=== PATIENT | male | born 1965 | race Asian ===

== ENCOUNTER 2022-10-31 06:17 | Inpatient (IN) | payer MEDICARE, OTHER ==
[~2022-10-31] VITALS: Ht 157.5 cm; Wt 64.9 kg
[2022-10-31] MEDS ORDERED: SODIUM CHLORIDE 0.9% 1,000 ML IV ONE (06:45)
[2022-10-31] MEDS ORDERED: ONDANSETRON HCL 4 MG/2 ML VIAL IV ONE (06:45)
[2022-10-31] MEDS ORDERED: MAALOX PLUS or MAALOX 30 ML PO ONE (06:45)
[2022-10-31 06:51] LABS: Basophils # (auto) 0 10 ^3/uL (0-0.2); Basophils % (auto) 0.2 % (0.0-2.0); Eosinophils # (auto) 0 10 ^3/uL (0-0.8); Hematocrit 52.1 % (41.0-53.0); Hemoglobin 17.4 g/dL (13.5-17.5); Lymphocytes # (auto) 1.9 10 ^3/uL (0.4-5.4); Lymphocytes % (auto) 12.3 % (10.0-50.0); Mean Corpuscular Hemoglobin 29.7 pg (28.0-32.0); Mean Corpuscular Hgb Conc. 33.4 g/dL (32.0-36.0); Mean Corpuscular Volume 88.8 fL (80.0-100.0); Monocytes # (auto) 0.3 10 ^3/uL (0-1.3); Monocytes % (auto) 1.9 % (0.0-12.0); Neutrophils # (auto) 13.1 10 ^3/uL (1.6-8.6); Neutrophils % (auto) 85.6 % (37.0-80.0); Nucleated Red Blood Cells % 0.1 %; Red Blood Cells 5.87 10^6/uL (4.5-5.90); Red Cell Distribution Width 13.6 % (11.8-14.3); White Blood Cell 15.3 10^3/uL (4.4-10.8)
[2022-10-31] MEDS ORDERED: LIDOCAINE VISCOUS 2% 15ML UD PO ONE (07:00)
[2022-10-31] MEDS ORDERED: FAMOTIDINE (10MG/ML) 2ML VL IV ONE (07:00)
[2022-10-31 07:07] LABS: Albumin 4.2 g/dL (3.4-5.0); Calcium 9.3 mg/dL (8.5-10.1); Magnesium 2.1 mg/dL (1.6-2.6); Potassium 4.3 mmol/L (3.5-5.1)
[2022-10-31 07:10] LABS: BUN/Creatinine Ratio 12.8; Total Protein 7.9 g/dL (6.4-8.2)
[2022-10-31] MEDS ORDERED: diphenhdrAMINE HCL 50 MG/1 ML VL IV ONE (07:15)
[2022-10-31] MEDS ORDERED: SOD CHL 0.9%/ KCL 20MEQ 1,000 ML IV ONE (08:00)
[2022-10-31] MEDS ORDERED: LACTATED RINGER'S 2,000 ML IV ONE (08:00)
[2022-10-31 08:16] LABS: INR 1.03 (0.9-1.15); Partial Thromboplastin Time 25.6 sec (24.6-33.4)
[2022-10-31 08:28] LABS: Urine Bacteria NONE SEEN /hpf (None Seen); Urine Blood Negative /uL (Negative); Urine Specific Gravity 1.023 (1.001-1.035); Urine WBC <1 /hpf (0 - 3)
[2022-10-31] MEDS ORDERED: cefTRIAXone 1GM/50ML D5W 50 ML IV ONE (08:30)
[2022-10-31] MEDS ORDERED: AZITHROMYCIN 500MG/ 250ML 250 ML IV ONE (08:30)
[2022-10-31] MEDS: ACCU-CHEK COMFORT CURVE STRIP VI SCH ×9 (09:00→21:05)
[2022-10-31] MEDS: InsuLIN R (HUMAN) 100 UNITS in SODIUM CHL 0.9% 99 ML IV SCH ×4 (10:19→18:23)
[2022-10-31] MEDS ORDERED: DOCUSATE SOD 100 MG CAP PO PRN (11:30)
[2022-10-31] MEDS ORDERED: MORPHINE SULFATE INJ 2 MG/ml SYRG IV PRN (11:30)
[2022-10-31] MEDS ORDERED: LORazepam 2MG/ML-1ML VIAL IV PRN (11:30)
[2022-10-31] MEDS: SODIUM CHLORIDE 0.9% 1,000 ML IV SCH ×2 (13:03→20:13)
[2022-10-31] MEDS: ONDANSETRON HCL 4 MG/2 ML VIAL IV PRN (21:02)
[2022-10-31 21:51] LABS: Albumin 2.9 g/dL (3.4-5.0); BUN/Creatinine Ratio 17.7; Potassium 3.9 mmol/L (3.5-5.1)
[2022-10-31 21:54] LABS: Bilirubin, Total 0.6 mg/dL (0.2-1.0); Total Protein 6.2 g/dL (6.4-8.2)
[2022-10-31] MEDS ORDERED: DEXTROSE (50%) 50ML SYRG IV PRN (22:30)
[2022-11-01 06:14] LABS: Basophils # (auto) 0 10 ^3/uL (0-0.2); Basophils % (auto) 0.2 % (0.0-2.0); Eosinophils # (auto) 0 10 ^3/uL (0-0.8); Hematocrit 41.6 % (41.0-53.0); Hemoglobin 13.7 g/dL (13.5-17.5); Lymphocytes # (auto) 2.6 10 ^3/uL (0.4-5.4); Lymphocytes % (auto) 14.5 % (10.0-50.0); Mean Corpuscular Hemoglobin 28.8 pg (28.0-32.0); Mean Corpuscular Volume 87.3 fL (80.0-100.0); Monocytes # (auto) 0.8 10 ^3/uL (0-1.3); Monocytes % (auto) 4.6 % (0.0-12.0); Neutrophils # (auto) 14.4 10 ^3/uL (1.6-8.6); Neutrophils % (auto) 80.7 % (37.0-80.0); Nucleated Red Blood Cells % 0.1 %; Red Blood Cells 4.76 10^6/uL (4.5-5.90); Red Cell Distribution Width 13.4 % (11.8-14.3); White Blood Cell 17.9 10^3/uL (4.4-10.8)
[2022-11-01 06:44] LABS: Potassium 3.6 mmol/L (3.5-5.1)
[2022-11-01] MEDS: SODIUM CHLORIDE 0.9% 1,000 ML IV SCH (06:44)
[2022-11-01 07:00] LABS: Albumin 2.7 g/dL (3.4-5.0); BUN/Creatinine Ratio 21.2; Bilirubin, Total 0.6 mg/dL (0.2-1.0); Calcium 7.7 mg/dL (8.5-10.1); Total Protein 5.7 g/dL (6.4-8.2)
[2022-11-01] MEDS ORDERED: InsuLIN REG 1unit/0.01ml Soln (100units/ml) SC SCH (07:00)
[2022-11-01] MEDS ORDERED: ACCU-CHEK COMFORT CURVE STRIP VI SCH (07:00)
[2022-11-01] MEDS: PANTOPRAZOLE 40 MG/10 ML VIAL INJ IV SCH (09:15)
[2022-11-01] MEDS: cefTRIAXone 1GM/50ML D5W 50 ML IV SCH (09:15)
[2022-11-01] MEDS: ONDANSETRON HCL 4 MG/2 ML VIAL IV PRN (09:15)
[2022-11-01 09:29] VITALS: BP 123/82
[2022-11-01] MEDS ORDERED: AZITHROMYCIN 500MG/ 250ML 250 ML IV SCH (10:00)
[2022-11-01] MEDS ORDERED: ENOXAPARIN SOD 40 MG/0.4 ML SYRINGE SC SCH (10:00)
[2022-11-01] MEDS ORDERED: traMADol HCL 50 MG TAB PO PRN (10:45)
[2022-11-01] MEDS ORDERED: SODIUM CHLORIDE 0.9% 1,000 ML IV SCH (10:45)
[2022-11-01] MEDS ORDERED: DEXTROSE (50%) 50ML SYRG IV PRN (10:45)
[2022-11-01] MEDS ORDERED: INSULIN LANTUS (GLARGINE) 1 /0.01ml (100units/ml) SC ONE (10:45)
[2022-11-01] MEDS: InsuLIN REG 1unit/0.01ml Soln (100units/ml) SC SCH ×2 (11:53→17:30)
[2022-11-01] MEDS: ACCU-CHEK COMFORT CURVE STRIP VI SCH ×2 (11:57→17:31)
[2022-11-01 13:00] VITALS: BP 114/70
[2022-11-01] MEDS: metroNIDAZOLE 500MG/100ML 100 ML IV SCH ×2 (13:32→22:41)
[2022-11-01 17:00] VITALS: BP 132/78
[2022-11-01] MEDS: SOD CHL 0.45% 1,000 ML IV SCH (21:15)
[2022-11-01 22:00] VITALS: BP 126/70
[2022-11-01] MEDS: APIXABAN 5 MG TAB PO SCH (22:45)
[2022-11-01] MEDS: INSULIN LANTUS (GLARGINE) 1 /0.01ml (100units/ml) SC SCH (22:45)
[2022-11-02] MEDS ORDERED: ENOXAPARIN SOD 40 MG/0.4 ML SYRINGE SC ONE
[2022-11-02] MEDS: ACCU-CHEK COMFORT CURVE STRIP VI SCH ×4 (00:19→17:32)
[2022-11-02 05:00] VITALS: BP 135/67
[2022-11-02] MEDS: InsuLIN REG 1unit/0.01ml Soln (100units/ml) SC SCH ×4 (06:00→17:37)
[2022-11-02 06:11] LABS: Basophils # (auto) 0 10 ^3/uL (0-0.2); Basophils % (auto) 0.3 % (0.0-2.0); Eosinophils # (auto) 0 10 ^3/uL (0-0.8); Eosinophils % (auto) 0.3 % (0.0-7.0); Hematocrit 43.9 % (41.0-53.0); Hemoglobin 14.5 g/dL (13.5-17.5); Lymphocytes # (auto) 3.1 10 ^3/uL (0.4-5.4); Lymphocytes % (auto) 21.8 % (10.0-50.0); Mean Corpuscular Hemoglobin 28.9 pg (28.0-32.0); Mean Corpuscular Volume 87.5 fL (80.0-100.0); Monocytes # (auto) 0.8 10 ^3/uL (0-1.3); Monocytes % (auto) 5.5 % (0.0-12.0); Neutrophils # (auto) 10.1 10 ^3/uL (1.6-8.6); Neutrophils % (auto) 72.1 % (37.0-80.0); Nucleated Red Blood Cells % 0.1 %; Red Blood Cells 5.01 10^6/uL (4.5-5.90); Red Cell Distribution Width 13.7 % (11.8-14.3); White Blood Cell 14.1 10^3/uL (4.4-10.8)
[2022-11-02] MEDS: metroNIDAZOLE 500MG/100ML 100 ML IV SCH ×3 (06:14→21:38)
[2022-11-02 06:34] LABS: Potassium 3.1 mmol/L (3.5-5.1)
[2022-11-02 06:40] LABS: BUN/Creatinine Ratio 15.7; Calcium 7.6 mg/dL (8.5-10.1)
[2022-11-02 08:30] VITALS: BP 128/91
[2022-11-02] MEDS: cefTRIAXone 1GM/50ML D5W 50 ML IV SCH (08:49)
[2022-11-02] MEDS: PANTOPRAZOLE 40 MG/10 ML VIAL INJ IV SCH (08:50)
[2022-11-02] MEDS ORDERED: METF-370 PO (08:59)
[2022-11-02] MEDS ORDERED: ATOR40TA52 PO (09:00)
[2022-11-02] MEDS ORDERED: AMLO-489 PO (09:00)
[2022-11-02] MEDS ORDERED: EMPA1TAB PO (09:02)
[2022-11-02] MEDS: APIXABAN 5 MG TAB PO SCH ×2 (10:12→21:39)
[2022-11-02] MEDS: amLODIPine BESYLATE 5 MG TAB PO SCH (10:12)
[2022-11-02 12:47] VITALS: BP 151/94
[2022-11-02] MEDS: SOD CHL 0.45% 1,000 ML IV SCH ×2 (13:40→18:26)
[2022-11-02 17:00] VITALS: BP 138/84
[2022-11-02] MEDS ORDERED: LORazepam 2MG/ML-1ML VIAL IV PRN (20:00)
[2022-11-02] MEDS ORDERED: ENOXAPARIN SOD 40 MG/0.4 ML SYRINGE SC SCH (21:00)
[2022-11-02 21:01] LABS: Cholesterol 206 mg/dL (< 200); HDL Cholesterol 48 mg/dL (40-59); LDL Cholesterol 140 mg/dL (< 100); Triglycerides 87 mg/dL (< 150)
[2022-11-02] MEDS: ATORVASTATIN 20 MG TAB PO SCH (21:38)
[2022-11-02] MEDS: INSULIN LANTUS (GLARGINE) 1 /0.01ml (100units/ml) SC SCH (21:52)
[2022-11-02 22:00] VITALS: BP 136/86
[2022-11-03] VITALS (7 sets, daily range): BP systolic 127–143; BP diastolic 81–95
[2022-11-03] MEDS: ACCU-CHEK COMFORT CURVE STRIP VI SCH ×5 (00:11→23:58)
[2022-11-03] MEDS: metroNIDAZOLE 500MG/100ML 100 ML IV SCH ×3 (06:08→21:31)
[2022-11-03] MEDS: InsuLIN REG 1unit/0.01ml Soln (100units/ml) SC SCH ×4 (06:15→17:42)
[2022-11-03 07:08] LABS: Basophils # (auto) 0 10 ^3/uL (0-0.2); Basophils % (auto) 0.4 % (0.0-2.0); Eosinophils # (auto) 0.1 10 ^3/uL (0-0.8); Eosinophils % (auto) 1.1 % (0.0-7.0); Hematocrit 45.1 % (41.0-53.0); Hemoglobin 15.3 g/dL (13.5-17.5); Lymphocytes # (auto) 2.5 10 ^3/uL (0.4-5.4); Lymphocytes % (auto) 23.9 % (10.0-50.0); Mean Corpuscular Hemoglobin 29.5 pg (28.0-32.0); Mean Corpuscular Volume 86.9 fL (80.0-100.0); Monocytes # (auto) 0.6 10 ^3/uL (0-1.3); Monocytes % (auto) 6.1 % (0.0-12.0); Neutrophils % (auto) 68.5 % (37.0-80.0); Nucleated Red Blood Cells % 0.1 %; Red Blood Cells 5.18 10^6/uL (4.5-5.90); Red Cell Distribution Width 13.6 % (11.8-14.3); White Blood Cell 10.3 10^3/uL (4.4-10.8)
[2022-11-03 07:19] LABS: Calcium 7.9 mg/dL (8.5-10.1); Potassium 3.1 mmol/L (3.5-5.1)
[2022-11-03 07:21] LABS: BUN/Creatinine Ratio 15.9
[2022-11-03] MEDS: cefTRIAXone 1GM/50ML D5W 50 ML IV SCH (09:24)
[2022-11-03] MEDS: PANTOPRAZOLE 40 MG/10 ML VIAL INJ IV SCH (09:30)
[2022-11-03] MEDS: APIXABAN 5 MG TAB PO SCH ×2 (09:31→21:30)
[2022-11-03] MEDS: amLODIPine BESYLATE 5 MG TAB PO SCH (09:34)
[2022-11-03] MEDS ORDERED: POTASSIUM EFFERVESENT TAB 25 MEQ GT ONE (10:00)
[2022-11-03] MEDS: ATORVASTATIN 20 MG TAB PO SCH (21:30)
[2022-11-03] MEDS: INSULIN LANTUS (GLARGINE) 1 /0.01ml (100units/ml) SC SCH (21:47)
[2022-11-03] MEDS: SOD CHL 0.45% 1,000 ML IV SCH (23:00)
[2022-11-04] MEDS: InsuLIN REG 1unit/0.01ml Soln (100units/ml) SC SCH ×3 (00:10→11:55)
[2022-11-04 05:00] VITALS: BP 141/84
[2022-11-04] MEDS: metroNIDAZOLE 500MG/100ML 100 ML IV SCH ×2 (05:42→14:35)
[2022-11-04] MEDS: ACCU-CHEK COMFORT CURVE STRIP VI SCH ×2 (05:45→11:54)
[2022-11-04 06:27] LABS: Basophils # (auto) 0 10 ^3/uL (0-0.2); Basophils % (auto) 0.5 % (0.0-2.0); Eosinophils # (auto) 0.2 10 ^3/uL (0-0.8); Eosinophils % (auto) 2.6 % (0.0-7.0); Hematocrit 42.9 % (41.0-53.0); Hemoglobin 14.4 g/dL (13.5-17.5); Lymphocytes # (auto) 2.3 10 ^3/uL (0.4-5.4); Lymphocytes % (auto) 29.4 % (10.0-50.0); Mean Corpuscular Hemoglobin 29.5 pg (28.0-32.0); Mean Corpuscular Hgb Conc. 33.5 g/dL (32.0-36.0); Monocytes # (auto) 0.6 10 ^3/uL (0-1.3); Monocytes % (auto) 7.3 % (0.0-12.0); Neutrophils # (auto) 4.7 10 ^3/uL (1.6-8.6); Neutrophils % (auto) 60.2 % (37.0-80.0); Nucleated Red Blood Cells % 0.1 %; Red Blood Cells 4.88 10^6/uL (4.5-5.90); Red Cell Distribution Width 13.4 % (11.8-14.3); White Blood Cell 7.8 10^3/uL (4.4-10.8)
[2022-11-04 06:40] LABS: Calcium 8.1 mg/dL (8.5-10.1); Potassium 3.3 mmol/L (3.5-5.1)
[2022-11-04 06:42] LABS: BUN/Creatinine Ratio 17.9
[2022-11-04 08:00] VITALS: BP 132/74
[2022-11-04 08:10] VITALS: BP 132/78
[2022-11-04] MEDS ORDERED: PANT40TA2 PO (09:11)
[2022-11-04] MEDS ORDERED: APIX5TAB PO (09:11)
[2022-11-04] MEDS: cefTRIAXone 1GM/50ML D5W 50 ML IV SCH (09:13)
[2022-11-04] MEDS ORDERED: POTASSIUM CHL 20 Meq TABLET PO ONE (09:15)
[2022-11-04] MEDS: amLODIPine BESYLATE 5 MG TAB PO SCH (10:02)
[2022-11-04] MEDS: APIXABAN 5 MG TAB PO SCH (10:02)
[2022-11-04] MEDS: PANTOPRAZOLE 40 MG/10 ML VIAL INJ IV SCH (10:02)
[2022-11-04 12:00] VITALS: BP 135/85
[2022-11-04 12:32] VITALS: BP 135/85
== END 2022-11-04 15:40 | disposition home or self-care (01) | DRG 391 ==
LOC: EDBD 06:17 → ER 06:17 → TELE 11:49 → TELE-CENTR 11-01 08:44
PROVIDERS: ADMIT Nurse Practitioner Family; ATTEND Internal Medicine
PROC: 5A09357 Assistance with Respiratory Ventilation, Less than 24 Consecutive Hours, Continuous Positive Airway Pressure (ICD-10-PCS; principal; 2022-11-02)
DX: A05.9 Bacterial foodborne intoxication, unspecified (principal); E11.10 Type 2 diabetes mellitus with ketoacidosis without coma; J15.9 Unspecified bacterial pneumonia; N17.0 Acute kidney failure with tubular necrosis; I63.9 Cerebral infarction, unspecified; D68.69 Other thrombophilia; R65.10 Systemic inflammatory response syndrome (SIRS) of non-infectious origin without acute organ dysfunction; E86.0 Dehydration; I10 Essential (primary) hypertension; G47.10 Hypersomnia, unspecified; I48.91 Unspecified atrial fibrillation; Z20.822 Contact with and (suspected) exposure to COVID-19; E78.5 Hyperlipidemia, unspecified; G47.00 Insomnia, unspecified; K80.20 Calculus of gallbladder without cholecystitis without obstruction; Z79.01 Long term (current) use of anticoagulants; Z79.899 Other long term (current) drug therapy; Z86.73 Personal history of transient ischemic attack (TIA), and cerebral infarction without residual deficits; Z82.49 Family history of ischemic heart disease and other diseases of the circulatory system; Z83.3 Family history of diabetes mellitus
CPT/HCPCS: 36415; 36600; 70450; 70551; 71045; 74176; 80048; 80053; 80061; 81001; 82010; 82805; 82962; 83036; 83690; 83735; 83880; 83930; 84443; 84484; 85025; 85379; 85610; 85730; 87426; 92610; 93005; 93306; 93886; 94660; 96361; 96365; 96375; 99291; C9113; G0378; J0696; J1815; J2405; J3490

== ENCOUNTER 2025-08-10 15:59 | Inpatient (IN) | payer MEDICARE, MEDICAID ==
[~2025-08-10] VITALS: Ht 157.5 cm; Wt 61.1 kg
[~2025-08-10 15:59] MED LIST: AMLO1TAB22 PO; APIX5TAB PO; ATOR40TA52 PO; EMPA1TAB PO; METF-370 PO; PANT40TA2 PO
--- NOTE | 2025-08-10 16:36 | ED.PDOC ---
History of Present Illness HPI Comments 59-year-old male presents to the ER in a wheelchair being pushed by family member and with prior medical history of CVA in the chief complaint of left sided weakness. Family member reports that the patient fell on his left shoulder four days ago home, and started having other symptoms such as slurred speech, left-sided weakness and a facial droop amongst those four days. Patient does have an unequal boarder hand to the left side of his hands. Denies any other symptoms at this time. Denies chills, fever, N/V/D, SOB, CP. No other associated symptoms, modifiers, recent injuries or sick contacts present at this time. Chief Complaint: Left Sided Weakness Time Seen by MD: 16:35 Reviewed Notes: Nurses Notes, Medications, Allergies Allergies: Coded Allergies: NO KNOWN ALLERGIES (Unverified , 10/31/22) Home Meds Active Scripts Pantoprazole Sodium Sesquihydr (Protonix) 40 Mg Tab, 40 MG PO DAILY for 30 Days, #30 TAB Prov:NANCY GIRON MD 11/04/22 Apixaban Base (ELIQUIS) 5 Mg Tab, 5 MG PO BID for 30 Days, #60 TAB 2 Refills Prov:NANCY GIRON MD 11/04/22 Reported Medications Empagliflozin (Jardiance) 10 Mg Tab, PO, TAB 11/02/22 Amlodipine Besylate (Amlodipine Besylate) 5 Mg Tab, 5 MG PO DAILY for 30 Days, MG 11/02/22 Atorvastatin Calcium (ATORVASTATIN CALCIUM) 40 Mg Tab, 1 TAB PO DAILY, #30 TAB 5 Refills 11/02/22 Metformin Hydrochloride (Metformin Hcl) 500 Mg Tab, 500 MG PO DAILY for 30 Days, #2 MG 11/02/22 Information Source: Patient Mode of Arrival: Ambulatory Severity: Moderate Timing: Days Duration: Since onset, Days Prehospital treatment: None Past Medical History PAST MEDICAL HISTORY: CVA Surgical History: Denies all surgeries Family History Family History: Reviewed,noncontributory to illness, Unknown Social History Smoker: Non-Smoker Alcohol: Denies ETOH Use Drugs: Denies Drug Use Lives In: Home Constitutional: denies: chills, diaphoresis, fatigue, fever, malaise, sweats, weakness, others EENTM: denies: blurred vision, double vision, ear bleeding, ear discharge, ear drainage, ear pain, ear ringing, eye pain, eye redness, hearing loss, mouth pain, mouth swelling, nasal discharge, nose bleeding, nose congestion, nose p ain, photophobia, tearing, throat pain, throat swelling, voice changes, others Respiratory: denies: cough, hemoptysis, orthopnea, SOB at rest, shortness of breath, SOB with excertion, stridor, wheezing, others Cardiovascular: denies: chest pain, dizzy spells, diaphoresis, Dyspnea on exertion, edema, irregular heart beat, left arm pain, lightheadedness, palpitations, PND, syncope, others Gastrointestinal: denies: abdomen distended, abdominal pain, blood streaked bowels, constipated, diarrhea, dysphagia, difficulty swallowing, hematemesis, melena, nausea, poor appetite, poor fluid intake, rectal bleeding, rectal pain, vomiting, others Genitourinary: denies: burning, dysuria, flank pain, frequency, hematuria, incontinence, penile discharge, penile sore, pain, testicle pain, testicle swelling, urgency, others Neurological: reports: left sided weakness, speech problems (Left sided facial droopiness); denies: dizziness, fainting, headache, left sided numbness, numbness, paresthesia, pre-existing deficit, right sided numbness, right sided weakness, seizure, tingling, tremors, weakness, others Musculoskeletal: denies: back pain, gout, joint pain, joint swelling, muscle pain, muscle stiffness, neck pain, others Integumetry: denies: bruises, change in color, change in hair/nails, dryness, laceration, lesions, lumps, rash, wounds, others Allergic/Immunocompromised: denies: Difficulty Healing, Frequent Infections, Hives, Itching, others Hematologic/Lymphatic: denies: anemia, blood clots, easy bleeding, easy bruising, swollen glands, others Endocrine: denies: excessive hunger, excessive sweating, excessive thirst, excessive urination, flushing, intolerance to cold, intolerance to heat, unexplained weight gain, unexplained weight loss, others Psychiatric: denies: anxiety, bipolar disorder, depression, hopeless, panic disorder, schizophrenia, sleepless, suicidal, others All Other Systems: Reviewed and Negative Physical Exam Exam Comments Equal boarder hand to the left side, left sided facial droopiness General Appearance: No Apparent Distress, Normal HEENT: Normal ENT Inspection, Pharynx Normal, TMs Normal Neck: Full Range of Motion, Non-Tender, Normal, Normal Inspection Respiratory: Chest Non-Tender, Lungs Clear, No Accessory Muscle Use, No Respiratory Distress, Normal Breath Sounds Cardiovascular: No Edema, No JVD, No Murmur, No Gallop, Normal Peripheral Pulses, Regular Rate/Rhythm Breast Exam: Deferred Gastrointestinal: No Organomegaly, Non Tender, No Pulsatile Mass, Normal Bowel Sounds, Soft Genitalia: Deferred Pelvic: Deferred Rectal: Deferred Extremities: No calf tenderness, Normal capillary refill, Normal inspection, Normal range of motion, Non-tender, No pedal edema Musculoskeletal : Apperance: Normal Neurologic: Alert, adult care manager II-XII nml as Tested, No Motor Deficits, Normal Affect, Normal Mood, No Sensory Deficits Cerebellar Function: Normal Reflexes: Normal Skin: Dry, Normal Color, Warm Lymphatic: No Adenopathy Was a procedure done? Was a procedure done?: No EKG EKG : Pulse Rate (adult): 88 [place]: Normal Cardiac Rhythm: NSR Block: None Hypertrophy: None ST: Normal Differential Dx Considerations may include: CVA, TIA, closed head injury, postconcussion syndrome, shoulder fracture, X-Ray, Labs, Meds, VS Vital Signs Date Time Temp Pulse Resp B/P (MAP) Pulse Ox O2 Delivery O2 Flow Rate FiO2 08/10/25 16:36 88 08/10/25 16:02 97.9 85 18 176/84 95 97.9 X-Ray, Labs, Meds, VS Comment CT of the head was negative for any acute intracranial changes Patient may benefit from MRI to rule out TIA Patient will be admitted for further evaluation by neurologist due to left-sided deficits and slurred speech Patient hemodynamically stable Time of 1ST Reevaluation: 17:05 Reevaluation 1ST: Unchanged Patient Education/Counseling: Diagnosis, Treatment, Prognosis Family Education/Counseling: Diagnosis, Treatment, Prognosis SEPSIS Sepsis Screen Date sepsis recognized/suspect: Aug 10, 2025 Time Sepsis recognized/suspect: 1604 Recent Procedure: No On Antibiotic Therapy: No Respiratory Rate >20: No Heart Rate >90: No Temp<36 C (96.8 F) or >38.3 C: No SBP <90 or MAP <65 mmHG: No New Acute Mental Status Change: No Is the patient on CPAP, BIPAP,: No Physician Orders Ct Head Cva (08/10/25 16:07) L Shoulder 2+ View Xray (08/10/25 17:57) Vital Signs Date Time Temp Pulse Resp B/P (MAP) Pulse Ox O2 Delivery O2 Flow Rate FiO2 08/10/25 16:36 88 08/10/25 16:02 97.9 85 18 176/84 95 97.9 Departure 1 Departure Time of Disposition: 17:58 Impression: Primary Impression: Head injury Qualified Codes: S09.90XA - Unspecified injury of head, initial encounter Additional Impressions: History of CVA (cerebrovascular accident) Left-sided weakness Disposition: ADMITTED INPATIENT Condition: Stable Discharged With: Self Critical Care Note Critical Care Time?: No Stability Stability form required: No I personally scribed for MICHELLE BARRIGA ([email or web address]) on 08/10/25 at 16:36. Electronically submitted by Darrian Riddle ([email or web address]). MICHELLE BARRIGA Aug 10, 2025 16:36
--- NOTE | 2025-08-10 16:51 | DVH ---
CT STROKE CTH Indication: R/O CVA EXAM DATE: 08/10/2025 04:17 PM COMPARISON: HEAD WITHOUT CONTRAST on DOS: 11/01/22 TECHNIQUE: CT of the head without intravenous contrast. RADIATION DOSE: CTDIvol: 50 mGy, DLP: 800 mGy*cm FINDINGS: There is no intracranial hemorrhage. There is no extra-axial fluid, mass, mass effect or midline shift. The ventricles are midline and normal in size. Basilar cisterns are patent. Old right basal ganglia / grey radiata infarct, similar to prior. Old left thalamic The paranasal sinuses and mastoids are well-pneumatized. Imaged portion of the orbits are unremarkable. IMPRESSION: No intracranial hemorrhage or mass effect. Old bilateral infarcts as described. MRI brain can be obtained to evaluate for superimposed acute infarction. Critical Result: Stroke Alert Findings discussed with Faraz Herrera , at 08/10/2025 04:52 PM, and acknowledged receipt and understanding of the findings. ..
--- NOTE | 2025-08-10 18:55 | DVH ---
CLINICAL INDICATION: pain TECHNIQUE: 3 radiographic views of the left shoulder were obtained. Comparison: None FINDINGS/IMPRESSION: There is no evidence of acute fracture or dislocation of the left glenohumeral joint. There is grade 3 AC joint dislocation by Zackary classification of unknown chronicity. There are bony spurs from the inferior distal clavicle , over the acromion and coracoid process. The visualized lungs are clear.
[2025-08-10] MEDS: CLOPIDOGREL BISULFATE 75 MG TAB PO ONE (20:45)
[2025-08-10] MEDS ORDERED: IPRATROPIUM BROM 0.5 MG/2.5ML INH SOL NEB PRN (20:45)
--- NOTE | 2025-08-10 21:06 | DVHHPRES ---
History of Present Illness Resident Creating Document: ALBERT BASHIR History of Present Illness Patient is a 59-year-old male with past medical history of CVA on Eliquis, GERD, kidney stones, diabetes mellitus, hypertension and hyperlipidemia, presented to [facility] ED with complaint of left-sided weakness. According to the patient and his daughter, he fell from a ladder at home from standing height four days ago, striking his left shoulder during the fall. There was no head trauma reported. Following the incident, he developed progressive symptoms, including left-sided weakness, facial droop, slurred speech, and loss of taste on the left side of the tongue. On evaluation in the ED, patient is afebrile, blood pressure is 169/[address] shows no intracranial hemorrhage or mass effect and old bilateral infarcts as described. The patient was started on dual antiplatelet therapy and IV fluids. Patient is admitted for further evaluation and management. Past Medical History CVA, GERD, kidney stones, diabetes mellitus, hypertension, hyperlipidemia Past Surgical History: None Family History: None Smoke: No ALCOHOL: none Drugs: None Review of Systems Review of Systems Constitutional: Dizziness Eyes: No Pain, No Vision change, No Conjunctivae inflammation, No Eyelid inflammation, No Other, No Redness ENT: No Ear pain, No Ear discharge, No Nose pain, No Nose discharge, No Nose congestion, No Mouth pain, No Mouth swelling, No Throat pain, No Throat swelling, No Other Cardiovascular: No Chest Pain, No Palpitations, No Orthopnea, No Paroxysmal No Dyspnea, No Edema, No Lt Headedness, No Other Respiratory: Cough, No Dry, No Shortness of breath, No SOB with exertion, No Wheezing, No Hemoptysis, No Pleuritic Pain, No Sputum, No Other Gastrointestinal: No Nausea, No Vomiting, No Abdominal Pain, No Diarrhea, No Constipation, No Melena, No Hematochezia, No Other Genitourinary: No Dysuria, No Frequency, No Incontinence, No Hematuria, No Retention, No Other Musculoskeletal: No other, No neck pain, shoulder pain, No arm pain, No back pain, No hand pain, No leg pain, No foot pain Skin: No Rash, No Lesions, No Jaundice, No Bruising, No Other Allergies: Coded Allergies: NO KNOWN ALLERGIES (Unverified , 10/31/22) Exam Vital Signs Vital Signs Date Time Temp Pulse Resp B/P (MAP) Pulse Ox O2 Delivery O2 Flow Rate FiO2 08/10/25 19:44 98.2 80 20 169/97 (121) 97 98.2 Exam General Appearance: Cooperative. Well developed. Well nourished. NAD Head Exam: Normal inspection Neck Exam: Normal inspection. Non-tender. Normal alignment Pulmonary/Respiratory: Chest non-tender. Clear bilateral breath sounds, no crackles, no wheezing. Cardiovascular/Chest: Regular rate and rhythm. No murmurs. No JVD. Peripheral Pulses: 2+ Radial (R). 2+ Radial (L). 2+ Pedal (R). 2+ Pedal (L) Abdominal Exam: Normal bowel sounds. Soft. normal abdomen, no visible veins, Nontender. No hepatospenomegaly. No masses Ankle Exam: Negative ankle edema Upper extremities: No edema or deformity, Left shoulder tenderness. Left arm motor strength 3/5, Left leg motor strength 1/5, sensory intact. Lower extremities: Negative lower extremity edema Neuro/Mental Status: Facial droop present. Slurred speech. A&O x4. Coherent. Thoughts/Psych: Normal thought pattern. Appropriate mood and affect. Good judgement and insight Skin Exam: Normal inspection. Normal color. Warm. Dry Hand Findings: Left thumb and index finger contracted, consistent with spasticity or prior stroke sequelae. SEPSIS Sepsis Screen Date sepsis recognized/suspect: Aug 10, 2025 Time Sepsis recognized/suspect: 1604 Recent Procedure: No On Antibiotic Therapy: No Respiratory Rate >20: No Heart Rate >90: No Temp<36 C (96.8 F) or >38.3 C: No SBP <90 or MAP <65 mmHG: No New Acute Mental Status Change: No Is the patient on CPAP, BIPAP,: No Physician Orders Ct Head Cva (08/10/25 16:07) L Shoulder 2+ View Xray (08/10/25 17:57) Admit (08/10/25 20:40) Allergies (08/10/25 20:40) Code Status (08/10/25 20:40) Complete Blood Count (08/11/25 04:00) Comprehensive Metabolic Panel (08/11/25 04:00) Cardiac Diet-2gna,Lofat,Lochol (08/11/25 Breakfast) Echo 2d Mode Cardiac Dop (08/10/25 20:40) Carotid Duplx W Color Dop (08/10/25 20:40) Condition: Fair (08/10/25 20:40) Acetaminophen Tablet (Tylenol Tablet) (08/10/25 20:45) Stat Ekg For Chest Pain (08/10/25 20:40) Notify Of Changes From Base (08/10/25 20:40) Tank Truck Loader For 24 Hours (08/10/25 20:40) Emergency Dysrhythmia Protocol (08/10/25 20:40) Rhythm Strips Once Every Shift (08/10/25 20:40) Aspirin Tablet (08/11/25 10:00) Clopidogrel Bisulfate (Plavix) (08/11/25 10:00) Clopidogrel Bisulfate (Plavix) (08/10/25 20:45) Amlodipine Tablet (Norvasc Tablet) (08/10/25 20:45) Amlodipine Tablet (Norvasc Tablet) (08/11/25 10:00) Brain Head Wo Contrast (08/10/25 20:40) Rapid Influenza A&B (08/10/25 20:40) Covid19 Antigen Lissette (08/10/25 ) Albuterol Medneb (Ventolin Medneb) (08/10/25 20:45) Ipratropium Medneb (Atrovent Medneb) (08/10/25 20:45) Urinalysis (08/10/25 20:40) Drug Screen (08/10/25 20:40) Respiratory Culture W/ Gs (08/10/25 20:40) Atorvastatin (Lipitor) (08/10/25 20:45) Atorvastatin (Lipitor) (08/10/25 22:00) Enoxaparin Sodium (Lovenox) (08/10/25 22:00) Chest Portable (08/10/25 20:40) Pt Request For Service (08/10/25 20:40) Vital Signs Date Time Temp Pulse Resp B/P (MAP) Pulse Ox O2 Delivery O2 Flow Rate FiO2 08/10/25 19:44 98.2 80 20 169/97 (121) 97 98.2 08/10/25 16:36 88 08/10/25 16:02 97.9 85 18 176/84 95 97.9 Assessment/Plan Assessment/Plan Transient ischemic attack Old bilateral infarcts Rule out subacute stroke Brain MRI ordered Head CT: No intracranial hemorrhage or mass effect. Old right basal ganglia / grey radiata infarct, similar to prior. Old left thalamic. Carotid Doppler Study: Mild atherosclerotic vascular disease with no hemody namically significant stenosis. Any narrowing is less than 50%. Chest X-Ray: No acute cardiopulmonary process. Echocardiogram ordered ABCD score: 6 (high risk) Aspirin 81 MG PO daily Plavix 75 MG PO dilay Lovenox 60 MG SC q12h Albuterol 0.5 MG NEB q6h prn Ipratropium 0.5 MG NEB 16h prn sputum culture UA and UDS Left grade 3 AC joint dislocation Shoulder X-Ray: There is no evidence of acute fracture or dislocation of the left glenohumeral joint. There is grade 3 AC joint dislocation by Wilburton classification of unknown chronicity. There are bony spurs from the inferior distal clavicle , over the acromion and coracoid process. The visualized lungs are clear. pain management with Tylenol Type 2 diabetes mellitus with hyperglycemia, uncontrolled Serum glucose 195 Moderate sliding scale Hypertension Hydralazine 10 MG IV q6h Amlodipine 5 MG PO daily Hyperlipidemia Atorvastatin 40 MG PO hs Diet: Cardiac DVT prophylaxis: Lovenox 60 MG SC q12h Goals of care: Full code, discussed for >30 minutes on 08/10/25 Plan discussed with patient Plan discussed with Dr. Le Plan discussed with: Patient, Daughter My Orders Orders - ALBERT BASHIR RESIDENT Procedure Category Date Status Time Admit ADMIT 08/10/25 Transmitted 20:40 Allergies [facility] 08/10/25 Transmitted 20:40 Code Status CODE 08/10/25 Transmitted 20:40 Complete Blood Count LAB 08/11/25 Verified 04:00 Comprehensive LAB 08/11/25 Verified Metabolic Panel 04:00 Cardiac DIET 08/11/25 Transmitted Diet-2gna,Lofat,Lochol Breakfast Echo 2d Mode Cardiac US 08/10/25 Transmitted DOP 20:40 Carotid Duplx W Color US 08/10/25 Transmitted DOP 20:40 Condition: Fair [facility] 08/10/25 Transmitted 20:40 Acetaminophen Tablet PHA 08/10/25 Transmitted (Tylenol Tablet) 20:45 Stat Ekg For Chest [facility] 08/10/25 Transmitted Pain 20:40 Notify Of Changes [facility] 08/10/25 Transmitted From Base 20:40 Tank Truck Loader For [facility] 08/10/25 Transmitted 24 Hours 20:40 Emergency Dysrhythmia [facility] 08/10/25 Transmitted Protocol 20:40 Rhythm Strips Once [facility] 08/10/25 Transmitted Every Shift 20:[address] [facility] 08/11/25 Transmitted 10:00 Clopidogrel Bisulfate PHA 08/11/25 Transmitted (Plavix) 10:00 Clopidogrel Bisulfate PHA 08/10/25 Transmitted (Plavix) 20:45 Amlodipine Tablet PHA 08/10/25 Transmitted (Norvasc Tablet) 20:45 Amlodipine Tablet PHA 08/11/25 Transmitted (Norvasc Tablet) 10:00 Brain Head Wo Contrast MRI 08/10/25 Transmitted 20:40 Rapid Influenza A&B LAB 08/10/25 Transmitted 20:40 Covid19 Antigen Lissette LAB 08/10/25 Transmitted Albuterol Medneb PHA 08/10/25 Transmitted (Ventolin Medneb) 20:45 Ipratropium Medneb PHA 08/10/25 Transmitted (Atrovent Medneb) 20:45 Urinalysis LAB 08/10/25 Transmitted 20:40 Drug Screen LAB 08/10/25 Transmitted 20:40 Respiratory Culture STEPHANIE 08/10/25 Transmitted W/ Gs 20:40 Atorvastatin (Lipitor) PHA 08/10/25 Transmitted 20:45 Atorvastatin (Lipitor) PHA 08/10/25 Transmitted 22:00 Enoxaparin Sodium PHA 08/10/25 Transmitted (Lovenox) 22:00 Chest Portable XY 08/10/25 Transmitted 20:40 Pt Request For Service PT 08/10/25 Transmitted 20:40 Date of Service: Aug 10, 2025 Billing Provider: GRACE LE MD Common Visit Codes: 34363-[id number] INP/OBS CARE (HIGH) Secondary Visit Codes: 10401-[id number] CARE PLAN 30 MINUTES ALBERT BASHIR RESIDENT Aug 10, 2025 21:06
--- NOTE | 2025-08-10 21:50 | DVH ---
ULTRASOUND CAROTID DUPLEX BILATERAL REASON FOR EXAM: Dizziness COMPARISON: CT STROKE CTH on DOS: 08/10/25, BRAIN HEAD WO CONTRAST on DOS: 11/03/22, CAROTID DUPLX W COLOR DOP on DOS: 11/02/22 TECHNIQUE: Using real-time freeze-frame technique with a high-frequency small parts transducer, multiple longitudinal and transverse sections were obtained. Simultaneous color flow Doppler imaging was performed. FINDINGS: There is mild calcified plaque at the proximal right internal carotid artery. Waveforms are normal. Flow is laminar throughout. Peak systolic velocities as well as ICA/CCA ratios are normal. Flow through the vertebral and external carotid arteries is antegrade bilaterally. PEAK SYSTOLIC VELOCITIES (cm/sec): RIGHT: CCA 52 Proximal ICA 78 Mid ICA 51 Distal ICA 56 ECA 78 ICA/CCA ratio 1.5 LEFT: CCA 63 Proximal ICA 56 Mid ICA 63 Distal ICA 58 ECA 54 ICA/CCA ratio 1.0 IMPRESSION: Mild atherosclerotic vascular disease with no hemodynamically significant stenosis. Any narrowing is less than 50%. Measurement of carotid stenosis is based on velocity parameters that correlate the residual internal carotid diameter with that of the more distal vessel in accordance with the [place] Symptomatic Carotid Endarterectomy Trial (NASCET).
[2025-08-10 22:17] VITALS: PULSE 65; RESP 16; O2SAT 97
[2025-08-10] MEDS: ALBUTEROL SULF 2.5 MG/0.5ML(0.5%) NEB SOLN NEB PRN (22:17)
--- NOTE | 2025-08-10 22:31 | DVH ---
CLINICAL HISTORY: chest pain TECHNIQUE: Single view of the chest was obtained. COMPARISON: CXRP on DOS: 10/31/22, CHEST PORTABLE on DOS: 10/31/22 FINDINGS: The heart size and pulmonary vasculature are normal. The lungs are clear. IMPRESSION: NO ACUTE CARDIOPULMONARY PROCESS.
[2025-08-10 22:52] LABS: Hematocrit 45.5 % (41.0-53.0); Hemoglobin 15.2 g/dL (13.5-17.5); Mean Corpuscular Hemoglobin 29.6 pg (28.0-32.0); Mean Corpuscular Volume 88.3 fL (80.0-100.0); Nucleated Red Blood Cells % 0.2 %
[2025-08-10 22:54] VITALS: BP 195/118; PULSE 65; RESP 18; TEMP 97.8; O2SAT 95
[2025-08-10] MEDS: hydrALAZINE HCL 20 MG/ML VL IV ONE (23:40)
[2025-08-10 23:41] LABS: Alanine Aminotransferase 23 U/L (7-40); Albumin 4.5 g/dL (3.2-4.8); Alkaline Phosphatase 65 U/L (46-116); Anion Gap 11 (5-15); BUN/Creatinine Ratio 13.6 (10.0-20.0); Blood Urea Nitrogen 16 mg/dL (9-23); Calcium 9.6 mg/dL (8.7-10.4); Carbon Dioxide 26 mmol/L (20-31); Chloride 103 mmol/L (98-107); Potassium 4.6 mmol/L (3.5-5.1); Sodium 140 mmol/L (136-145); Total Protein 8.0 g/dL (5.7-8.2)
[2025-08-10 23:42] LABS: Bilirubin, Total 0.7 mg/dL (0.2-1.0)
[2025-08-10 23:47] LABS: Glucose 195 mg/dL (74-106)
[2025-08-11] VITALS (11 sets, daily range): BP systolic 135–172; BP diastolic 82–95; PULSE 78–99; RESP 17–18; TEMP 97.6–98.6; O2SAT 93–98
[2025-08-11 00:51] LABS: COVID19 ANTIGEN SOFIA FIA NEGATIVE (NEGATIVE)
[2025-08-11] MEDS: ATORVASTATIN 20 MG TAB PO ONE (01:02)
[2025-08-11] MEDS: ENOXAPARIN SOD 60 MG/0.6 ML SYRINGE SC SCH ×2 (01:03→14:31)
[2025-08-11] MEDS ORDERED: DEXTROSE (50%) 50ML SYRG IV PRN (02:15)
[2025-08-11] MEDS: ACCU-CHEK COMFORT CURVE STRIP VI SCH (06:06)
[2025-08-11] MEDS: InsuLIN REG 1unit/0.01ml Soln (100units/ml) SC SCH ×2 (06:07→22:00)
[2025-08-11 06:35] LABS: Hematocrit 43.6 % (41.0-53.0); Hemoglobin 15.0 g/dL (13.5-17.5); Mean Corpuscular Hemoglobin 29.8 pg (28.0-32.0); Mean Corpuscular Volume 86.5 fL (80.0-100.0); Nucleated Red Blood Cells % 0.2 %
[2025-08-11 06:57] LABS: Alanine Aminotransferase 20 U/L (7-40); Alkaline Phosphatase 58 U/L (46-116); Anion Gap 14 (5-15); BUN/Creatinine Ratio 14.2 (10.0-20.0); Blood Urea Nitrogen 17 mg/dL (9-23); Calcium 9.1 mg/dL (8.7-10.4); Carbon Dioxide 23 mmol/L (20-31); Chloride 106 mmol/L (98-107); Sodium 143 mmol/L (136-145); Total Protein 7.0 g/dL (5.7-8.2)
[2025-08-11 06:58] LABS: Albumin 3.9 g/dL (3.2-4.8)
[2025-08-11 06:59] LABS: Bilirubin, Total 0.6 mg/dL (0.2-1.0)
[2025-08-11 07:01] LABS: Glucose 218 mg/dL (74-106); Potassium 3.4 mmol/L (3.5-5.1)
[2025-08-11 08:38] LABS: Urine Protein, UAD Negative (Negative)
[2025-08-11 08:45] LABS: Amphetamine Screen, Urine Neg (NEGATIVE); Barbiturate Scree,Urine Neg (NEGATIVE); Benzodiazephine Screen, Urine Neg (NEGATIVE); Cannabinoid Screen, Urine Neg (NEGATIVE); Cocaine Screen, Urine Neg (NEGATIVE); Opiate Scree,Urine Neg (NEGATIVE); Phencyclidine Screen, Urine Neg (NEGATIVE)
[2025-08-11] MEDS: CLOPIDOGREL BISULFATE 75 MG TAB PO SCH (09:07)
--- NOTE | 2025-08-11 09:07 | DVH ---
CLINICAL INDICATION: Transient ischemic attack. COMPARISON: CT dated 08/10/2025. TECHNIQUE: Multisequence multiplanar MRI images of the brain were obtained without contrast. FINDINGS: There is a focal area of restricted diffusion along the left caudate nucleus and adjacent to the left posterior body of the lateral ventricle, consistent with an acute or subacute infarct measuring up to 1.7 cm in greatest dimension. Scattered areas of T2/FLAIR hyperintense signal in the per iventricular and subcortical white matter are nonspecific, but most likely sequelae of chronic small vessel ischemic disease. No mass or midline shift. Ventricles and sulci are within normal limits. Basal cisterns are patent. Cerebellum, brainstem, and midline structures are within normal limits. Paran corine sinuses are clear. Orbits are grossly unremarkable. IMPRESSION: 1. Acute or subacute infarct in the left caudate nucleus adjacent to the posterior body of the left lateral ventricle measuring up to 1.7 cm. 2. Additional nonacute findings as described above.
--- NOTE | 2025-08-11 12:01 | DVHINCON2 ---
Date of service: Aug 11, 2025 Family History: Patient reports no known family medical history. Allergies: Coded Allergies: NO KNOWN ALLERGIES (Unverified , 10/31/22) Home Meds Active Scripts Pantoprazole Sodium Sesquihydr (Protonix) 40 Mg Tab, 40 MG PO DAILY for 30 Days, #30 TAB Prov:NANCY GIRON MD 11/04/22 Apixaban Base (ELIQUIS) 5 Mg Tab, 5 MG PO BID for 30 Days, #60 TAB 2 Refills Prov:NANCY GIRON MD 11/04/22 Reported Medications Empagliflozin (Jardiance) 10 Mg Tab, PO, TAB 11/02/22 Amlodipine Besylate (Amlodipine Besylate) 5 Mg Tab, 5 MG PO DAILY for 30 Days, MG 11/02/22 Atorvastatin Calcium (ATORVASTATIN CALCIUM) 40 Mg Tab, 1 TAB PO DAILY, #30 TAB 5 Refills 11/02/22 Metformin Hydrochloride (Metformin Hcl) 500 Mg Tab, 500 MG PO DAILY for 30 Days, #2 MG 11/02/22 Current Medications Current Medications Medications (Trade) Dose Ordered Sig/Cash Route PRN Reason Start Time Stop Time Status Last Admin Acetaminophen (Tylenol Tablet) 650 mg Q6HP PRN PO PAIN SCALE 1-3 OR TEMP>100.4 08/10/25 20:45 Aspirin 81 mg DAILY PO 08/11/25 10:00 08/11/25 09:06 Clopidogrel Bisulfate (Plavix) 75 mg DAILY PO 08/11/25 10:00 08/11/25 09:07 Amlodipine Besylate (Norvasc Tablet) 5 mg DAILY PO 08/11/25 10:00 08/11/25 09:07 Albuterol (Ventolin Medneb) 2.5 mg Q6HR PRN NEB SHORTNESS OF BREATH 08/10/25 20:45 08/10/25 22:17 Ipratropium [place] (Atrovent Medneb) 0.5 mg Q6HPRN PRN NEB SHORTNESS OF BREATH 08/10/25 20:45 Atorvastatin Calcium (Lipitor) 40 mg HS PO 08/11/25 22:00 Enoxaparin Sodium (Lovenox) 60 mg Q12H SC 08/10/25 21:17 08/11/25 07:13 DC 08/11/25 01:03 Hydralazine HCl (Apresoline Injection) 10 mg Q6HP PRN IV SBP>150 08/10/25 23:00 Diagnostic Test (Pha) (Accu-Chek Comfort Curve T) 1 strip ACHS 08/11/25 07:00 08/11/25 06:06 Insulin Human Regular (InsuLIN R) HS SC 08/11/25 22:00 Insulin Human Regular (InsuLIN R) AC SC 08/11/25 07:00 08/11/25 06:07 Dextrose 50 ml UD PRN IV Blood Sugar LESS THAN 60 08/11/25 02:15 Enoxaparin Sodium (Lovenox) 60 mg Q12H SC 08/11/25 13:00 Vital Signs Vital Signs Date Time Temp Pulse Resp B/P (MAP) Pulse Ox O2 Delivery O2 Flow Rate FiO2 08/11/25 09:07 184/97 08/11/25 07:40 97 Room Air 08/11/25 07:40 0 21 08/11/25 05:00 98.0 96 18 98.0 Labs/Diagnostic Data Labs Test 08/11/25 11:12 08/11/25 08:15 08/11/25 05:43 08/11/25 00:03 Range/Units POC Glucose 132 H 70-106 mg/dl Urine Color Light-yellow Yellow Urine Clarity Clear Clear Urine pH 6.5 5.0-9.0 Urine Specific [place] 1.015 1.001-1.035 Urine Protein Negative Negative Urine Ketones Negative Negative Urine Blood Negative Negative /uL Urine Nitrite Negative Negative Urine Bilirubin Negative Negative Urine Urobilinogen Normal Negative mg/dL Urine Leukocyte Esterase Negative Negative /uL Urine RBC 1 0 - 3 /hpf Urine Microscopic WBC < 1 0-3 /HPF Urine Squamous Epithelial Cells Few <5 /hpf Urine Bacteria None seen None Seen /hpf Urine Glucose 1+ H Normal mg/dL Urine Opiates Screen Neg NEGATIVE Urine Fentanyl Screen Neg NEGATIVE Urine Barbiturates Screen Neg NEGATIVE Urine Phencyclidine Screen Neg NEGATIVE Urine Amphetamines Screen Neg NEGATIVE Urine Benzodiazepines Screen Neg NEGATIVE Urine Cocaine Screen Neg NEGATIVE Urine Cannabinoids Screen Neg NEGATIVE White Blood Count 9.6 4.4-10.8 10^3/uL Red Blood Count 5.04 4.5-5.90 10^6/uL Hemoglobin 15.0 13.5-17.5 g/dL Hematocrit 43.6 41.0-53.0 % Mean Corpuscular Volume 86.5 80.0-100.0 fL Mean Corpuscular Hemoglobin 29.8 28.0-32.0 pg Mean Corpuscular Hemoglobin Concent 34.5 32.0-36.0 g/dL Red Cell Distribution Width 14.3 11.8-14.3 % Platelet Count 268 140-450 10^3/uL Mean Platelet Volume 7.8 6.9-10.8 fL Neutrophils (%) (Auto) 56.0 37.0-80.0 % Lymphocytes (%) (Auto) 35.1 10.0-50.0 % Monocytes (%) (Auto) 7.0 0.0-12.0 % Eosinophils (%) (Auto) 1.3 0.0-7.0 % Basophils (%) (Auto) 0.6 0.0-2.0 % Neutrophils # (Auto) 5.4 1.6-8.6 10 ^3/uL Lymphocytes # (Auto) 3.4 0.4-5.4 10 ^3/uL Monocytes # (Auto) 0.7 0-1.3 10 ^3/uL Eosinophils # (Auto) 0.1 0-0.8 10 ^3/uL Basophils # (Auto) 0.1 0-0.2 10 ^3/uL Nucleated Red Blood Cells 0.2 % Sodium Level 143 136-145 mmol/L Potassium Level 3.4 L 3.5-5.1 mmol/L Chloride Level 106 98-107 mmol/L Carbon Dioxide Level 23 20-31 mmol/L Anion Gap 14 5-15 Blood Urea Nitrogen 17 9-23 mg/dL Creatinine 1.20 0.700-1.30 mg/dL Glomerular Filtration Rate Calc 70 >90 mL/min BUN/Creatinine Ratio 14.2 10.0-20.0 Serum Glucose 218 H 74-106 mg/dL Calcium Level 9.1 8.7-10.4 mg/dL Total Bilirubin 0.6 0.2-1.0 mg/dL Aspartate Amino Transferase (AST) 15 13-40 U/L Alanine Aminotransferase (ALT) 20 7-40 U/L Alkaline Phosphatase 58 46-116 U/L Total Protein 7.0 5.7-8.2 g/dL Albumin 3.9 3.2-4.8 g/dL Influenza Type A Antigen Negative Negative Influenza Type B Antigen Negative Negative SARS-CoV-2 Antigen (Rapid) Negative NEGATIVE Assessment [facility] # Demographics Consult Type: Acute Stroke Level 1 (0-4.5 hrs) Patient Location: Inpatient First Name: Troy Last Name: Mayra Date of : 1965 Age: 59 Gender: Male Facility: [facility] Time of Initial Page (): 08/11/2025 09:52 First Contact with Site (): 08/11/2025 09:53 # HPI Chief Complaint: - weakness (focal) History: 59 y/o man admitted 08/10 with left sided weakness in the setting of a fall from a ladder. MRI brain with left caudate acute/subacute ischemic stroke. Patient reports weakness since the fall, on the left side. No right sided weakness. Is on Plavix. # Scores Time of exam and NIHSS (): 08/11/2025 10:00 Level of Consciousness 1a: [0] = Alert; keenly responsive LOC Questions 1b: [0] = Answers both questions correctly LOC Commands 1c: [0] = Performs both tasks correctly Best Gaze 2: [0] = Normal Visual 3: [0] = No visual loss Facial Palsy 4: [0] = Normal symmetrical movements Motor Arm Left 5a: [0] = No drift Motor Arm Right 5b: [0] = No drift Motor Leg Left 6a: [0] = No drift Motor Leg Right 6b: [0] = No drift Limb Ataxia 7: [0] = Absent Sensory 8: [0] = Normal Best Language 9: [0] = No aphasia Dysarthria 10: [0] = Normal Extinction and Inattention 11: [0] = No abnormality NIHSS Total: 0 # Data MRI: - acute ischemia left caudate Other Imaging: CUS neg for sig stenosis # Assessment Impression: - Ischemic Stroke (Acute) --Note that the stroke does not explain his reported left sided weakness # Plan Thrombolytic/Intervention: NOT IV Thrombolysis or IA Intervention candidate Thrombolytic Exclusion: > 4.5 hours Intraarterial Exclusion: - clinical exam not consistent with presence of large vessel occlusion (LVO), can reconsider if LVO found on vascular imaging Target Blood Pressure: SBP < 220 Labs: - hemoglobin A1c - lipid panel Imaging: (urgency: routine): - MRI Brain without contrast Diagnostic Test: - echo with bubble study Therapy/Evaluation: - PT/OT evaluation - speech/swallow consultation Medication: - aspirin 81 mg PO daily - start statin with goal of LDL < 70 Other: - If patient has any neurological deterioration please call me back immediately - permissive hypertension - LDL < 70 - telemetry monitoring # Logistics Attestation of consult completion: The patient is located at: [facility]. Facility staff participated in the visit. I performed this telemedicine visit from my offsite office utilizing interactive 2 way audio and visual telecommunication technology at the request of the onsite inpatient provider. Total time spent in telemedicine encounter: I spent 20 minutes reviewing clinical data and/or imaging, obtaining history, examining the patient, communicating with the onsite care team, and in preparation of this report. # Demographics First Name: Troy Last Name: Mayra Facility: [facility] Plan discussed with: Patient NOEMI BROWNING MD Aug 11, 2025 12:01
--- NOTE | 2025-08-11 16:13 | DVHPN2 ---
Reviewed: Care Plan, H&P, Labs, Medications, Previous Orders Changes from previous H/P or p: No Changes General: Per HPI Objective Vitals Vital Signs Date Time Temp Pulse Resp B/P (MAP) Pulse Ox O2 Delivery O2 Flow Rate FiO2 08/11/25 13:00 98.6 85 18 144/89 (107) 96 98.6 08/11/25 08:05 Room Air* 0 21 Intake/Output Intake and Output 08/11/25 07:00 Intake Total 200 ml Balance 200 ml Intake Oral 200 ml # Voids 1 Medications Current Medications Medications Dose Ordered Sig/Cash Route Start Time Stop Time Status Last Admin Dose Admin Acetaminophen 650 mg Q6HP PRN PO 08/10/25 20:45 Aspirin 81 mg DAILY PO 08/11/25 10:00 08/11/25 09:06 81 MG Clopidogrel Bisulfate 75 mg DAILY PO 08/11/25 10:00 08/11/25 09:07 75 MG Amlodipine Besylate 5 mg DAILY PO 08/11/25 10:00 08/11/25 09:07 5 MG Albuterol 2.5 mg Q6HR PRN NEB 08/10/25 20:45 08/10/25 22:17 2.5 MG Ipratropium [place] 0.5 mg Q6HPRN PRN NEB 08/10/25 20:45 Atorvastatin Calcium 40 mg HS PO 08/11/25 22:00 Hydralazine HCl 10 mg Q6HP PRN IV 08/10/25 23:00 Diagnostic Test (Pha) 1 strip ACHS 08/11/25 07:00 08/11/25 12:07 1 STRIP Insulin Human Regular HS SC 08/11/25 22:00 Insulin Human Regular AC SC 08/11/25 07:00 08/11/25 06:07 6 UNITS Dextrose 50 ml UD PRN IV 08/11/25 02:15 Enoxaparin Sodium 60 mg Q12H SC 08/11/25 13:00 08/11/25 14:31 60 MG Laboratory Results Laboratory Tests 08/11/25 05:43 Chemistry Test 08/10/25 23:14 08/11/25 05:43 Albumin 4.5 g/dL (3.2-4.8) 3.9 g/dL (3.2-4.8) Calcium Level 9.6 mg/dL (8.7-10.4) 9.1 mg/dL (8.7-10.4) Total Protein 8.0 g/dL (5.7-8.2) 7.0 g/dL (5.7-8.2) LFT Test 08/10/25 23:14 08/11/25 05:43 Alanine Aminotransferase (ALT) 23 U/L (7-40) 20 U/L (7-40) Alkaline Phosphatase 65 U/L (46-116) 58 U/L (46-116) Aspartate Amino Transferase (AST) 15 U/L (13-40) 15 U/L (13-40) Total Bilirubin 0.7 mg/dL (0.2-1.0) 0.6 mg/dL (0.2-1.0) Urinalysis Test 08/11/25 08:15 Urine Color Light-yellow (Yellow) Urine Clarity Clear (Clear) Urine pH 6.5 (5.0-9.0) Urine Specific [place] 1.015 (1.001-1.035) Urine Protein Negative (Negative) Urine Ketones Negative (Negative) Urine Blood Negative /uL (Negative) Urine Nitrite Negative (Negative) Urine Bilirubin Negative (Negative) Urine Urobilinogen Normal mg/dL (Negative) Urine Leukocyte Esterase Negative /uL (Negative) Urine RBC 1 /hpf (0 - 3) Urine Microscopic WBC < 1 /HPF (0-3) Urine Squamous Epithelial Cells Few /hpf (<5) Urine Bacteria None seen /hpf (None Seen) Urine Glucose 1+ mg/dL (Normal) H Assessment/Plan Assessment/Plan Patient is a 59-year-old male with past medical history of CVA on Eliquis, GERD, kidney stones, diabetes mellitus, hypertension and hyperlipidemia, presented to [facility] ED with complaint of left-sided weakness. According to the patient and his daughter, he fell from a ladder at home from standing height four days ago, striking his left shoulder during the fall. There was no head trauma reported. Following the incident, he developed progressive symptoms, including left-sided weakness, facial droop, slurred speech, and loss of taste on the left side of the tongue. On evaluation in the ED, patient is afebrile, blood pressure is 169/[address] shows no intracranial hemorrhage or mass effect and old bilateral infarcts as described. The patient was started on dual antiplatelet therapy and IV fluids. Patient is admitted for further evaluation and management. acute on chronic CVA Old bilateral infarcts Brain MRI ordered Head CT: No intracranial hemorrhage or mass effect. Old right basal ganglia / grey radiata infarct, similar to prior. Old left thalamic. Carotid Doppler Study: Mild atherosclerotic vascular disease with no hemodynamically significant stenosis. Any narrowing is less than 50%. Chest X-Ray: No acute cardiopulmonary process. Echocardiogram ordered ABCD score: 6 (high risk) Aspirin 81 MG PO daily Plavix 75 MG PO dilay Lovenox 60 MG SC q12h Albuterol 0.5 MG NEB q6h prn Ipratropium 0.5 MG NEB 16h prn sputum culture UA and UDS Left grade 3 AC joint dislocation Shoulder X-Ray: There is no evidence of acute fracture or dislocation of the left glenohumeral joint. There is grade 3 AC joint dislocation by Star classification of unknown chronicity. There are bony spurs from the inferior distal clavicle , over the acromion and coracoid process. The visualized lungs are clear. pain management with Tylenol Type 2 diabetes mellitus with hyperglycemia, uncontrolled Serum glucose 195 Moderate sliding scale Hypertension Hydralazine 10 MG IV q6h Amlodipine 5 MG PO daily Hyperlipidemia 08/11/2025: discussed with pt and pt's daughter at the bedside regarding plan of care. daughter (1/3) and pt's at bedside Plan discussed with: Daughter Date of Service: Aug 11, 2025 Billing Provider: NADINE DALAL DO Common Visit Codes: [id number] INP/OBS CARE(HIGH) NADINE DALAL DO Aug 11, 2025 16:13
--- NOTE | 2025-08-11 21:30 | DVHINCON2 ---
Date of service: Aug 11, [address] Josemanuel Fernandez Reason for Consultation Stroke History of Present Illness Mr. Nunez is a right-handed gentleman with a history of diabetes, previous stroke, A-fib, he came to the hospital on 08/11/24 with a chief complaint of left-sided weakness. At this time, he is awake, oriented x3, but speak with slurred speech, the history is obtained from his daughter I saw him on 11/02/2022 for possible stroke (MRI positive) Acute stroke Onset: 11/01/2022, 2016 Possible cause of condition: Hypertension, diabetes, atrial fibrillation, Symptoms: On 08/06/25, the patient had fall on his right shoulder with loss of consciousness for unknown duration, on waking up, he noticed left-sided weakness.. On 08/09/2025, he developed slurred speech. On 08/11/2025, he d eveloped right-sided weakness On 11/01/2022, he developed acute diplopia when he looks to the right side, left facial numbness, otherwise he denies focal weakness or numbness In 2016, he developed left-sided weakness, he was seen in the local hospital, after ultrasound tests, MRI head, he was said to have a stroke, the patient has good recovery Previous evaluation: he was hospitalized in 2017 for stroke See below Current treatment: Eliquis 5 mg twice daily, Lipitor 40 mg daily Previous treatment: Eliquis 5 mg twice daily, Lipitor 40 mg daily [phone], no answer. [phone] no answer [phone] UDS, 08/28/2025: Negative CBC, 08/11/2025: Unremarkable BMP 08/11/2025: Unremarkable Liver function tests, 08/11/2025: Unremarkable TG/CHO L/LDL/HDL, 11/02/2022: 87/206/140/68 EKG, 10/31/22: Atrial fibrillation Echocardiogram, 11/01/2022: Atrial fibrillation. 55 to 60% with normal RV function. Carotid Doppler, 08/10/2025: Mild atherosclerotic vascular disease with no hemodynamically significant stenosis. Any narrowing is less than 50%. MRI head, 11/13/2022: There is small focal subacute right posterior frontal white matter restricted diffusion which may represent active demyelinating plaque or subacute infarct. There is small focus of the left brachium pontine restricted diffusion typical location for active demyelinating plaque of multiple sclerosis versus subacute infarct. There is chronic right basal ganglia, grey radiata/centrum semiovale infarct. There are chronic left greater than right thalamic lacunar infarcts. There is no hemorrhage MRI head, 08/11/2025: 1. Acute or subacute infarct in the left caudate nucleus adjacent to the posterior body of the left lateral ventricle measuring up to 1.7 cm. 2. Additional nonacute findings as described above Past Medical History Hypertension, diabetes, AFib Past Surgical History Appendectomy Family History: Patient reports no known family medical history. Family History Hypertension, diabetes Social History He is nontobacco smoker, he denies a history of alcohol recreational substance abuse Allergies: Coded Allergies: NO KNOWN ALLERGIES (Unverified , 10/31/22) Home Meds Active Scripts Pantoprazole Sodium Sesquihydr (Protonix) 40 Mg Tab, 40 MG PO DAILY for 30 Days, #30 TAB Prov:NANCY GIRON MD 11/04/22 Apixaban Base (ELIQUIS) 5 Mg Tab, 5 MG PO BID for 30 Days, #60 TAB 2 Refills Prov:NANCY GIRON MD 11/04/22 Reported Medications Empagliflozin (Jardiance) 10 Mg Tab, PO, TAB 11/02/22 Amlodipine Besylate (Amlodipine Besylate) 5 Mg Tab, 5 MG PO DAILY for 30 Days, MG 11/02/22 Atorvastatin Calcium (ATORVASTATIN CALCIUM) 40 Mg Tab, 1 TAB PO DAILY, #30 TAB 5 Refills 11/02/22 Metformin Hydrochloride (Metformin Hcl) 500 Mg Tab, 500 MG PO DAILY for 30 Days, #2 MG 11/02/22 Current Medications Current Medications Medications (Trade) Dose Ordered Sig/Cash Route PRN Reason Start Time Stop Time Status Last Admin Aspirin 81 mg DAILY PO 08/11/25 10:00 08/11/25 09:06 Clopidogrel Bisulfate (Plavix) 75 mg DAILY PO 08/11/25 10:00 08/11/25 09:07 Amlodipine Besylate (Norvasc Tablet) 5 mg DAILY PO 08/11/25 10:00 08/11/25 09:07 Atorvastatin Calcium (Lipitor) 40 mg HS PO 08/11/25 22:00 Hydralazine HCl (Apresoline Injection) 10 mg Q6HP PRN IV SBP>150 08/10/25 23:00 Diagnostic Test (Pha) (Accu-Chek Comfort Curve T) 1 strip ACHS 08/11/25 07:00 08/11/25 16:35 Insulin Human Regular (InsuLIN R) HS SC 08/11/25 22:00 Insulin Human Regular (InsuLIN R) AC SC 08/11/25 07:00 08/11/25 16:36 Dextrose 50 ml UD PRN IV Blood Sugar LESS THAN 60 08/11/25 02:15 Enoxaparin Sodium (Lovenox) 60 mg Q12H SC 08/11/25 13:00 08/11/25 14:31 Review of Systems As above, the other system negative Vital Signs Vital Signs Date Time Temp Pulse Resp B/P (MAP) Pulse Ox O2 Delivery O2 Flow Rate FiO2 08/11/25 19:50 95 Room Air* 0 21 08/11/25 13:00 98.6 85 18 144/89 (107) 98.6 Physical Exam GENERAL EXAM: General: the patient is well developed and nourished. No acute distress. HEENT: Normocephalic, neck is supple, no carotid bruits. No mass. RESPIRATORY: Normal respiratory effort with symmetrical lung expansion. Lungs clear to auscultation. CARDIOVASCULAR: Irregular rate and rhythm with no murmurs. S1, S2. ABDOMEN: Soft, nontender, normal bowel sound NEUROLOGICAL: MENTAL STATUS: Awake and alert. Oriented to person, place, time and general circumstances. Able to give personal history. SPEECH, LANGUAGE, HIGHER CORTICAL FUNCTION: no aphasia or dysathria. CRANIAL NERVES: #2: Intact visual joiner to confrontation. The optic discs were sharp. #3,4,6: Pupils are equal, round and reactive. EOMs full and conjugate. No spontaneous or evoked nystagmus. He has double vision when he looks to the right side #5: Sensorimotor examined in bilateral trigeminal distribution is fine. #7: Right facial weakness of upper motor neuron pattern #8: Hearing grossly normal to voice. #9,10: Uvula and soft palate rise in the midline. Swallow and voice are normal. #11: Trapezius and sternomastoid strength intact bilaterally. #12: Tongue midline. No fasciculations or atrophy. SENSATION: Sensation to touch and pinprick is normal. MOTOR: Normal tone in the upper and lower extremity. Normal muscle bulk. No fasciculations. No abnormal movements or posturing. Muscle strength of the major groups in the bilateral upper and lower extremity is 4/5, with right side weaker, drift in right arm than leg REFLEXES: Deep tendon reflexes are symmetrical. No pathological reflexes. CEREBELLAR/COORDINATION: Finger to nose is unremarkable bilaterally. GAIT/STATION: Unsteady Labs/Diagnostic Data Labs Test 08/11/25 16:29 08/11/25 08:15 08/11/25 05:43 08/11/25 00:03 Range/Units POC Glucose 230 H 70-106 mg/dl Urine Color Light-yellow Yellow Urine Clarity Clear Clear Urine pH 6.5 5.0-9.0 Urine Specific [place] 1.015 1.001-1.035 Urine Protein Negative Negative Urine Ketones Negative Negative Urine Blood Negative Negative /uL Urine Nitrite Negative Negative Urine Bilirubin Negative Negative Urine Urobilinogen Normal Negative mg/dL Urine Leukocyte Esterase Negative Negative /uL Urine RBC 1 0 - 3 /hpf Urine Microscopic WBC < 1 0-3 /HPF Urine Squamous Epithelial Cells Few <5 /hpf Urine Bacteria None seen None Seen /hpf Urine Glucose 1+ H Normal mg/dL Urine Opiates Screen Neg NEGATIVE Urine Fentanyl Screen Neg NEGATIVE Urine Barbiturates Screen Neg NEGATIVE Urine Phencyclidine Screen Neg NEGATIVE Urine Amphetamines Screen Neg NEGATIVE Urine Benzodiazepines Screen Neg NEGATIVE Urine Cocaine Screen Neg NEGATIVE Urine Cannabinoids Screen Neg NEGATIVE White Blood Count 9.6 4.4-10.8 10^3/uL Red Blood Count 5.04 4.5-5.90 10^6/uL Hemoglobin 15.0 13.5-17.5 g/dL Hematocrit 43.6 41.0-53.0 % Mean Corpuscular Volume 86.5 80.0-100.0 fL Mean Corpuscular Hemoglobin 29.8 28.0-32.0 pg Mean Corpuscular Hemoglobin Concent 34.5 32.0-36.0 g/dL Red Cell Distribution Width 14.3 11.8-14.3 % Platelet Count 268 140-450 10^3/uL Mean Platelet Volume 7.8 6.9-10.8 fL Neutrophils (%) (Auto) 56.0 37.0-80.0 % Lymphocytes (%) (Auto) 35.1 10.0-50.0 % Monocytes (%) (Auto) 7.0 0.0-12.0 % Eosinophils (%) (Auto) 1.3 0.0-7.0 % Basophils (%) (Auto) 0.6 0.0-2.0 % Neutrophils # (Auto) 5.4 1.6-8.6 10 ^3/uL Lymphocytes # (Auto) 3.4 0.4-5.4 10 ^3/uL Monocytes # (Auto) 0.7 0-1.3 10 ^3/uL Eosinophils # (Auto) 0.1 0-0.8 10 ^3/uL Basophils # (Auto) 0.1 0-0.2 10 ^3/uL Nucleated Red Blood Cells 0.2 % Sodium Level 143 136-145 mmol/L Potassium Level 3.4 L 3.5-5.1 mmol/L Chloride Level 106 98-107 mmol/L Carbon Dioxide Level 23 20-31 mmol/L Anion Gap 14 5-15 Blood Urea Nitrogen 17 9-23 mg/dL Creatinine 1.20 0.700-1.30 mg/dL Glomerular Filtration Rate Calc 70 >90 mL/min BUN/Creatinine Ratio 14.2 10.0-20.0 Serum Glucose 218 H 74-106 mg/dL Calcium Level 9.1 8.7-10.4 mg/dL Total Bilirubin 0.6 0.2-1.0 mg/dL Aspartate Amino Transferase (AST) 15 13-40 U/L Alanine Aminotransferase (ALT) 20 7-40 U/L Alkaline Phosphatase 58 46-116 U/L Total Protein 7.0 5.7-8.2 g/dL Albumin 3.9 3.2-4.8 g/dL Influenza Type A Antigen Negative Negative Influenza Type B Antigen Negative Negative SARS-CoV-2 Antigen (Rapid) Negative NEGATIVE Assessment Acute stroke syndrome Acute stroke Chronic strokes in 2017, 11/01/2022 with good recovery Atrial fibrillation Plan/Recommendation Monitoring Supportive treatment Telemetry Discontinue Plavix Lovenox 60 mg subQ q.12 hours, switch to Eliquis 5 mg twice daily later Lipitor 40 mg daily Up to chair Physical therapy This medical document was created using an electronic medical record system with [employer] dictation system. Although this document has been carefully reviewed, there may still be some phonetic and typographical errors. These areas are purely typographical due to imperfections of the software programs, and do not reflect any compromise in the patient's medical care Plan discussed with: Patient, Daughter, Other DARREL HEMPHILL MD Aug 11, 2025 21:30
[2025-08-11] MEDS: ATORVASTATIN 20 MG TAB PO SCH (22:12)
[2025-08-12] VITALS (9 sets, daily range): BP systolic 146–159; BP diastolic 83–95; PULSE 80–100; RESP 16–19; TEMP 97.8–99.1; O2SAT 95–98
--- NOTE | 2025-08-12 14:56 | DVHSR ---
APPROVED REPORT EXAM: Two-dimensional and M-mode echocardiogram with Doppler and color Doppler. Blood Pressure: 135/82 mmHg INDICATION Chest Pain RISK FACTORS Height: 5'2, Weight: 133 DIMENSIONS LVDd 4.1 (3.8-5.7cm) LA (2D) 3.3 (1.9-4.0cm) Aortic Root 2.6 (2.0-3.7cm) LVDs 2.9 (2.5-4.0cm) LA (MM) (1.9-4.0cm) Aortic Cusp Exc 1.7 (1.5-2.0cm) EF (%) 57.0 (55-70%) Rt. Atrium 3.9 (1.9-4.0cm) Asc. Aorta 3.3 cm IVSd 0.8 (0.7-1.1cm) RV (D) (1.8-2.4cm) PWd 1.1 (0.7-1.1cm) Mitral Valve Mitral Mitral Stenosis E wave 0.80m/s MV Mean GR. mmHg A wave 0.79m/s MV Peak GR. mmHg E/A ratio 1.0 2D MVA cm2 DECEL Time 150ms PRESS 1/2 Time ms Aortic Valve Aortic Valve Aortic Stenosis V1 0.46m/s AO Mean GR. 3mmHg V2 1.06m/s AO Peak GR. 4mmHg LVOT Diameter 2.1 (1.8-2.4cm) Doppler RONNA 1.50cm2 Pulmonic Valve V2 1.09m/s Other Information Technically limited study due to body habitus. Conclusion Technically good study sinus rhythm. Mild calcification thickening of the non coronary cusp edge. Small sigmoid septum noted. Valves are normal. EF of 60% with normal RV function. Dopplers unremarkable. No pericardial effusion masses or vegetations
[2025-08-12] MEDS: POTASSIUM CHL 20 Meq TABLET PO ONE (16:35)
--- NOTE | 2025-08-12 19:31 | DVHPN2 ---
Progress Note - Dictate Date Seen: Aug 12, 2025 Medical Necessity Reason Pt with a Central, PICC or Fol: No Subjective Mr. Nunez is a right-handed gentleman with a history of diabetes, previous stroke, A-fib, he came to the hospital on 08/11/24 with a chief complaint of left-sided weakness. I saw him on 11/02/2022 for possible stroke (MRI positive) I have seen examined the patient, his daughter in the room with him, his better, especially speech He is alert and fully oriented no new complaints According to him and his daughter, he sometimes forget to take his Eliquis UDS, 08/28/2025: Negative CBC, 08/11/2025: Unremarkable BMP 08/11/2025: Unremarkable Liver function tests, 08/11/2025: Unremarkable TG/CHO L/LDL/HDL, 11/02/2022: 87/206/140/68 EKG, 10/31/22: Atrial fibrillation Echocardiogram, 11/01/2022: Atrial fibrillation. 55 to 60% with normal RV function. Echocardiogram, 08/12/2025: EF: 60% Carotid Doppler, 08/10/2025: Mild atherosclerotic vascular disease with no hemodynamically significant stenosis. Any narrowing is less than 50%. MRI head, 11/13/2022: There is small focal subacute right posterior frontal white matter restricted diffusion which may represent active demyelinating plaque or subacute infarct. There is small focus of the left brachium pontine restricted diffusion typical location for active demyelinating plaque of multiple sclerosis versus subacute infarct. There is chronic right basal ganglia, grey radiata/centrum semiovale infarct. There are chronic left greater than right thalamic lacunar infarcts. There is no hemorrhage MRI head, 08/11/2025: 1. Acute or subacute infarct in the left caudate nucleus adjacent to the posterior body of the left lateral ventricle measuring up to 1.7 cm. 2. Additional nonacute findings as described above vital signs Vital Sign Date Time Temp Pulse Resp B/P (MAP) Pulse Ox O2 Delivery O2 Flow Rate FiO2 08/12/25 17:00 99.1 86 16 152/95 (114) 98 99.1 08/12/25 08:00 Room Air* 0 21 Total Intake and Output 08/11/25 08/11/25 08/12/25 15:00 23:00 07:00 Intake Total 480 ml 450 ml Balance 480 ml 450 ml medications Current Medications Medications Dose Ordered Sig/Cash Route Start Time Stop Time Status Last Admin Dose Admin Acetaminophen 650 mg Q6HP PRN PO 08/10/25 20:45 Amlodipine Besylate 5 mg DAILY PO 08/11/25 10:00 08/12/25 09:56 5 MG Albuterol 2.5 mg Q6HR PRN NEB 08/10/25 20:45 08/10/25 22:17 2.5 MG Ipratropium [place] 0.5 mg Q6HPRN PRN NEB 08/10/25 20:45 Atorvastatin Calcium 40 mg HS PO 08/11/25 22:00 08/11/25 22:12 40 MG Hydralazine HCl 10 mg Q6HP PRN IV 08/10/25 23:00 Diagnostic Test (Pha) 1 strip ACHS 08/11/25 07:00 08/12/25 16:35 1 STRIP Insulin Human Regular HS SC 08/11/25 22:00 Insulin Human Regular AC SC 08/11/25 07:00 08/12/25 16:36 3 UNITS Dextrose 50 ml UD PRN IV 08/11/25 02:15 Enoxaparin Sodium 60 mg Q12H SC 08/11/25 13:00 08/12/25 01:38 60 MG objective General: the patient is well developed and nourished. No acute distress. MENTAL STATUS: Subjective SPEECH, LANGUAGE, HIGHER CORTICAL FUNCTION: No aphasia, mild dysarthria CRANIAL NERVES: Pupils are equal, round and reactive. EOMs full and conjugate. No spontaneous or evoked nystagmus. He has double vision when he looks to the right side. Sensorimotor examined in bilateral trigeminal distribution is fine. Right facial weakness of upper motor neuron pattern SENSATION: Sensation to touch and pinprick is normal. MOTOR: Normal tone in the upper and lower extremity. Normal muscle bulk. No fasciculations. No abnormal movements or posturing. Muscle strength of the major groups in the bilateral upper and lower extremity is 4/5, with right side weaker, drift in right arm than leg REFLEXES: Deep tendon reflexes are symmetrical. No pathological reflexes. CEREBELLAR/COORDINATION: Finger to nose is unremarkable bilaterally. GAIT/STATION: Unsteady laboratory and microbiology Laboratory Tests 08/11/25 05:43 Test 08/11/25 05:43 Range/Units Serum Glucose 218 H 74-106 mg/dL Problem List Acute stroke syndrome Acute stroke Chronic strokes in 2017, 11/01/2022 with good recovery Atrial fibrillation Poor compliance Assessment/Plan Monitoring Supportive treatment Telemetry Lovenox 60 mg subQ q.12 hours, switch to Eliquis 5 mg twice daily later Lipitor 40 mg daily Up to chair Physical therapy This medical document was created using an electronic medical record system with [employer] dictation system. Although this document has been carefully reviewed, there may still be some phonetic and typographical errors. These areas are purely typographical due to imperfections of the software programs, and do not reflect any compromise in the patient's medical care Prognosis poor Plan discussed with: Patient, Daughter, Other Total Time (mins): 35 DARREL HEMPHILL MD Aug 12, 2025 19:31
[2025-08-13] VITALS (12 sets, daily range): BP systolic 146–188; BP diastolic 80–114; PULSE 68–125; RESP 16–20; TEMP 98.1–99.5; O2SAT 94–97
[2025-08-13] MEDS: hydrALAZINE HCL 20 MG/ML VL IV PRN (16:31)
--- NOTE | 2025-08-13 17:26 | DVHPN2 ---
Reviewed: Care Plan, H&P, Labs, Medications, Previous Orders Changes from previous H/P or p: No Changes General: Per HPI Objective Vitals Vital Signs Date Time Temp Pulse Resp B/P (MAP) Pulse Ox O2 Delivery O2 Flow Rate FiO2 08/13/25 17:06 99.5 125 17 162/92 (115) 95 99.5 08/13/25 08:00 Room Air* 0 21 Intake/Output Intake and Output 08/13/25 07:00 Intake Total 675 ml Output Total 1025 ml Balance -350 ml Intake Oral 675 ml Output Urine Total 1025 ml Medications Current Medications Medications Dose Ordered Sig/Cash Route Start Time Stop Time Status Last Admin Dose Admin Acetaminophen 650 mg Q6HP PRN PO 08/10/25 20:45 Amlodipine Besylate 5 mg DAILY PO 08/11/25 10:00 08/13/25 09:50 5 MG Albuterol 2.5 mg Q6HR PRN NEB 08/10/25 20:45 08/10/25 22:17 2.5 MG Ipratropium [place] 0.5 mg Q6HPRN PRN NEB 08/10/25 20:45 Atorvastatin Calcium 40 mg HS PO 08/11/25 22:00 08/12/25 21:53 40 MG Hydralazine HCl 10 mg Q6HP PRN IV 08/10/25 23:00 08/13/25 16:31 10 MG Diagnostic Test (Pha) 1 strip ACHS 08/11/25 07:00 08/13/25 11:55 1 STRIP Insulin Human Regular HS SC 08/11/25 22:00 Insulin Human Regular AC SC 08/11/25 07:00 08/13/25 11:59 12 UNITS Dextrose 50 ml UD PRN IV 08/11/25 02:15 Enoxaparin Sodium 60 mg Q12H SC 08/11/25 13:00 08/13/25 13:57 60 MG Laboratory Results Laboratory Tests 08/11/25 05:43 Urinalysis Test 08/11/25 08:15 Urine Color Light-yellow (Yellow) Urine Clarity Clear (Clear) Urine pH 6.5 (5.0-9.0) Urine Specific [place] 1.015 (1.001-1.035) Urine Protein Negative (Negative) Urine Ketones Negative (Negative) Urine Blood Negative /uL (Negative) Urine Nitrite Negative (Negative) Urine Bilirubin Negative (Negative) Urine Urobilinogen Normal mg/dL (Negative) Urine Leukocyte Esterase Negative /uL (Negative) Urine RBC 1 /hpf (0 - 3) Urine Microscopic WBC < 1 /HPF (0-3) Urine Squamous Epithelial Cells Few /hpf (<5) Urine Bacteria None seen /hpf (None Seen) Urine Glucose 1+ mg/dL (Normal) H Microbiology Microbiology Date/Time Source Procedure Growth Status 08/11/25 02:20 Sputum Gram Stain - Final Complete 08/11/25 02:20 Sputum Respiratory Culture - Final Complete Assessment/Plan Assessment/Plan Patient is a 59-year-old male with past medical history of CVA on Eliquis, GERD, kidney stones, diabetes mellitus, hypertension and hyperlipidemia, presented to [facility] ED with complaint of left-sided weakness. According to the patient and his daughter, he fell from a ladder at home from standing height four days ago, striking his left shoulder during the fall. There was no head trauma reported. Following the incident, he developed progressive symptoms, including left-sided weakness, facial droop, slurred speech, and loss of taste on the left side of the tongue. On evaluation in the ED, patient is afebrile, blood pressure is 169/[address] shows no intracranial hemorrhage or mass effect and old bilateral infarcts as described. The patient was started on dual antiplatelet therapy and IV fluids. Patient is admitted for further evaluation and management. acute on chronic CVA Old bilateral infarcts Brain MRI ordered Head CT: No intracranial hemorrhage or mass effect. Old right basal ganglia / grey radiata infarct, similar to prior. Old left thalamic. Carotid Doppler Study: Mild atherosclerotic vascular disease with no hemodynamically significant stenosis. Any narrowing is less than 50%. Chest X-Ray: No acute cardiopulmonary process. Echocardiogram ordered ABCD score: 6 (high risk) Aspirin 81 MG PO daily Plavix 75 MG PO dilay Lovenox 60 MG SC q12h Albuterol 0.5 MG NEB q6h prn Ipratropium 0.5 MG NEB 16h prn sputum culture UA and UDS Left grade 3 AC joint dislocation Shoulder X-Ray: There is no evidence of acute fracture or dislocation of the left glenohumeral joint. There is grade 3 AC joint dislocation by [place] classification of unknown chronicity. There are bony spurs from the inferior distal clavicle , over the acromion and coracoid process. The visualized lungs are clear. pain management with Tylenol Type 2 diabetes mellitus with hyperglycemia, uncontrolled Serum glucose 195 Moderate sliding scale Hypertension Hydralazine 10 MG IV q6h Amlodipine 5 MG PO daily Hyperlipidemia 08/11/2025: discussed with pt and pt's daughter at the bedside regarding plan of care. daughter (1/3) and pt's at bedside Plan discussed with: Daughter 08/12/2025: one of the daughters was not happy with the care and wanted to transfer to another hospital. I discussed the care of plan with nursing at bedside. I asked nursing to have case checker involved. Plan discussed with: Daughter My Orders Orders - NADINE DALAL DO Procedure Category Date Status Time * Cook Italian Style Food CONS 08/13/25 Verified Consult Date of Service: Aug 12, 2025 Billing Provider: NADINE DALAL DO Common Visit Codes: [id number] INP/OBS CARE(HIGH) NADINE DALAL DO Aug 13, 2025 17:26
--- NOTE | 2025-08-13 17:26 | DVHPN2 ---
Reviewed: Care Plan, H&P, Labs, Medications, Previous Orders Changes from previous H/P or p: No Changes General: Per HPI Objective Vitals Vital Signs Date Time Temp Pulse Resp B/P (MAP) Pulse Ox O2 Delivery O2 Flow Rate FiO2 08/13/25 17:06 99.5 125 17 162/92 (115) 95 99.5 08/13/25 08:00 Room Air* 0 21 Intake/Output Intake and Output 08/13/25 07:00 Intake Total 675 ml Output Total 1025 ml Balance -350 ml Intake Oral 675 ml Output Urine Total 1025 ml Medications Current Medications Medications Dose Ordered Sig/Cash Route Start Time Stop Time Status Last Admin Dose Admin Acetaminophen 650 mg Q6HP PRN PO 08/10/25 20:45 Amlodipine Besylate 5 mg DAILY PO 08/11/25 10:00 08/13/25 09:50 5 MG Albuterol 2.5 mg Q6HR PRN NEB 08/10/25 20:45 08/10/25 22:17 2.5 MG Ipratropium [place] 0.5 mg Q6HPRN PRN NEB 08/10/25 20:45 Atorvastatin Calcium 40 mg HS PO 08/11/25 22:00 08/12/25 21:53 40 MG Hydralazine HCl 10 mg Q6HP PRN IV 08/10/25 23:00 08/13/25 16:31 10 MG Diagnostic Test (Pha) 1 strip ACHS 08/11/25 07:00 08/13/25 11:55 1 STRIP Insulin Human Regular HS SC 08/11/25 22:00 Insulin Human Regular AC SC 08/11/25 07:00 08/13/25 11:59 12 UNITS Dextrose 50 ml UD PRN IV 08/11/25 02:15 Enoxaparin Sodium 60 mg Q12H SC 08/11/25 13:00 08/13/25 13:57 60 MG Laboratory Results Laboratory Tests 08/11/25 05:43 Urinalysis Test 08/11/25 08:15 Urine Color Light-yellow (Yellow) Urine Clarity Clear (Clear) Urine pH 6.5 (5.0-9.0) Urine Specific [place] 1.015 (1.001-1.035) Urine Protein Negative (Negative) Urine Ketones Negative (Negative) Urine Blood Negative /uL (Negative) Urine Nitrite Negative (Negative) Urine Bilirubin Negative (Negative) Urine Urobilinogen Normal mg/dL (Negative) Urine Leukocyte Esterase Negative /uL (Negative) Urine RBC 1 /hpf (0 - 3) Urine Microscopic WBC < 1 /HPF (0-3) Urine Squamous Epithelial Cells Few /hpf (<5) Urine Bacteria None seen /hpf (None Seen) Urine Glucose 1+ mg/dL (Normal) H Microbiology Microbiology Date/Time Source Procedure Growth Status 08/11/25 02:20 Sputum Gram Stain - Final Complete 08/11/25 02:20 Sputum Respiratory Culture - Final Complete Assessment/Plan Assessment/Plan Patient is a 59-year-old male with past medical history of CVA on Eliquis, GERD, kidney stones, diabetes mellitus, hypertension and hyperlipidemia, presented to [facility] ED with complaint of left-sided weakness. According to the patient and his daughter, he fell from a ladder at home from standing height four days ago, striking his left shoulder during the fall. There was no head trauma reported. Following the incident, he developed progressive symptoms, including left-sided weakness, facial droop, slurred speech, and loss of taste on the left side of the tongue. On evaluation in the ED, patient is afebrile, blood pressure is 169/[address] shows no intracranial hemorrhage or mass effect and old bilateral infarcts as described. The patient was started on dual antiplatelet therapy and IV fluids. Patient is admitted for further evaluation and management. acute on chronic CVA Old bilateral infarcts Brain MRI ordered Head CT: No intracranial hemorrhage or mass effect. Old right basal ganglia / grey radiata infarct, similar to prior. Old left thalamic. Carotid Doppler Study: Mild atherosclerotic vascular disease with no hemodynamically significant stenosis. Any narrowing is less than 50%. Chest X-Ray: No acute cardiopulmonary process. Echocardiogram ordered ABCD score: 6 (high risk) Aspirin 81 MG PO daily Plavix 75 MG PO dilay Lovenox 60 MG SC q12h Albuterol 0.5 MG NEB q6h prn Ipratropium 0.5 MG NEB 16h prn sputum culture UA and UDS Left grade 3 AC joint dislocation Shoulder X-Ray: There is no evidence of acute fracture or dislocation of the left glenohumeral joint. There is grade 3 AC joint dislocation by [place] classification of unknown chronicity. There are bony spurs from the inferior distal clavicle , over the acromion and coracoid process. The visualized lungs are clear. pain management with Tylenol Type 2 diabetes mellitus with hyperglycemia, uncontrolled Serum glucose 195 Moderate sliding scale Hypertension Hydralazine 10 MG IV q6h Amlodipine 5 MG PO daily Hyperlipidemia 08/11/2025: discussed with pt and pt's daughter at the bedside regarding plan of care. daughter (1/3) and pt's at bedside Plan discussed with: Daughter 08/12/2025: one of the daughters was not happy with the care and wanted to transfer to another hospital. I discussed the care of plan with nursing at bedside. I asked nursing to have therapeutic case manager involved. 08/13/2025: i discussed with the oldest daughter, Melissa, regarding plan of care. She felt that he father was mistreated. Plan discussed with: Patient My Orders Orders - NADINE DALAL DO Procedure Category Date Status Time * [place]per CONS 08/13/25 Verified Consult Date of Service: Aug 13, 2025 Billing Provider: NADINE DALAL DO Common Visit Codes: [id number] INP/OBS CARE(HIGH) NADINE DALAL DO Aug 13, 2025 17:26
[2025-08-13] MEDS: ACETAMINOPHEN 325 MG TAB PO PRN (21:06)
[2025-08-13] MEDS: SOD CHL 0.45% 1,000 ML IV SCH (23:52)
[2025-08-14] VITALS (9 sets, daily range): BP systolic 120–155; BP diastolic 66–104; PULSE 89–125; RESP 16–20; TEMP 97.9–98.7; O2SAT 95–99
[2025-08-14] MEDS ORDERED: CLINIMIX PER PHARMACY 0 ML IV SCH (11:45)
[2025-08-14] MEDS ORDERED: DEXTROSE (50%) 50ML SYRG IV SCH (12:00)
[2025-08-14] MEDS: InsuLIN REG 1unit/0.01ml Soln (100units/ml) SC SCH (12:09)
[2025-08-14] MEDS: ACCU-CHEK COMFORT CURVE STRIP VI SCH (12:09)
[2025-08-14] MEDS ORDERED: POTASSIUM CHLORIDE 40 MEQ, LIDOCAINE 1% (LOCAL ANESTH.) 4 ML in SODIUM CHL 0.9% 250 ML IV ONE (13:00)
[2025-08-14 13:52] LABS: Alanine Aminotransferase 26 U/L (7-40); Albumin 3.7 g/dL (3.2-4.8); Alkaline Phosphatase 51 U/L (46-116); Anion Gap 14 (5-15); BUN/Creatinine Ratio 12.3 (10.0-20.0); Blood Urea Nitrogen 16 mg/dL (9-23); Calcium 8.9 mg/dL (8.7-10.4); Carbon Dioxide 21 mmol/L (20-31); Chloride 106 mmol/L (98-107); Glucose 167 mg/dL (74-106); Magnesium 2.0 mg/dL (1.6-2.6); Potassium 3.9 mmol/L (3.5-5.1); Sodium 141 mmol/L (136-145); Total Protein 6.8 g/dL (5.7-8.2); Triglycerides 90 mg/dL (< 150)
[2025-08-14 13:53] LABS: Bilirubin, Total 0.9 mg/dL (0.2-1.0)
[2025-08-14] MEDS ORDERED: LORazepam 2MG/ML-1ML VIAL IV PRN (19:30)
--- NOTE | 2025-08-14 19:32 | DVHPN2 ---
Progress Note - Dictate Date Seen: Aug 14, 2025 Medical Necessity Reason Pt with a Central, PICC or Fol: No Subjective Mr. Nunez is a right-handed gentleman with a history of diabetes, previous stroke, A-fib, he came to the hospital on 08/11/24 with a chief complaint of left-sided weakness. I saw him on 11/02/2022 for possible stroke (MRI positive) I have seen examined the patient, his and the daughter in the room with him, the case was discussed with his nurse His worse today, he can not talk, the right facial weakness is slightly worse, but there is obviously worsened right hemiparesis He is alert and fully oriented UDS, 08/28/2025: Negative CBC, 08/11/2025: Unremarkable BMP 08/11/2025: Unremarkable Liver function tests, 08/11/2025: Unremarkable TG/CHO L/LDL/HDL, 11/02/2022: 87/206/140/68 EKG, 10/31/22: Atrial fibrillation Echocardiogram, 11/01/2022: Atrial fibrillation. 55 to 60% with normal RV function. Echocardiogram, 08/12/2025: EF: 60% Carotid Doppler, 08/10/2025: Mild atherosclerotic vascular disease with no hemodynamically significant stenosis. Any narrowing is less than 50%. MRI head, 11/13/2022: There is small focal subacute right posterior frontal white matter restricted diffusion which may represent active demyelinating plaque or subacute infarct. There is small focus of the left brachium pontine restricted diffusion typical location for active demyelinating plaque of multiple sclerosis versus subacute infarct. There is chronic right basal ganglia, grey radiata/centrum semiovale infarct. There are chronic left greater than right thalamic lacunar infarcts. There is no hemorrhage MRI head, 08/11/2025: 1. Acute or subacute infarct in the left caudate nucleus adjacent to the posterior body of the left lateral ventricle measuring up to 1.7 cm. 2. Additional nonacute findings as described above vital signs Vital Sign Date Time Temp Pulse Resp B/P (MAP) Pulse Ox O2 Delivery O2 Flow Rate FiO2 08/14/25 17:00 97.9 98 17 137/81 (99) 96 97.9 08/14/25 08:00 Nasal Cannula* 2 28 Total Intake and Output 08/13/25 08/13/25 08/14/25 15:00 23:00 07:00 Intake Total 360 ml 240 ml Output Total 275 ml Balance 360 ml -35 ml medications Current Medications Medications Dose Ordered Sig/Cash Route Start Time Stop Time Status Last Admin Dose Admin Acetaminophen 650 mg Q6HP PRN PO 08/10/25 20:45 08/13/25 21:06 650 MG Amlodipine Besylate 5 mg DAILY PO 08/11/25 10:00 08/14/25 10:33 5 MG Ipratropium [place] 0.5 mg Q6HPRN PRN NEB 08/10/25 20:45 Cancel Atorvastatin Calcium 40 mg HS PO 08/11/25 22:00 08/13/25 21:06 40 MG Hydralazine HCl 10 mg Q6HP PRN IV 08/10/25 23:00 08/13/25 21:25 10 MG Enoxaparin Sodium 60 mg Q12H SC 08/11/25 13:00 08/14/25 12:13 60 MG Sodium Chloride 1,000 ml @ 50 mls/hr Q20H IV 08/13/25 23:45 08/13/25 23:52 50 MLS/HR Amino Acids 0 ml @ 0 mls/hr PER PHARMACY IV 08/14/25 11:45 Diagnostic Test (Pha) 1 strip Q6HR 08/14/25 12:00 08/14/25 17:25 1 STRIP Insulin Human Regular FOLLOW SLIDING SCALE Q6HR SC 08/14/25 12:00 08/14/25 12:09 4 UNITS Dextrose 50 ml UD IV 08/14/25 12:00 Amino Acids/ Electrolytes/ Dextrose 1,000 ml @ 41 mls/hr DAILY@2200 IV 08/14/25 22:00 objective General: the patient is well developed and nourished. No acute distress. MENTAL STATUS: Subjective SPEECH, LANGUAGE, HIGHER CORTICAL FUNCTION: No aphasia, mild dysarthria CRANIAL NERVES: Pupils are equal, round and reactive. EOMs full and conjugate. No spontaneous or evoked nystagmus. He has double vision when he looks to the right side. Sensorimotor examined in bilateral trigeminal distribution is fine. Right facial weakness of upper motor neuron pattern SENSATION: Sensation to touch and pinprick is normal. MOTOR: Normal tone in the upper and lower extremity. Normal muscle bulk. No fasciculations. No abnormal movements or posturing. Muscle strength of the major groups in the left upper and lower extremity is 4/5, right arm: 0/5, right le-2/5 REFLEXES: Deep tendon reflexes are symmetrical. No pathological reflexes. CEREBELLAR/COORDINATION: Finger to nose is unremarkable in the left upper extremity GAIT/STATION: Unsteady laboratory and microbiology Laboratory Tests 08/14/25 12:45 08/11/25 05:43 Test 08/14/25 12:45 Range/Units Serum Glucose 167 H 74-106 mg/dL Problem List Acute stroke syndrome Acute stroke Chronic strokes in 2017, 11/01/2022 with good recovery Atrial fibrillation Poor compliance Assessment/Plan Monitoring Supportive treatment CT head stat MR brain scan Telemetry Stabilize blood pressure Lovenox 60 mg subQ q.12 hours, switch to Eliquis 5 mg twice daily later Lipitor 40 mg daily Up to chair Physical therapy This medical document was created using an electronic medical record system with [employer] dictation system. Although this document has been carefully reviewed, there may still be some phonetic and typographical errors. These areas are purely typographical due to imperfections of the software programs, and do not reflect any compromise in the patient's medical care Prognosis poor Plan discussed with: Patient, Spouse, Daughter, Other Total Time (mins): 40 DARREL HEMPHILL MD Aug 14, 2025 19:32
[2025-08-14] MEDS: SODIUM CHLORIDE 0.9% 1,000 ML IV SCH (20:16)
[2025-08-14] MEDS: AMINO ACID INFUSION IN D10W 1,000 ML IV SCH (21:43)
--- NOTE | 2025-08-14 22:29 | DVH ---
EXAM: CT HEAD WITHOUT CONTRAST INDICATION: CVA TECHNIQUE: CT of the head without intravenous contrast. Radiation Dose : 1. Head: CT Dose: CTDI volume is 54.08 mGy. Dose-length product is 758.86 mGy*cm The dose indicators for CT are the volume Computed Tomography (CT) Dose Index (CTDIvol) and the Dose Length Product (DLP), and are measured in units of mGy and mGy-cm, respectively. These indicators are not patient dose, but values generated from the CT scanner acquisition factors. The report includes radiation exposure data for exposures received during this examination. COMPARISON: CT STROKE CTH on DOS: 08/10/25, HEAD WITHOUT CONTRAST on DOS: 11/01/22 FINDINGS: Brain: No acute hemorrhage, mass effect, or cerebral edema. Well-defined hypodensities in the grey radiata, new on the left from 2022. Additional mild patchy periventricular white matter hypodensity and global parenchymal volume loss. CSF Spaces: Mild symmetric enlargement. Bones/Soft Tissues: No acute findings. Orbits/Sinuses/Mastoids: Unremarkable as visualized. IMPRESSION: 1. No acute intracranial abnormality. 2. Sequelae of mild chronic microangiopathy, recent left and more remote right deep white matter infarcts. Radiation optimization: All CT scans at this facility use at least one of these dose optimization techniques: automated exposure control mA and/or kV adjustment per patient size (includes targeted exams where dose is matched to clinical indication) or iterative reconstruction.
[2025-08-15] VITALS (9 sets, daily range): BP systolic 138–160; BP diastolic 79–98; PULSE 79–95; RESP 12–19; TEMP 97.7–98; O2SAT 94–100
--- NOTE | 2025-08-15 01:55 | DVHPN2 ---
Reviewed: Care Plan, H&P, Labs, Medications, Previous Orders Changes from previous H/P or p: No Changes General: Per HPI Objective Vitals Vital Signs Date Time Temp Pulse Resp B/P (MAP) Pulse Ox O2 Delivery O2 Flow Rate FiO2 08/15/25 01:00 97.7 92 17 148/89 (108) 97 97.7 08/14/25 20:00 Nasal Cannula* 2 28 Intake/Output Intake and Output 08/15/25 07:00 Intake Total 350 ml Balance 350 ml Intake Oral 0 ml IV Total 350 ml # Voids 2 Medications Current Medications Medications Dose Ordered Sig/Cash Route Start Time Stop Time Status Last Admin Dose Admin Acetaminophen 650 mg Q6HP PRN PO 08/10/25 20:45 08/13/25 21:06 650 MG Amlodipine Besylate 5 mg DAILY PO 08/11/25 10:00 08/14/25 10:33 5 MG Ipratropium [place] 0.5 mg Q6HPRN PRN NEB 08/10/25 20:45 Cancel Atorvastatin Calcium 40 mg HS PO 08/11/25 22:00 08/13/25 21:06 40 MG Enoxaparin Sodium 60 mg Q12H SC 08/11/25 13:00 08/15/25 00:26 60 MG Amino Acids 0 ml @ 0 mls/hr PER PHARMACY IV 08/14/25 11:45 Diagnostic Test (Pha) 1 strip Q6HR 08/14/25 12:00 08/15/25 00:22 1 STRIP Insulin Human Regular FOLLOW SLIDING SCALE Q6HR SC 08/14/25 12:00 08/15/25 00:23 8 UNITS Dextrose 50 ml UD IV 08/14/25 12:00 Amino Acids/ Electrolytes/ Dextrose 1,000 ml @ 41 mls/hr DAILY@2200 IV 08/14/25 22:00 08/14/25 21:43 41 MLS/HR Hydralazine HCl 10 mg Q6HP PRN IV 08/14/25 19:30 Sodium Chloride 1,000 ml @ 75 mls/hr [id number] IV 08/14/25 19:30 08/14/25 20:16 75 MLS/HR Lorazepam 1 mg ONCE PRN IV 08/14/25 19:30 Laboratory Results Laboratory Tests 08/11/25 05:43 08/14/25 12:45 Chemistry Test 08/14/25 12:45 Albumin 3.7 g/dL (3.2-4.8) Calcium Level 8.9 mg/dL (8.7-10.4) Magnesium Level 2.0 mg/dL (1.6-2.6) Phosphorus Level 3.7 mg/dL (2.4-5.1) Total Protein 6.8 g/dL (5.7-8.2) Lipid panel Test 08/14/25 12:45 Triglycerides Level 90 mg/dL (< 150) LFT Test 08/14/25 12:45 Alanine Aminotransferase (ALT) 26 U/L (7-40) Alkaline Phosphatase 51 U/L (46-116) Aspartate Amino Transferase (AST) 22 U/L (13-40) Total Bilirubin 0.9 mg/dL (0.2-1.0) Urinalysis Test 08/11/25 08:15 Urine Color Light-yellow (Yellow) Urine Clarity Clear (Clear) Urine pH 6.5 (5.0-9.0) Urine Specific [place] 1.015 (1.001-1.035) Urine Protein Negative (Negative) Urine Ketones Negative (Negative) Urine Blood Negative /uL (Negative) Urine Nitrite Negative (Negative) Urine Bilirubin Negative (Negative) Urine Urobilinogen Normal mg/dL (Negative) Urine Leukocyte Esterase Negative /uL (Negative) Urine RBC 1 /hpf (0 - 3) Urine Microscopic WBC < 1 /HPF (0-3) Urine Squamous Epithelial Cells Few /hpf (<5) Urine Bacteria None seen /hpf (None Seen) Urine Glucose 1+ mg/dL (Normal) H Microbiology Microbiology Date/Time Source Procedure Growth Status 08/11/25 02:20 Sputum Gram Stain - Final Complete 08/11/25 02:20 Sputum Respiratory Culture - Final Complete Assessment/Plan Assessment/Plan Patient is a 59-year-old male with past medical history of CVA on Eliquis, GERD, kidney stones, diabetes mellitus, hypertension and hyperlipidemia, presented to [facility] ED with complaint of left-sided weakness. According to the patient and his daughter, he fell from a ladder at home from standing height four days ago, striking his left shoulder during the fall. There was no head trauma reported. Following the incident, he developed progressive symptoms, including left-sided weakness, facial droop, slurred speech, and loss of taste on the left side of the tongue. On evaluation in the ED, patient is afebrile, blood pressure is 169/[address] shows no intracranial hemorrhage or mass effect and old bilateral infarcts as described. The patient was started on dual antiplatelet therapy and IV fluids. Patient is admitted for further evaluation and management. acute on chronic CVA Old bilateral infarcts Brain MRI ordered Head CT: No intracranial hemorrhage or mass effect. Old right basal ganglia / grey radiata infarct, similar to prior. Old left thalamic. Carotid Doppler Study: Mild atherosclerotic vascular disease with no hemodynamically significant stenosis. Any narrowing is less than 50%. Chest X-Ray: No acute cardiopulmonary process. Echocardiogram ordered ABCD score: 6 (high risk) Aspirin 81 MG PO daily Plavix 75 MG PO dilay Lovenox 60 MG SC q12h Albuterol 0.5 MG NEB q6h prn Ipratropium 0.5 MG NEB 16h prn sputum culture UA and UDS Left grade 3 AC joint dislocation Shoulder X-Ray: There is no evidence of acute fracture or dislocation of the left glenohumeral joint. There is grade 3 AC joint dislocation by Zackary classification of unknown chronicity. There are bony spurs from the inferior distal clavicle , over the acromion and coracoid process. The visualized lungs are clear. pain management with Tylenol Type 2 diabetes mellitus with hyperglycemia, uncontrolled Serum glucose 195 Moderate sliding scale Hypertension Hydralazine 10 MG IV q6h Amlodipine 5 MG PO daily Hyperlipidemia 08/11/2025: discussed with pt and pt's daughter at the bedside regarding plan of care. daughter (1/3) and pt's at bedside Plan discussed with: Daughter 08/12/2025: one of the daughters was not happy with the care and wanted to transfer to another hospital. I discussed the care of plan with nursing at bedside. I asked nursing to have manager rn case involved. 08/13/2025: i discussed with the oldest daughter, Melissa, regarding plan of care. She felt that he father was mistreated. 08/14/2025: discussed with pt and pt's daughter at bedside.continue current care, pending transfer to another hospital 08/15/2025: saw pt at bedside. Pt is pending evaluation by PT/OT for placement. Also, pt needs a second swallow evaluation. Pt failed the first one. Currently on Clinimix Plan discussed with: Daughter My Orders Orders - NADINE DALAL DO Procedure Category Date Status Time Clinimix Per Pharmacy PHA 08/14/25 In Process 11:45 Glucose Blood PHA 08/14/25 In Process (Accu-Chek Comfort 12:00 Insulin R (Human) PHA 08/14/25 In Process (Insulin R) 12:00 Dextrose 50% Syringe PHA 08/14/25 In Process 12:00 Clinimix Per Pharmacy [facility] 08/14/25 In Process 22:00 Amino Acid Infusion PHA 08/14/25 In Process In D10w (Clinimix 4. 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
[2025-08-15 16:27] LABS: Alanine Aminotransferase 26 U/L (7-40); Albumin 3.5 g/dL (3.2-4.8); Alkaline Phosphatase 49 U/L (46-116); Anion Gap 10 (5-15); BUN/Creatinine Ratio 21.5 (10.0-20.0); Carbon Dioxide 24 mmol/L (20-31); Magnesium 1.9 mg/dL (1.6-2.6); Potassium 4.2 mmol/L (3.5-5.1); Sodium 142 mmol/L (136-145); Total Protein 6.1 g/dL (5.7-8.2)
[2025-08-15 16:28] LABS: Bilirubin, Total 0.7 mg/dL (0.2-1.0); Blood Urea Nitrogen 23 mg/dL (9-23); Calcium 8.0 mg/dL (8.7-10.4); Chloride 108 mmol/L (98-107); Glucose 187 mg/dL (74-106)
--- NOTE | 2025-08-15 16:37 | DVH ---
EXAM: MRI BRAIN HEAD WO CONTRAST INDICATION: New acute stroke TECHNIQUE: Multiplanar, multisequence imaging of the brain without contrast. COMPARISON: CT HEAD WITHOUT CONTRAST on DOS: 08/14/25 FINDINGS: [PARENCHYMA]: Significant areas of diffusion restriction along the left periventricular white matter measuring up to 3.1 cm and additional area involving the left lateral basal ganglia along the left subinsular region. No mass effect or herniation. [VENTRICLES]: No hydrocephalus. [EXTRA-AXIAL SPACES]: No extra-axial fluid collections. [FLOW VOIDS]: The flow voids are intact. [EXTRA-CRANIAL STRUCTURES]: The bony structures are intact. IMPRESSION: 1. Acute infarcts of the left periventricular white matter and left lateral basal ganglia.
[2025-08-15] MEDS: SODIUM PHOSPHATES 20 MEQ in SODIUM CHL 0.9% 100 ML IV ONE (20:24)
[2025-08-15] MEDS: APIXABAN 5 MG TAB PO SCH (22:00)
[2025-08-16] VITALS (8 sets, daily range): BP systolic 141–153; BP diastolic 80–99; PULSE 77–110; RESP 16–19; TEMP 97.9–99.7; O2SAT 95–100
--- NOTE | 2025-08-16 07:05 | ECG ---
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
[2025-08-16 07:55] LABS: Alanine Aminotransferase 23 U/L (7-40); Alkaline Phosphatase 47 U/L (46-116); Anion Gap 11 (5-15); Carbon Dioxide 23 mmol/L (20-31); Potassium 3.7 mmol/L (3.5-5.1); Sodium 143 mmol/L (136-145)
[2025-08-16 07:56] LABS: BUN/Creatinine Ratio 18.9 (10.0-20.0); Blood Urea Nitrogen 18 mg/dL (9-23); Magnesium 1.7 mg/dL (1.6-2.6)
[2025-08-16 07:58] LABS: Bilirubin, Total 0.7 mg/dL (0.2-1.0)
[2025-08-16 07:59] LABS: Albumin 3.1 g/dL (3.2-4.8); Calcium 7.6 mg/dL (8.7-10.4); Chloride 109 mmol/L (98-107); Glucose 164 mg/dL (74-106); Total Protein 5.6 g/dL (5.7-8.2)
[2025-08-16] MEDS: hydrALAZINE HCL 20 MG/ML VL IV PRN (19:05)
--- NOTE | 2025-08-16 23:54 | DVHPN2 ---
Reviewed: Care Plan, H&P, Labs, Medications, Previous Orders Changes from previous H/P or p: No Changes General: Per HPI Objective Vitals Vital Signs Date Time Temp Pulse Resp B/P (MAP) Pulse Ox O2 Delivery O2 Flow Rate FiO2 08/16/25 21:00 98.8 94 18 148/80 (102) 98 98.8 08/16/25 20:00 Nasal Cannula* 2 28 Intake/Output Intake and Output 08/16/25 07:00 Intake Total 1343 ml Output Total 900 ml Balance 443 ml Intake Oral 0 ml IV Total 1343 ml Output Urine Total 900 ml General Appearance: Alert, Oriented X3 Cardiovascular: Regular rate, Normal S1, Normal S2 Abdomen: Normal bowel sounds Medications Current Medications Medications Dose Ordered Sig/Cash Route Start Time Stop Time Status Last Admin Dose Admin Acetaminophen 650 mg Q6HP PRN PO 08/10/25 20:45 08/13/25 21:06 650 MG Amlodipine Besylate 5 mg DAILY PO 08/11/25 10:00 08/14/25 10:33 5 MG Ipratropium [place] 0.5 mg Q6HPRN PRN NEB 08/10/25 20:45 Cancel Atorvastatin Calcium 40 mg HS PO 08/11/25 22:00 08/13/25 21:06 40 MG Amino Acids 0 ml @ 0 mls/hr PER PHARMACY IV 08/14/25 11:45 Diagnostic Test (Pha) 1 strip Q6HR 08/14/25 12:00 08/16/25 23:13 1 STRIP Insulin Human Regular FOLLOW SLIDING SCALE Q6HR SC 08/14/25 12:00 08/16/25 23:16 2 UNITS Dextrose 50 ml UD IV 08/14/25 12:00 Amino Acids/ Electrolytes/ Dextrose 1,000 ml @ 41 mls/hr DAILY@2200 IV 08/14/25 22:00 08/16/25 22:25 41 MLS/HR Hydralazine HCl 10 mg Q6HP PRN IV 08/14/25 19:30 Sodium Chloride 1,000 ml @ 75 mls/hr [id number] IV 08/14/25 19:30 08/16/25 11:42 75 MLS/HR Lorazepam 1 mg ONCE PRN IV 08/14/25 19:30 Apixaban 5 mg BID PO 08/15/25 22:00 Hydralazine HCl 10 mg Q6HP PRN IV 08/15/25 22:00 08/16/25 19:05 10 MG Laboratory Results Laboratory Tests 08/11/25 05:43 08/16/25 05:30 Chemistry Test 08/16/25 05:30 Albumin 3.1 g/dL (3.2-4.8) L Calcium Level 7.6 mg/dL (8.7-10.4) L Magnesium Level 1.7 mg/dL (1.6-2.6) Phosphorus Level 3.4 mg/dL (2.4-5.1) Total Protein 5.6 g/dL (5.7-8.2) L LFT Test 08/16/25 05:30 Alanine Aminotransferase (ALT) 23 U/L (7-40) Alkaline Phosphatase 47 U/L (46-116) Aspartate Amino Transferase (AST) 21 U/L (13-40) Total Bilirubin 0.7 mg/dL (0.2-1.0) Urinalysis Test 08/11/25 08:15 Urine Color Light-yellow (Yellow) Urine Clarity Clear (Clear) Urine pH 6.5 (5.0-9.0) Urine Specific [place] 1.015 (1.001-1.035) Urine Protein Negative (Negative) Urine Ketones Negative (Negative) Urine Blood Negative /uL (Negative) Urine Nitrite Negative (Negative) Urine Bilirubin Negative (Negative) Urine Urobilinogen Normal mg/dL (Negative) Urine Leukocyte Esterase Negative /uL (Negative) Urine RBC 1 /hpf (0 - 3) Urine Microscopic WBC < 1 /HPF (0-3) Urine Squamous Epithelial Cells Few /hpf (<5) Urine Bacteria None seen /hpf (None Seen) Urine Glucose 1+ mg/dL (Normal) H Microbiology Microbiology Date/Time Source Procedure Growth Status 08/11/25 02:20 Sputum Gram Stain - Final Complete 08/11/25 02:20 Sputum Respiratory Culture - Final Complete Labs and/or images reviewed: Labs reviewed by me, Image(s) reviewed by me Assessment/Plan Assessment/Plan Patient is a 59-year-old male with past medical history of CVA on Eliquis, GERD, kidney stones, diabetes mellitus, hypertension and hyperlipidemia, presented to [facility] ED with complaint of left-sided weakness. According to the patient and his daughter, he fell from a ladder at home from standing height four days ago, striking his left shoulder during the fall. There was no head trauma reported. Following the incident, he developed progressive symptoms, including left-sided weakness, facial droop, slurred speech, and loss of taste on the left side of the tongue. On evaluation in the ED, patient is afebrile, blood pressure is 169/[address] shows no intracranial hemorrhage or mass effect and old bilateral infarcts as described. The patient was started on dual antiplatelet therapy and IV fluids. Patient is admitted for further evaluation and management. acute on chronic CVA Old bilateral infarcts Brain MRI ordered Head CT: No intracranial hemorrhage or mass effect. Old right basal ganglia / grey radiata infarct, similar to prior. Old left thalamic. Carotid Doppler Study: Mild atherosclerotic vascular disease with no hemodynamically significant stenosis. Any narrowing is less than 50%. Chest X-Ray: No acute cardiopulmonary process. Echocardiogram ordered ABCD score: 6 (high risk) Aspirin 81 MG PO daily Plavix 75 MG PO dilay Lovenox 60 MG SC q12h Albuterol 0.5 MG NEB q6h prn Ipratropium 0.5 MG NEB 16h prn sputum culture UA and UDS Left grade 3 AC joint dislocation Shoulder X-Ray: There is no evidence of acute fracture or dislocation of the left glenohumeral joint. There is grade 3 AC joint dislocation by Zackary classification of unknown chronicity. There are bony spurs from the inferior distal clavicle , over the acromion and coracoid process. The visualized lungs are clear. pain management with Tylenol Type 2 diabetes mellitus with hyperglycemia, uncontrolled Serum glucose 195 Moderate sliding scale Hypertension Hydralazine 10 MG IV q6h Amlodipine 5 MG PO daily Hyperlipidemia 08/11/2025: discussed with pt and pt's daughter at the bedside regarding plan of care. daughter (13) and pt's at bedside Plan discussed with: Daughter 08/12/2025: one of the daughters was not happy with the care and wanted to transfer to another hospital. I discussed the care of plan with nursing at bedside. I asked nursing to have outsole caser involved. 08/13/2025: i discussed with the oldest daughter, Melissa, regarding plan of care. She felt that he father was mistreated. 08/14/2025: discussed with pt and pt's daughter at bedside.continue current care, pending transfer to another hospital 08/15/2025: saw pt at bedside. Pt is pending evaluation by PT/OT for placement. Also, pt needs a second swallow evaluation. Pt failed the first one. Currently on Clinimix 08/16/2025: all three daughters at bedside. two of daughter wanted to express their displease about the nurses, nursing, and many other issues. I explained to them about the process and requested to have nursing supervisors to discuss with them. Plan discussed with: Daughter My Orders Orders - NADINE DALAL DO Procedure Category Date Status Time Renal Function Test LAB 08/17/25 Verified 05:00 Magnesium LAB 08/17/25 Verified 05:00 Clinimix Per Pharmacy [facility] 08/16/25 In Process 22:00 Date of Service: Aug 16, 2025 Billing Provider: NADINE DALAL DO Common Visit Codes: [id number] INP/OBS CARE(HIGH) NADINE DALAL DO Aug 16, 2025 23:54
[2025-08-17] VITALS (7 sets, daily range): BP systolic 139–159; BP diastolic 76–89; PULSE 82–93; RESP 16–18; TEMP 97.8–99.2; O2SAT 94–99
--- NOTE | 2025-08-17 00:20 | DVHPN2 ---
Reviewed: Care Plan, H&P, Labs, Medications, Previous Orders Changes from previous H/P or p: No Changes General: Per HPI Objective Vitals Vital Signs Date Time Temp Pulse Resp B/P (MAP) Pulse Ox O2 Delivery O2 Flow Rate FiO2 08/16/25 21:00 98.8 94 18 148/80 (102) 98 98.8 08/16/25 20:00 Nasal Cannula* 2 28 Intake/Output Intake and Output 08/17/25 07:00 Intake Total 500 ml Output Total 450 ml Balance 50 ml Intake Oral 500 ml Output Urine Total 450 ml General Appearance: Alert, Oriented X3 HEENT: Atraumatic Cardiovascular: Regular rate, Normal S1, Normal S2 Medications Current Medications Medications Dose Ordered Sig/Cash Route Start Time Stop Time Status Last Admin Dose Admin Acetaminophen 650 mg Q6HP PRN PO 08/10/25 20:45 08/13/25 21:06 650 MG Amlodipine Besylate 5 mg DAILY PO 08/11/25 10:00 08/14/25 10:33 5 MG Ipratropium [place] 0.5 mg Q6HPRN PRN NEB 08/10/25 20:45 Cancel Atorvastatin Calcium 40 mg HS PO 08/11/25 22:00 08/13/25 21:06 40 MG Amino Acids 0 ml @ 0 mls/hr PER PHARMACY IV 08/14/25 11:45 Diagnostic Test (Pha) 1 strip Q6HR 08/14/25 12:00 08/16/25 23:13 1 STRIP Insulin Human Regular FOLLOW SLIDING SCALE Q6HR SC 08/14/25 12:00 08/16/25 23:16 2 UNITS Dextrose 50 ml UD IV 08/14/25 12:00 Amino Acids/ Electrolytes/ Dextrose 1,000 ml @ 41 mls/hr DAILY@2200 IV 08/14/25 22:00 08/16/25 22:25 41 MLS/HR Hydralazine HCl 10 mg Q6HP PRN IV 08/14/25 19:30 Sodium Chloride 1,000 ml @ 75 mls/hr [id number] IV 08/14/25 19:30 08/16/25 11:42 75 MLS/HR Lorazepam 1 mg ONCE PRN IV 08/14/25 19:30 Apixaban 5 mg BID PO 08/15/25 22:00 Hydralazine HCl 10 mg Q6HP PRN IV 08/15/25 22:00 08/16/25 19:05 10 MG Laboratory Results Laboratory Tests 08/11/25 05:43 08/16/25 05:30 Chemistry Test 08/16/25 05:30 Albumin 3.1 g/dL (3.2-4.8) L Calcium Level 7.6 mg/dL (8.7-10.4) L Magnesium Level 1.7 mg/dL (1.6-2.6) Phosphorus Level 3.4 mg/dL (2.4-5.1) Total Protein 5.6 g/dL (5.7-8.2) L LFT Test 08/16/25 05:30 Alanine Aminotransferase (ALT) 23 U/L (7-40) Alkaline Phosphatase 47 U/L (46-116) Aspartate Amino Transferase (AST) 21 U/L (13-40) Total Bilirubin 0.7 mg/dL (0.2-1.0) Urinalysis Test 08/11/25 08:15 Urine Color Light-yellow (Yellow) Urine Clarity Clear (Clear) Urine pH 6.5 (5.0-9.0) Urine Specific [place] 1.015 (1.001-1.035) Urine Protein Negative (Negative) Urine Ketones Negative (Negative) Urine Blood Negative /uL (Negative) Urine Nitrite Negative (Negative) Urine Bilirubin Negative (Negative) Urine Urobilinogen Normal mg/dL (Negative) Urine Leukocyte Esterase Negative /uL (Negative) Urine RBC 1 /hpf (0 - 3) Urine Microscopic WBC < 1 /HPF (0-3) Urine Squamous Epithelial Cells Few /hpf (<5) Urine Bacteria None seen /hpf (None Seen) Urine Glucose 1+ mg/dL (Normal) H Microbiology Microbiology Date/Time Source Procedure Growth Status 08/11/25 02:20 Sputum Gram Stain - Final Complete 08/11/25 02:20 Sputum Respiratory Culture - Final Complete Labs and/or images reviewed: Labs reviewed by me, Image(s) reviewed by me Assessment/Plan Assessment/Plan Patient is a 59-year-old male with past medical history of CVA on Eliquis, GERD, kidney stones, diabetes mellitus, hypertension and hyperlipidemia, presented to [facility] ED with complaint of left-sided weakness. According to the patient and his daughter, he fell from a ladder at home from standing height four days ago, striking his left shoulder during the fall. There was no head trauma reported. Following the incident, he developed progressive symptoms, including left-sided weakness, facial droop, slurred speech, and loss of taste on the left side of the tongue. On evaluation in the ED, patient is afebrile, blood pressure is 169/[address] shows no intracranial hemorrhage or mass effect and old bilateral infarcts as described. The patient was started on dual antiplatelet therapy and IV fluids. Patient is admitted for further evaluation and management. acute on chronic CVA Old bilateral infarcts Brain MRI ordered Head CT: No intracranial hemorrhage or mass effect. Old right basal ganglia / grey radiata infarct, similar to prior. Old left thalamic. Carotid Doppler Study: Mild atherosclerotic vascular disease with no hemodynamically significant stenosis. Any narrowing is less than 50%. Chest X-Ray: No acute cardiopulmonary process. Echocardiogram ordered ABCD score: 6 (high risk) Aspirin 81 MG PO daily Plavix 75 MG PO dilay Lovenox 60 MG SC q12h Albuterol 0.5 MG NEB q6h prn Ipratropium 0.5 MG NEB 16h prn sputum culture UA and UDS Left grade 3 AC joint dislocation Shoulder X-Ray: There is no evidence of acute fracture or dislocation of the left glenohumeral joint. There is grade 3 AC joint dislocation by [place] classification of unknown chronicity. There are bony spurs from the inferior distal clavicle , over the acromion and coracoid process. The visualized lungs are clear. pain management with Tylenol Type 2 diabetes mellitus with hyperglycemia, uncontrolled Serum glucose 195 Moderate sliding scale Hypertension Hydralazine 10 MG IV q6h Amlodipine 5 MG PO daily Hyperlipidemia 08/11/2025: discussed with pt and pt's daughter at the bedside regarding plan of care. daughter (10/01) and pt's at bedside Plan discussed with: Daughter 08/12/2025: one of the daughters was not happy with the care and wanted to transfer to another hospital. I discussed the care of plan with nursing at bedside. I asked nursing to have category manager involved. 08/13/2025: i discussed with the oldest daughter, Melissa, regarding plan of care. She felt that he father was mistreated. 08/14/2025: discussed with pt and pt's daughter at bedside.continue current care, pending transfer to another hospital Plan discussed with: Daughter My Orders Orders - NADINE DALAL DO Procedure Category Date Status Time Renal Function Test LAB 08/17/25 Logged 05:00 Magnesium LAB 08/17/25 Logged 05:00 Clinimix Per Pharmacy [facility] 08/16/25 In Process 22:00 Date of Service: Aug 14, 2025 Billing Provider: NADINE DALAL DO Common Visit Codes: [id number] INP/OBS CARE(HIGH) NADINE DALAL DO Aug 17, 2025 00:20
[2025-08-17 06:04] LABS: Sodium 143.0 mmol/L (136-145)
[2025-08-17 06:05] LABS: Anion Gap 10.0 (5-15); Carbon Dioxide 24.0 mmol/L (20-31)
[2025-08-17 06:06] LABS: Calcium 7.7 mg/dL (8.7-10.4); Chloride 109.0 mmol/L (98-107); Potassium 3.1 mmol/L (3.5-5.1)
[2025-08-17 06:10] LABS: BUN/Creatinine Ratio 16.3 (10.0-20.0); Blood Urea Nitrogen 15.0 mg/dL (9-23)
[2025-08-17 06:11] LABS: Magnesium 1.7 mg/dL (1.6-2.6)
[2025-08-17 06:12] LABS: Albumin 3.3 g/dL (3.2-4.8)
[2025-08-17 06:21] LABS: Glucose 187.0 mg/dL (74-106)
--- NOTE | 2025-08-17 15:44 | DVHPN2 ---
Subjective Alert Oriented Aphasic Reviewed: Care Plan, H&P, Labs, Medications, Previous Orders Changes from previous H/P or p: Changes General: Per HPI Objective Vitals Vital Signs Date Time Temp Pulse Resp B/P (MAP) Pulse Ox O2 Delivery O2 Flow Rate FiO2 08/17/25 12:48 97.8 87 16 145/89 (107) 97 97.8 08/17/25 08:00 Nasal Cannula* 2 28 Intake/Output Intake and Output 08/17/25 07:00 Intake Total 500 ml Output Total 900 ml Balance -400 ml Intake Oral 500 ml Output Urine Total 900 ml General Appearance: Alert, Oriented X3 HEENT: Atraumatic Cardiovascular: Regular rate, Normal S1, Normal S2 Abdomen: Normal bowel sounds Medications Current Medications Medications Dose Ordered Sig/Cash Route Start Time Stop Time Status Last Admin Dose Admin Acetaminophen 650 mg Q6HP PRN PO 08/10/25 20:45 08/13/25 21:06 650 MG Amlodipine Besylate 5 mg DAILY PO 08/11/25 10:00 08/14/25 10:33 5 MG Ipratropium [place] 0.5 mg Q6HPRN PRN NEB 08/10/25 20:45 Cancel Atorvastatin Calcium 40 mg HS PO 08/11/25 22:00 08/13/25 21:06 40 MG Amino Acids 0 ml @ 0 mls/hr PER PHARMACY IV 08/14/25 11:45 Diagnostic Test (Pha) 1 strip Q6HR 08/14/25 12:00 08/17/25 11:45 1 STRIP Insulin Human Regular FOLLOW SLIDING SCALE Q6HR SC 08/14/25 12:00 08/17/25 11:47 8 UNITS Dextrose 50 ml UD IV 08/14/25 12:00 Amino Acids/ Electrolytes/ Dextrose 1,000 ml @ 41 mls/hr DAILY@2200 IV 08/14/25 22:00 08/16/25 22:25 41 MLS/HR Hydralazine HCl 10 mg Q6HP PRN IV 08/14/25 19:30 Sodium Chloride 1,000 ml @ 75 mls/hr [id number] IV 08/14/25 19:30 08/17/25 14:10 75 MLS/HR Lorazepam 1 mg ONCE PRN IV 08/14/25 19:30 Apixaban 5 mg BID PO 08/15/25 22:00 Hydralazine HCl 10 mg Q6HP PRN IV 08/15/25 22:00 08/16/25 19:05 10 MG Laboratory Results Laboratory Tests 08/11/25 05:43 08/17/25 05:23 Chemistry Test 08/17/25 05:23 Albumin 3.3 g/dL (3.2-4.8) Calcium Level 7.7 mg/dL (8.7-10.4) L Magnesium Level 1.7 mg/dL (1.6-2.6) Phosphorus Level 2.5 mg/dL (2.4-5.1) Urinalysis Test 08/11/25 08:15 Urine Color Light-yellow (Yellow) Urine Clarity Clear (Clear) Urine pH 6.5 (5.0-9.0) Urine Specific [place] 1.015 (1.001-1.035) Urine Protein Negative (Negative) Urine Ketones Negative (Negative) Urine Blood Negative /uL (Negative) Urine Nitrite Negative (Negative) Urine Bilirubin Negative (Negative) Urine Urobilinogen Normal mg/dL (Negative) Urine Leukocyte Esterase Negative /uL (Negative) Urine RBC 1 /hpf (0 - 3) Urine Microscopic WBC < 1 /HPF (0-3) Urine Squamous Epithelial Cells Few /hpf (<5) Urine Bacteria None seen /hpf (None Seen) Urine Glucose 1+ mg/dL (Normal) H Microbiology Microbiology Date/Time Source Procedure Growth Status 08/11/25 02:20 Sputum Gram Stain - Final Complete 08/11/25 02:20 Sputum Respiratory Culture - Final Complete Assessment/Plan Assessment/Plan Acute CVA with right hemiparesis Old CVA Mixed hyperlipidemia HTN DM2 Dysphagia Aphasia PLAN: NPO IV nutrition Swallow eval Lovenox Eliquis Monitor Discussed with family at the bedside Plan discussed with: Patient, Spouse, Daughter Date of Service: Aug 17, 2025 Billing Provider: RACHID KERR MD Common Visit Codes: [id number] INP/OBS CARE(HIGH) RACHID KERR MD Aug 17, 2025 15:44
[2025-08-17] MEDS: POTASSIUM CHL 20MEQ/100ML 100 ML IV ONE (16:01)
[2025-08-17] MEDS: ENOXAPARIN SOD 40 MG/0.4 ML SYRINGE SC ONE (16:15)
[2025-08-17] MEDS: POTASSIUM PHOSPHATE 22 MEQ in SODIUM CHL 0.9% 100 ML IV ONE (17:49)
[2025-08-17] MEDS ORDERED: APIXABAN 5 MG TAB PO SCH (22:00)
--- NOTE | 2025-08-17 23:51 | DVHPN2 ---
Progress Note - Dictate Date Seen: Aug 17, 2025 Medical Necessity Reason Pt with a Central, PICC or Fol: No Subjective Mr. Nunez is a right-handed gentleman with a history of diabetes, previous stroke, A-fib, he came to the hospital on 08/11/24 with a chief complaint of left-sided weakness. I saw him on 11/02/2022 for possible stroke (MRI positive) I have seen examined the patient, talked to his nurse I personally his fully oriented, but he can not talk, he points the object he wants He can not move the right arm than leg UDS, 08/28/2025: Negative CBC, 08/11/2025: Unremarkable BMP 08/11/2025: Unremarkable Liver function tests, 08/11/2025: Unremarkable TG/CHO L/LDL/HDL, 11/02/2022: 87/206/140/68 EKG, 10/31/22: Atrial fibrillation Echocardiogram, 11/01/2022: Atrial fibrillation. 55 to 60% with normal RV function. Echocardiogram, 08/12/2025: EF: 60% Carotid Doppler, 08/10/2025: Mild atherosclerotic vascular disease with no hemodynamically significant stenosis. Any narrowing is less than 50%. MRI head, 11/13/2022: There is small focal subacute right posterior frontal white matter restricted diffusion which may represent active demyelinating plaque or subacute infarct. There is small focus of the left brachium pontine restricted diffusion typical location for active demyelinating plaque of multiple sclerosis versus subacute infarct. There is chronic right basal ganglia, grey radiata/centrum semiovale infarct. There are chronic left greater than right thalamic lacunar infarcts. There is no hemorrhage MRI head, 08/11/2025: 1. Acute or subacute infarct in the left caudate nucleus adjacent to the posterior body of the left lateral ventricle measuring up to 1.7 cm. 2. Additional nonacute findings as described above MRI head, 08/15/2025: Acute infarcts of the left periventricular white matter and left lateral basal ganglia. (company MRI obtained on 08/28/2025, the acute stroke MRI of 08/11/25 is bigger, he has a new stroke in the left [place]) vital signs Vital Sign Date Time Temp Pulse Resp B/P (MAP) Pulse Ox O2 Delivery O2 Flow Rate FiO2 08/17/25 16:45 98.4 86 17 145/76 (99) 98 98.4 08/17/25 08:00 Nasal Cannula* 2 28 Total Intake and Output 08/16/25 08/16/25 08/17/25 15:00 23:00 07:00 Intake Total 500 ml 0 ml Output Total 450 ml 450 ml Balance 50 ml -450 ml medications Current Medications Medications Dose Ordered Sig/Cash Route Start Time Stop Time Status Last Admin Dose Admin Acetaminophen 650 mg Q6HP PRN PO 08/10/25 20:45 08/13/25 21:06 650 MG Amlodipine Besylate 5 mg DAILY PO 08/11/25 10:00 08/14/25 10:33 5 MG Ipratropium [place] 0.5 mg Q6HPRN PRN NEB 08/10/25 20:45 Cancel Atorvastatin Calcium 40 mg HS PO 08/11/25 22:00 08/13/25 21:06 40 MG Amino Acids 0 ml @ 0 mls/hr PER PHARMACY IV 08/14/25 11:45 Diagnostic Test (Pha) 1 strip Q6HR 08/14/25 12:00 08/17/25 11:45 1 STRIP Insulin Human Regular FOLLOW SLIDING SCALE Q6HR SC 08/14/25 12:00 08/17/25 11:47 8 UNITS Dextrose 50 ml UD IV 08/14/25 12:00 Amino Acids/ Electrolytes/ Dextrose 1,000 ml @ 41 mls/hr DAILY@2200 IV 08/14/25 22:00 08/17/25 22:11 41 MLS/HR Hydralazine HCl 10 mg Q6HP PRN IV 08/14/25 19:30 Lorazepam 1 mg ONCE PRN IV 08/14/25 19:30 Hydralazine HCl 10 mg Q6HP PRN IV 08/15/25 22:00 08/16/25 19:05 10 MG Enoxaparin Sodium 40 mg DAILY SC 08/18/25 10:00 Apixaban 5 mg BID PO 08/17/25 22:00 Hold objective General: the patient is well developed and nourished. No acute distress. MENTAL STATUS: Subjective SPEECH, LANGUAGE, HIGHER CORTICAL FUNCTION: No aphasia, mild dysarthria CRANIAL NERVES: Pupils are equal, round and reactive. EOMs full and conjugate. No spontaneous or evoked nystagmus. He has double vision when he looks to the right side. Sensorimotor examined in bilateral trigeminal distribution is fine. Right facial weakness of upper motor neuron pattern SENSATION: Sensation to touch and pinprick is normal. MOTOR: Normal tone in the upper and lower extremity. Normal muscle bulk. No fasciculations. No abnormal movements or posturing. Muscle strength of the major groups in the left upper and lower extremity is 4/5, right arm: 0/5, right le-2/5 REFLEXES: Deep tendon reflexes are symmetrical. No pathological reflexes. CEREBELLAR/COORDINATION: Finger to nose is unremarkable in the left upper extremity GAIT/STATION: Unsteady laboratory and microbiology Laboratory Tests 08/17/25 05:23 08/11/25 05:43 Test 08/17/25 05:23 Range/Units Serum Glucose 187 H 74-106 mg/dL Problem List Acute stroke syndrome Acute stroke Chronic strokes in 2017, 11/01/2022 with good recovery Atrial fibrillation Poor compliance Assessment/Plan Monitoring Supportive treatment Telemetry Stabilize blood pressure I have recommend Lovenox 60 mg subQ q.12 hours, switch to Eliquis 5 mg twice daily later (RN to call primary care team) Lipitor 40 mg daily Up to chair Physical therapy This medical document was created using an electronic medical record system with [employer] computerized dictation system. Although this document has been carefully reviewed, there may still be some phonetic and typographical errors. These areas are purely typographical due to imperfections of the software programs, and do not reflect any compromise in the patient's medical care Prognosis poor Dietary Evaluation Review Comments: 1. 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 If not able to eat d/t stroke, offer TPN per pharmacy to meet his needs 3. If EN/GI accessible, Tube feeding Glucerna@50ml/hr providing 70g protein 1440kcal 966ml free water meeting his needs @ 100% Protein,100% energy Expected Outcomes/Goals: Controlled DM, improved physical strength Plan discussed with: Other Total Time (mins): 35 DARREL HEMPHILL MD Aug 17, 2025 23:50
[2025-08-18] VITALS (7 sets, daily range): BP systolic 139–162; BP diastolic 82–94; PULSE 77–93; RESP 16–19; TEMP 97.9–99; O2SAT 94–98
[2025-08-18 05:40] LABS: Sodium 143 mmol/L (136-145)
[2025-08-18 05:41] LABS: Anion Gap 9 (5-15); Carbon Dioxide 26 mmol/L (20-31)
[2025-08-18 05:47] LABS: BUN/Creatinine Ratio 16.7 (10.0-20.0); Blood Urea Nitrogen 15 mg/dL (9-23); Magnesium 1.8 mg/dL (1.6-2.6)
[2025-08-18 05:48] LABS: Albumin 3.4 g/dL (3.2-4.8)
[2025-08-18 05:52] LABS: Calcium 7.9 mg/dL (8.7-10.4); Chloride 108 mmol/L (98-107); Glucose 163 mg/dL (74-106); Potassium 3.2 mmol/L (3.5-5.1)
[2025-08-18] MEDS: ENOXAPARIN SOD 40 MG/0.4 ML SYRINGE SC SCH (09:22)
--- NOTE | 2025-08-18 14:11 | DVHPN2 ---
Subjective Alert Oriented Aphasic Reviewed: Care Plan, H&P, Labs, Medications, Previous Orders Changes from previous H/P or p: Changes General: Per HPI Objective Vitals Vital Signs Date Time Temp Pulse Resp B/P (MAP) Pulse Ox O2 Delivery O2 Flow Rate FiO2 08/18/25 12:36 97.9 92 16 139/82 (101) 96 97.9 08/18/25 08:15 Nasal Cannula* 2 28 Intake/Output Intake and Output 08/18/25 07:00 Intake Total 0 ml Output Total 1100 ml Balance -1100 ml Intake Oral 0 ml Output Urine Total 1100 ml General Appearance: Alert, Oriented X3 HEENT: Atraumatic Cardiovascular: Regular rate, Normal S1, Normal S2 Abdomen: Normal bowel sounds Medications Current Medications Medications Dose Ordered Sig/Cash Route Start Time Stop Time Status Last Admin Dose Admin Acetaminophen 650 mg Q6HP PRN PO 08/10/25 20:45 08/13/25 21:06 650 MG Amlodipine Besylate 5 mg DAILY PO 08/11/25 10:00 08/14/25 10:33 5 MG Ipratropium [place] 0.5 mg Q6HPRN PRN NEB 08/10/25 20:45 Cancel Atorvastatin Calcium 40 mg HS PO 08/11/25 22:00 08/13/25 21:06 40 MG Amino Acids 0 ml @ 0 mls/hr PER PHARMACY IV 08/14/25 11:45 Diagnostic Test (Pha) 1 strip Q6HR 08/14/25 12:00 08/18/25 12:13 1 STRIP Insulin Human Regular FOLLOW SLIDING SCALE Q6HR SC 08/14/25 12:00 08/18/25 12:13 4 UNITS Dextrose 50 ml UD IV 08/14/25 12:00 Amino Acids/ Electrolytes/ Dextrose 1,000 ml @ 41 mls/hr DAILY@2200 IV 08/14/25 22:00 08/17/25 22:11 41 MLS/HR Hydralazine HCl 10 mg Q6HP PRN IV 08/14/25 19:30 Lorazepam 1 mg ONCE PRN IV 08/14/25 19:30 Hydralazine HCl 10 mg Q6HP PRN IV 08/15/25 22:00 08/16/25 19:05 10 MG Enoxaparin Sodium 40 mg DAILY SC 08/18/25 10:00 08/18/25 09:22 40 MG Apixaban 5 mg BID PO 08/17/25 22:00 Hold Laboratory Results Laboratory Tests 08/11/25 05:43 08/18/25 05:00 Chemistry Test 08/18/25 05:00 Albumin 3.4 g/dL (3.2-4.8) Calcium Level 7.9 mg/dL (8.7-10.4) L Magnesium Level 1.8 mg/dL (1.6-2.6) Phosphorus Level 2.2 mg/dL (2.4-5.1) L Urinalysis Test 08/11/25 08:15 Urine Color Light-yellow (Yellow) Urine Clarity Clear (Clear) Urine pH 6.5 (5.0-9.0) Urine Specific [place] 1.015 (1.001-1.035) Urine Protein Negative (Negative) Urine Ketones Negative (Negative) Urine Blood Negative /uL (Negative) Urine Nitrite Negative (Negative) Urine Bilirubin Negative (Negative) Urine Urobilinogen Normal mg/dL (Negative) Urine Leukocyte Esterase Negative /uL (Negative) Urine RBC 1 /hpf (0 - 3) Urine Microscopic WBC < 1 /HPF (0-3) Urine Squamous Epithelial Cells Few /hpf (<5) Urine Bacteria None seen /hpf (None Seen) Urine Glucose 1+ mg/dL (Normal) H Microbiology Microbiology Date/Time Source Procedure Growth Status 08/11/25 02:20 Sputum Gram Stain - Final Complete 08/11/25 02:20 Sputum Respiratory Culture - Final Complete Assessment/Plan Assessment/Plan Acute CVA with right hemiparesis Old CVA Mixed hyperlipidemia HTN DM2 Dysphagia Aphasia PLAN: NPO IV nutrition Swallow eval Lovenox Eliquis Monitor Discussed with family at the bedside 08/18/2025: Continue NPO Start TPN Swallow eval to be done today Continue Lovenox We will switch Lovenox to Eliquis once he is able to start p.o. intake Monitor closely Plan discussed with: Patient My Orders Orders - RACHID KERR MD Procedure Category Date Status Time Enoxaparin Sodium PHA 08/18/25 In Process (Lovenox) 10:00 Date of Service: Aug 18, 2025 Billing Provider: RACHID KERR MD Common Visit Codes: [id number] INP/OBS CARE(HIGH) RACHID KERR MD Aug 18, 2025 14:11
[2025-08-18] MEDS ORDERED: TPN PER PHARMACY 0 ML IV SCH (14:15)
[2025-08-18] MEDS: POTASSIUM CHL 20MEQ/100ML 100 ML IV ONE (16:49)
[2025-08-18] MEDS: POTASSIUM PHOSPHATE 26.4 MEQ in SODIUM CHL 0.9% 100 ML IV ONE (18:43)
[2025-08-18] MEDS ORDERED: PPN PER PHARMACY 0 ML IV SCH (20:00)
[2025-08-18] MEDS: hydrALAZINE HCL 20 MG/ML VL IV PRN (22:24)
--- NOTE | 2025-08-18 23:17 | DVHPN2 ---
Progress Note - Dictate Date Seen: Aug 18, 2025 Medical Necessity Reason Pt with a Central, PICC or Fol: No Subjective Mr. Nunez is a right-handed gentleman with a history of diabetes, previous stroke, A-fib, he came to the hospital on 08/11/24 with a chief complaint of left-sided weakness. I saw him on 11/02/2022 for possible stroke (MRI positive) I have seen examined the patient, talked to his nurse and other medical staff. He is awake, I presumed he was fully oriented, he follow verbal commands, he can not talk, but understands He can not move the right arm, but able to move the right leg UDS, 08/28/2025: Negative CBC, 08/11/2025: Unremarkable BMP 08/11/2025: Unremarkable Liver function tests, 08/11/2025: Unremarkable TG/CHO L/LDL/HDL, 11/02/2022: 87/206/140/68 EKG, 10/31/22: Atrial fibrillation Echocardiogram, 11/01/2022: Atrial fibrillation. 55 to 60% with normal RV function. Echocardiogram, 08/12/2025: EF: 60% Carotid Doppler, 08/10/2025: Mild atherosclerotic vascular disease with no hemodynamically significant stenosis. Any narrowing is less than 50%. MRI head, 11/13/2022: There is small focal subacute right posterior frontal white matter restricted diffusion which may represent active demyelinating plaque or subacute infarct. There is small focus of the left brachium pontine restricted diffusion typical location for active demyelinating plaque of multiple sclerosis versus subacute infarct. There is chronic right basal ganglia, grey radiata/centrum semiovale infarct. There are chronic left greater than right thalamic lacunar infarcts. There is no hemorrhage MRI head, 08/11/2025: 1. Acute or subacute infarct in the left caudate nucleus adjacent to the posterior body of the left lateral ventricle measuring up to 1.7 cm. 2. Additional nonacute findings as described above MRI head, 08/15/2025: Acute infarcts of the left periventricular white matter and left lateral basal ganglia. (company MRI obtained on 08/28/2025, the acute stroke MRI of 08/11/25 is bigger, he has a new stroke in the left [place]) vital signs Vital Sign Date Time Temp Pulse Resp B/P (MAP) Pulse Ox O2 Delivery O2 Flow Rate FiO2 08/18/25 22:24 153/92 08/18/25 16:33 99.0 93 18 97 99.0 08/18/25 08:15 Nasal Cannula* 2 28 Total Intake and Output 08/17/25 08/17/25 08/18/25 15:00 23:00 07:00 Intake Total 0 ml 0 ml Output Total 600 ml 500 ml Balance -600 ml -500 ml medications Current Medications Medications Dose Ordered Sig/Cash Route Start Time Stop Time Status Last Admin Dose Admin Acetaminophen 650 mg Q6HP PRN PO 08/10/25 20:45 08/13/25 21:06 650 MG Amlodipine Besylate 5 mg DAILY PO 08/11/25 10:00 08/14/25 10:33 5 MG Ipratropium [place] 0.5 mg Q6HPRN PRN NEB 08/10/25 20:45 Cancel Atorvastatin Calcium 40 mg HS PO 08/11/25 22:00 08/13/25 21:06 40 MG Diagnostic Test (Pha) 1 strip Q6HR 08/14/25 12:00 08/18/25 17:31 1 STRIP Insulin Human Regular FOLLOW SLIDING SCALE Q6HR SC 08/14/25 12:00 08/18/25 17:31 4 UNITS Dextrose 50 ml UD IV 08/14/25 12:00 Amino Acids/ Electrolytes/ Dextrose 1,000 ml @ 41 mls/hr DAILY@2200 IV 08/14/25 22:00 08/19/25 21:59 08/18/25 22:03 41 MLS/HR Hydralazine HCl 10 mg Q6HP PRN IV 08/14/25 19:30 08/18/25 22:24 10 MG Lorazepam 1 mg ONCE PRN IV 08/14/25 19:30 Hydralazine HCl 10 mg Q6HP PRN IV 08/15/25 22:00 08/16/25 19:05 10 MG Enoxaparin Sodium 40 mg DAILY SC 08/18/25 10:00 08/18/25 09:22 40 MG Apixaban 5 mg BID PO 08/17/25 22:00 Hold Amino Acids 0 ml @ 0 mls/hr PER PHARMACY IV 08/18/25 20:00 objective General: the patient is well developed and nourished. No acute distress. MENTAL STATUS: Subjective SPEECH, LANGUAGE, HIGHER CORTICAL FUNCTION: No aphasia, mild dysarthria CRANIAL NERVES: Pupils are equal, round and reactive. EOMs full and conjugate. No spontaneous or evoked nystagmus. He has double vision when he looks to the right side. Sensorimotor examined in bilateral trigeminal distribution is fine. Right facial weakness of upper motor neuron pattern SENSATION: Sensation to touch and pinprick is normal. MOTOR: Normal tone in the upper and lower extremity. Normal muscle bulk. No fasciculations. No abnormal movements or posturing. Muscle strength of the major groups in the left upper and lower extremity is 4/5, right arm: 0/5, right le/5 REFLEXES: Deep tendon reflexes are symmetrical. No pathological reflexes. CEREBELLAR/COORDINATION: Finger to nose is unremarkable in the left upper extremity GAIT/STATION: Unsteady laboratory and microbiology Laboratory Tests 08/18/25 05:00 08/11/25 05:43 Test 08/18/25 05:00 Range/Units Serum Glucose 163 H 74-106 mg/dL Problem List Acute stroke Expressive aphasia secondary to acute stroke Acute right hemiplegia secondary to acute stroke Chronic strokes in 2017, 11/01/2022 with good recovery Atrial fibrillation Poor compliance Assessment/Plan Monitoring Supportive treatment Telemetry Stabilize blood pressure I have recommend Lovenox 60 mg subQ q.12 hours, switch to Eliquis 5 mg twice daily later (RN to call primary care team) Lipitor 40 mg daily Up to chair Physical therapy This medical document was created using an electronic medical record system with [employer] dictation system. Although this document has been carefully reviewed, there may still be some phonetic and typographical errors. These areas are purely typographical due to imperfections of the software programs, and do not reflect any compromise in the patient's medical care Prognosis poor Dietary Evaluation Review Comments: 1. 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 If not able to eat d/t stroke, offer TPN per pharmacy to meet his needs 3. If EN/GI accessible, Tube feeding Glucerna@50ml/hr providing 70g protein 1440kcal 966ml free water meeting his needs @ 100% Protein,100% energy Expected Outcomes/Goals: Controlled DM, improved physical strength Plan discussed with: Patient, Other Total Time (mins): 35 DARREL HEMPHILL MD Aug 18, 2025 23:17
[2025-08-19] VITALS (8 sets, daily range): BP systolic 133–149; BP diastolic 71–84; PULSE 78–94; RESP 18; TEMP 97.8–98.4; O2SAT 92–99
[2025-08-19 07:07] LABS: Alkaline Phosphatase 55 U/L (46-116); Anion Gap 12 (5-15); BUN/Creatinine Ratio 14.1 (10.0-20.0); Blood Urea Nitrogen 13 mg/dL (9-23); Carbon Dioxide 22 mmol/L (20-31); Magnesium 1.8 mg/dL (1.6-2.6); Sodium 143 mmol/L (136-145); Total Protein 6.0 g/dL (5.7-8.2)
[2025-08-19 07:08] LABS: Bilirubin, Total 0.7 mg/dL (0.2-1.0)
[2025-08-19 07:17] LABS: Alanine Aminotransferase 62 U/L (7-40); Albumin 3.2 g/dL (3.2-4.8); Calcium 7.9 mg/dL (8.7-10.4); Chloride 109 mmol/L (98-107); Glucose 183 mg/dL (74-106); Potassium 3.2 mmol/L (3.5-5.1)
--- NOTE | 2025-08-19 12:23 | DVHPN2 ---
Subjective Alert Oriented Aphasic Reviewed: Care Plan, H&P, Labs, Medications, Previous Orders Changes from previous H/P or p: Changes General: Per HPI Objective Vitals Vital Signs Date Time Temp Pulse Resp B/P (MAP) Pulse Ox O2 Delivery O2 Flow Rate FiO2 08/19/25 08:33 98.3 86 18 137/80 (99) 98 98.3 08/19/25 08:00 Nasal Cannula* 2 28 Intake/Output Intake and Output 08/19/25 07:00 Intake Total 100 ml Output Total 1000 ml Balance -900 ml Intake Oral 0 ml IV Total 100 ml Output Urine Total 1000 ml General Appearance: Alert, Oriented X3 HEENT: Atraumatic Cardiovascular: Regular rate, Normal S1, Normal S2 Abdomen: Normal bowel sounds Medications Current Medications Medications Dose Ordered Sig/Cash Route Start Time Stop Time Status Last Admin Dose Admin Acetaminophen 650 mg Q6HP PRN PO 08/10/25 20:45 08/13/25 21:06 650 MG Amlodipine Besylate 5 mg DAILY PO 08/11/25 10:00 08/14/25 10:33 5 MG Ipratropium [place] 0.5 mg Q6HPRN PRN NEB 08/10/25 20:45 Cancel Atorvastatin Calcium 40 mg HS PO 08/11/25 22:00 08/13/25 21:06 40 MG Diagnostic Test (Pha) 1 strip Q6HR 08/14/25 12:00 08/19/25 11:35 1 STRIP Insulin Human Regular FOLLOW SLIDING SCALE Q6HR SC 08/14/25 12:00 08/19/25 11:57 4 UNITS Dextrose 50 ml UD IV 08/14/25 12:00 Amino Acids/ Electrolytes/ Dextrose 1,000 ml @ 41 mls/hr DAILY@2200 IV 08/14/25 22:00 08/19/25 21:59 08/18/25 22:03 41 MLS/HR Hydralazine HCl 10 mg Q6HP PRN IV 08/14/25 19:30 08/18/25 22:24 10 MG Lorazepam 1 mg ONCE PRN IV 08/14/25 19:30 Hydralazine HCl 10 mg Q6HP PRN IV 08/15/25 22:00 08/16/25 19:05 10 MG Apixaban 5 mg BID PO 08/17/25 22:00 Hold Amino Acids 0 ml @ 0 mls/hr PER PHARMACY IV 08/18/25 20:00 Enoxaparin Sodium 60 mg Q12HR SC 08/19/25 22:00 Laboratory Results Laboratory Tests 08/11/25 05:43 08/19/25 05:56 Chemistry Test 08/19/25 05:56 Albumin 3.2 g/dL (3.2-4.8) Calcium Level 7.9 mg/dL (8.7-10.4) L Magnesium Level 1.8 mg/dL (1.6-2.6) Phosphorus Level 2.3 mg/dL (2.4-5.1) L Total Protein 6.0 g/dL (5.7-8.2) LFT Test 08/19/25 05:56 Alanine Aminotransferase (ALT) 62 U/L (7-40) H Alkaline Phosphatase 55 U/L (46-116) Aspartate Amino Transferase (AST) 28 U/L (13-40) Total Bilirubin 0.7 mg/dL (0.2-1.0) Urinalysis Test 08/11/25 08:15 Urine Color Light-yellow (Yellow) Urine Clarity Clear (Clear) Urine pH 6.5 (5.0-9.0) Urine Specific [place] 1.015 (1.001-1.035) Urine Protein Negative (Negative) Urine Ketones Negative (Negative) Urine Blood Negative /uL (Negative) Urine Nitrite Negative (Negative) Urine Bilirubin Negative (Negative) Urine Urobilinogen Normal mg/dL (Negative) Urine Leukocyte Esterase Negative /uL (Negative) Urine RBC 1 /hpf (0 - 3) Urine Microscopic WBC < 1 /HPF (0-3) Urine Squamous Epithelial Cells Few /hpf (<5) Urine Bacteria None seen /hpf (None Seen) Urine Glucose 1+ mg/dL (Normal) H Microbiology Microbiology Date/Time Source Procedure Growth Status 08/11/25 02:20 Sputum Gram Stain - Final Complete 08/11/25 02:20 Sputum Respiratory Culture - Final Complete Assessment/Plan Assessment/Plan Acute CVA with right hemiparesis Old CVA Mixed hyperlipidemia HTN DM2 Dysphagia Aphasia PLAN: NPO IV nutrition Swallow eval Lovenox Eliquis Monitor Discussed with family at the bedside 08/18/2025: Continue NPO Start TPN Swallow eval to be done today Continue Lovenox We will switch Lovenox to Eliquis once he is able to start p.o. intake Monitor closely 08/19/2025: Continue NPO The patient failed a swallow eval He needs a G-tube Consult GI for a PEG tube Continue IV nutrition per pharmacy protocol Hold Eliquis Lovenox 1 milligram/kilogram subcutaneously q.12 hours Discussed with the family at the bedside, the and son, they are in agreement Plan discussed with: Patient, Spouse, Son My Orders Orders - RACHID KERR MD Procedure Category Date Status Time Ppn Per Pharmacy PHA 08/18/25 In Process 20:00 Enoxaparin Sodium PHA 08/19/25 In Process (Lovenox) 22:00 Complete Blood Count LAB 08/20/25 Verified 05:00 * [facility] Hand Inspector CONS 08/19/25 Transmitted 09:28 Date of Service: Aug 19, 2025 Billing Provider: RACHID KERR MD Common Visit Codes: [id number] INP/OBS CARE(HIGH) RACHID KERR MD Aug 19, 2025 12:23
[2025-08-19] MEDS: POTASSIUM CHL 20MEQ/100ML 100 ML IV ONE ×2 (13:58→14:05)
--- NOTE | 2025-08-19 15:00 | DVHCONRES ---
Date Seen: Aug 19, 2025 Resident Creating Document: SALVADOR TRIPATHI RESIDENT Referring Physician Dr. Tierney History of Present Illness 59-year-old male who is hospital course has been prolonged due to acute CVA, dysphagia, failed swallow eval. Patient has diabetes mellitus type 2, hypertension, mixed hyperlipidemia, not dysphagia and aphasia. GI consulted for evaluation PEG tube. Currently patient is on Clinimix. Family History: Patient reports no known family medical history. Allergies: Coded Allergies: NO KNOWN ALLERGIES (Unverified , 10/31/22) Home Meds Active Scripts Pantoprazole Sodium Sesquihydr (Protonix) 40 Mg Tab, 40 MG PO DAILY for 30 Days, #30 TAB Prov:NANCY GIRON MD 11/04/22 Apixaban Base (ELIQUIS) 5 Mg Tab, 5 MG PO BID for 30 Days, #60 TAB 2 Refills Prov:NANCY GIRON MD 11/04/22 Reported Medications Empagliflozin (Jardiance) 10 Mg Tab, PO, TAB 11/02/22 Amlodipine Besylate (Amlodipine Besylate) 5 Mg Tab, 5 MG PO DAILY for 30 Days, MG 11/02/22 Atorvastatin Calcium (ATORVASTATIN CALCIUM) 40 Mg Tab, 1 TAB PO DAILY, #30 TAB 5 Refills 11/02/22 Metformin Hydrochloride (Metformin Hcl) 500 Mg Tab, 500 MG PO DAILY for 30 Days, #2 MG 11/02/22 Current Medications Current Medications Medications (Trade) Dose Ordered Sig/Cash Route PRN Reason Start Time Stop Time Status Last Admin Amino Acids 0 ml @ 0 mls/hr PER PHARMACY IV 08/18/25 20:00 Enoxaparin Sodium (Lovenox) 60 mg Q12HR SC 08/19/25 22:00 Fat Emulsion Intravenous 100 ml/Potassium Phosphate 22 meq/ Calcium Gluconate 4.65 meq/ Magnesium Sulfate 8 meq/ Multivitamins 10 ml/Chromium/ Copper/Manganese/ Zinc 1 ml/ Potassium Acetate 10 meq/Insulin Human Regular 4 units/Amino Acids/ Dextrose/Purified Water 1,033.04 ml @ 43 mls/hr Q24H2M IV 08/19/25 22:00 08/20/25 21:59 Vital Signs Vital Signs Date Time Temp Pulse Resp B/P (MAP) Pulse Ox O2 Delivery O2 Flow Rate FiO2 08/19/25 13:00 98.2 94 18 149/84 (105) 97 98.2 08/19/25 08:00 Nasal Cannula* 2 28 Physical Exam Male patient lying in the bed, looks exhausted, right upper and lower extremity weakness, unable to talk General: afebrile, palor, mucosae are moist Cardiovascular: Regular S1 and S2. No murmurs, gallops or rubs. No JVD elevation. No pedal edema Respiratory: Normal B/L air entry on room air. Clear lung sounds on auscultation Abdomen: Soft, nontender, nondistended, normoactive bowel sounds, no rebound tenderness, no organomegaly, no masses Genitourinary: Deferred Labs/Diagnostic Data Labs Test 08/19/25 11:26 08/19/25 05:56 08/18/25 05:00 08/14/25 12:45 Range/Units POC Glucose 167 H 70-106 mg/dl Sodium Level 143 136-145 mmol/L Potassium Level 3.2 L 3.5-5.1 mmol/L Chloride Level 109 H 98-107 mmol/L Carbon Dioxide Level 22 20-31 mmol/L Anion Gap 12 5-15 Blood Urea Nitrogen 13 9-23 mg/dL Creatinine 0.92 0.700-1.30 mg/dL Glomerular Filtration Rate Calc 96 >90 mL/min BUN/Creatinine Ratio 14.1 10.0-20.0 Serum Glucose 183 H 74-106 mg/dL Calcium Level 7.9 L 8.7-10.4 mg/dL Phosphorus Level 2.3 L 2.4-5.1 mg/dL Magnesium Level 1.8 1.6-2.6 mg/dL Total Bilirubin 0.7 0.2-1.0 mg/dL Aspartate Amino Transferase (AST) 28 13-40 U/L Alanine Aminotransferase (ALT) 62 H 7-40 U/L Alkaline Phosphatase 55 46-116 U/L Total Protein 6.0 5.7-8.2 g/dL Albumin 3.2 3.2-4.8 g/dL Estimated GFR () 111 mL/min Estimated GFR (Non- 92 mL/min Triglycerides Level 90 < 150 mg/dL Test 08/11/25 08:15 08/11/25 05:43 08/11/25 00:03 Range/Units Urine Color Light-yellow Yellow Urine Clarity Clear Clear Urine pH 6.5 5.0-9.0 Urine Specific [place] 1.015 1.001-1.035 Urine Protein Negative Negative Urine Ketones Negative Negative Urine Blood Negative Negative /uL Urine Nitrite Negative Negative Urine Bilirubin Negative Negative Urine Urobilinogen Normal Negative mg/dL Urine Leukocyte Esterase Negative Negative /uL Urine RBC 1 0 - 3 /hpf Urine Microscopic WBC < 1 0-3 /HPF Urine Squamous Epithelial Cells Few <5 /hpf Urine Bacteria None seen None Seen /hpf Urine Glucose 1+ H Normal mg/dL Urine Opiates Screen Neg NEGATIVE Urine Fentanyl Screen Neg NEGATIVE Urine Barbiturates Screen Neg NEGATIVE Urine Phencyclidine Screen Neg NEGATIVE Urine Amphetamines Screen Neg NEGATIVE Urine Benzodiazepines Screen Neg NEGATIVE Urine Cocaine Screen Neg NEGATIVE Urine Cannabinoids Screen Neg NEGATIVE White Blood Count 9.6 4.4-10.8 10^3/uL Red Blood Count 5.04 4.5-5.90 10^6/uL Hemoglobin 15.0 13.5-17.5 g/dL Hematocrit 43.6 41.0-53.0 % Mean Corpuscular Volume 86.5 80.0-100.0 fL Mean Corpuscular Hemoglobin 29.8 28.0-32.0 pg Mean Corpuscular Hemoglobin Concent 34.5 32.0-36.0 g/dL Red Cell Distribution Width 14.3 11.8-14.3 % Platelet Count 268 140-450 10^3/uL Mean Platelet Volume 7.8 6.9-10.8 fL Neutrophils (%) (Auto) 56.0 37.0-80.0 % Lymphocytes (%) (Auto) 35.1 10.0-50.0 % Monocytes (%) (Auto) 7.0 0.0-12.0 % Eosinophils (%) (Auto) 1.3 0.0-7.0 % Basophils (%) (Auto) 0.6 0.0-2.0 % Neutrophils # (Auto) 5.4 1.6-8.6 10 ^3/uL Lymphocytes # (Auto) 3.4 0.4-5.4 10 ^3/uL Monocytes # (Auto) 0.7 0-1.3 10 ^3/uL Eosinophils # (Auto) 0.1 0-0.8 10 ^3/uL Basophils # (Auto) 0.1 0-0.2 10 ^3/uL Nucleated Red Blood Cells 0.2 % Influenza Type A Antigen Negative Negative Influenza Type B Antigen Negative Negative SARS-CoV-2 Antigen (Rapid) Negative NEGATIVE Microbiology Date/Time Source Procedure Growth Status 08/11/25 02:20 Sputum Gram Stain - Final Complete 08/11/25 02:20 Sputum Respiratory Culture - Final Complete Assessment Acute CVA with right hemiparesis Dysphagia secondary to above History of old CVA Dyslipidemia Hypertension Diabetes mellitus type 2 Aphasia Plan: Recommendation: Dr. Rosen: Given the failed swallow eval, and multiple strokes, patient will be scheduled for upper EGD and PEG tube placement likely on 08/22/2025. Hold anticoagulation on day of procedure. Obtain consent. Keep NPO. Continue TPN/Clinimix Continue physical therapy Recommend risk factor modification including blood pressure control and diabetes control Recommend diabetes and hypertension education Continue Protonix 40 mg daily Monitor BMP, replenish electrolytes Plan discussed with patient, patient's , son at bedside in which all questions have been answered Case discussed with Dr. Rosen Plan discussed with: Patient SALVADOR TRIPATHI RESIDENT Aug 19, 2025 15:00
[2025-08-19] MEDS: PPN PER PHARMACY IV NR (21:53)
[2025-08-19] MEDS: ENOXAPARIN SOD 60 MG/0.6 ML SYRINGE SC SCH (21:54)
--- NOTE | 2025-08-19 21:58 | DVHPN2 ---
Progress Note - Dictate Date Seen: Aug 19, 2025 Medical Necessity Reason Pt with a Central, PICC or Fol: No Subjective Mr. Nunez is a right-handed gentleman with a history of diabetes, previous stroke, A-fib, he came to the hospital on 08/11/24 with a chief complaint of left-sided weakness. I saw him on 11/02/2022 for possible stroke (MRI positive) I have seen examined the patient, talked to his nurse and other medical staff. He is awake, I presumed he was fully oriented, he follow verbal commands, he can not talk, but understands He can not move the right arm, but able to move the right leg I appreciate Dr. Tierney input UDS, 08/28/2025: Negative CBC, 08/11/2025: Unremarkable BMP 08/11/2025: Unremarkable Liver function tests, 08/11/2025: Unremarkable TG/CHO L/LDL/HDL, 11/02/2022: 87/206/140/68 EKG, 10/31/22: Atrial fibrillation Echocardiogram, 11/01/2022: Atrial fibrillation. 55 to 60% with normal RV function. Echocardiogram, 08/12/2025: EF: 60% Carotid Doppler, 08/10/2025: Mild atherosclerotic vascular disease with no hemodynamically significant stenosis. Any narrowing is less than 50%. MRI head, 11/13/2022: There is small focal subacute right posterior frontal white matter restricted diffusion which may represent active demyelinating plaque or subacute infarct. There is small focus of the left brachium pontine restricted diffusion typical location for active demyelinating plaque of multiple sclerosis versus subacute infarct. There is chronic right basal ganglia, grey radiata/centrum semiovale infarct. There are chronic left greater than right thalamic lacunar infarcts. There is no hemorrhage MRI head, 08/11/2025: 1. Acute or subacute infarct in the left caudate nucleus adjacent to the posterior body of the left lateral ventricle measuring up to 1.7 cm. 2. Additional nonacute findings as described above MRI head, 08/15/2025: Acute infarcts of the left periventricular white matter and left lateral basal ganglia. (company MRI obtained on 08/28/2025, the acute stroke MRI of 08/11/25 is bigger, he has a new stroke in the left [place]) vital signs Vital Sign Date Time Temp Pulse Resp B/P (MAP) Pulse Ox O2 Delivery O2 Flow Rate FiO2 08/19/25 20:00 18 96 Nasal Cannula* 2 28 08/19/25 17:39 98.4 87 146/75 (98) 98.4 Total Intake and Output 08/18/25 08/18/25 08/19/25 15:00 23:00 07:00 Intake Total 100 ml 0 ml Output Total 450 ml 550 ml Balance -350 ml -550 ml medications Current Medications Medications Dose Ordered Sig/Cash Route Start Time Stop Time Status Last Admin Dose Admin Acetaminophen 650 mg Q6HP PRN PO 08/10/25 20:45 08/13/25 21:06 650 MG Amlodipine Besylate 5 mg DAILY PO 08/11/25 10:00 08/14/25 10:33 5 MG Ipratropium [place] 0.5 mg Q6HPRN PRN NEB 08/10/25 20:45 Cancel Atorvastatin Calcium 40 mg HS PO 08/11/25 22:00 08/13/25 21:06 40 MG Diagnostic Test (Pha) 1 strip Q6HR 08/14/25 12:00 08/19/25 17:07 1 STRIP Insulin Human Regular FOLLOW SLIDING SCALE Q6HR SC 08/14/25 12:00 08/19/25 17:12 4 UNITS Dextrose 50 ml UD IV 08/14/25 12:00 Amino Acids/ Electrolytes/ Dextrose 1,000 ml @ 41 mls/hr DAILY@2200 IV 08/14/25 22:00 08/19/25 21:59 08/18/25 22:03 41 MLS/HR Hydralazine HCl 10 mg Q6HP PRN IV 08/14/25 19:30 08/18/25 22:24 10 MG Lorazepam 1 mg ONCE PRN IV 08/14/25 19:30 Hydralazine HCl 10 mg Q6HP PRN IV 08/15/25 22:00 08/16/25 19:05 10 MG Apixaban 5 mg BID PO 08/17/25 22:00 Hold Amino Acids 0 ml @ 0 mls/hr PER PHARMACY IV 08/18/25 20:00 Enoxaparin Sodium 60 mg Q12HR SC 08/19/25 22:00 08/19/25 21:54 60 MG Fat Emulsion Intravenous 100 ml/Potassium Phosphate 22 meq/ Calcium Gluconate 4.65 meq/ Magnesium Sulfate 8 meq/ Multivitamins 10 ml/Chromium/ Copper/Manganese/ Zinc 1 ml/ Potassium Acetate 10 meq/Insulin Human Regular 4 units/Amino Acids/ Dextrose/Purified Water 1,033.04 ml @ 43 mls/hr Q24H2M IV 08/19/25 22:00 08/20/25 21:59 08/19/25 21:53 43 MLS/HR objective General: the patient is well developed and nourished. No acute distress. MENTAL STATUS: Subjective SPEECH, LANGUAGE, HIGHER CORTICAL FUNCTION: No aphasia, mild dysarthria CRANIAL NERVES: Pupils are equal, round and reactive. EOMs full and conjugate. No spontaneous or evoked nystagmus. He has double vision when he looks to the right side. Sensorimotor examined in bilateral trigeminal distribution is fine. Right facial weakness of upper motor neuron pattern SENSATION: Sensation to touch and pinprick is normal. MOTOR: Normal tone in the upper and lower extremity. Normal muscle bulk. No fasciculations. No abnormal movements or posturing. Muscle strength of the major groups in the left upper and lower extremity is 4/5, right arm: 0/5, right le/5 REFLEXES: Deep tendon reflexes are symmetrical. No pathological reflexes. CEREBELLAR/COORDINATION: Finger to nose is unremarkable in the left upper extremity GAIT/STATION: Unsteady laboratory and microbiology Laboratory Tests 08/19/25 05:56 08/11/25 05:43 Test 08/19/25 05:56 Range/Units Serum Glucose 183 H 74-106 mg/dL Problem List Acute stroke Expressive aphasia secondary to acute stroke Acute right hemiplegia secondary to acute stroke Chronic strokes in 2017, 11/01/2022 with good recovery Atrial fibrillation Poor compliance Assessment/Plan Monitoring Supportive treatment Telemetry Stabilize blood pressure Lovenox 60 mg subQ q.12 hours, switch to Eliquis 5 mg twice daily later (discussed with Dr. Tierney earlier) Lipitor 40 mg daily Up to chair TPN Physical therapy This medical document was created using an electronic medical record system with [employer] dictation system. Although this document has been carefully reviewed, there may still be some phonetic and typographical errors. These areas are purely typographical due to imperfections of the software programs, and do not reflect any compromise in the patient's medical care Prognosis poor Dietary Evaluation Review Comments: 1. If medically feasible and passing RADIOLOGY CT TECHNOLOGIST eval follow a CCHO-60 cardiac diet and avoid soda beverages 2. If not able to eat d/t stroke, offer TPN per pharmacy to meet his needs 3. If EN/GI accessible, Tube feeding Glucerna@50ml/hr providing 70g protein 1440kcal 966ml free water meeting his needs @ 100% Protein,100% energy Expected Outcomes/Goals: Controlled DM, improved physical strength Plan discussed with: Patient, Other DARREL HEMPHILL MD Aug 19, 2025 21:58
[2025-08-20] VITALS (8 sets, daily range): BP systolic 128–153; BP diastolic 67–91; PULSE 71–87; RESP 16–19; TEMP 98–99; O2SAT 97–99
[2025-08-20 06:56] LABS: Hematocrit 37.5 % (41.0-53.0); Hemoglobin 12.9 g/dL (13.5-17.5); Mean Corpuscular Hemoglobin 30.5 pg (28.0-32.0); Mean Corpuscular Volume 88.3 fL (80.0-100.0); Nucleated Red Blood Cells % 0.0 %
[2025-08-20 07:13] LABS: INR 1.06 (0.9-1.15); Partial Thromboplastin Time 35.5 SEC (24.5-34.5); Prothrombin Time 11.2 sec (9.3-11.8)
[2025-08-20 07:17] LABS: Albumin 3.3 g/dL (3.2-4.8); Alkaline Phosphatase 57 U/L (46-116); Anion Gap 11 (5-15); BUN/Creatinine Ratio 16.5 (10.0-20.0); Blood Urea Nitrogen 15 mg/dL (9-23); Carbon Dioxide 24 mmol/L (20-31); Magnesium 2.1 mg/dL (1.6-2.6); Sodium 143 mmol/L (136-145); Total Protein 6.1 g/dL (5.7-8.2)
[2025-08-20 07:18] LABS: Bilirubin, Total 0.7 mg/dL (0.2-1.0)
[2025-08-20 07:21] LABS: Alanine Aminotransferase 43 U/L (7-40); Calcium 8.0 mg/dL (8.7-10.4); Chloride 108 mmol/L (98-107); Glucose 128 mg/dL (74-106); Potassium 3.4 mmol/L (3.5-5.1)
[2025-08-20] MEDS ORDERED: POTASSIUM CHL 20MEQ/100ML 100 ML IV SCH (10:00)
--- NOTE | 2025-08-20 12:25 | DVHPN2 ---
Subjective Alert Oriented Aphasic Reviewed: Care Plan, H&P, Labs, Medications, Previous Orders Changes from previous H/P or p: Changes General: Per HPI Objective Vitals Vital Signs Date Time Temp Pulse Resp B/P (MAP) Pulse Ox O2 Delivery O2 Flow Rate FiO2 08/20/25 09:57 152/85 08/20/25 08:51 98.4 86 19 97 98.4 08/19/25 20:00 Nasal Cannula* 2 28 Intake/Output Intake and Output 08/20/25 07:00 Intake Total 100 ml Output Total 950 ml Balance -850 ml Intake Oral 0 ml IV Total 100 ml Output Urine Total 950 ml General Appearance: Alert, Oriented X3 HEENT: Atraumatic Cardiovascular: Regular rate, Normal S1, Normal S2 Abdomen: Normal bowel sounds Medications Current Medications Medications Dose Ordered Sig/Cash Route Start Time Stop Time Status Last Admin Dose Admin Acetaminophen 650 mg Q6HP PRN PO 08/10/25 20:45 08/13/25 21:06 650 MG Amlodipine Besylate 5 mg DAILY PO 08/11/25 10:00 08/14/25 10:33 5 MG Ipratropium [place] 0.5 mg Q6HPRN PRN NEB 08/10/25 20:45 Cancel Atorvastatin Calcium 40 mg HS PO 08/11/25 22:00 08/13/25 21:06 40 MG Diagnostic Test (Pha) 1 strip Q6HR 08/14/25 12:00 08/20/25 12:16 1 STRIP Insulin Human Regular FOLLOW SLIDING SCALE Q6HR SC 08/14/25 12:00 08/20/25 12:22 4 UNITS Dextrose 50 ml UD IV 08/14/25 12:00 Hydralazine HCl 10 mg Q6HP PRN IV 08/14/25 19:30 08/18/25 22:24 10 MG Lorazepam 1 mg ONCE PRN IV 08/14/25 19:30 Hydralazine HCl 10 mg Q6HP PRN IV 08/15/25 22:00 08/20/25 09:57 10 MG Apixaban 5 mg BID PO 08/17/25 22:00 Hold Amino Acids 0 ml @ 0 mls/hr PER PHARMACY IV 08/18/25 20:00 Enoxaparin Sodium 60 mg Q12HR SC 08/19/25 22:00 08/20/25 09:52 60 MG Fat Emulsion Intravenous 100 ml/Potassium Phosphate 22 meq/ Calcium Gluconate 4.65 meq/ Magnesium Sulfate 8 meq/ Multivitamins 10 ml/Chromium/ Copper/Manganese/ Zinc 1 ml/ Potassium Acetate 10 meq/Insulin Human Regular 4 units/Amino Acids/ Dextrose/Purified Water 1,033.04 ml @ 43 mls/hr Q24H2M IV 08/19/25 22:00 08/20/25 21:59 08/19/25 21:53 43 MLS/HR Fat Emulsion Intravenous 150 ml/Potassium Acetate 20 meq/ Potassium Phosphate 22 meq/ Calcium Gluconate 9.3 meq/Magnesium Sulfate 8 meq/ Multivitamins 10 ml/Chromium/ Copper/Manganese/ Zinc 1 ml/Insulin Human Regular 2 units/Amino Acids/ Dextrose/Purified Water 1,148.02 ml @ 47 mls/hr [id number] IV 08/20/25 22:00 08/21/25 21:59 Laboratory Results Laboratory Tests 08/20/25 05:50 Chemistry Test 08/20/25 05:50 Albumin 3.3 g/dL (3.2-4.8) Calcium Level 8.0 mg/dL (8.7-10.4) L Magnesium Level 2.1 mg/dL (1.6-2.6) Phosphorus Level 2.9 mg/dL (2.4-5.1) Total Protein 6.1 g/dL (5.7-8.2) Coagulation Test 08/20/25 05:50 Prothrombin Time 11.2 sec (9.3-11.8) Prothrombin Time INR 1.06 (0.9-1.15) Activated Partial Thromboplast Time 35.5 SEC (24.5-34.5) H LFT Test 08/20/25 05:50 Alanine Aminotransferase (ALT) 43 U/L (7-40) H Alkaline Phosphatase 57 U/L (46-116) Aspartate Amino Transferase (AST) 23 U/L (13-40) Total Bilirubin 0.7 mg/dL (0.2-1.0) HgA1c, TSH Test 08/20/25 05:50 Hemoglobin A1c 8.0 % A1C (<5.7) H Thyroid Stimulating Hormone (TSH) 0.62 uIU/mL (0.55-4.78) Urinalysis Test 08/11/25 08:15 Urine Color Light-yellow (Yellow) Urine Clarity Clear (Clear) Urine pH 6.5 (5.0-9.0) Urine Specific [place] 1.015 (1.001-1.035) Urine Protein Negative (Negative) Urine Ketones Negative (Negative) Urine Blood Negative /uL (Negative) Urine Nitrite Negative (Negative) Urine Bilirubin Negative (Negative) Urine Urobilinogen Normal mg/dL (Negative) Urine Leukocyte Esterase Negative /uL (Negative) Urine RBC 1 /hpf (0 - 3) Urine Microscopic WBC < 1 /HPF (0-3) Urine Squamous Epithelial Cells Few /hpf (<5) Urine Bacteria None seen /hpf (None Seen) Urine Glucose 1+ mg/dL (Normal) H Microbiology Microbiology Date/Time Source Procedure Growth Status 08/11/25 02:20 Sputum Gram Stain - Final Complete 08/11/25 02:20 Sputum Respiratory Culture - Final Complete Assessment/Plan Assessment/Plan Acute CVA with right hemiparesis Old CVA Mixed hyperlipidemia HTN DM2 Dysphagia Aphasia PLAN: NPO IV nutrition Swallow eval Lovenox Eliquis Monitor Discussed with family at the bedside 08/18/2025: Continue NPO Start TPN Swallow eval to be done today Continue Lovenox We will switch Lovenox to Eliquis once he is able to start p.o. intake Monitor closely 08/19/2025: Continue NPO The patient failed a swallow eval He needs a G-tube Consult GI for a PEG tube Continue IV nutrition per pharmacy protocol Hold Eliquis Lovenox 1 milligram/kilogram subcutaneously q.12 hours Discussed with the family at the bedside, the and son, they are in agreement 08/20/2025: Continue NPO The patient is scheduled for a PEG tube on Friday Hold anticoagulation Plan discussed with: Patient My Orders Orders - RACHID KERR MD Procedure Category Date Status Time Amino Acid PHA 08/19/25 In Process Infusion... W/Fat 22:00 Amino Acid PHA 08/20/25 In Process Infusion... W/Fat 22:00 Comprehensive LAB 08/21/25 Verified Metabolic Panel 04:00 Magnesium LAB 08/21/25 Verified 04:00 Phosphorus LAB 08/21/25 Verified 04:00 Triglycerides LAB 08/21/25 Verified 04:00 Ppn Per [facility] 08/20/25 In Process 09:47 Ppn Per [facility] 08/20/25 In Process 12:18 Date of Service: Aug 20, 2025 Billing Provider: RACHID KERR MD Common Visit Codes: [id number] INP/OBS CARE(MOD) RACHID KERR MD Aug 20, 2025 12:25
[2025-08-20] MEDS: POTASSIUM CHL 20MEQ/100ML 100 ML IV ONE ×2 (15:16→15:31)
--- NOTE | 2025-08-20 19:55 | DVHPN2 ---
Progress Note - Dictate Date Seen: Aug 20, 2025 Medical Necessity Reason Pt with a Central, PICC or Fol: No Subjective No new complaints, patient resting comfortably Patient was given Lovenox this morning vital signs Vital Sign Date Time Temp Pulse Resp B/P (MAP) Pulse Ox O2 Delivery O2 Flow Rate FiO2 08/20/25 17:00 99.0 87 16 136/83 (100) 98 99.0 08/20/25 08:00 Nasal Cannula* 2 28 Total Intake and Output 08/19/25 08/19/25 08/20/25 15:00 23:00 07:00 Intake Total 100 ml 0 ml Output Total 350 ml 600 ml Balance -250 ml -600 ml medications Current Medications Medications Dose Ordered Sig/Cash Route Start Time Stop Time Status Last Admin Dose Admin Acetaminophen 650 mg Q6HP PRN PO 08/10/25 20:45 08/13/25 21:06 650 MG Amlodipine Besylate 5 mg DAILY PO 08/11/25 10:00 08/14/25 10:33 5 MG Ipratropium [place] 0.5 mg Q6HPRN PRN NEB 08/10/25 20:45 Cancel Atorvastatin Calcium 40 mg HS PO 08/11/25 22:00 08/13/25 21:06 40 MG Diagnostic Test (Pha) 1 strip Q6HR 08/14/25 12:00 08/20/25 18:11 1 STRIP Insulin Human Regular FOLLOW SLIDING SCALE Q6HR SC 08/14/25 12:00 08/20/25 12:22 4 UNITS Dextrose 50 ml UD IV 08/14/25 12:00 Hydralazine HCl 10 mg Q6HP PRN IV 08/14/25 19:30 08/18/25 22:24 10 MG Lorazepam 1 mg ONCE PRN IV 08/14/25 19:30 Hydralazine HCl 10 mg Q6HP PRN IV 08/15/25 22:00 08/20/25 09:57 10 MG Apixaban 5 mg BID PO 08/17/25 22:00 Hold Amino Acids 0 ml @ 0 mls/hr PER PHARMACY IV 08/18/25 20:00 Enoxaparin Sodium 60 mg Q12HR SC 08/19/25 22:00 08/20/25 09:52 60 MG Fat Emulsion Intravenous 100 ml/Potassium Phosphate 22 meq/ Calcium Gluconate 4.65 meq/ Magnesium Sulfate 8 meq/ Multivitamins 10 ml/Chromium/ Copper/Manganese/ Zinc 1 ml/ Potassium Acetate 10 meq/Insulin Human Regular 4 units/Amino Acids/ Dextrose/Purified Water 1,033.04 ml @ 43 mls/hr Q24H2M IV 08/19/25 22:00 08/20/25 21:59 08/19/25 21:53 43 MLS/HR Fat Emulsion Intravenous 150 ml/Potassium Acetate 20 meq/ Potassium Phosphate 22 meq/ Calcium Gluconate 9.3 meq/Magnesium Sulfate 8 meq/ Multivitamins 10 ml/Chromium/ Copper/Manganese/ Zinc 1 ml/Insulin Human Regular 2 units/Amino Acids/ Dextrose/Purified Water 1,148.02 ml @ 47 mls/hr [id number] IV 08/20/25 22:00 08/21/25 21:59 objective General Appearance: Alert, Oriented X3 HEENT: Atraumatic Cardiovascular: Regular rate, Normal S1, Normal S2 Abdomen: Normal bowel sounds laboratory and microbiology Laboratory Tests 08/20/25 05:50 Test 08/20/25 05:50 Range/Units Serum Glucose 128 H 74-106 mg/dL Problems(with codes): (1) Oropharyngeal dysphagia (2) Left-sided weakness (3) History of CVA (cerebrovascular accident) (4) BERTA (acute kidney injury) (5) Head injury (6) A-fib (7) Pneumonia Prognosis Plan I will stop and hold his Lovenox for the next 48 hours Patient will tentatively be scheduled for an EGD with PEG tube placement on 08/22/2025 Continue IV Clinimix for now Dietary Evaluation Review Comments: 1. If medically feasible and passing VOICE INTERCEPT TECHNICIAN eval follow a CCHO-60 cardiac diet and avoid soda beverages 2. If not able to eat d/t stroke, offer TPN per pharmacy to meet his needs 3. If EN/GI accessible, Tube feeding Glucerna@50ml/hr providing 70g protein 1440kcal 966ml free water meeting his needs @ 100% Protein,100% energy Expected Outcomes/Goals: Controlled DM, improved physical strength Plan discussed with: Patient, Other (Family at bedside and Dr. Tierney) MONICA SCHMIDT MD Aug 20, 2025 19:55
--- NOTE | 2025-08-20 20:46 | DVHPN2 ---
Progress Note - Dictate Date Seen: Aug 20, 2025 Medical Necessity Reason Pt with a Central, PICC or Fol: No Subjective Mr. Nunez is a right-handed gentleman with a history of diabetes, previous stroke, A-fib, he came to the hospital on 08/11/24 with a chief complaint of left-sided weakness. I saw him on 11/02/2022 for possible stroke (MRI positive) I have seen examined the patient, talked to his nurse and other medical staff. He is awake, I presumed he was fully oriented, he follow verbal commands, he can not talk/vocalize, but understands He can not move the right arm, but able to move the right leg a little bit UDS, 08/28/2025: Negative CBC, 08/11/2025: Unremarkable BMP 08/11/2025: Unremarkable Liver function tests, 08/11/2025: Unremarkable TG/CHO L/LDL/HDL, 11/02/2022: 87/206/140/68 EKG, 10/31/22: Atrial fibrillation Echocardiogram, 11/01/2022: Atrial fibrillation. 55 to 60% with normal RV function. Echocardiogram, 08/12/2025: EF: 60% Carotid Doppler, 08/10/2025: Mild atherosclerotic vascular disease with no hemodynamically significant stenosis. Any narrowing is less than 50%. MRI head, 11/13/2022: There is small focal subacute right posterior frontal white matter restricted diffusion which may represent active demyelinating plaque or subacute infarct. There is small focus of the left brachium pontine restricted diffusion typical location for active demyelinating plaque of multiple sclerosis versus subacute infarct. There is chronic right basal ganglia, grey radiata/centrum semiovale infarct. There are chronic left greater than right thalamic lacunar infarcts. There is no hemorrhage MRI head, 08/11/2025: 1. Acute or subacute infarct in the left caudate nucleus adjacent to the posterior body of the left lateral ventricle measuring up to 1.7 cm. 2. Additional nonacute findings as described above MRI head, 08/15/2025: Acute infarcts of the left periventricular white matter and left lateral basal ganglia. (company MRI obtained on 08/28/2025, the acute stroke MRI of 08/11/25 is bigger, he has a new stroke in the left [place]) vital signs Vital Sign Date Time Temp Pulse Resp B/P (MAP) Pulse Ox O2 Delivery O2 Flow Rate FiO2 08/20/25 17:00 99.0 87 16 136/83 (100) 98 99.0 08/20/25 08:00 Nasal Cannula* 2 28 Total Intake and Output 08/19/25 08/19/25 08/20/25 15:00 23:00 07:00 Intake Total 100 ml 0 ml Output Total 350 ml 600 ml Balance -250 ml -600 ml medications Current Medications Medications Dose Ordered Sig/Cash Route Start Time Stop Time Status Last Admin Dose Admin Acetaminophen 650 mg Q6HP PRN PO 08/10/25 20:45 08/13/25 21:06 650 MG Amlodipine [place] 5 mg DAILY PO 08/11/25 10:00 08/14/25 10:33 5 MG Ipratropium [place] 0.5 mg Q6HPRN PRN NEB 08/10/25 20:45 Cancel Atorvastatin Calcium 40 mg HS PO 08/11/25 22:00 08/13/25 21:06 40 MG Diagnostic Test (Pha) 1 strip Q6HR 08/14/25 12:00 08/20/25 18:11 1 STRIP Insulin Human Regular FOLLOW SLIDING SCALE Q6HR SC 08/14/25 12:00 08/20/25 12:22 4 UNITS Dextrose 50 ml UD IV 08/14/25 12:00 Hydralazine HCl 10 mg Q6HP PRN IV 08/14/25 19:30 08/18/25 22:24 10 MG Lorazepam 1 mg ONCE PRN IV 08/14/25 19:30 Hydralazine HCl 10 mg Q6HP PRN IV 08/15/25 22:00 08/20/25 09:57 10 MG Apixaban 5 mg BID PO 08/17/25 22:00 Hold Amino Acids 0 ml @ 0 mls/hr PER PHARMACY IV 08/18/25 20:00 Enoxaparin Sodium 60 mg Q12HR SC 08/19/25 22:00 08/20/25 09:52 60 MG Fat Emulsion Intravenous 100 ml/Potassium Phosphate 22 meq/ Calcium Gluconate 4.65 meq/ Magnesium Sulfate 8 meq/ Multivitamins 10 ml/Chromium/ Copper/Manganese/ Zinc 1 ml/ Potassium Acetate 10 meq/Insulin Human Regular 4 units/Amino Acids/ Dextrose/Purified Water 1,033.04 ml @ 43 mls/hr Q24H2M IV 08/19/25 22:00 08/20/25 21:59 08/19/25 21:53 43 MLS/HR Fat Emulsion Intravenous 150 ml/Potassium Acetate 20 meq/ Potassium Phosphate 22 meq/ Calcium Gluconate 9.3 meq/Magnesium Sulfate 8 meq/ Multivitamins 10 ml/Chromium/ Copper/Manganese/ Zinc 1 ml/Insulin Human Regular 2 units/Amino Acids/ Dextrose/Purified Water 1,148.02 ml @ 47 mls/hr [id number] IV 08/20/25 22:00 08/21/25 21:59 objective General: the patient is well developed and nourished. No acute distress. MENTAL STATUS: Subjective SPEECH, LANGUAGE, HIGHER CORTICAL FUNCTION: No aphasia, mild dysarthria CRANIAL NERVES: Pupils are equal, round and reactive. EOMs full and conjugate. No spontaneous or evoked nystagmus. He has double vision when he looks to the right side. Sensorimotor examined in bilateral trigeminal distribution is fine. Right facial weakness of upper motor neuron pattern SENSATION: Sensation to touch and pinprick is normal. MOTOR: Normal tone in the upper and lower extremity. Normal muscle bulk. No fasciculations. No abnormal movements or posturing. Muscle strength of the major groups in the left upper and lower extremity is 4/5, right arm: 0/5, right le/5 REFLEXES: Deep tendon reflexes are symmetrical. No pathological reflexes. CEREBELLAR/COORDINATION: Finger to nose is unremarkable in the left upper extremity GAIT/STATION: Unsteady laboratory and microbiology Laboratory Tests 08/20/25 05:50 Test 08/20/25 05:50 Range/Units Serum Glucose 128 H 74-106 mg/dL Problem List Acute stroke Expressive aphasia secondary to acute stroke Acute right hemiplegia secondary to acute stroke Chronic strokes in 2017, 11/01/2022 with good recovery Atrial fibrillation Poor compliance Assessment/Plan Monitoring Supportive treatment Telemetry Stabilize blood pressure Lovenox 60 mg subQ q.12 hours, switch to Eliquis 5 mg twice daily later (discussed with Dr. Tierney earlier) Lipitor 40 mg daily Up to chair TPN Physical therapy This medical document was created using an electronic medical record system with [email or web address] dictation system. Although this document has been carefully reviewed, there may still be some phonetic and typographical errors. These areas are purely typographical due to imperfections of the software programs, and do not reflect any compromise in the patient's medical care Prognosis poor Dietary Evaluation Review Comments: 1. If medically feasible and passing [employer] [employer] eval follow a CCHO-60 cardiac diet and avoid soda beverages 2. If not able to eat d/t stroke, offer TPN per pharmacy to meet his needs 3. If EN/GI accessible, Tube feeding Glucerna@50ml/hr providing 70g protein 1440kcal 966ml free water meeting his needs @ 100% Protein,100% energy Expected Outcomes/Goals: Controlled DM, improved physical strength Plan discussed with: Other DARREL HEMPHILL MD Aug 20, 2025 20:46
[2025-08-20] MEDS: PPN PER PHARMACY IV NR (21:11)
[2025-08-21] VITALS (8 sets, daily range): BP systolic 121–159; BP diastolic 70–85; PULSE 68–102; RESP 17–20; TEMP 97.6–98.4; O2SAT 95–98
[2025-08-21 06:17] LABS: Alanine Aminotransferase 35 U/L (7-40); Albumin 3.3 g/dL (3.2-4.8); Alkaline Phosphatase 60 U/L (46-116); Anion Gap 12 (5-15); BUN/Creatinine Ratio 19.1 (10.0-20.0); Blood Urea Nitrogen 18 mg/dL (9-23); Carbon Dioxide 25 mmol/L (20-31); Chloride 106 mmol/L (98-107); Magnesium 2.1 mg/dL (1.6-2.6); Potassium 3.5 mmol/L (3.5-5.1); Sodium 143 mmol/L (136-145); Total Protein 6.2 g/dL (5.7-8.2); Triglycerides 99 mg/dL (< 150)
[2025-08-21 06:18] LABS: Bilirubin, Total 0.5 mg/dL (0.2-1.0)
[2025-08-21 06:34] LABS: Calcium 8.4 mg/dL (8.7-10.4); Glucose 136 mg/dL (74-106)
--- NOTE | 2025-08-21 12:19 | DVHPN2 ---
Subjective Alert Oriented Aphasic No new complaints Reviewed: Care Plan, H&P, Labs, Medications, Previous Orders Changes from previous H/P or p: Changes General: Per HPI Objective Vitals Vital Signs Date Time Temp Pulse Resp B/P (MAP) Pulse Ox O2 Delivery O2 Flow Rate FiO2 08/21/25 08:30 98.3 78 18 128/78 (95) 96 98.3 08/20/25 20:00 Nasal Cannula* 2 28 Intake/Output Intake and Output 08/21/25 07:00 Intake Total 0 ml Output Total 350 ml Balance -350 ml Intake Oral 0 ml Output Urine Total 350 ml # Voids 2 General Appearance: Alert, Oriented X3 HEENT: Atraumatic Cardiovascular: Regular rate, Normal S1, Normal S2 Abdomen: Normal bowel sounds Medications Current Medications Medications Dose Ordered Sig/Cash Route Start Time Stop Time Status Last Admin Dose Admin Acetaminophen 650 mg Q6HP PRN PO 08/10/25 20:45 08/13/25 21:06 650 MG Ipratropium [place] 0.5 mg Q6HPRN PRN NEB 08/10/25 20:45 Cancel Diagnostic Test (Pha) 1 strip Q6HR 08/14/25 12:00 08/21/25 11:28 1 STRIP Insulin Human Regular FOLLOW SLIDING SCALE Q6HR SC 08/14/25 12:00 08/21/25 11:59 8 UNITS Dextrose 50 ml UD IV 08/14/25 12:00 Lorazepam 1 mg ONCE PRN IV 08/14/25 19:30 Hydralazine HCl 10 mg Q6HP PRN IV 08/15/25 22:00 08/20/25 09:57 10 MG Amino Acids 0 ml @ 0 mls/hr PER PHARMACY IV 08/18/25 20:00 Enoxaparin Sodium 60 mg Q12HR SC 08/19/25 22:00 08/20/25 09:52 60 MG Fat Emulsion Intravenous 150 ml/Potassium Acetate 20 meq/ Potassium Phosphate 22 meq/ Calcium Gluconate 9.3 meq/Magnesium Sulfate 8 meq/ Multivitamins 10 ml/Chromium/ Copper/Manganese/ Zinc 1 ml/Insulin Human Regular 2 units/Amino Acids/ Dextrose/Purified Water 1,148.02 ml @ 47 mls/hr [id number] IV 08/20/25 22:00 08/21/25 21:59 08/20/25 21:11 47 MLS/HR Fat Emulsion Intravenous 200 ml/Potassium Chloride 10 meq/ Potassium Acetate 30 meq/Potassium Phosphate 22 meq/ Calcium Gluconate 9.3 meq/Magnesium Sulfate 8 meq/ Multivitamins 10 ml/Chromium/ Copper/Manganese/ Zinc 1 ml/Insulin Human Regular 2 units/Amino Acids/ Dextrose/Purified Water 1,358.02 ml @ 57 mls/hr [id number] IV 08/21/25 22:00 08/22/25 21:59 Laboratory Results Laboratory Tests 08/20/25 05:50 08/21/25 04:55 Chemistry Test 08/21/25 04:55 Albumin 3.3 g/dL (3.2-4.8) Calcium Level 8.4 mg/dL (8.7-10.4) L Magnesium Level 2.1 mg/dL (1.6-2.6) Phosphorus Level 3.0 mg/dL (2.4-5.1) Total Protein 6.2 g/dL (5.7-8.2) Lipid panel Test 08/21/25 04:55 Triglycerides Level 97 mg/dL (< 150) LFT Test 08/21/25 04:55 Alanine Aminotransferase (ALT) 35 U/L (7-40) Alkaline Phosphatase 60 U/L (46-116) Aspartate Amino Transferase (AST) 15 U/L (13-40) Total Bilirubin 0.5 mg/dL (0.2-1.0) Urinalysis Test 08/11/25 08:15 Urine Color Light-yellow (Yellow) Urine Clarity Clear (Clear) Urine pH 6.5 (5.0-9.0) Urine Specific [place] 1.015 (1.001-1.035) Urine Protein Negative (Negative) Urine Ketones Negative (Negative) Urine Blood Negative /uL (Negative) Urine Nitrite Negative (Negative) Urine Bilirubin Negative (Negative) Urine Urobilinogen Normal mg/dL (Negative) Urine Leukocyte Esterase Negative /uL (Negative) Urine RBC 1 /hpf (0 - 3) Urine Microscopic WBC < 1 /HPF (0-3) Urine Squamous Epithelial Cells Few /hpf (<5) Urine Bacteria None seen /hpf (None Seen) Urine Glucose 1+ mg/dL (Normal) H Microbiology Microbiology Date/Time Source Procedure Growth Status 08/11/25 02:20 Sputum Gram Stain - Final Complete 08/11/25 02:20 Sputum Respiratory Culture - Final Complete Assessment/Plan Assessment/Plan Acute CVA with right hemiparesis Old CVA Mixed hyperlipidemia HTN DM2 Dysphagia Aphasia PLAN: NPO IV nutrition Swallow eval Lovenox Eliquis Monitor Discussed with family at the bedside 08/18/2025: Continue NPO Start TPN Swallow eval to be done today Continue Lovenox We will switch Lovenox to Eliquis once he is able to start p.o. intake Monitor closely 08/19/2025: Continue NPO The patient failed a swallow eval He needs a G-tube Consult GI for a PEG tube Continue IV nutrition per pharmacy protocol Hold Eliquis Lovenox 1 milligram/kilogram subcutaneously q.12 hours Discussed with the family at the bedside, the and son, they are in agreement 08/20/2025: Continue NPO The patient is scheduled for a PEG tube on Friday Hold anticoagulation 08/21/2025: Continue NPO Peg tube placement in the morning Continue to hold anticoagulation Plan discussed with: Patient My Orders Orders - RACHID KERR MD Procedure Category Date Status Time Ppn Per Pharmacy [facility] 08/20/25 In Process 12:18 Amino Acid PHA 08/21/25 In Process Infusion... W/Fat 22:00 Comprehensive LAB 08/22/25 Verified Metabolic Panel 04:00 Magnesium LAB 08/22/25 Verified 04:00 Phosphorus LAB 08/22/25 Verified 04:00 Ppn Per Pharmacy [facility] 08/21/25 In Process 22:00 Date of Service: Aug 21, 2025 Billing Provider: RACHID KERR MD Common Visit Codes: [id number] INP/OBS CARE(MOD) RACHID KERR MD Aug 21, 2025 12:19
[2025-08-21] MEDS: POTASSIUM CHL 20MEQ/100ML 100 ML IV ONE ×2 (14:33→14:51)
--- NOTE | 2025-08-21 20:33 | DVHPN2 ---
Progress Note - Dictate Date Seen: Aug 21, 2025 Medical Necessity Reason Pt with a Central, PICC or Fol: No Subjective No new complaints, patient resting comfortably Lovenox was on hold since last night vital signs Vital Sign Date Time Temp Pulse Resp B/P (MAP) Pulse Ox O2 Delivery O2 Flow Rate FiO2 08/21/25 17:55 156/87 08/21/25 16:33 98.0 79 18 95 98.0 08/21/25 08:00 Nasal Cannula* 2 28 Total Intake and Output 08/20/25 08/20/25 08/21/25 15:00 23:00 07:00 Intake Total 0 ml 0 ml Output Total 350 ml Balance 0 ml -350 ml medications Current Medications Medications Dose Ordered Sig/Cash Route Start Time Stop Time Status Last Admin Dose Admin Acetaminophen 650 mg Q6HP PRN PO 08/10/25 20:45 08/13/25 21:06 650 MG Ipratropium [place] 0.5 mg Q6HPRN PRN NEB 08/10/25 20:45 Cancel Diagnostic Test (Pha) 1 strip Q6HR 08/14/25 12:00 08/21/25 18:02 1 STRIP Insulin Human Regular FOLLOW SLIDING SCALE Q6HR SC 08/14/25 12:00 08/21/25 11:59 8 UNITS Dextrose 50 ml UD IV 08/14/25 12:00 Lorazepam 1 mg ONCE PRN IV 08/14/25 19:30 Hydralazine HCl 10 mg Q6HP PRN IV 08/15/25 22:00 08/21/25 17:55 10 MG Amino Acids 0 ml @ 0 mls/hr PER PHARMACY IV 08/18/25 20:00 Enoxaparin Sodium 60 mg Q12HR SC 08/19/25 22:00 08/20/25 09:52 60 MG Fat Emulsion Intravenous 150 ml/Potassium Acetate 20 meq/ Potassium Phosphate 22 meq/ Calcium Gluconate 9.3 meq/Magnesium Sulfate 8 meq/ Multivitamins 10 ml/Chromium/ Copper/Manganese/ Zinc 1 ml/Insulin Human Regular 2 units/Amino Acids/ Dextrose/Purified Water 1,148.02 ml @ 47 mls/hr [id number] IV 08/20/25 22:00 08/21/25 21:59 08/20/25 21:11 47 MLS/HR Fat Emulsion Intravenous 200 ml/Potassium Chloride 10 meq/ Potassium Acetate 30 meq/Potassium Phosphate 22 meq/ Calcium Gluconate 9.3 meq/Magnesium Sulfate 8 meq/ Multivitamins 10 ml/Chromium/ Copper/Manganese/ Zinc 1 ml/Insulin Human Regular 2 units/Amino Acids/ Dextrose/Purified Water 1,358.02 ml @ 57 mls/hr [id number] IV 08/21/25 22:00 08/22/25 21:59 objective General Appearance: Alert, Oriented X3 HEENT: Atraumatic Cardiovascular: Regular rate, Normal S1, Normal S2 Abdomen: Normal bowel sounds laboratory and microbiology Laboratory Tests 08/21/25 04:55 08/20/25 05:50 Test 08/21/25 04:55 Range/Units Serum Glucose 136 H 74-106 mg/dL Problems(with codes): (1) BERTA (acute kidney injury) (2) Pneumonia (3) A-fib (4) Oropharyngeal dysphagia (5) History of CVA (cerebrovascular accident) (6) Left-sided weakness Prognosis Plan Keep NPO IV fluid hydration and IV Clinimix Continue to hold Lovenox Possible EGD with PEG on 08/22/2025 Dietary Evaluation Review Comments: 1. If medically feasible and passing [employer] eval follow a CCHO-60 cardiac diet and avoid soda beverages 2. If not able to eat d/t stroke, offer TPN per pharmacy to meet his needs 3. If EN/GI accessible, Tube feeding Glucerna@50ml/hr providing 70g protein 1440kcal 966ml free water meeting his needs @ 100% Protein,100% energy Expected Outcomes/Goals: Controlled DM, improved physical strength Plan discussed with: Patient MONICA SCHMIDT MD Aug 21, 2025 20:33
[2025-08-21] MEDS: ceFAZolin 1GM/50ML 50 ML IV ONE (21:15)
[2025-08-21] MEDS: PPN PER PHARMACY IV NR (22:13)
[2025-08-22] VITALS (12 sets, daily range): BP systolic 126–144; BP diastolic 72–86; PULSE 73–92; RESP 12–19; TEMP 98.1–99.4; O2SAT 94–100
[2025-08-22 06:23] LABS: Hematocrit 37.1 % (41.0-53.0); Hemoglobin 12.8 g/dL (13.5-17.5); Mean Corpuscular Hemoglobin 30.1 pg (28.0-32.0); Mean Corpuscular Volume 87.3 fL (80.0-100.0); Nucleated Red Blood Cells % 0.0 %
[2025-08-22 06:42] LABS: INR 1.06 (0.9-1.15); Partial Thromboplastin Time 33.4 SEC (24.5-34.5); Prothrombin Time 11.2 sec (9.3-11.8)
[2025-08-22 06:43] LABS: Alanine Aminotransferase 33 U/L (7-40); Alkaline Phosphatase 63 U/L (46-116); Anion Gap 11 (5-15); BUN/Creatinine Ratio 20.8 (10.0-20.0); Blood Urea Nitrogen 21 mg/dL (9-23); Calcium 8.8 mg/dL (8.7-10.4); Carbon Dioxide 25 mmol/L (20-31); Chloride 105 mmol/L (98-107); Magnesium 2.0 mg/dL (1.6-2.6); Potassium 3.9 mmol/L (3.5-5.1); Sodium 141 mmol/L (136-145); Total Protein 6.3 g/dL (5.7-8.2)
[2025-08-22 06:44] LABS: Albumin 3.4 g/dL (3.2-4.8); Bilirubin, Total 0.4 mg/dL (0.2-1.0)
[2025-08-22 06:45] LABS: Glucose 192 mg/dL (74-106)
--- NOTE | 2025-08-22 08:59 | DVHPN2 ---
Subjective Change Scheduled for a PEG tube placement today Reviewed: Care Plan, H&P, Labs, Medications, Previous Orders Changes from previous H/P or p: Changes General: Per HPI Objective Vitals Vital Signs Date Time Temp Pulse Resp B/P (MAP) Pulse Ox O2 Delivery O2 Flow Rate FiO2 08/22/25 05:00 98.8 87 19 132/72 (92) 97 98.8 08/21/25 20:00 Nasal Cannula* 2 28 Intake/Output Intake and Output 08/22/25 07:00 Intake Total 0 ml Output Total 700 ml Balance -700 ml Intake Oral 0 ml Tube Feeding 0 ml Output Urine Total 700 ml General Appearance: Alert, Oriented X3 HEENT: Atraumatic Cardiovascular: Regular rate, Normal S1, Normal S2 Abdomen: Normal bowel sounds Medications Current Medications Medications Dose Ordered Sig/Cash Route Start Time Stop Time Status Last Admin Dose Admin Acetaminophen 650 mg Q6HP PRN PO 08/10/25 20:45 08/13/25 21:06 650 MG Ipratropium [place] 0.5 mg Q6HPRN PRN NEB 08/10/25 20:45 Cancel Diagnostic Test (Pha) 1 strip Q6HR 08/14/25 12:00 08/22/25 06:36 1 STRIP Insulin Human Regular FOLLOW SLIDING SCALE Q6HR SC 08/14/25 12:00 08/22/25 06:38 4 UNITS Dextrose 50 ml UD IV 08/14/25 12:00 Lorazepam 1 mg ONCE PRN IV 08/14/25 19:30 Hydralazine HCl 10 mg Q6HP PRN IV 08/15/25 22:00 08/21/25 17:55 10 MG Amino Acids 0 ml @ 0 mls/hr PER PHARMACY IV 08/18/25 20:00 Enoxaparin Sodium 60 mg Q12HR SC 08/19/25 22:00 08/21/25 22:14 60 MG Fat Emulsion Intravenous 200 ml/Potassium Chloride 10 meq/ Potassium Acetate 30 meq/Potassium Phosphate 22 meq/ Calcium Gluconate 9.3 meq/Magnesium Sulfate 8 meq/ Multivitamins 10 ml/Chromium/ Copper/Manganese/ Zinc 1 ml/Insulin Human Regular 2 units/Amino Acids/ Dextrose/Purified Water 1,358.02 ml @ 57 mls/hr [id number] IV 08/21/25 22:00 08/22/25 21:59 08/21/25 22:13 57 MLS/HR Laboratory Results Laboratory Tests 08/22/25 05:15 Chemistry Test 08/22/25 05:15 Albumin 3.4 g/dL (3.2-4.8) Calcium Level 8.8 mg/dL (8.7-10.4) Magnesium Level 2.0 mg/dL (1.6-2.6) Phosphorus Level 3.6 mg/dL (2.4-5.1) Total Protein 6.3 g/dL (5.7-8.2) Coagulation Test 08/22/25 05:15 Prothrombin Time 11.2 sec (9.3-11.8) Prothrombin Time INR 1.06 (0.9-1.15) Activated Partial Thromboplast Time 33.4 SEC (24.5-34.5) LFT Test 08/22/25 05:15 Alanine Aminotransferase (ALT) 33 U/L (7-40) Alkaline Phosphatase 63 U/L (46-116) Aspartate Amino Transferase (AST) 23 U/L (13-40) Total Bilirubin 0.4 mg/dL (0.2-1.0) Urinalysis Test 08/11/25 08:15 Urine Color Light-yellow (Yellow) Urine Clarity Clear (Clear) Urine pH 6.5 (5.0-9.0) Urine Specific [place] 1.015 (1.001-1.035) Urine Protein Negative (Negative) Urine Ketones Negative (Negative) Urine Blood Negative /uL (Negative) Urine Nitrite Negative (Negative) Urine Bilirubin Negative (Negative) Urine Urobilinogen Normal mg/dL (Negative) Urine Leukocyte Esterase Negative /uL (Negative) Urine RBC 1 /hpf (0 - 3) Urine Microscopic WBC < 1 /HPF (0-3) Urine Squamous Epithelial Cells Few /hpf (<5) Urine Bacteria None seen /hpf (None Seen) Urine Glucose 1+ mg/dL (Normal) H Microbiology Microbiology Date/Time Source Procedure Growth Status 08/11/25 02:20 Sputum Gram Stain - Final Complete 08/11/25 02:20 Sputum Respiratory Culture - Final Complete Assessment/Plan Assessment/Plan Acute CVA with right hemiparesis Old CVA Mixed hyperlipidemia HTN DM2 Dysphagia Aphasia PLAN: NPO IV nutrition Swallow eval Lovenox Eliquis Monitor Discussed with family at the bedside 08/18/2025: Continue NPO Start TPN Swallow eval to be done today Continue Lovenox We will switch Lovenox to Eliquis once he is able to start p.o. intake Monitor closely 08/19/2025: Continue NPO The patient failed a swallow eval He needs a G-tube Consult GI for a PEG tube Continue IV nutrition per pharmacy protocol Hold Eliquis Lovenox 1 milligram/kilogram subcutaneously q.12 hours Discussed with the family at the bedside, the and son, they are in agreement 08/20/2025: Continue NPO The patient is scheduled for a PEG tube on Friday Hold anticoagulation 08/21/2025: Continue NPO Peg tube placement in the morning Continue to hold anticoagulation 08/22/2025: PEG tube today NPO until then Discharge planning Family is thinking about SNF versus physical therapy at home with home health Plan discussed with: Patient, Daughter My Orders Orders - RACHID KERR MD Procedure Category Date Status Time Amino Acid PHA 08/21/25 In Process Infusion... W/Fat 22:00 Ppn Per Pharmacy [facility] 08/21/25 In Process 22:00 Date of Service: Aug 22, 2025 Billing Provider: RACHID KERR MD Common Visit Codes: [id number] INP/OBS CARE(MOD) RACHID KERR MD Aug 22, 2025 08:59
--- NOTE | 2025-08-22 10:46 | DVHPN2 ---
Progress Note - Dictate Date Seen: Aug 22, 2025 Medical Necessity Reason Pt with a Central, PICC or Fol: No Subjective Mr. Nunez is a right-handed gentleman with a history of diabetes, previous stroke, A-fib, he came to the hospital on 08/11/24 with a chief complaint of left-sided weakness. I saw him on 11/02/2022 for possible stroke (MRI positive) I have seen examined the patient, talked to his nurse and other medical staff. He is awake, I presumed he was fully oriented, he follow verbal commands, He can vocalize a little bit He can not move the right arm, but able to move the right leg a little bit UDS, 08/28/2025: Negative CBC, 08/11/2025: Unremarkable BMP 08/11/2025: Unremarkable Liver function tests, 08/11/2025: Unremarkable TG/CHO L/LDL/HDL, 11/02/2022: 87/206/140/68 EKG, 10/31/22: Atrial fibrillation Echocardiogram, 11/01/2022: Atrial fibrillation. 55 to 60% with normal RV function. Echocardiogram, 08/12/2025: EF: 60% Carotid Doppler, 08/10/2025: Mild atherosclerotic vascular disease with no hemodynamically significant stenosis. Any narrowing is less than 50%. MRI head, 11/13/2022: There is small focal subacute right posterior frontal white matter restricted diffusion which may represent active demyelinating plaque or subacute infarct. There is small focus of the left brachium pontine restricted diffusion typical location for active demyelinating plaque of multiple sclerosis versus subacute infarct. There is chronic right basal ganglia, grey radiata/centrum semiovale infarct. There are chronic left greater than right thalamic lacunar infarcts. There is no hemorrhage MRI head, 08/11/2025: 1. Acute or subacute infarct in the left caudate nucleus adjacent to the posterior body of the left lateral ventricle measuring up to 1.7 cm. 2. Additional nonacute findings as described above MRI head, 08/15/2025: Acute infarcts of the left periventricular white matter and left lateral basal ganglia. (company MRI obtained on 08/28/2025, the acute stroke MRI of 08/11/25 is bigger, he has a new stroke in the left [place]) vital signs Vital Sign Date Time Temp Pulse Resp B/P (MAP) Pulse Ox O2 Delivery O2 Flow Rate FiO2 08/22/25 05:00 98.8 87 19 132/72 (92) 97 98.8 08/21/25 20:00 Nasal Cannula* 2 28 Total Intake and Output 08/21/25 08/21/25 08/22/25 15:00 23:00 07:00 Intake Total 0 ml 0 ml Output Total 400 ml 300 ml Balance -400 ml -300 ml medications Current Medications Medications Dose Ordered Sig/Cash Route Start Time Stop Time Status Last Admin Dose Admin Acetaminophen 650 mg Q6HP PRN PO 08/10/25 20:45 08/13/25 21:06 650 MG Ipratropium [place] 0.5 mg Q6HPRN PRN NEB 08/10/25 20:45 Cancel Diagnostic Test (Pha) 1 strip Q6HR 08/14/25 12:00 08/22/25 06:36 1 STRIP Insulin Human Regular FOLLOW SLIDING SCALE Q6HR SC 08/14/25 12:00 08/22/25 06:38 4 UNITS Dextrose 50 ml UD IV 08/14/25 12:00 Lorazepam 1 mg ONCE PRN IV 08/14/25 19:30 Hydralazine HCl 10 mg Q6HP PRN IV 08/15/25 22:00 08/21/25 17:55 10 MG Amino Acids 0 ml @ 0 mls/hr PER PHARMACY IV 08/18/25 20:00 Enoxaparin Sodium 60 mg Q12HR SC 08/19/25 22:00 08/21/25 22:14 60 MG Fat Emulsion Intravenous 200 ml/Potassium Chloride 10 meq/ Potassium Acetate 30 meq/Potassium Phosphate 22 meq/ Calcium Gluconate 9.3 meq/Magnesium Sulfate 8 meq/ Multivitamins 10 ml/Chromium/ Copper/Manganese/ Zinc 1 ml/Insulin Human Regular 2 units/Amino Acids/ Dextrose/Purified Water 1,358.02 ml @ 57 mls/hr [id number] IV 08/21/25 22:00 08/22/25 21:59 08/21/25 22:13 57 MLS/HR Fat Emulsion Intravenous 200 ml/Potassium Chloride 30 meq/ Potassium Acetate 30 meq/Calcium Gluconate 4.6 meq/ Magnesium Sulfate 10 meq/ Multivitamins 10 ml/Chromium/ Copper/Manganese/ Zinc 1 ml/Insulin Human Regular 5 units/Amino Acids/ Dextrose/Purified Water 1,553.4424 ml @ 65 mls/hr [id number] IV 08/22/25 22:00 08/23/25 21:59 Cancel Fat Emulsion Intravenous 100 ml/Potassium Chloride 30 meq/ Potassium Acetate 30 meq/Calcium Gluconate 4.6 meq/ Magnesium Sulfate 10 meq/ Multivitamins 10 ml/Chromium/ Copper/Manganese/ Zinc 1 ml/Insulin Human Regular 5 units/Amino Acids/ Dextrose/Purified Water 1,453.4424 ml @ 61 mls/hr [id number] IV 08/22/25 22:00 08/23/25 21:59 objective General: the patient is well developed and nourished. No acute distress. MENTAL STATUS: Subjective SPEECH, LANGUAGE, HIGHER CORTICAL FUNCTION: Subjective CRANIAL NERVES: Pupils are equal, round and reactive. EOMs full and conjugate. No spontaneous or evoked nystagmus. He has double vision when he looks to the right side. Sensorimotor examined in bilateral trigeminal distribution is fine. Right facial weakness of upper motor neuron pattern SENSATION: Sensation to touch and pinprick is normal. MOTOR: Normal tone in the upper and lower extremity. Normal muscle bulk. No fasciculations. No abnormal movements or posturing. Muscle strength of the major groups in the left upper and lower extremity is 4/5, right arm: 0/5, right le/5 REFLEXES: Deep tendon reflexes are symmetrical. No pathological reflexes. CEREBELLAR/COORDINATION: Finger to nose is unremarkable in the left upper extremity GAIT/STATION: Unsteady laboratory and microbiology Laboratory Tests 08/22/25 05:15 Test 08/22/25 05:15 Range/Units Serum Glucose 192 H 74-106 mg/dL Problem List Acute stroke Expressive aphasia secondary to acute stroke Acute right hemiplegia secondary to acute stroke Chronic strokes in 2017, 11/01/2022 with good recovery Atrial fibrillation Poor compliance Assessment/Plan Monitoring Supportive treatment Telemetry Stabilize blood pressure Lovenox 60 mg subQ q.12 hours, switch to Eliquis 5 mg twice daily later (discussed with Dr. Tierney earlier) Lipitor 40 mg daily Up to chair TPN Physical therapy This medical document was created using an electronic medical record system with [employer] dictation system. Although this document has been carefully reviewed, there may still be some phonetic and typographical errors. These areas are purely typographical due to imperfections of the software programs, and do not reflect any compromise in the patient's medical care Prognosis poor Dietary Evaluation Review Comments: 1. If medically feasible and passing PHP [employer]ELOPER eval follow a CCHO-60 cardiac diet and avoid soda beverages 2. If not able to eat d/t stroke, offer TPN per pharmacy to meet his needs 3. If EN/GI accessible, Tube feeding Glucerna@50ml/hr providing 70g protein 1440kcal 966ml free water meeting his needs @ 100% Protein,100% energy Expected Outcomes/Goals: Controlled DM, improved physical strength Plan discussed with: Patient, Other DARREL HEMPHILL MD Aug 22, 2025 10:46
[2025-08-22] MEDS ORDERED: fentaNYL CITRATE 100 MCG/2 ML VL ONE (12:41)
[2025-08-22] MEDS ORDERED: MIDAZOLAM HCL 2MG/2ML 2ml VIAL (1mg/ml) ONE (12:41)
[2025-08-22] MEDS ORDERED: diphenhydrAMINE HCL 50 MG/1 ML VL ONE (12:56)
--- NOTE | 2025-08-22 13:17 | DVHINCON2 ---
Date of service: Aug 22, 2025 Family History: Patient reports no known family medical history. Allergies: Coded Allergies: NO KNOWN ALLERGIES (Unverified , 10/31/22) Home Meds Active Scripts Pantoprazole Sodium Sesquihydr (Protonix) 40 Mg Tab, 40 MG PO DAILY for 30 Days, #30 TAB Prov:NANCY GIRON MD 11/04/22 Apixaban Base (ELIQUIS) 5 Mg Tab, 5 MG PO BID for 30 Days, #60 TAB 2 Refills Prov:NANCY GIRON MD 11/04/22 Reported Medications Empagliflozin (Jardiance) 10 Mg Tab, PO, TAB 11/02/22 Amlodipine Besylate (Amlodipine Besylate) 5 Mg Tab, 5 MG PO DAILY for 30 Days, MG 11/02/22 Atorvastatin Calcium (ATORVASTATIN CALCIUM) 40 Mg Tab, 1 TAB PO DAILY, #30 TAB 5 Refills 11/02/22 Metformin Hydrochloride (Metformin Hcl) 500 Mg Tab, 500 MG PO DAILY for 30 Days, #2 MG 11/02/22 Current Medications Current Medications Medications (Trade) Dose Ordered Sig/Cash Route PRN Reason Start Time Stop Time Status Last Admin Fat Emulsion Intravenous 200 ml/Potassium Chloride 10 meq/ Potassium Acetate 30 meq/Potassium Phosphate 22 meq/ Calcium Gluconate 9.3 meq/Magnesium Sulfate 8 meq/ Multivitamins 10 ml/Chromium/ Copper/Manganese/ Zinc 1 ml/Insulin Human Regular 2 units/Amino Acids/ Dextrose/Purified Water 1,358.02 ml @ 57 mls/hr [id number] IV 08/21/25 22:00 08/22/25 21:59 08/21/25 22:13 Fat Emulsion Intravenous 200 ml/Potassium Chloride 30 meq/ Potassium Acetate 30 meq/Calcium Gluconate 4.6 meq/ Magnesium Sulfate 10 meq/ Multivitamins 10 ml/Chromium/ Copper/Manganese/ Zinc 1 ml/Insulin Human Regular 5 units/Amino Acids/ Dextrose/Purified Water 1,553.4424 ml @ 65 mls/hr [id number] IV 08/22/25 22:00 08/23/25 21:59 Cancel Fat Emulsion Intravenous 100 ml/Potassium Chloride 30 meq/ Potassium Acetate 30 meq/Calcium Gluconate 4.6 meq/ Magnesium Sulfate 10 meq/ Multivitamins 10 ml/Chromium/ Copper/Manganese/ Zinc 1 ml/Insulin Human Regular 5 units/Amino Acids/ Dextrose/Purified Water 1,453.4424 ml @ 61 mls/hr [id number] IV 08/22/25 22:00 08/23/25 21:59 Vital Signs Vital Signs Date Time Temp Pulse Resp B/P (MAP) Pulse Ox O2 Delivery O2 Flow Rate FiO2 08/22/25 05:00 98.8 87 19 132/72 (92) 97 98.8 08/21/25 20:00 Nasal Cannula* 2 28 Labs/Diagnostic Data Labs Test 08/22/25 12:26 08/22/25 05:15 08/21/25 04:55 08/20/25 05:50 Range/Units POC Glucose 186 H 70-106 mg/dl White Blood Count 7.8 4.4-10.8 10^3/uL Red Blood Count 4.25 L 4.5-5.90 10^6/uL Hemoglobin 12.8 L 13.5-17.5 g/dL Hematocrit 37.1 L 41.0-53.0 % Mean Corpuscular Volume 87.3 80.0-100.0 fL Mean Corpuscular Hemoglobin 30.1 28.0-32.0 pg Mean Corpuscular Hemoglobin Concent 34.5 32.0-36.0 g/dL Red Cell Distribution Width 13.6 11.8-14.3 % Platelet Count 270 140-450 10^3/uL Mean Platelet Volume 8.1 6.9-10.8 fL Neutrophils (%) (Auto) 66.7 37.0-80.0 % Lymphocytes (%) (Auto) 22.6 10.0-50.0 % Monocytes (%) (Auto) 6.8 0.0-12.0 % Eosinophils (%) (Auto) 3.4 0.0-7.0 % Basophils (%) (Auto) 0.5 0.0-2.0 % Neutrophils # (Auto) 5.2 1.6-8.6 10 ^3/uL Lymphocytes # (Auto) 1.8 0.4-5.4 10 ^3/uL Monocytes # (Auto) 0.5 0-1.3 10 ^3/uL Eosinophils # (Auto) 0.3 0-0.8 10 ^3/uL Basophils # (Auto) 0 0-0.2 10 ^3/uL Nucleated Red Blood Cells 0.0 % Prothrombin Time 11.2 9.3-11.8 sec Prothrombin Time INR 1.06 0.9-1.15 Activated Partial Thromboplast Time 33.4 24.5-34.5 SEC Sodium Level 141 136-145 mmol/L Potassium Level 3.9 3.5-5.1 mmol/L Chloride Level 105 98-107 mmol/L Carbon Dioxide Level 25 20-31 mmol/L Anion Gap 11 5-15 Blood Urea Nitrogen 21 9-23 mg/dL Creatinine 1.01 0.700-1.30 mg/dL Glomerular Filtration Rate Calc 86 >90 mL/min BUN/Creatinine Ratio 20.8 H 10.0-20.0 Serum Glucose 192 H 74-106 mg/dL Calcium Level 8.8 8.7-10.4 mg/dL Phosphorus Level 3.6 2.4-5.1 mg/dL Magnesium Level 2.0 1.6-2.6 mg/dL Total Bilirubin 0.4 0.2-1.0 mg/dL Aspartate Amino Transferase (AST) 23 13-40 U/L Alanine Aminotransferase (ALT) 33 7-40 U/L Alkaline Phosphatase 63 46-116 U/L Total Protein 6.3 5.7-8.2 g/dL Albumin 3.4 3.2-4.8 g/dL Triglycerides Level 97 < 150 mg/dL Hemoglobin A1c 8.0 H <5.7 % A1C Thyroid Stimulating Hormone (TSH) 0.62 0.55-4.78 uIU/mL Test 08/18/25 05:00 08/11/25 08:15 08/11/25 00:03 Range/Units Estimated GFR () 111 mL/min Estimated GFR (Non- 92 mL/min Urine Color Light-yellow Yellow Urine Clarity Clear Clear Urine pH 6.5 5.0-9.0 Urine Specific [place] 1.015 1.001-1.035 Urine Protein Negative Negative Urine Ketones Negative Negative Urine Blood Negative Negative /uL Urine Nitrite Negative Negative Urine Bilirubin Negative Negative Urine Urobilinogen Normal Negative mg/dL Urine Leukocyte Esterase Negative Negative /uL Urine RBC 1 0 - 3 /hpf Urine Microscopic WBC < 1 0-3 /HPF Urine Squamous Epithelial Cells Few <5 /hpf Urine Bacteria None seen None Seen /hpf Urine Glucose 1+ H Normal mg/dL Urine Opiates Screen Neg NEGATIVE Urine Fentanyl Screen Neg NEGATIVE Urine Barbiturates Screen Neg NEGATIVE Urine Phencyclidine Screen Neg NEGATIVE Urine Amphetamines Screen Neg NEGATIVE Urine Benzodiazepines Screen Neg NEGATIVE Urine Cocaine Screen Neg NEGATIVE Urine Cannabinoids Screen Neg NEGATIVE Influenza Type A Antigen Negative Negative Influenza Type B Antigen Negative Negative SARS-CoV-2 Antigen (Rapid) Negative NEGATIVE Microbiology Date/Time Source Procedure Growth Status 08/11/25 02:20 Sputum Gram Stain - Final Complete 08/11/25 02:20 Sputum Respiratory Culture - Final Complete Assessment [id number] dehydration/ malnutrition PEG TUBE PLACEMENT EGD BY DR Sukhwinder SCHMIDT EBL 1 CC NO DRAINS NO COMPLICATIONS Plan discussed with: Other ROBERT SCHMIDT MD Aug 22, 2025 13:16
--- NOTE | 2025-08-22 13:21 | DVHOP2 ---
Operative Report DATE OF OPERATION: 08/22/25 PROCEDURE: Upper Endoscopy with biopsy and PEG tube placement PREOPERATIVE INDICATION: The patient is a 59 -year-old male undergoing endoscopy for oropharyngeal dysphagia due to multiple strokes POSTOPERATIVE DIAGNOSES: 1. Mild atrophic antral gastritis and mild duodenitis of the duodenal bulb 2. 1-2 cm sliding-type hiatal hernia with slightly irregular squamocolumnar junction minimal grade a erosive esophagitis 3. Percutaneous gastrostomy tube was placed through the anterior abdominal wall under sterile conditions by Dr. Axel Rosen using endoscopic guidance and assistance 4. Repeat endoscopy confirmed adequate dilatation otherwise normal examination up to the 2nd and 3rd part of the duodenum and gastric biopsies were obtained PROCEDURE PERFORMED BY: Monica Rosen GI NURSE: Valeria SCOPE: Olympus videoendoscope. ASA CLASS: 3 PREOPERATIVE MEDICATIONS: Mac sedation, Dr. Yun PROCEDURE IN DETAIL: After obtaining an informed consent, the patient was placed on left lateral decubitus position. The patient was then sedated with the above medications. A bite block was placed between his teeth. The endoscope was then passed through the oropharynx, into the esophagus, and through the stomach and pylorus up to the second and third part of the duodenum. The endoscope was then withdrawn. The 2nd and 3rd part of the duodenal were normal. Duodenal bulb showed mild duodenitis Pre-pyloric area and antrum showed mild atrophic gastritis. On retroflexion the fundus and cardia were normal Patient had a 1-2 cm sliding-type hiatal hernia with slightly irregular squamocolumnar junction minimal grade a erosive esophagitis. Endoscope was passed back into the stomach and stomach was insufflated. Using the light from the endoscope a percutaneous gastrostomy tube was placed through the anterior abdominal wall under sterile conditions by Dr. Axel Rosen using endoscopic guidance and as sistance as per standard protocol. I performed a repeat endoscopy to confirmed adequate placement and gastric biopsies were obtained The remaining distal and proximal esophagus and oropharynx were unremarkable The patient tolerated the procedure well without difficulty. COMPLICATIONS : None SPECIMENS: Gastric biopsies Antral biopsies DISPOSITION: Transfer back to the floor D/C to home PLAN: 1. Await for biopsy result 2. Will place pt on Protonix 40 mg IV daily 3. We will Lovenox for 24 hours 4. See postop PEG tube placement instructions 5. Do not use gastrostomy tube today, remove G-tube dressing on 08/23/2025 6. Rotate G-tube twice a day and cleaned with dilute hydrogen peroxide twice a day on 08/23/2025 7. If gastric residual is less than 150 mL start G-tube feedings with ensure one can via PEG tube starting on 08/23/2025 MONICA ROSEN MD Aug 22, 2025 13:21
--- NOTE | 2025-08-22 13:24 | DVHOP ---
DATE OF SURGERY: 08/22/2025 PREPROCEDURE DIAGNOSES: Malnutrition and dysphagia. POSTPROCEDURE DIAGNOSES: Malnutrition and dysphagia. PROCEDURE: PEG tube placement in conjunction with Dr. Juju Rosen's endoscopy. I did the surgical part. DESCRIPTION OF PROCEDURE: The patient was prepped and draped in the usual sterile fashion in the supine position with the left upper abdomen area exposed. Endoscopy was done by Dr. Juju Rosen and a suitable spot was selected after the light was seen shining through. In the left upper abdomen, lidocaine was inserted in the vicinity and a small incision was applied. It was taken down to the deeper tissues. The Angiocatheter needle was advanced through the incision into the anterior wall of the stomach. It was visualized by the endoscope and the needle was withdrawn with the trocar. The cannula was left in place and the guidewire was advanced and grasped via the endoscope and pulled out from the mouth and the G-tube was engaged with a guidewire, pulled back into the mouth and pulled out from the anterior wall of the abdomen and then the cuff was well situated and confirmed by repeat endoscopy with Dr. Juju Rosen. The final condition was established. The dressing was applied. The patient tolerated the procedure well with no complications. MD SHARONDA Arteaga/RAFAEL TID: [id number] RECEIPT: [id number] cc: Niki Tierney MD
--- NOTE | 2025-08-22 13:29 | DVHINCON2 ---
DATE OF CONSULTATION: 08/22/2025 HISTORY OF PRESENT ILLNESS: This patient is 59 years old, admitted on 08/10/2025. Past medical history of CVA on Eliquis, GERD, kidney stones, diabetes, hypertension, and coming to the hospital. He complains of left-sided weakness. He fell from a ladder at home and striking his left shoulder during the fall. There was no head trauma. He also developed other symptoms like left-sided weakness, facial droop, slurred speech, and loss of taste. PHYSICAL EXAMINATION: VITAL SIGNS: Afebrile with stable signs. HEENT: No evidence of pallor, cyanosis, or jaundice. NECK: Supple. No thyromegaly or lymphadenopathy. CHEST AND LUNGS: Clear. HEART: Within normal limits. ABDOMEN: Soft. NEUROLOGIC: Not assessed. CLINICAL IMPRESSION: Dehydration and malnutrition. PLAN: Will be to consider PEG tube placement in conjunction with Dr. Juju Rosen's endoscopy. MD SHARONDA Arteaga/RAFAEL TID: [id number] RECEIPT: [id number] cc: Niki Tierney MD
[2025-08-22] MEDS: ONDANSETRON HCL 4 MG/2 ML VIAL ONE (13:52)
[2025-08-22] MEDS: ONDANSETRON HCL 4 MG/2 ML VIAL IV ONE (13:57)
[2025-08-22] MEDS: METOCLOPRAMIDE HCL 5MG/ml INJ 2ml VIAL IV ONE (14:08)
[2025-08-22] MEDS: METOCLOPRAMIDE HCL 5MG/ml INJ 2ml VIAL ONE (14:08)
[2025-08-22] MEDS ORDERED: TPN PER PHARMACY IV NR (22:00)
[2025-08-22] MEDS: PPN PER PHARMACY IV NR (22:57)
[2025-08-23] VITALS (9 sets, daily range): BP systolic 129–146; BP diastolic 74–89; PULSE 91–103; RESP 17–20; TEMP 97.5–98.5; O2SAT 94–100
[2025-08-23 07:25] LABS: Alanine Aminotransferase 36 U/L (7-40); Albumin 3.5 g/dL (3.2-4.8); Alkaline Phosphatase 66 U/L (46-116); Anion Gap 11 (5-15); BUN/Creatinine Ratio 20.2 (10.0-20.0); Bilirubin, Total 0.6 mg/dL (0.2-1.0); Blood Urea Nitrogen 23 mg/dL (9-23); Calcium 8.9 mg/dL (8.7-10.4); Carbon Dioxide 25 mmol/L (20-31); Chloride 104 mmol/L (98-107); Glucose 191 mg/dL (74-106); Magnesium 2.0 mg/dL (1.6-2.6); Potassium 4.0 mmol/L (3.5-5.1); Sodium 140 mmol/L (136-145); Total Protein 6.7 g/dL (5.7-8.2)
--- NOTE | 2025-08-23 11:52 | DVHPN2 ---
Subjective Status post PEG tube placement yesterday Denies any complaints Reviewed: Care Plan, H&P, Labs, Medications, Previous Orders Changes from previous H/P or p: Changes General: Per HPI Objective Vitals Vital Signs Date Time Temp Pulse Resp B/P (MAP) Pulse Ox O2 Delivery O2 Flow Rate FiO2 08/23/25 09:00 98.5 95 18 138/87 (104) 95 98.5 08/23/25 08:15 Nasal Cannula* 2 28 Intake/Output Intake and Output 08/23/25 07:00 Intake Total 50 ml Output Total 1100 ml Balance -1050 ml Intake Oral 0 ml IV Total 50 ml Output Urine Total 1100 ml Stool Total 0 ml # Voids 1 General Appearance: Alert, Oriented X3 HEENT: Atraumatic Cardiovascular: Regular rate, Normal S1, Normal S2 Abdomen: Normal bowel sounds Medications Current Medications Medications Dose Ordered Sig/Cash Route Start Time Stop Time Status Last Admin Dose Admin Acetaminophen 650 mg Q6HP PRN PO 08/10/25 20:45 08/13/25 21:06 650 MG Ipratropium [place] 0.5 mg Q6HPRN PRN NEB 08/10/25 20:45 Cancel Diagnostic Test (Pha) 1 strip Q6HR 08/14/25 12:00 08/23/25 06:24 1 STRIP Insulin Human Regular FOLLOW SLIDING SCALE Q6HR SC 08/14/25 12:00 08/23/25 06:23 4 UNITS Dextrose 50 ml UD IV 08/14/25 12:00 Lorazepam 1 mg ONCE PRN IV 08/14/25 19:30 Hydralazine HCl 10 mg Q6HP PRN IV 08/15/25 22:00 08/21/25 17:55 10 MG Amino Acids 0 ml @ 0 mls/hr PER PHARMACY IV 08/18/25 20:00 Enoxaparin Sodium 60 mg Q12HR SC 08/19/25 22:00 08/23/25 09:38 60 MG Fat Emulsion Intravenous 200 ml/Potassium Chloride 30 meq/ Potassium Acetate 30 meq/Calcium Gluconate 4.6 meq/ Magnesium Sulfate 10 meq/ Multivitamins 10 ml/Chromium/ Copper/Manganese/ Zinc 1 ml/Insulin Human Regular 5 units/Amino Acids/ Dextrose/Purified Water 1,553.4424 ml @ 65 mls/hr [id number] IV 08/22/25 22:00 08/23/25 21:59 Cancel Fat Emulsion Intravenous 100 ml/Potassium Chloride 30 meq/ Potassium Acetate 30 meq/Calcium Gluconate 4.6 meq/ Magnesium Sulfate 10 meq/ Multivitamins 10 ml/Chromium/ Copper/Manganese/ Zinc 1 ml/Insulin Human Regular 5 units/Amino Acids/ Dextrose/Purified Water 1,453.4424 ml @ 61 mls/hr [id number] IV 08/22/25 22:00 08/23/25 21:59 08/22/25 22:57 61 MLS/HR Enteral Nutritional Formula 240 ml Q6HR PO 08/23/25 06:00 Fat Emulsion Intravenous 100 ml/Sodium Phosphate 20 meq/ Potassium Chloride 30 meq/ Potassium Acetate 30 meq/Calcium Gluconate 4.6 meq/ Magnesium Sulfate 10 meq/ Multivitamins 10 ml/Chromium/ Copper/Manganese/ Zinc 1 ml/Insulin Human Regular 8 units/Amino Acids/ Dextrose/Purified Water 1,558.4724 ml @ 65 mls/hr [id number] IV 08/23/25 22:00 08/24/25 21:59 Laboratory Results Laboratory Tests 08/22/25 05:15 08/23/25 06:30 Chemistry Test 08/23/25 06:30 Albumin 3.5 g/dL (3.2-4.8) Calcium Level 8.9 mg/dL (8.7-10.4) Magnesium Level 2.0 mg/dL (1.6-2.6) Phosphorus Level 3.0 mg/dL (2.4-5.1) Total Protein 6.7 g/dL (5.7-8.2) LFT Test 08/23/25 06:30 Alanine Aminotransferase (ALT) 36 U/L (7-40) Alkaline Phosphatase 66 U/L (46-116) Aspartate Amino Transferase (AST) 24 U/L (13-40) Total Bilirubin 0.6 mg/dL (0.2-1.0) Urinalysis Test 08/11/25 08:15 Urine Color Light-yellow (Yellow) Urine Clarity Clear (Clear) Urine pH 6.5 (5.0-9.0) Urine Specific [place] 1.015 (1.001-1.035) Urine Protein Negative (Negative) Urine Ketones Negative (Negative) Urine Blood Negative /uL (Negative) Urine Nitrite Negative (Negative) Urine Bilirubin Negative (Negative) Urine Urobilinogen Normal mg/dL (Negative) Urine Leukocyte Esterase Negative /uL (Negative) Urine RBC 1 /hpf (0 - 3) Urine Microscopic WBC < 1 /HPF (0-3) Urine Squamous Epithelial Cells Few /hpf (<5) Urine Bacteria None seen /hpf (None Seen) Urine Glucose 1+ mg/dL (Normal) H Microbiology Microbiology Date/Time Source Procedure Growth Status 08/11/25 02:20 Sputum Gram Stain - Final Complete 08/11/25 02:20 Sputum Respiratory Culture - Final Complete Assessment/Plan Assessment/Plan Acute CVA with right hemiparesis Old CVA Mixed hyperlipidemia HTN DM2 Dysphagia Aphasia PLAN: NPO IV nutrition Swallow eval Lovenox Eliquis Monitor Discussed with family at the bedside 08/18/2025: Continue NPO Start TPN Swallow eval to be done today Continue Lovenox We will switch Lovenox to Eliquis once he is able to start p.o. intake Monitor closely 08/19/2025: Continue NPO The patient failed a swallow eval He needs a G-tube Consult GI for a PEG tube Continue IV nutrition per pharmacy protocol Hold Eliquis Lovenox 1 milligram/kilogram subcutaneously q.12 hours Discussed with the family at the bedside, the and son, they are in agreement 08/20/2025: Continue NPO The patient is scheduled for a PEG tube on Friday Hold anticoagulation 08/21/2025: Continue NPO Peg tube placement in the morning Continue to hold anticoagulation 08/22/2025: PEG tube today NPO until then Discharge planning Family is thinking about SNF versus physical therapy at home with home health 08/23/2025: Start tube feeding Discontinue IV nutrition Arrange SNF for rehab Plan discussed with: Patient, Spouse My Orders Orders - RACHID KERR MD Procedure Category Date Status Time Amino Acid PHA 08/23/25 In Process Infusion... W/Fat 22:00 Comprehensive LAB 08/24/25 Verified Metabolic Panel 04:00 Magnesium LAB 08/24/25 Verified 04:00 Phosphorus LAB 08/24/25 Verified 04:00 Ppn Per Pharmacy [facility] 08/23/25 In Process 22:00 Date of Service: Aug 23, 2025 Billing Provider: RACHID KERR MD Common Visit Codes: [id number] INP/OBS CARE(HIGH) RACHID KERR MD Aug 23, 2025 11:52
[2025-08-23] MEDS: ENSURE CLEAR Apple 8oz Carton PO SCH (13:22)
--- NOTE | 2025-08-23 15:07 | DVHPN2 ---
Progress Note Date Seen: Aug 23, 2025 Medical Necessity Reason Pt with a Central, PICC or Fol: No Objective vital signs Vital Sign Date Time Temp Pulse Resp B/P (MAP) Pulse Ox O2 Delivery O2 Flow Rate FiO2 08/23/25 13:00 98.1 95 20 146/89 (108) 94 98.1 08/23/25 08:15 Nasal Cannula* 2 28 Total Intake and Output 08/22/25 08/22/25 08/23/25 15:00 23:00 07:00 Intake Total 50 ml 0 ml 0 ml Output Total 350 ml 750 ml Balance 50 ml -350 ml -750 ml medications Current Medications Medications Dose Ordered Sig/Cash Route Start Time Stop Time Status Last Admin Dose Admin Acetaminophen 650 mg Q6HP PRN PO 08/10/25 20:45 08/13/25 21:06 650 MG Ipratropium [place] 0.5 mg Q6HPRN PRN NEB 08/10/25 20:45 Cancel Lorazepam 1 mg ONCE PRN IV 08/14/25 19:30 Hydralazine HCl 10 mg Q6HP PRN IV 08/15/25 22:00 08/21/25 17:55 10 MG Enoxaparin Sodium 60 mg Q12HR SC 08/19/25 22:00 08/23/25 09:38 60 MG Fat Emulsion Intravenous 200 ml/Potassium Chloride 30 meq/ Potassium Acetate 30 meq/Calcium Gluconate 4.6 meq/ Magnesium Sulfate 10 meq/ Multivitamins 10 ml/Chromium/ Copper/Manganese/ Zinc 1 ml/Insulin Human Regular 5 units/Amino Acids/ Dextrose/Purified Water 1,553.4424 ml @ 65 mls/hr [id number] IV 08/22/25 22:00 08/23/25 21:59 Cancel Fat Emulsion Intravenous 100 ml/Potassium Chloride 30 meq/ Potassium Acetate 30 meq/Calcium Gluconate 4.6 meq/ Magnesium Sulfate 10 meq/ Multivitamins 10 ml/Chromium/ Copper/Manganese/ Zinc 1 ml/Insulin Human Regular 5 units/Amino Acids/ Dextrose/Purified Water 1,453.4424 ml @ 61 mls/hr [id number] IV 08/22/25 22:00 08/23/25 21:59 08/22/25 22:57 61 MLS/HR Enteral Nutritional Formula 240 ml Q6HR PO 08/23/25 06:00 08/23/25 13:22 240 ML Fat Emulsion Intravenous 100 ml/Sodium Phosphate 20 meq/ Potassium Chloride 30 meq/ Potassium Acetate 30 meq/Calcium Gluconate 4.6 meq/ Magnesium Sulfate 10 meq/ Multivitamins 10 ml/Chromium/ Copper/Manganese/ Zinc 1 ml/Insulin Human Regular 8 units/Amino Acids/ Dextrose/Purified Water 1,558.4724 ml @ 65 mls/hr [id number] IV 08/23/25 22:00 08/24/25 21:59 Cancel Enteral Nutritional Formula 1,000 ml 60ML/HR GT 08/23/25 12:00 UNV laboratory and microbiology Laboratory Tests 08/23/25 06:30 08/22/25 05:15 Test 08/23/25 06:30 Range/Units Serum Glucose 191 H 74-106 mg/dL Microbiology Date/Time Source Procedure Growth Status 08/11/25 02:20 Sputum Gram Stain - Final Complete 08/11/25 02:20 Sputum Respiratory Culture - Final Complete Problem List/Assessment/Plan Problem List/Assessment/Plan AFEBRILE VSS ABD SOFT G TUBE IN PLACE TUBE FEED PER GI NO COMPLICATIONS Plan discussed with: Other Dietary Evaluation Review Comments: 1. If medically feasible and passing REPAIRER GENERAL eval follow a CCHO-60 cardiac diet and avoid soda beverages 2. If not able to eat d/t stroke, offer TPN per pharmacy to meet his needs 3. If EN/GI accessible, Tube feeding Glucerna@50ml/hr providing 70g protein 1440kcal 966ml free water meeting his needs @ 100% Protein,100% energy Expected Outcomes/Goals: Controlled DM, improved physical strength ROBERT SCHMIDT MD Aug 23, 2025 15:07
[2025-08-23] MEDS ORDERED: PPN PER PHARMACY IV NR (22:00)
[2025-08-23] MEDS: Glucerna 1.2 Cal 1Liter BOTTLE GT SCH (23:43)
[2025-08-24] VITALS (9 sets, daily range): BP systolic 137–183; BP diastolic 76–123; PULSE 95–130; RESP 15–20; TEMP 97.1–99.9; O2SAT 96–100
[2025-08-24 06:56] LABS: Calcium 8.8 mg/dL (8.7-10.4); Chloride 101 mmol/L (98-107); Potassium 3.9 mmol/L (3.5-5.1); Sodium 137 mmol/L (136-145)
[2025-08-24 06:57] LABS: Anion Gap 12 (5-15); Carbon Dioxide 24 mmol/L (20-31)
[2025-08-24 07:02] LABS: BUN/Creatinine Ratio 18.4 (10.0-20.0); Blood Urea Nitrogen 21 mg/dL (9-23)
[2025-08-24 07:03] LABS: Glucose 268 mg/dL (74-106)
--- NOTE | 2025-08-24 10:20 | DVHDS2 ---
Discharge Summary Date of Admission Aug 10, 2025 at 20:40 Date of Discharge: Aug 24, 2025 Labs/Diagnostic Data: Laboratory Results Test 08/24/25 05:05 08/23/25 12:32 08/23/25 06:30 08/22/25 05:15 Sodium Level 137 mmol/L (136-145) Potassium Level 3.9 mmol/L (3.5-5.1) Chloride Level 101 mmol/L (98-107) Carbon Dioxide Level 24 mmol/L (20-31) Anion Gap 12 (5-15) Blood Urea Nitrogen 21 mg/dL (9-23) Creatinine 1.14 mg/dL (0.700-1.30) Glomerular Filtration Rate Calc 74 mL/min (>90) BUN/Creatinine Ratio 18.4 (10.0-20.0) Serum Glucose 268 mg/dL (74-106) Calcium Level 8.8 mg/dL (8.7-10.4) POC Glucose 212 mg/dl (70-106) Phosphorus Level 3.0 mg/dL (2.4-5.1) Magnesium Level 2.0 mg/dL (1.6-2.6) Total Bilirubin 0.6 mg/dL (0.2-1.0) Aspartate Amino Transferase (AST) 24 U/L (13-40) Alanine Aminotransferase (ALT) 36 U/L (7-40) Alkaline Phosphatase 66 U/L (46-116) Total Protein 6.7 g/dL (5.7-8.2) Albumin 3.5 g/dL (3.2-4.8) White Blood Count 7.8 10^3/uL (4.4-10.8) Red Blood Count 4.25 10^6/uL (4.5-5.90) Hemoglobin 12.8 g/dL (13.5-17.5) Hematocrit 37.1 % (41.0-53.0) Mean Corpuscular Volume 87.3 fL (80.0-100.0) Mean Corpuscular Hemoglobin 30.1 pg (28.0-32.0) Mean Corpuscular Hemoglobin Concent 34.5 g/dL (32.0-36.0) Red Cell Distribution Width 13.6 % (11.8-14.3) Platelet Count 270 10^3/uL (140-450) Mean Platelet Volume 8.1 fL (6.9-10.8) Neutrophils (%) (Auto) 66.7 % (37.0-80.0) Lymphocytes (%) (Auto) 22.6 % (10.0-50.0) Monocytes (%) (Auto) 6.8 % (0.0-12.0) Eosinophils (%) (Auto) 3.4 % (0.0-7.0) Basophils (%) (Auto) 0.5 % (0.0-2.0) Neutrophils # (Auto) 5.2 10 ^3/uL (1.6-8.6) Lymphocytes # (Auto) 1.8 10 ^3/uL (0.4-5.4) Monocytes # (Auto) 0.5 10 ^3/uL (0-1.3) Eosinophils # (Auto) 0.3 10 ^3/uL (0-0.8) Basophils # (Auto) 0 10 ^3/uL (0-0.2) Nucleated Red Blood Cells 0.0 % Prothrombin Time 11.2 sec (9.3-11.8) Prothrombin Time INR 1.06 (0.9-1.15) Activated Partial Thromboplast Time 33.4 SEC (24.5-34.5) Test 08/21/25 04:55 08/20/25 05:50 08/18/25 05:00 08/11/25 08:15 Triglycerides Level 97 mg/dL (< 150) Hemoglobin A1c 8.0 % A1C (<5.7) Thyroid Stimulating Hormone (TSH) 0.62 uIU/mL (0.55-4.78) Estimated GFR () 111 mL/min Estimated GFR (Non- 92 mL/min Urine Color Light-yellow (Yellow) Urine Clarity Clear (Clear) Urine pH 6.5 (5.0-9.0) Urine Specific [place] 1.015 (1.001-1.035) Urine Protein Negative (Negative) Urine Ketones Negative (Negative) Urine Blood Negative /uL (Negative) Urine Nitrite Negative (Negative) Urine Bilirubin Negative (Negative) Urine Urobilinogen Normal mg/dL (Negative) Urine Leukocyte Esterase Negative /uL (Negative) Urine RBC 1 /hpf (0 - 3) Urine Microscopic WBC < 1 /HPF (0-3) Urine Squamous Epithelial Cells Few /hpf (<5) Urine Bacteria None seen /hpf (None Seen) Urine Glucose 1+ mg/dL (Normal) Urine Opiates Screen Neg (NEGATIVE) Urine Fentanyl Screen Neg (NEGATIVE) Urine Barbiturates Screen Neg (NEGATIVE) Urine Phencyclidine Screen Neg (NEGATIVE) Urine Amphetamines Screen Neg (NEGATIVE) Urine Benzodiazepines Screen Neg (NEGATIVE) Urine Cocaine Screen Neg (NEGATIVE) Urine Cannabinoids Screen Neg (NEGATIVE) Test 08/11/25 00:03 Influenza Type A Antigen Negative (Negative) Influenza Type B Antigen Negative (Negative) SARS-CoV-2 Antigen (Rapid) Negative (NEGATIVE) Other Laboratory Tests 08/24/25 05:05 08/22/25 05:15 Brief Hx & Hospital Course: Diagnoses: Acute CVA with right hemiparesis Old CVA Mixed hyperlipidemia HTN DM2 Dysphagia Aphasia Atrial fibrillation 59-year-old male was admitted for acute CVA He was also having dysphagia and aphasia Several swallow evaluation showed the patient was not able to swallow and therefore he was kept NPO and was started on IV nutrition and GI consultation was called in for a PEG tube placement He had procedure successfully with no complications He is doing well He is alert and oriented and following commands He is still aphasic Because of the weakness and the hemiparesis physical therapy recommended a detention facility for rehab He will be discharged to rehab Restart Eliquis Stop Lovenox Condition at Discharge: Stable Final Diagnosis/Problems List Acute CVA with right hemiparesis Old CVA Mixed hyperlipidemia HTN DM2 Dysphagia Aphasia Discharge Disposition: Assisted Facility SNF Discharge Will this Physician continue t: No Discharge Instruct/Medications Scheduled Amlodipine Besylate (Amlodipine Besylate), 5 MG PO DAILY, (Reported) Apixaban Base (Eliquis), 5 MG PO BID Atorvastatin Calcium (Atorvastatin Calcium), 1 TAB PO DAILY, (Reported) Metformin Hydrochloride (Metformin Hcl), 500 MG PO DAILY, (Reported) Pantoprazole Sodium Sesquihydr (Protonix), 40 MG PO DAILY Miscellaneous Medications Empagliflozin (Jardiance), Unknown Dose PO, (Reported) Discharge Statement: "Patient was advised to return to the ER or call 911 if any headaches, dizziness, shortness of breath, chest pain, abdominal pain, bleeding, fevers, or worsening of medical condition. Patient was counseled about treatment plan, medications, possible side effects, patientverbalized understanding. All questions were answered to the best of my ability. This discharge took greater then 30 minutes in planning, reviewing documentation, counseling the patient, and discussing with other team members." ASSESSMENT ASSESSMENT Assessment Date of Service: Aug 24, 2025 Billing Provider: RACHID KERR MD Common Visit Codes: 61782-PPW/OBS DISCH DAY >30min RACHID KERR MD Aug 24, 2025 10:20
[2025-08-24] MEDS: HYDROcodone-ACET 5/325MG TAB PO PRN (16:43)
--- NOTE | 2025-08-24 19:00 | DVH ---
Indication: abdomen pain and peg tube placement Technique: CT axial images of the abdomen and pelvis are obtained without contrast. Coronal and sagittal reformats were obtained. Radiation Dose Information: CTDI volume is 8.1 mGy. Dose-length product is 430 mGy*cm Comparison: [facility] on DOS: 11/03/22, CT ABD PELVIS WO CONTRAST on DOS: 11/01/22, [facility] on DOS: 11/01/22 FINDINGS: There is limited interpretation of the abdomen and pelvis without administration of intravenous contrast. Lung bases demonstrate atelectasis. Adrenal glands, spleen and pancreas unremarkable in shape. Cholelithiasis. Liver unremarkable in shape. The kidneys demonstrate no hydronephrosis / nephrolithiasis. Small hiatal hernia. There is a PEG tube m. There is hemorrhage just anterior to the stomach measuring 4.2 x 2.8 x 5.0 cm with surrounding stranding. Small bowel loops are normal in caliber. Moderate volume stool in the colon. Appendix appears to be remote. Abdominal aortic atherosclerotic disease. Bladder partially distended. No free pelvic fluid. No inguinal lymphadenopathy. No aggressive osseous process. [id number] thoracolumbar degenerative disease. IMPRESSION: Limited evaluation without contrast. Hemorrhage just anterior to the stomach near the PEG tube tract measuring 4.2 x 2.8 x 5.0 cm. Recommend stat surgical consultation for evaluation. Active bleeding can not be ruled out. CT angiogram of the abdomen / pelvis can be obtained to evaluate for potential active bleeding. Cholelithiasis. Atherosclerotic disease. Findings were communicated to patient's nurse Marjorie at 6:58 p.m. On 08/24/2025. She will notify the patient's physician
[2025-08-24 19:34] LABS: Hematocrit 40.5 % (41.0-53.0); Hemoglobin 13.5 g/dL (13.5-17.5); Mean Corpuscular Hemoglobin 29.5 pg (28.0-32.0); Mean Corpuscular Volume 88.5 fL (80.0-100.0); Nucleated Red Blood Cells % 0.0 %
[2025-08-24 19:50] LABS: Albumin 4.0 g/dL (3.2-4.8); Alkaline Phosphatase 89 U/L (46-116); Anion Gap 11 (5-15); BUN/Creatinine Ratio 15.2 (10.0-20.0); Blood Urea Nitrogen 21 mg/dL (9-23); Calcium 9.4 mg/dL (8.7-10.4); Carbon Dioxide 24 mmol/L (20-31); Chloride 102 mmol/L (98-107); Magnesium 1.8 mg/dL (1.6-2.6); Potassium 4.3 mmol/L (3.5-5.1); Sodium 137 mmol/L (136-145); Total Protein 7.7 g/dL (5.7-8.2)
[2025-08-24 19:51] LABS: Bilirubin, Total 0.6 mg/dL (0.2-1.0)
[2025-08-24 19:53] LABS: INR 1.07 (0.9-1.15); Partial Thromboplastin Time 32.6 SEC (24.5-34.5); Prothrombin Time 11.3 sec (9.3-11.8)
[2025-08-24 19:54] LABS: Alanine Aminotransferase 43 U/L (7-40); Glucose 317 mg/dL (74-106)
--- NOTE | 2025-08-24 20:28 | DVHPN2 ---
Subjective He was going to be discharged to SNF today but he developed tachycardia with abdominal pain this afternoon HR 130 Slight oozing from around the PEG tube Became diaphoretic Discharge was cancelled CT abd pel: 3x5 cm hematoma Labs: BERTA Hb is stable Reviewed: Care Plan, H&P, Labs, Medications, Previous Orders Changes from previous H/P or p: Changes General: Per HPI Objective Vitals Vital Signs Date Time Temp Pulse Resp B/P (MAP) Pulse Ox O2 Delivery O2 Flow Rate FiO2 08/24/25 17:10 99.9 130 19 173/123 (140) 98 99.9 08/24/25 08:00 Nasal Cannula* 2 28 Intake/Output Intake and Output 08/24/25 07:00 Intake Total 0 ml Output Total 1500 ml Balance -1500 ml Intake Oral 0 ml Output Urine Total 1500 ml General Appearance: Alert, Oriented X3 HEENT: Atraumatic Cardiovascular: Regular rate, Normal S1, Normal S2 Abdomen: Normal bowel sounds Medications Current Medications Medications Dose Ordered Sig/Cash Route Start Time Stop Time Status Last Admin Dose Admin Acetaminophen 650 mg Q6HP PRN PO 08/10/25 20:45 08/24/25 16:17 650 MG Ipratropium [place] 0.5 mg Q6HPRN PRN NEB 08/10/25 20:45 Cancel Hydralazine HCl 10 mg Q6HP PRN IV 08/15/25 22:00 08/21/25 17:55 10 MG Fat Emulsion Intravenous 200 ml/Potassium Chloride 30 meq/ Potassium Acetate 30 meq/Calcium Gluconate 4.6 meq/ Magnesium Sulfate 10 meq/ Multivitamins 10 ml/Chromium/ Copper/Manganese/ Zinc 1 ml/Insulin Human Regular 5 units/Amino Acids/ Dextrose/Purified Water 1,553.4424 ml @ 65 mls/hr [id number] IV 08/22/25 22:00 08/23/25 21:59 Cancel Enteral Nutritional Formula 240 ml Q6HR PO 08/23/25 06:00 08/24/25 06:09 240 ML Fat Emulsion Intravenous 100 ml/Sodium Phosphate 20 meq/ Potassium Chloride 30 meq/ Potassium Acetate 30 meq/Calcium Gluconate 4.6 meq/ Magnesium Sulfate 10 meq/ Multivitamins 10 ml/Chromium/ Copper/Manganese/ Zinc 1 ml/Insulin Human Regular 8 units/Amino Acids/ Dextrose/Purified Water 1,558.4724 ml @ 65 mls/hr [id number] IV 08/23/25 22:00 08/24/25 21:59 Cancel Enteral Nutritional Formula 1,000 ml 60ML/HR GT 08/23/25 12:00 08/23/25 23:43 1,000 ML Morphine Sulfate 2 mg Q4HPRN PRN IV 08/24/25 17:45 Sodium Chloride 1,000 ml @ 125 mls/hr Q8H IV 08/24/25 20:30 UNV Laboratory Results Laboratory Tests 08/24/25 19:24 Chemistry Test 08/24/25 05:05 08/24/25 19:24 Calcium Level 8.8 mg/dL (8.7-10.4) 9.4 mg/dL (8.7-10.4) Albumin 4.0 g/dL (3.2-4.8) Magnesium Level 1.8 mg/dL (1.6-2.6) Total Protein 7.7 g/dL (5.7-8.2) Coagulation Test 08/24/25 19:24 Prothrombin Time 11.3 sec (9.3-11.8) Prothrombin Time INR 1.07 (0.9-1.15) Activated Partial Thromboplast Time 32.6 SEC (24.5-34.5) LFT Test 08/24/25 19:24 Alanine Aminotransferase (ALT) 43 U/L (7-40) H Alkaline Phosphatase 89 U/L (46-116) Aspartate Amino Transferase (AST) 22 U/L (13-40) Total Bilirubin 0.6 mg/dL (0.2-1.0) Urinalysis Test 08/11/25 08:15 Urine Color Light-yellow (Yellow) Urine Clarity Clear (Clear) Urine pH 6.5 (5.0-9.0) Urine Specific [place] 1.015 (1.001-1.035) Urine Protein Negative (Negative) Urine Ketones Negative (Negative) Urine Blood Negative /uL (Negative) Urine Nitrite Negative (Negative) Urine Bilirubin Negative (Negative) Urine Urobilinogen Normal mg/dL (Negative) Urine Leukocyte Esterase Negative /uL (Negative) Urine RBC 1 /hpf (0 - 3) Urine Microscopic WBC < 1 /HPF (0-3) Urine Squamous Epithelial Cells Few /hpf (<5) Urine Bacteria None seen /hpf (None Seen) Urine Glucose 1+ mg/dL (Normal) H Microbiology Microbiology Date/Time Source Procedure Growth Status 08/11/25 02:20 Sputum Gram Stain - Final Complete 08/11/25 02:20 Sputum Respiratory Culture - Final Complete Assessment/Plan Assessment/Plan Acute CVA with right hemiparesis Old CVA Mixed hyperlipidemia HTN DM2 Dysphagia Aphasia PLAN: NPO IV nutrition Swallow eval Lovenox Eliquis Monitor Discussed with family at the bedside 08/18/2025: Continue NPO Start TPN Swallow eval to be done today Continue Lovenox We will switch Lovenox to Eliquis once he is able to start p.o. intake Monitor closely 08/19/2025: Continue NPO The patient failed a swallow eval He needs a G-tube Consult GI for a PEG tube Continue IV nutrition per pharmacy protocol Hold Eliquis Lovenox 1 milligram/kilogram subcutaneously q.12 hours Discussed with the family at the bedside, the and son, they are in agreement 08/20/2025: Continue NPO The patient is scheduled for a PEG tube on Friday Hold anticoagulation 08/21/2025: Continue NPO Peg tube placement in the morning Continue to hold anticoagulation 08/22/2025: PEG tube today NPO until then Discharge planning Family is thinking about SNF versus physical therapy at home with home health 08/23/2025: Start tube feeding Discontinue IV nutrition Arrange SNF for rehab 08/24/25: Sepsis Bleeding at the PEG tube site Hematoma BERTA PLAN: Cancel discharge NPO IV fluids IV antibiotics Blood cultures PEG tube to low continuous suction Dr. Carlos Rosen was made aware Abdominal binding Ordered CTA abdomen to rule out active bleeding Monitor h/h Plan discussed with: Other My Orders Orders - RACHID KERR MD Procedure Category Date Status Time Ct Ab Pel Wo Con-No CT 08/24/25 Resulted Oral Or Iv 17:42 Morphine Sulfate PHA 08/24/25 In Process Injection 17:45 Blood Culture STEPHANIE 08/24/25 In Process 17:[address] 08/24/25 Logged RUN 19:12 * Surgical Consult CONS 08/24/25 Transmitted Type And Screen BBK 08/24/25 In Process 19:24 Communication Order ORDERS 08/24/25 Transmitted 19:44 Sodium Chloride 0.9% PHA 08/24/25 Logged 20:30 Sodium Chloride 0.9% PHA 08/24/25 Logged 20:30 Date of Service: Aug 24, 2025 Billing Provider: RACHID KERR MD Common Visit Codes: [id number] INP/OBS CARE(HIGH) RACHID KERR MD Aug 24, 2025 20:28
[2025-08-24] MEDS ORDERED: ONDANSETRON HCL 4 MG/2 ML VIAL IV PRN (20:30)
--- NOTE | 2025-08-24 21:55 | DVHPN2 ---
Progress Note - Dictate Date Seen: Aug 24, 2025 Medical Necessity Reason Pt with a Central, PICC or Fol: No Subjective Mr. Nunez is a right-handed gentleman with a history of diabetes, previous stroke, A-fib, he came to the hospital on 08/11/24 with a chief complaint of left-sided weakness. I saw him on 11/02/2022 for possible stroke (MRI positive) I have seen examined the patient, talked to his nurse and other medical staff. I have discussed with his and daughter. He is awake, I presumed he was fully oriented, he follow verbal commands, Since yesterday, the patient has abdominal pain, obvious worse today, CT abdomen stopped pelvis scan confirmed acute hematoma anterior to the stomach near the PEG tube track I have discussed with Dr. Rosen, he is aware of the patient's condition, recommendation given The blood pressure was very high, now down to 147/82 after treatment UDS, 08/28/2025: Negative CBC, 08/11/2025: Unremarkable BMP 08/11/2025: Unremarkable Liver function tests, 08/11/2025: Unremarkable TG/CHO L/LDL/HDL, 11/02/2022: 87/206/140/68 EKG, 10/31/22: Atrial fibrillation Echocardiogram, 11/01/2022: Atrial fibrillation. 55 to 60% with normal RV function. Echocardiogram, 08/12/2025: EF: 60% Carotid Doppler, 08/10/2025: Mild atherosclerotic vascular disease with no hemodynamically significant stenosis. Any narrowing is less than 50%. CT abdomen, pelvis, 08/24/2025: Limited evaluation without contrast. Hemorrhage just anterior to the stomach near the PEG tube tract measuring 4.2 x 2.8 x 5.0 cm. Recommend stat surgical consultation for evaluation. Active bleeding can not be ruled out. CT angiogram of the abdomen / pelvis can be obtained to evaluate for potential active bleeding. Cholelithiasis. Atherosclerotic disease. MRI head, 11/13/2022: There is small focal subacute right posterior frontal white matter restricted diffusion which may represent active demyelinating plaque or subacute infarct. There is small focus of the left brachium pontine restricted diffusion typical location for active demyelinating plaque of multiple sclerosis versus subacute infarct. There is chronic right basal ganglia, grey radiata/centrum semiovale infarct. There are chronic left greater than right thalamic lacunar infarcts. There is no hemorrhage MRI head, 08/11/2025: 1. Acute or subacute infarct in the left caudate nucleus adjacent to the posterior body of the left lateral ventricle measuring up to 1.7 cm. 2. Additional nonacute findings as described above MRI head, 08/15/2025: Acute infarcts of the left periventricular white matter and left lateral basal ganglia. (company MRI obtained on 08/28/2025, the acute stroke MRI of 08/11/25 is bigger, he has a new stroke in the left [place]) vital signs Vital Sign Date Time Temp Pulse Resp B/P (MAP) Pulse Ox O2 Delivery O2 Flow Rate FiO2 08/24/25 20:30 183/118 08/24/25 17:10 99.9 130 19 98 99.9 08/24/25 08:00 Nasal Cannula* 2 28 Total Intake and Output 08/23/25 08/23/25 08/24/25 15:00 23:00 07:00 Intake Total 0 ml Output Total 800 ml 700 ml Balance -800 ml -700 ml medications Current Medications Medications Dose Ordered Sig/Cash Route Start Time Stop Time Status Last Admin Dose Admin Ipratropium [place] 0.5 mg Q6HPRN PRN NEB 08/10/25 20:45 Cancel Hydralazine HCl 10 mg Q6HP PRN IV 08/15/25 22:00 08/24/25 20:30 10 MG Fat Emulsion Intravenous 200 ml/Potassium Chloride 30 meq/ Potassium Acetate 30 meq/Calcium Gluconate 4.6 meq/ Magnesium Sulfate 10 meq/ Multivitamins 10 ml/Chromium/ Copper/Manganese/ Zinc 1 ml/Insulin Human Regular 5 units/Amino Acids/ Dextrose/Purified Water 1,553.4424 ml @ 65 mls/hr [id number] IV 08/22/25 22:00 08/23/25 21:59 Cancel Fat Emulsion Intravenous 100 ml/Sodium Phosphate 20 meq/ Potassium Chloride 30 meq/ Potassium Acetate 30 meq/Calcium Gluconate 4.6 meq/ Magnesium Sulfate 10 meq/ Multivitamins 10 ml/Chromium/ Copper/Manganese/ Zinc 1 ml/Insulin Human Regular 8 units/Amino Acids/ Dextrose/Purified Water 1,558.4724 ml @ 65 mls/hr [id number] IV 08/23/25 22:00 08/24/25 21:59 Cancel Morphine Sulfate 2 mg Q4HPRN PRN IV 08/24/25 17:45 Sodium Chloride 1,000 ml @ 125 mls/hr Q8H IV 08/24/25 20:30 Ceftriaxone Sodium 50 ml @ 100 mls/hr DAILY@09 IV 08/25/25 09:00 Metronidazole 100 ml @ 100 mls/hr Q8HR IV 08/24/25 22:00 Ondansetron HCl 4 mg Q4HPRN PRN IV 08/24/25 20:30 Pantoprazole Sodium 40 mg DAILY IV 08/25/25 10:00 objective General: the patient is well developed and nourished. No acute distress. MENTAL STATUS: Subjective SPEECH, LANGUAGE, HIGHER CORTICAL FUNCTION: Subjective CRANIAL NERVES: Pupils are equal, round and reactive. EOMs full and conjugate. No spontaneous or evoked nystagmus. He has double vision when he looks to the right side. Sensorimotor examined in bilateral trigeminal distribution is fine. Right facial weakness of upper motor neuron pattern SENSATION: Sensation to touch and pinprick is normal. MOTOR: Increased muscle tone in the right upper and lower extremity. Normal muscle bulk. No fasciculations. No abnormal movements or posturing. Muscle strength of the major groups in the left upper and lower extremity is 4/5, right arm: 0/5, right le/5 REFLEXES: Deep tendon reflexes are symmetrical. No pathological reflexes. CEREBELLAR/COORDINATION: Finger to nose is unremarkable in the left upper extremity GAIT/STATION: Unsteady laboratory and microbiology Laboratory Tests 08/24/25 19:24 Test 08/24/25 19:24 Range/Units Serum Glucose 317 H 74-106 mg/dL Problem List Acute intra-abdominal hematoma likely secondary to anticoagulation treatment, Acute stroke Expressive aphasia secondary to acute stroke Acute right hemiplegia secondary to acute stroke Chronic strokes in 2017, 11/01/2022 with good recovery Atrial fibrillation Poor compliance Assessment/Plan Monitoring Supportive treatment Telemetry Close monitoring, especially vitals, H/H Stabilize blood pressure D/C anticoagulation Lipitor 40 mg daily Up to chair TPN Surgery to follow up This medical document was created using an electronic medical record system with [employer] dictation system. Although this document has been carefully reviewed, there may still be some phonetic and typographical errors. These areas are purely typographical due to imperfections of the software programs, and do not reflect any compromise in the patient's medical care Prognosis Poor Dietary Evaluation Review Comments: 1. If medically feasible and passing CREDIT NEGOTIATOR eval follow a CCHO-60 cardiac diet and avoid soda beverages 2. If not able to eat d/t stroke, offer TPN per pharmacy to meet his needs 3. If EN/GI accessible, Tube feeding Glucerna@50ml/hr providing 70g protein 1440kcal 966ml free water meeting his needs @ 100% Protein,100% energy Expected Outcomes/Goals: Controlled DM, improved physical strength Plan discussed with: Spouse, Daughter, Other Total Time (mins): 40 DARREL HEMPHILL MD Aug 24, 2025 21:55
[2025-08-24] MEDS ORDERED: APIXABAN 5 MG TAB PO SCH (22:00)
[2025-08-24] MEDS: MORPHINE SULFATE INJ 2 MG/ml SYRG IV PRN (22:34)
--- NOTE | 2025-08-24 22:50 | DVH ---
Exam: CT ANGIO ABDOMINAL WITH RUNOFF History: Abdominal wall hematoma. COMPARISON: CT CT AB PEL WO CON-NO ORAL OR IV on DOS: 08/24/25, CT ABD PELVIS WO CONTRAST on DOS: 11/01/22 Technique: Multidetector spiral CT of the abdomen and pelvis was performed from lung bases to pubic symphysis. Intravenous contrast was administered during this examination. Arterial imaging was obtained. Axial, coronal and sagittal multiplanar reformats were performed by the technologist on a separate workstation. Radiation Dose : 1. Abdomen/Pelvis: CTDIvol 8.59mGy, DLP 1131.32 mGy*cm. CONTRAST: Type of contrast: Omnipaque 350 Contrast injected: 140 ml Findings: VASCULAR FINDING Abdominal aorta is normal diameter. No dissection or aneurysm. Common and external iliac arteries are widely patent. Mild atherosclerotic plaque throughout the runoff vessels bilaterally with no high-grade stenosis or occlusion. NONVASCULAR FINDINGS Lung Bases: No acute or significant lung base finding. Normal heart size. No pleural or pericardial effusion. Liver: The liver is normal in size. No focal lesions. Normal hepatic vascular enhancement. Gallbladder and Biliary Tree: Cholelithiasis noted without secondary findings of cholecystitis or biliary obstruction. Spleen: Unremarkable Pancreas: The pancreas is normal in appearance without focal lesions or abnormal enhancement. Adrenal Glands: Unremarkable Kidneys: No hydronephrosis. Bladder: Unremarkable Bowel: The stomach is grossly normal in appearance. G-tube in-situ. Small bowel and colon are normal in caliber and distribution. The appendix is not visualized; however, no secondary findings of acute appendicitis identified. Ascites: Absent Lymphadenopathy: No mesenteric, retroperitoneal or periportal lymphadenopathy. Abdominal Wall and Mesentery: Focal extraperitoneal hematoma just medial to the G-tube, within the deep anterior abdominal wall but anterior to the peritoneal lining. This measures 6.1 x 3.6 cm with hematocrit level in the axial plane and extends over a craniocaudal distance of 7.2 cm.. Vasculature: The visualized abdominal aorta is normal in size and caliber. Abdominal and pelvic vessels demonstrate normal enhancement. Pelvic Organs: Unremarkable Musculoskeletal: No aggressive focal bony lesions, acute fractures or dislocation. IMPRESSION: Focal anterior abdominal wall hematoma just medial to the G-tube site that remains anterior to the peritoneal lining. No intraperitoneal hemorrhage. No obvious pseudoaneurysm or active extravasation of contrast. Radiation optimization: All CT scans at this facility use at least one of these dose optimization techniques: automated exposure control mA and/or kV adjustment per patient size (includes targeted exams where dose is matched to clinical indication) or iterative reconstruction.
[2025-08-25] VITALS (10 sets, daily range): BP systolic 141–168; BP diastolic 82–119; PULSE 102–141; RESP 14–20; TEMP 97.5–99.2; O2SAT 95–98
[2025-08-25] MEDS: PANTOPRAZOLE 40 MG/10 ML VIAL INJ IV ONE (00:31)
[2025-08-25] MEDS: SODIUM CHLORIDE 0.9% 1,000 ML IV SCH (00:31)
[2025-08-25] MEDS: SODIUM CHLORIDE 0.9% 1,000 ML IV ONE (01:44)
[2025-08-25] MEDS: PANTOPRAZOLE 40 MG/10 ML VIAL INJ IV SCH (09:08)
[2025-08-25 10:19] LABS: Hematocrit 34.2 % (41.0-53.0); Hemoglobin 11.3 g/dL (13.5-17.5); Mean Corpuscular Hemoglobin 29.6 pg (28.0-32.0); Mean Corpuscular Volume 89.4 fL (80.0-100.0); Nucleated Red Blood Cells % 0.1 %
[2025-08-25 10:38] LABS: Alanine Aminotransferase 31 U/L (7-40); Albumin 3.6 g/dL (3.2-4.8); Alkaline Phosphatase 75 U/L (46-116); Anion Gap 12 (5-15); BUN/Creatinine Ratio 16.7 (10.0-20.0); Bilirubin, Total 0.4 mg/dL (0.2-1.0); Blood Urea Nitrogen 22 mg/dL (9-23); Carbon Dioxide 23 mmol/L (20-31); Magnesium 1.9 mg/dL (1.6-2.6); Potassium 4.4 mmol/L (3.5-5.1); Sodium 142 mmol/L (136-145); Total Protein 6.9 g/dL (5.7-8.2)
[2025-08-25 10:39] LABS: Calcium 8.6 mg/dL (8.7-10.4); Chloride 107 mmol/L (98-107); Glucose 291 mg/dL (74-106)
--- NOTE | 2025-08-25 12:11 | DVHINCON2 ---
Date of service: Aug 25, 2025 Family History: Patient reports no known family medical history. Allergies: Coded Allergies: NO KNOWN ALLERGIES (Unverified , 10/31/22) Home Meds Active Scripts Pantoprazole Sodium Sesquihydr (Protonix) 40 Mg Tab, 40 MG PO DAILY for 30 Days, #30 TAB Prov:NANCY GIRON MD 11/04/22 Apixaban Base (ELIQUIS) 5 Mg Tab, 5 MG PO BID for 30 Days, #60 TAB 2 Refills Prov:NANCY GIRON MD 11/04/22 Reported Medications Empagliflozin (Jardiance) 10 Mg Tab, PO, TAB 11/02/22 Amlodipine Besylate (Amlodipine Besylate) 5 Mg Tab, 5 MG PO DAILY for 30 Days, MG 11/02/22 Atorvastatin Calcium (ATORVASTATIN CALCIUM) 40 Mg Tab, 1 TAB PO DAILY, #30 TAB 5 Refills 11/02/22 Metformin Hydrochloride (Metformin Hcl) 500 Mg Tab, 500 MG PO DAILY for 30 Days, #2 MG 11/02/22 Current Medications Current Medications Medications (Trade) Dose Ordered Sig/Cash Route PRN Reason Start Time Stop Time Status Last Admin Apixaban (Eliquis) 5 mg BID PO 08/24/25 22:00 08/24/25 19:01 DC Acetaminophen/ Hydrocodone Bitart ([place] 5/325MG Tab) 1 tab Q4HPRN PRN PO SEVERE PAIN (7-10 PAIN SCALE) 08/24/25 16:30 08/24/25 17:49 DC 08/24/25 16:43 Morphine Sulfate 2 mg Q4HPRN PRN IV SEVERE PAIN (7-10 PAIN SCALE) 08/24/25 17:45 08/24/25 22:34 Sodium Chloride 1,000 ml @ 125 mls/hr Q8H IV 08/24/25 20:30 08/25/25 00:31 Ceftriaxone Sodium 50 ml @ 100 mls/hr DAILY@09 IV 08/25/25 09:00 08/25/25 09:11 Metronidazole 100 ml @ 100 mls/hr Q8HR IV 08/24/25 22:00 08/25/25 06:43 Ondansetron HCl (Zofran) 4 mg Q4HPRN PRN IV NAUSEA / VOMITING 08/24/25 20:30 Pantoprazole Sodium (Protonix) 40 mg DAILY IV 08/25/25 10:00 08/25/25 09:08 Vital Signs Vital Signs Date Time Temp Pulse Resp B/P (MAP) Pulse Ox O2 Delivery O2 Flow Rate FiO2 08/25/25 08:32 97.8 116 18 157/91 (113) 98 97.8 08/25/25 08:10 Nasal Cannula* 2 28 Labs/Diagnostic Data Labs Test 08/25/25 09:56 08/24/25 19:24 08/23/25 12:32 08/23/25 06:30 Range/Units White Blood Count 15.0 H 4.4-10.8 10^3/uL Red Blood Count 3.83 L 4.5-5.90 10^6/uL Hemoglobin 11.3 #L 13.5-17.5 g/dL Hematocrit 34.2 #L 41.0-53.0 % Mean Corpuscular Volume 89.4 80.0-100.0 fL Mean Corpuscular Hemoglobin 29.6 28.0-32.0 pg Mean Corpuscular Hemoglobin Concent 33.1 32.0-36.0 g/dL Red Cell Distribution Width 14.0 11.8-14.3 % Platelet Count 287 140-450 10^3/uL Mean Platelet Volume 8.1 6.9-10.8 fL Neutrophils (%) (Auto) 79.4 37.0-80.0 % Lymphocytes (%) (Auto) 11.2 10.0-50.0 % Monocytes (%) (Auto) 9.3 0.0-12.0 % Eosinophils (%) (Auto) 0.0 0.0-7.0 % Basophils (%) (Auto) 0.1 0.0-2.0 % Neutrophils # (Auto) 11.9 H 1.6-8.6 10 ^3/uL Lymphocytes # (Auto) 1.7 0.4-5.4 10 ^3/uL Monocytes # (Auto) 1.4 H 0-1.3 10 ^3/uL Eosinophils # (Auto) 0 0-0.8 10 ^3/uL Basophils # (Auto) 0 0-0.2 10 ^3/uL Nucleated Red Blood Cells 0.1 % Sodium Level 142 # 136-145 mmol/L Potassium Level 4.4 3.5-5.1 mmol/L Chloride Level 107 98-107 mmol/L Carbon Dioxide Level 23 20-31 mmol/L Anion Gap 12 5-15 Blood Urea Nitrogen 22 9-23 mg/dL Creatinine 1.32 H 0.700-1.30 mg/dL Glomerular Filtration Rate Calc 62 >90 mL/min BUN/Creatinine Ratio 16.7 10.0-20.0 Serum Glucose 291 H 74-106 mg/dL Calcium Level 8.6 L 8.7-10.4 mg/dL Magnesium Level 1.9 1.6-2.6 mg/dL Total Bilirubin 0.4 0.2-1.0 mg/dL Aspartate Amino Transferase (AST) 14 13-40 U/L Alanine Aminotransferase (ALT) 31 7-40 U/L Alkaline Phosphatase 75 46-116 U/L Total Protein 6.9 5.7-8.2 g/dL Albumin 3.6 3.2-4.8 g/dL Prothrombin Time 11.3 9.3-11.8 sec Prothrombin Time INR 1.07 0.9-1.15 Activated Partial Thromboplast Time 32.6 24.5-34.5 SEC POC Glucose 212 H 70-106 mg/dl Phosphorus Level 3.0 2.4-5.1 mg/dL Test 08/21/25 04:55 08/20/25 05:50 08/18/25 05:00 08/11/25 08:15 Range/Units Triglycerides Level 97 < 150 mg/dL Hemoglobin A1c 8.0 H <5.7 % A1C Thyroid Stimulating Hormone (TSH) 0.62 0.55-4.78 uIU/mL Estimated GFR () 111 mL/min Estimated GFR (Non- 92 mL/min Urine Color Light-yellow Yellow Urine Clarity Clear Clear Urine pH 6.5 5.0-9.0 Urine Specific [place] 1.015 1.001-1.035 Urine Protein Negative Negative Urine Ketones Negative Negative Urine Blood Negative Negative /uL Urine Nitrite Negative Negative Urine Bilirubin Negative Negative Urine Urobilinogen Normal Negative mg/dL Urine Leukocyte Esterase Negative Negative /uL Urine RBC 1 0 - 3 /hpf Urine Microscopic WBC < 1 0-3 /HPF Urine Squamous Epithelial Cells Few <5 /hpf Urine Bacteria None seen None Seen /hpf Urine Glucose 1+ H Normal mg/dL Urine Opiates Screen Neg NEGATIVE Urine Fentanyl Screen Neg NEGATIVE Urine Barbiturates Screen Neg NEGATIVE Urine Phencyclidine Screen Neg NEGATIVE Urine Amphetamines Screen Neg NEGATIVE Urine Benzodiazepines Screen Neg NEGATIVE Urine Cocaine Screen Neg NEGATIVE Urine Cannabinoids Screen Neg NEGATIVE Test 08/11/25 00:03 Range/Units Influenza Type A Antigen Negative Negative Influenza Type B Antigen Negative Negative SARS-CoV-2 Antigen (Rapid) Negative NEGATIVE Microbiology Date/Time Source Procedure Growth Status 08/11/25 02:20 Sputum Gram Stain - Final Complete 08/11/25 02:20 Sputum Respiratory Culture - Final Complete Assessment [id number] dehydration/ malnutrition PEG TUBE PLACEMENT EGD BY DR Sukhwinder SCHMIDT EBL 1 CC NO DRAINS NO COMPLICATIONS Plan discussed with: Other ROBERT SCHMIDT MD Aug 25, 2025 12:11
--- NOTE | 2025-08-25 12:14 | DVHINCON2 ---
Date of service: Aug 25, 2025 Family History: Patient reports no known family medical history. Allergies: Coded Allergies: NO KNOWN ALLERGIES (Unverified , 10/31/22) Home Meds Active Scripts Pantoprazole Sodium Sesquihydr (Protonix) 40 Mg Tab, 40 MG PO DAILY for 30 Days, #30 TAB Prov:NANCY GIRON MD 11/04/22 Apixaban Base (ELIQUIS) 5 Mg Tab, 5 MG PO BID for 30 Days, #60 TAB 2 Refills Prov:NANCY GIRON MD 11/04/22 Reported Medications Empagliflozin (Jardiance) 10 Mg Tab, PO, TAB 11/02/22 Amlodipine Besylate (Amlodipine Besylate) 5 Mg Tab, 5 MG PO DAILY for 30 Days, MG 11/02/22 Atorvastatin Calcium (ATORVASTATIN CALCIUM) 40 Mg Tab, 1 TAB PO DAILY, #30 TAB 5 Refills 11/02/22 Metformin Hydrochloride (Metformin Hcl) 500 Mg Tab, 500 MG PO DAILY for 30 Days, #2 MG 11/02/22 Current Medications Current Medications Medications (Trade) Dose Ordered Sig/Cash Route PRN Reason Start Time Stop Time Status Last Admin Apixaban (Eliquis) 5 mg BID PO 08/24/25 22:00 08/24/25 19:01 DC Acetaminophen/ Hydrocodone Bitart ([place] 5/325MG Tab) 1 tab Q4HPRN PRN PO SEVERE PAIN (7-10 PAIN SCALE) 08/24/25 16:30 08/24/25 17:49 DC 08/24/25 16:43 Morphine Sulfate 2 mg Q4HPRN PRN IV SEVERE PAIN (7-10 PAIN SCALE) 08/24/25 17:45 08/24/25 22:34 Sodium Chloride 1,000 ml @ 125 mls/hr Q8H IV 08/24/25 20:30 08/25/25 00:31 Ceftriaxone Sodium 50 ml @ 100 mls/hr DAILY@09 IV 08/25/25 09:00 08/25/25 09:11 Metronidazole 100 ml @ 100 mls/hr Q8HR IV 08/24/25 22:00 08/25/25 06:43 Ondansetron HCl (Zofran) 4 mg Q4HPRN PRN IV NAUSEA / VOMITING 08/24/25 20:30 Pantoprazole Sodium (Protonix) 40 mg DAILY IV 08/25/25 10:00 08/25/25 09:08 Vital Signs Vital Signs Date Time Temp Pulse Resp B/P (MAP) Pulse Ox O2 Delivery O2 Flow Rate FiO2 08/25/25 08:32 97.8 116 18 157/91 (113) 98 97.8 08/25/25 08:10 Nasal Cannula* 2 28 Labs/Diagnostic Data Labs Test 08/25/25 09:56 08/24/25 19:24 08/23/25 12:32 08/23/25 06:30 Range/Units White Blood Count 15.0 H 4.4-10.8 10^3/uL Red Blood Count 3.83 L 4.5-5.90 10^6/uL Hemoglobin 11.3 #L 13.5-17.5 g/dL Hematocrit 34.2 #L 41.0-53.0 % Mean Corpuscular Volume 89.4 80.0-100.0 fL Mean Corpuscular Hemoglobin 29.6 28.0-32.0 pg Mean Corpuscular Hemoglobin Concent 33.1 32.0-36.0 g/dL Red Cell Distribution Width 14.0 11.8-14.3 % Platelet Count 287 140-450 10^3/uL Mean Platelet Volume 8.1 6.9-10.8 fL Neutrophils (%) (Auto) 79.4 37.0-80.0 % Lymphocytes (%) (Auto) 11.2 10.0-50.0 % Monocytes (%) (Auto) 9.3 0.0-12.0 % Eosinophils (%) (Auto) 0.0 0.0-7.0 % Basophils (%) (Auto) 0.1 0.0-2.0 % Neutrophils # (Auto) 11.9 H 1.6-8.6 10 ^3/uL Lymphocytes # (Auto) 1.7 0.4-5.4 10 ^3/uL Monocytes # (Auto) 1.4 H 0-1.3 10 ^3/uL Eosinophils # (Auto) 0 0-0.8 10 ^3/uL Basophils # (Auto) 0 0-0.2 10 ^3/uL Nucleated Red Blood Cells 0.1 % Sodium Level 142 # 136-145 mmol/L Potassium Level 4.4 3.5-5.1 mmol/L Chloride Level 107 98-107 mmol/L Carbon Dioxide Level 23 20-31 mmol/L Anion Gap 12 5-15 Blood Urea Nitrogen 22 9-23 mg/dL Creatinine 1.32 H 0.700-1.30 mg/dL Glomerular Filtration Rate Calc 62 >90 mL/min BUN/Creatinine Ratio 16.7 10.0-20.0 Serum Glucose 291 H 74-106 mg/dL Calcium Level 8.6 L 8.7-10.4 mg/dL Magnesium Level 1.9 1.6-2.6 mg/dL Total Bilirubin 0.4 0.2-1.0 mg/dL Aspartate Amino Transferase (AST) 14 13-40 U/L Alanine Aminotransferase (ALT) 31 7-40 U/L Alkaline Phosphatase 75 46-116 U/L Total Protein 6.9 5.7-8.2 g/dL Albumin 3.6 3.2-4.8 g/dL Prothrombin Time 11.3 9.3-11.8 sec Prothrombin Time INR 1.07 0.9-1.15 Activated Partial Thromboplast Time 32.6 24.5-34.5 SEC POC Glucose 212 H 70-106 mg/dl Phosphorus Level 3.0 2.4-5.1 mg/dL Test 08/21/25 04:55 08/20/25 05:50 08/18/25 05:00 08/11/25 08:15 Range/Units Triglycerides Level 97 < 150 mg/dL Hemoglobin A1c 8.0 H <5.7 % A1C Thyroid Stimulating Hormone (TSH) 0.62 0.55-4.78 uIU/mL Estimated GFR () 111 mL/min Estimated GFR (Non- 92 mL/min Urine Color Light-yellow Yellow Urine Clarity Clear Clear Urine pH 6.5 5.0-9.0 Urine Specific [place] 1.015 1.001-1.035 Urine Protein Negative Negative Urine Ketones Negative Negative Urine Blood Negative Negative /uL Urine Nitrite Negative Negative Urine Bilirubin Negative Negative Urine Urobilinogen Normal Negative mg/dL Urine Leukocyte Esterase Negative Negative /uL Urine RBC 1 0 - 3 /hpf Urine Microscopic WBC < 1 0-3 /HPF Urine Squamous Epithelial Cells Few <5 /hpf Urine Bacteria None seen None Seen /hpf Urine Glucose 1+ H Normal mg/dL Urine Opiates Screen Neg NEGATIVE Urine Fentanyl Screen Neg NEGATIVE Urine Barbiturates Screen Neg NEGATIVE Urine Phencyclidine Screen Neg NEGATIVE Urine Amphetamines Screen Neg NEGATIVE Urine Benzodiazepines Screen Neg NEGATIVE Urine Cocaine Screen Neg NEGATIVE Urine Cannabinoids Screen Neg NEGATIVE Test 08/11/25 00:03 Range/Units Influenza Type A Antigen Negative Negative Influenza Type B Antigen Negative Negative SARS-CoV-2 Antigen (Rapid) Negative NEGATIVE Microbiology Date/Time Source Procedure Growth Status 08/11/25 02:20 Sputum Gram Stain - Final Complete 08/11/25 02:20 Sputum Respiratory Culture - Final Complete Assessment [id number] dehydration/ malnutrition PEG TUBE PLACEMENT NO ACTIVE BLEED PEG TUBE IN PLACE CT SCAN LOCALIZED HEMATOMA CLOSE OBSERVATION ABD BONDER NURSE AND FAMILY AT BEDSIDE Plan discussed with: Other ROBERT SCHMIDT MD Aug 25, 2025 12:14
--- NOTE | 2025-08-25 12:25 | DVHINCON2 ---
DATE OF CONSULTATION: 08/25/2025 HISTORY OF PRESENT ILLNESS: This patient is known to me from previous procedure. He had a PEG tube placement. I was asked to see him regarding a potential bleed around the G-tube site. Currently, the patient is afebrile. No nausea or vomiting. No hematemesis or melena. PAST MEDICAL HISTORY: Please refer to records. PAST SURGICAL HISTORY: As mentioned above. PHYSICAL EXAMINATION: VITAL SIGNS: He is afebrile. Stable signs. HEENT: No evidence of pallor, cyanosis or jaundice. NECK: Supple and nontender, with no thyromegaly or lymphadenopathy. CHEST AND LUNGS: Clear. HEART: Within normal limits. ABDOMEN: Soft. He has a dry gastrostomy site, with no active bleed noted. Dressing is in place and the gastrostomy tube is on suction. LABORATORY DATA: White cell count is 15. Hemoglobin is stable at 11.3 and platelet count is 287. The CAT scan is indicating a possibility of a hematoma in the gastrostomy site and the etiology could have been some trauma from the coughing that the family explained to me. Right now he is stable. There is no indication of urgent surgery. The plan would be to keep him under close observation, packing around the gastrostomy site, gastrostomy to low continuous suction and also an abdominal binder. The nurse is at the bedside, the family at the bedside, and we will follow up as indicated for possible surgery based upon ongoing evaluation. MD SHARONDA Arteaga/TERRY TID: [id number] RECEIPT: [id number] cc: Niki Tierney MD
--- NOTE | 2025-08-25 13:19 | DVHPN2 ---
Subjective Doing well Denies abdominal pain Still tachycardic around 110-120 Blood pressure is on the high side CT scan of the abdomen yesterday showed a small hematoma in the anterior abdomen next to the G-tube however no active bleeding Reviewed: Care Plan, H&P, Labs, Medications, Previous Orders Changes from previous H/P or p: Changes General: Per HPI Objective Vitals Vital Signs Date Time Temp Pulse Resp B/P (MAP) Pulse Ox O2 Delivery O2 Flow Rate FiO2 08/25/25 12:36 168/90 08/25/25 08:32 97.8 116 18 98 97.8 08/25/25 08:10 Nasal Cannula* 2 28 Intake/Output Intake and Output 08/25/25 07:00 Intake Total 1150 ml Output Total 2009 ml Balance -860 ml Intake Oral 0 ml IV Total 1150 ml Output Urine Total 2010 ml General Appearance: Alert, Oriented X3 HEENT: Atraumatic Cardiovascular: Regular rate, Normal S1, Normal S2 Abdomen: Normal bowel sounds Medications Current Medications Medications Dose Ordered Sig/Cash Route Start Time Stop Time Status Last Admin Dose Admin Ipratropium [place] 0.5 mg Q6HPRN PRN NEB 08/10/25 20:45 Cancel Hydralazine HCl 10 mg Q6HP PRN IV 08/15/25 22:00 08/25/25 12:36 10 MG Fat Emulsion Intravenous 200 ml/Potassium Chloride 30 meq/ Potassium Acetate 30 meq/Calcium Gluconate 4.6 meq/ Magnesium Sulfate 10 meq/ Multivitamins 10 ml/Chromium/ Copper/Manganese/ Zinc 1 ml/Insulin Human Regular 5 units/Amino Acids/ Dextrose/Purified Water 1,553.4424 ml @ 65 mls/hr [id number] IV 08/22/25 22:00 08/23/25 21:59 Cancel Fat Emulsion Intravenous 100 ml/Sodium Phosphate 20 meq/ Potassium Chloride 30 meq/ Potassium Acetate 30 meq/Calcium Gluconate 4.6 meq/ Magnesium Sulfate 10 meq/ Multivitamins 10 ml/Chromium/ Copper/Manganese/ Zinc 1 ml/Insulin Human Regular 8 units/Amino Acids/ Dextrose/Purified Water 1,558.4724 ml @ 65 mls/hr [id number] IV 08/23/25 22:00 08/24/25 21:59 Cancel Morphine Sulfate 2 mg Q4HPRN PRN IV 08/24/25 17:45 11/26/25 22:34 2 MG Sodium Chloride 1,000 ml @ 125 mls/hr Q8H IV 08/24/25 20:30 08/25/25 00:31 125 MLS/HR Ceftriaxone Sodium 50 ml @ 100 mls/hr DAILY@09 IV 08/25/25 09:00 08/25/25 09:11 100 MLS/HR Metronidazole 100 ml @ 100 mls/hr Q8HR IV 08/24/25 22:00 08/25/25 06:43 100 MLS/HR Ondansetron HCl 4 mg Q4HPRN PRN IV 08/24/25 20:30 Pantoprazole Sodium 40 mg DAILY IV 08/25/25 10:00 08/25/25 09:08 40 MG Laboratory Results Laboratory Tests 08/25/25 09:56 Chemistry Test 08/24/25 19:24 08/25/25 09:56 Albumin 4.0 g/dL (3.2-4.8) 3.6 g/dL (3.2-4.8) Calcium Level 9.4 mg/dL (8.7-10.4) 8.6 mg/dL (8.7-10.4) L Magnesium Level 1.8 mg/dL (1.6-2.6) 1.9 mg/dL (1.6-2.6) Total Protein 7.7 g/dL (5.7-8.2) 6.9 g/dL (5.7-8.2) Coagulation Test 08/24/25 19:24 Prothrombin Time 11.3 sec (9.3-11.8) Prothrombin Time INR 1.07 (0.9-1.15) Activated Partial Thromboplast Time 32.6 SEC (24.5-34.5) LFT Test 08/24/25 19:24 08/25/25 09:56 Alanine Aminotransferase (ALT) 43 U/L (7-40) H 31 U/L (7-40) Alkaline Phosphatase 89 U/L (46-116) 75 U/L (46-116) Aspartate Amino Transferase (AST) 22 U/L (13-40) 14 U/L (13-40) Total Bilirubin 0.6 mg/dL (0.2-1.0) 0.4 mg/dL (0.2-1.0) Urinalysis Test 08/11/25 08:15 Urine Color Light-yellow (Yellow) Urine Clarity Clear (Clear) Urine pH 6.5 (5.0-9.0) Urine Specific [place] 1.015 (1.001-1.035) Urine Protein Negative (Negative) Urine Ketones Negative (Negative) Urine Blood Negative /uL (Negative) Urine Nitrite Negative (Negative) Urine Bilirubin Negative (Negative) Urine Urobilinogen Normal mg/dL (Negative) Urine Leukocyte Esterase Negative /uL (Negative) Urine RBC 1 /hpf (0 - 3) Urine Microscopic WBC < 1 /HPF (0-3) Urine Squamous Epithelial Cells Few /hpf (<5) Urine Bacteria None seen /hpf (None Seen) Urine Glucose 1+ mg/dL (Normal) H Microbiology Microbiology Date/Time Source Procedure Growth Status 08/11/25 02:20 Sputum Gram Stain - Final Complete 08/11/25 02:20 Sputum Respiratory Culture - Final Complete Assessment/Plan Assessment/Plan Acute CVA with right hemiparesis Old CVA Mixed hyperlipidemia HTN DM2 Dysphagia Aphasia PLAN: NPO IV nutrition Swallow eval Lovenox Eliquis Monitor Discussed with family at the bedside 08/18/2025: Continue NPO Start TPN Swallow eval to be done today Continue Lovenox We will switch Lovenox to Eliquis once he is able to start p.o. intake Monitor closely 08/19/2025: Continue NPO The patient failed a swallow eval He needs a G-tube Consult GI for a PEG tube Continue IV nutrition per pharmacy protocol Hold Eliquis Lovenox 1 milligram/kilogram subcutaneously q.12 hours Discussed with the family at the bedside, the and son, they are in agreement 08/20/2025: Continue NPO The patient is scheduled for a PEG tube on Friday Hold anticoagulation 08/21/2025: Continue NPO Peg tube placement in the morning Continue to hold anticoagulation 08/22/2025: PEG tube today NPO until then Discharge planning Family is thinking about SNF versus physical therapy at home with home health 08/23/2025: Start tube feeding Discontinue IV nutrition Arrange SNF for rehab 08/24/25: Sepsis Bleeding at the PEG tube site Hematoma BERTA PLAN: Cancel discharge NPO IV fluids IV antibiotics Blood cultures PEG tube to low continuous suction Dr. Carlos Rosen was made aware Abdominal binding Ordered CTA abdomen to rule out active bleeding Monitor h/h 08/25/2025: The patient is still tachycardic Continue IV fluids Continue IV antibiotics NPO PEG tube to suction Surgical consult is on the case Keep holding anticoagulation for now Discussed with the family at the bedside Plan discussed with: Patient, Daughter My Orders Orders - RACHID KERR MD Procedure Category Date Status Time Ct Ab Pel Wo Con-No CT 08/24/25 Resulted Oral Or Iv 17:42 Morphine Sulfate PHA 08/24/25 In Process Injection 17:45 Blood Culture STEPHANIE 08/24/25 In Process 17:[address] 08/24/25 Resulted RUN 19:12 Communication Order ORDERS 08/24/25 Transmitted 19:44 Sodium Chloride 0.9% PHA 08/24/25 In Process 20:30 Ceftriaxone 1gm/50ml PHA 08/25/25 In Process (Rocephin) 09:00 Metronidazole PHA 08/24/25 In Process 500mg/100ml (Flagyl 22:00 Ondansetron Hcl PHA 08/24/25 In Process (Zofran) 20:30 Pantoprazole PHA 08/25/25 In Process (Protonix) 10:00 Date of Service: Aug 25, 2025 Billing Provider: RACHID KERR MD Common Visit Codes: [id number] INP/OBS CARE(HIGH) RACHID KERR MD Aug 25, 2025 13:19
[2025-08-26] VITALS (10 sets, daily range): BP systolic 133–156; BP diastolic 72–92; PULSE 87–106; RESP 17–20; TEMP 97.3–99.7; O2SAT 96–99
[2025-08-26 05:46] LABS: Hematocrit 27.4 % (41.0-53.0); Hemoglobin 9.2 g/dL (13.5-17.5); Mean Corpuscular Hemoglobin 30.0 pg (28.0-32.0); Mean Corpuscular Volume 89.0 fL (80.0-100.0); Nucleated Red Blood Cells % 0.0 %
[2025-08-26 06:13] LABS: Alanine Aminotransferase 24 U/L (7-40); Albumin 3.0 g/dL (3.2-4.8); Alkaline Phosphatase 61 U/L (46-116); Anion Gap 10 (5-15); BUN/Creatinine Ratio 23.1 (10.0-20.0); Bilirubin, Total 0.4 mg/dL (0.2-1.0); Blood Urea Nitrogen 25 mg/dL (9-23); Calcium 8.0 mg/dL (8.7-10.4); Carbon Dioxide 25 mmol/L (20-31); Chloride 113 mmol/L (98-107); Glucose 175 mg/dL (74-106); Magnesium 2.0 mg/dL (1.6-2.6); Potassium 3.8 mmol/L (3.5-5.1); Sodium 148 mmol/L (136-145); Total Protein 5.8 g/dL (5.7-8.2)
--- NOTE | 2025-08-26 10:26 | DVHPN2 ---
Progress Note Date Seen: Aug 26, 2025 Medical Necessity Reason Pt with a Central, PICC or Fol: No Objective vital signs Vital Sign Date Time Temp Pulse Resp B/P (MAP) Pulse Ox O2 Delivery O2 Flow Rate FiO2 08/26/25 07:40 91 Nasal Cannula* 2 08/26/25 06:10 16 137/83 08/26/25 05:00 98.4 98 98.4 Total Intake and Output 08/25/25 08/25/25 08/26/25 15:00 23:00 07:00 Intake Total 150 ml 100 ml 0 ml Output Total 750 ml 800 ml Balance 150 ml -650 ml -800 ml medications Current Medications Medications Dose Ordered Sig/Cash Route Start Time Stop Time Status Last Admin Dose Admin Ipratropium [place] 0.5 mg Q6HPRN PRN NEB 08/10/25 20:45 Cancel Hydralazine HCl 10 mg Q6HP PRN IV 08/15/25 22:00 08/25/25 12:36 10 MG Fat Emulsion Intravenous 200 ml/Potassium Chloride 30 meq/ Potassium Acetate 30 meq/Calcium Gluconate 4.6 meq/ Magnesium Sulfate 10 meq/ Multivitamins 10 ml/Chromium/ Copper/Manganese/ Zinc 1 ml/Insulin Human Regular 5 units/Amino Acids/ Dextrose/Purified Water 1,553.4424 ml @ 65 mls/hr [id number] IV 08/22/25 22:00 08/23/25 21:59 Cancel Fat Emulsion Intravenous 100 ml/Sodium Phosphate 20 meq/ Potassium Chloride 30 meq/ Potassium Acetate 30 meq/Calcium Gluconate 4.6 meq/ Magnesium Sulfate 10 meq/ Multivitamins 10 ml/Chromium/ Copper/Manganese/ Zinc 1 ml/Insulin Human Regular 8 units/Amino Acids/ Dextrose/Purified Water 1,558.4724 ml @ 65 mls/hr [id number] IV 08/23/25 22:00 08/24/25 21:59 Cancel Morphine Sulfate 2 mg Q4HPRN PRN IV 08/24/25 17:45 08/26/25 05:40 2 MG Sodium Chloride 1,000 ml @ 125 mls/hr Q8H IV 08/24/25 20:30 08/26/25 09:35 125 MLS/HR Ceftriaxone Sodium 50 ml @ 100 mls/hr DAILY@09 IV 08/25/25 09:00 08/26/25 09:28 100 MLS/HR Metronidazole 100 ml @ 100 mls/hr Q8HR IV 08/24/25 22:00 08/26/25 06:51 100 MLS/HR Ondansetron HCl 4 mg Q4HPRN PRN IV 08/24/25 20:30 Pantoprazole Sodium 40 mg DAILY IV 08/25/25 10:00 08/26/25 09:28 40 MG laboratory and microbiology Laboratory Tests 08/26/25 04:55 Test 08/26/25 04:55 Range/Units Serum Glucose 175 #H 74-106 mg/dL Microbiology Date/Time Source Procedure Growth Status 08/24/25 18:37 Blood Blood Culture - Preliminary NO GROWTH AFTER 24 HOURS OF INCUBATION. Resulted 08/11/25 02:20 Sputum Gram Stain - Final Complete 08/11/25 02:20 Sputum Respiratory Culture - Final Complete Problem List/Assessment/Plan Problem List/Assessment/Plan AFEBRILE VSS ABD SOFT G TUBE IN PLACE NO ACTIVE BLEED TUBE FEED PER GI NO COMPLICATIONS REPEAT CT SCAN ABD PELVIS AM Plan discussed with: Other Dietary Evaluation Review Comments: 1. 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 If not able to eat d/t stroke, offer TPN per pharmacy to meet his needs 3. If EN/GI accessible, Tube feeding Glucerna@50ml/hr providing 70g protein 1440kcal 966ml free water meeting his needs @ 100% Protein,100% energy Expected Outcomes/Goals: Controlled DM, improved physical strength ROBERT SCHMIDT MD Aug 26, 2025 10:26
--- NOTE | 2025-08-26 12:08 | DVHPN2 ---
Subjective Better Denies pain Reviewed: Care Plan, H&P, Labs, Medications, Previous Orders Changes from previous H/P or p: Changes General: Per HPI Objective Vitals Vital Signs Date Time Temp Pulse Resp B/P (MAP) Pulse Ox O2 Delivery O2 Flow Rate FiO2 08/26/25 09:00 99.7 99 20 149/72 (97) 99 99.7 08/26/25 07:40 Nasal Cannula* 2 28 Intake/Output Intake and Output 08/26/25 07:00 Intake Total 250 ml Output Total 1550 ml Balance -1300 ml Intake Oral 0 ml IV Total 250 ml Output Urine Total 1550 ml # Voids 4 General Appearance: Alert, Oriented X3 HEENT: Atraumatic Cardiovascular: Regular rate, Normal S1, Normal S2 Abdomen: Normal bowel sounds Medications Current Medications Medications Dose Ordered Sig/Cash Route Start Time Stop Time Status Last Admin Dose Admin Ipratropium [place] 0.5 mg Q6HPRN PRN NEB 08/10/25 20:45 Cancel Hydralazine HCl 10 mg Q6HP PRN IV 08/15/25 22:00 08/25/25 12:36 10 MG Fat Emulsion Intravenous 200 ml/Potassium Chloride 30 meq/ Potassium Acetate 30 meq/Calcium Gluconate 4.6 meq/ Magnesium Sulfate 10 meq/ Multivitamins 10 ml/Chromium/ Copper/Manganese/ Zinc 1 ml/Insulin Human Regular 5 units/Amino Acids/ Dextrose/Purified Water 1,553.4424 ml @ 65 mls/hr [id number] IV 08/22/25 22:00 08/23/25 21:59 Cancel Fat Emulsion Intravenous 100 ml/Sodium Phosphate 20 meq/ Potassium Chloride 30 meq/ Potassium Acetate 30 meq/Calcium Gluconate 4.6 meq/ Magnesium Sulfate 10 meq/ Multivitamins 10 ml/Chromium/ Copper/Manganese/ Zinc 1 ml/Insulin Human Regular 8 units/Amino Acids/ Dextrose/Purified Water 1,558.4724 ml @ 65 mls/hr [id number] IV 08/23/25 22:00 08/24/25 21:59 Cancel Morphine Sulfate 2 mg Q4HPRN PRN IV 08/24/25 17:45 08/26/25 05:40 2 MG Sodium Chloride 1,000 ml @ 125 mls/hr Q8H IV 08/24/25 20:30 08/26/25 09:35 125 MLS/HR Ceftriaxone Sodium 50 ml @ 100 mls/hr DAILY@09 IV 08/25/25 09:00 08/26/25 09:28 100 MLS/HR Metronidazole 100 ml @ 100 mls/hr Q8HR IV 08/24/25 22:00 08/26/25 06:51 100 MLS/HR Ondansetron HCl 4 mg Q4HPRN PRN IV 08/24/25 20:30 Pantoprazole Sodium 40 mg DAILY IV 08/25/25 10:00 08/26/25 09:28 40 MG Laboratory Results Laboratory Tests 08/26/25 04:55 Chemistry Test 08/26/25 04:55 Albumin 3.0 g/dL (3.2-4.8) L Calcium Level 8.0 mg/dL (8.7-10.4) L Magnesium Level 2.0 mg/dL (1.6-2.6) Total Protein 5.8 g/dL (5.7-8.2) LFT Test 08/26/25 04:55 Alanine Aminotransferase (ALT) 24 U/L (7-40) Alkaline Phosphatase 61 U/L (46-116) Aspartate Amino Transferase (AST) 13 U/L (13-40) Total Bilirubin 0.4 mg/dL (0.2-1.0) Urinalysis Test 08/11/25 08:15 Urine Color Light-yellow (Yellow) Urine Clarity Clear (Clear) Urine pH 6.5 (5.0-9.0) Urine Specific [place] 1.015 (1.001-1.035) Urine Protein Negative (Negative) Urine Ketones Negative (Negative) Urine Blood Negative /uL (Negative) Urine Nitrite Negative (Negative) Urine Bilirubin Negative (Negative) Urine Urobilinogen Normal mg/dL (Negative) Urine Leukocyte Esterase Negative /uL (Negative) Urine RBC 1 /hpf (0 - 3) Urine Microscopic WBC < 1 /HPF (0-3) Urine Squamous Epithelial Cells Few /hpf (<5) Urine Bacteria None seen /hpf (None Seen) Urine Glucose 1+ mg/dL (Normal) H Microbiology Microbiology Date/Time Source Procedure Growth Status 08/24/25 18:37 Blood Blood Culture - Preliminary NO GROWTH AFTER 24 HOURS OF INCUBATION. Resulted 08/11/25 02:20 Sputum Gram Stain - Final Complete 08/11/25 02:20 Sputum Respiratory Culture - Final Complete Assessment/Plan Assessment/Plan Acute CVA with right hemiparesis Old CVA Mixed hyperlipidemia HTN DM2 Dysphagia Aphasia PLAN: NPO IV nutrition Swallow eval Lovenox Eliquis Monitor Discussed with family at the bedside 08/18/2025: Continue NPO Start TPN Swallow eval to be done today Continue Lovenox We will switch Lovenox to Eliquis once he is able to start p.o. intake Monitor closely 08/19/2025: Continue NPO The patient failed a swallow eval He needs a G-tube Consult GI for a PEG tube Continue IV nutrition per pharmacy protocol Hold Eliquis Lovenox 1 milligram/kilogram subcutaneously q.12 hours Discussed with the family at the bedside, the and son, they are in agreement 08/20/2025: Continue NPO The patient is scheduled for a PEG tube on Friday Hold anticoagulation 08/21/2025: Continue NPO Peg tube placement in the morning Continue to hold anticoagulation 08/22/2025: PEG tube today NPO until then Discharge planning Family is thinking about SNF versus physical therapy at home with home health 08/23/2025: Start tube feeding Discontinue IV nutrition Arrange SNF for rehab 08/24/25: Sepsis Bleeding at the PEG tube site Hematoma BERTA PLAN: Cancel discharge NPO IV fluids IV antibiotics Blood cultures PEG tube to low continuous suction Dr. Carlos Rosen was made aware Abdominal binding Ordered CTA abdomen to rule out active bleeding Monitor h/h 08/25/2025: The patient is still tachycardic Continue IV fluids Continue IV antibiotics NPO PEG tube to suction Surgical consult is on the case Keep holding anticoagulation for now Discussed with the family at the bedside 08/26/25: Start feeding today IV antibiotics IV fluids Surgery is following, conservative Tx Plan discussed with: Patient My Orders Orders - RACHID KERR MD Procedure Category Date Status Time Nutritional PHA 08/26/25 Transmitted Supplements (Glucerna 12:15 Complete Blood Count LAB 08/27/25 Verified 04:00 Comprehensive LAB 08/27/25 Verified Metabolic Panel 04:00 Magnesium LAB 08/27/25 Verified 04:00 Date of Service: Aug 26, 2025 Billing Provider: RACHID KERR MD Common Visit Codes: [id number] INP/OBS CARE(HIGH) RACHID KERR MD Aug 26, 2025 12:08
[2025-08-26] MEDS: Glucerna 1.2 Cal 1Liter BOTTLE GT SCH (14:37)
[2025-08-27] VITALS (8 sets, daily range): BP systolic 112–152; BP diastolic 78–93; PULSE 82–108; RESP 16–18; TEMP 97.8–99.2; O2SAT 96–99
[2025-08-27 10:40] LABS: Hematocrit 27.4 % (41.0-53.0); Hemoglobin 9.1 g/dL (13.5-17.5); Mean Corpuscular Hemoglobin 29.5 pg (28.0-32.0); Mean Corpuscular Volume 88.6 fL (80.0-100.0); Nucleated Red Blood Cells % 0.0 %
[2025-08-27 10:54] LABS: Alanine Aminotransferase 23 U/L (7-40); Alkaline Phosphatase 70 U/L (46-116); Anion Gap 7 (5-15); BUN/Creatinine Ratio 23.9 (10.0-20.0); Blood Urea Nitrogen 21 mg/dL (9-23); Carbon Dioxide 26 mmol/L (20-31); Magnesium 2.0 mg/dL (1.6-2.6); Potassium 3.7 mmol/L (3.5-5.1)
[2025-08-27 11:07] LABS: Albumin 2.9 g/dL (3.2-4.8); Bilirubin, Total 0.3 mg/dL (0.2-1.0); Calcium 7.6 mg/dL (8.7-10.4); Chloride 112 mmol/L (98-107); Glucose 245 mg/dL (74-106); Sodium 145 mmol/L (136-145); Total Protein 5.6 g/dL (5.7-8.2)
--- NOTE | 2025-08-27 12:28 | DVHPN2 ---
Subjective No complaints except some abdominal tenderness with deep palpation Tolerating the feeding at 30 cc an hour Reviewed: Care Plan, H&P, Labs, Medications, Previous Orders Changes from previous H/P or p: Changes General: Per HPI Objective Vitals Vital Signs Date Time Temp Pulse Resp B/P (MAP) Pulse Ox O2 Delivery O2 Flow Rate FiO2 08/27/25 08:56 98.1 92 16 149/87 (107) 99 98.1 08/27/25 07:30 Nasal Cannula* 2 28 Intake/Output Intake and Output 08/27/25 07:00 Intake Total 250 ml Output Total 1075 ml Balance -825 ml Intake Oral 0 ml IV Total 250 ml Output Urine Total 1075 ml General Appearance: Alert, Oriented X3 HEENT: Atraumatic Cardiovascular: Regular rate, Normal S1, Normal S2 Abdomen: Normal bowel sounds Medications Current Medications Medications Dose Ordered Sig/Cash Route Start Time Stop Time Status Last Admin Dose Admin Ipratropium [place] 0.5 mg Q6HPRN PRN NEB 08/10/25 20:45 Cancel Hydralazine HCl 10 mg Q6HP PRN IV 08/15/25 22:00 08/25/25 12:36 10 MG Fat Emulsion Intravenous 200 ml/Potassium Chloride 30 meq/ Potassium Acetate 30 meq/Calcium Gluconate 4.6 meq/ Magnesium Sulfate 10 meq/ Multivitamins 10 ml/Chromium/ Copper/Manganese/ Zinc 1 ml/Insulin Human Regular 5 units/Amino Acids/ Dextrose/Purified Water 1,553.4424 ml @ 65 mls/hr [id number] IV 08/22/25 22:00 08/23/25 21:59 Cancel Fat Emulsion Intravenous 100 ml/Sodium Phosphate 20 meq/ Potassium Chloride 30 meq/ Potassium Acetate 30 meq/Calcium Gluconate 4.6 meq/ Magnesium Sulfate 10 meq/ Multivitamins 10 ml/Chromium/ Copper/Manganese/ Zinc 1 ml/Insulin Human Regular 8 units/Amino Acids/ Dextrose/Purified Water 1,558.4724 ml @ 65 mls/hr [id number] IV 08/23/25 22:00 08/24/25 21:59 Cancel Morphine Sulfate 2 mg Q4HPRN PRN IV 08/24/25 17:45 08/26/25 05:40 2 MG Sodium Chloride 1,000 ml @ 125 mls/hr Q8H IV 08/24/25 20:30 08/27/25 04:30 125 MLS/HR Ceftriaxone Sodium 50 ml @ 100 mls/hr DAILY@09 IV 08/25/25 09:00 08/27/25 08:55 100 MLS/HR Metronidazole 100 ml @ 100 mls/hr Q8HR IV 08/24/25 22:00 08/27/25 06:32 100 MLS/HR Ondansetron HCl 4 mg Q4HPRN PRN IV 08/24/25 20:30 Pantoprazole Sodium 40 mg DAILY IV 08/25/25 10:00 08/27/25 08:55 40 MG Enteral Nutritional Formula 1,000 ml 30ML/HR GT 08/26/25 12:15 08/26/25 14:37 1,000 ML Laboratory Results Laboratory Tests 08/27/25 10:13 Chemistry Test 08/27/25 10:13 Albumin 2.9 g/dL (3.2-4.8) L Calcium Level 7.6 mg/dL (8.7-10.4) L Magnesium Level 2.0 mg/dL (1.6-2.6) Total Protein 5.6 g/dL (5.7-8.2) L LFT Test 08/27/25 10:13 Alanine Aminotransferase (ALT) 23 U/L (7-40) Alkaline Phosphatase 70 U/L (46-116) Aspartate Amino Transferase (AST) 19 U/L (13-40) Total Bilirubin 0.3 mg/dL (0.2-1.0) Urinalysis Test 08/11/25 08:15 Urine Color Light-yellow (Yellow) Urine Clarity Clear (Clear) Urine pH 6.5 (5.0-9.0) Urine Specific [place] 1.015 (1.001-1.035) Urine Protein Negative (Negative) Urine Ketones Negative (Negative) Urine Blood Negative /uL (Negative) Urine Nitrite Negative (Negative) Urine Bilirubin Negative (Negative) Urine Urobilinogen Normal mg/dL (Negative) Urine Leukocyte Esterase Negative /uL (Negative) Urine RBC 1 /hpf (0 - 3) Urine Microscopic WBC < 1 /HPF (0-3) Urine Squamous Epithelial Cells Few /hpf (<5) Urine Bacteria None seen /hpf (None Seen) Urine Glucose 1+ mg/dL (Normal) H Microbiology Microbiology Date/Time Source Procedure Growth Status 08/24/25 18:37 Blood Blood Culture - Preliminary NO GROWTH AFTER 48 HOURS OF INCUBATION. Resulted 08/11/25 02:20 Sputum Gram Stain - Final Complete 08/11/25 02:20 Sputum Respiratory Culture - Final Complete Assessment/Plan Assessment/Plan Acute CVA with right hemiparesis Old CVA Mixed hyperlipidemia HTN DM2 Dysphagia Aphasia PLAN: NPO IV nutrition Swallow eval Lovenox Eliquis Monitor Discussed with family at the bedside 08/18/2025: Continue NPO Start TPN Swallow eval to be done today Continue Lovenox We will switch Lovenox to Eliquis once he is able to start p.o. intake Monitor closely 08/19/2025: Continue NPO The patient failed a swallow eval He needs a G-tube Consult GI for a PEG tube Continue IV nutrition per pharmacy protocol Hold Eliquis Lovenox 1 milligram/kilogram subcutaneously q.12 hours Discussed with the family at the bedside, the and son, they are in agreement 08/20/2025: Continue NPO The patient is scheduled for a PEG tube on Friday Hold anticoagulation 08/21/2025: Continue NPO Peg tube placement in the morning Continue to hold anticoagulation 08/22/2025: PEG tube today NPO until then Discharge planning Family is thinking about SNF versus physical therapy at home with home health 08/23/2025: Start tube feeding Discontinue IV nutrition Arrange SNF for rehab 08/24/25: Sepsis Bleeding at the PEG tube site Hematoma BERTA PLAN: Cancel discharge NPO IV fluids IV antibiotics Blood cultures PEG tube to low continuous suction Dr. Carlos Rosen was made aware Abdominal binding Ordered CTA abdomen to rule out active bleeding Monitor h/h 08/25/2025: The patient is still tachycardic Continue IV fluids Continue IV antibiotics NPO PEG tube to suction Surgical consult is on the case Keep holding anticoagulation for now Discussed with the family at the bedside 08/26/25: Start feeding today IV antibiotics IV fluids Surgery is following, conservative Tx 08/27/2025: Continue the tube feeding at 30 mL an hour Continue IV antibiotics Constipation: Give lactulose Discontinue IV fluids Plan discussed with: Patient Date of Service: Aug 27, 2025 Billing Provider: RACHID KERR MD Common Visit Codes: [id number] INP/OBS CARE(HIGH) RACHID KERR MD Aug 27, 2025 12:28
--- NOTE | 2025-08-27 17:12 | DVHPN2 ---
Progress Note Date Seen: Aug 27, 2025 Medical Necessity Reason Pt with a Central, PICC or Fol: No Objective vital signs Vital Sign Date Time Temp Pulse Resp B/P (MAP) Pulse Ox O2 Delivery O2 Flow Rate FiO2 08/27/25 13:00 98.0 108 18 112/82 (92) 96 98.0 08/27/25 07:30 Nasal Cannula* 2 28 Total Intake and Output 08/26/25 08/26/25 08/27/25 15:00 23:00 07:00 Intake Total 150 ml 100 ml 0 ml Output Total 525 ml 550 ml Balance 150 ml -425 ml -550 ml medications Current Medications Medications Dose Ordered Sig/Cash Route Start Time Stop Time Status Last Admin Dose Admin Ipratropium [place] 0.5 mg Q6HPRN PRN NEB 08/10/25 20:45 Cancel Hydralazine HCl 10 mg Q6HP PRN IV 08/15/25 22:00 08/25/25 12:36 10 MG Fat Emulsion Intravenous 200 ml/Potassium Chloride 30 meq/ Potassium Acetate 30 meq/Calcium Gluconate 4.6 meq/ Magnesium Sulfate 10 meq/ Multivitamins 10 ml/Chromium/ Copper/Manganese/ Zinc 1 ml/Insulin Human Regular 5 units/Amino Acids/ Dextrose/Purified Water 1,553.4424 ml @ 65 mls/hr [id number] IV 08/22/25 22:00 08/23/25 21:59 Cancel Fat Emulsion Intravenous 100 ml/Sodium Phosphate 20 meq/ Potassium Chloride 30 meq/ Potassium Acetate 30 meq/Calcium Gluconate 4.6 meq/ Magnesium Sulfate 10 meq/ Multivitamins 10 ml/Chromium/ Copper/Manganese/ Zinc 1 ml/Insulin Human Regular 8 units/Amino Acids/ Dextrose/Purified Water 1,558.4724 ml @ 65 mls/hr [id number] IV 08/23/25 22:00 08/24/25 21:59 Cancel Morphine Sulfate 2 mg Q4HPRN PRN IV 08/24/25 17:45 08/26/25 05:40 2 MG Ceftriaxone Sodium 50 ml @ 100 mls/hr DAILY@09 IV 08/25/25 09:00 08/27/25 08:55 100 MLS/HR Metronidazole 100 ml @ 100 mls/hr Q8HR IV 08/24/25 22:00 08/27/25 14:00 100 MLS/HR Ondansetron HCl 4 mg Q4HPRN PRN IV 08/24/25 20:30 Pantoprazole Sodium 40 mg DAILY IV 08/25/25 10:00 08/27/25 08:55 40 MG Enteral Nutritional Formula 1,000 ml 30ML/HR GT 08/26/25 12:15 08/26/25 14:37 1,000 ML laboratory and microbiology Laboratory Tests 08/27/25 10:13 Test 08/27/25 10:13 Range/Units Serum Glucose 245 H 74-106 mg/dL Microbiology Date/Time Source Procedure Growth Status 08/24/25 18:37 Blood Blood Culture - Preliminary NO GROWTH AFTER 48 HOURS OF INCUBATION. Resulted 08/11/25 02:20 Sputum Gram Stain - Final Complete 08/11/25 02:20 Sputum Respiratory Culture - Final Complete Problem List/Assessment/Plan Problem List/Assessment/Plan AFEBRILE VSS ABD SOFT G TUBE IN PLACE SOME HEMATOMA DRAINAGE AROUND G TUBE TUBE FEED PER GI NO COMPLICATIONS REPEAT CT SCAN ABD PELVIS AM Plan discussed with: Other Dietary Evaluation Review Comments: 1. 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 If not able to eat d/t stroke, offer TPN per pharmacy to meet his needs 3. If EN/GI accessible, Tube feeding Glucerna@50ml/hr providing 70g protein 1440kcal 966ml free water meeting his needs @ 100% Protein,100% energy Expected Outcomes/Goals: Controlled DM, improved physical strength ROBERT SCHMIDT MD Aug 27, 2025 17:12
[2025-08-27] MEDS: LACTULOSE 20Gm/30ML SOLN GT ONE (17:15)
[2025-08-28] VITALS (8 sets, daily range): BP systolic 136–163; BP diastolic 79–88; PULSE 75–91; RESP 16–18; TEMP 97.9–99.2; O2SAT 98–99
[2025-08-28 07:00] LABS: Hematocrit 28.9 % (41.0-53.0); Hemoglobin 9.7 g/dL (13.5-17.5); Mean Corpuscular Hemoglobin 29.7 pg (28.0-32.0); Mean Corpuscular Volume 88.2 fL (80.0-100.0); Nucleated Red Blood Cells % 0.0 %
[2025-08-28 07:08] LABS: Potassium 3.7 mmol/L (3.5-5.1)
[2025-08-28 07:09] LABS: Anion Gap 9 (5-15); Carbon Dioxide 26 mmol/L (20-31)
[2025-08-28 07:12] LABS: Calcium 8.1 mg/dL (8.7-10.4); Chloride 110 mmol/L (98-107); Sodium 145 mmol/L (136-145)
[2025-08-28 07:15] LABS: BUN/Creatinine Ratio 18.3 (10.0-20.0); Blood Urea Nitrogen 19 mg/dL (9-23); Glucose 220 mg/dL (74-106); Magnesium 2.0 mg/dL (1.6-2.6)
--- NOTE | 2025-08-28 11:31 | DVH ---
EXAM: CT CT AB PEL WO CON-NO ORAL OR IV HISTORY: reassess hematoma Comparison Study: CT CT AB PEL WO CON-NO ORAL OR IV on DOS: 08/24/25 Exam Date: 08/28/2025 10:50 AM Radiation Dose Information: CT Dose: CTDI volume is 9.12 mGy. Dose-length product is 520.47 mGy*cm Technique: Multidetector CT of the abdomen and pelvis was performed. Imaging was performed without IV contrast. Axial, coronal and sagittal multiplanar reformats were obtained from the axial data set by the technologist. Findings: Lack of intravenous contrast compromises evaluation of perfusion and for isodense lesions. Lower chest: Trace bilateral pleural effusions. Liver: Unremarkable Biliary system: Cholelithiasis Spleen: Unremarkable Pancreas: Unremarkable. Adrenals: Unremarkable. Kidneys and ureters: No hydronephrosis. No renal or ureteral calculi. Bowel: No obstruction. Gastrostomy tube in place. Unchanged size of 3.6 cm hematoma adjacent to the gastrostomy tube. This is likely within the pre- peritoneal space. Bladder: Unremarkable Reproductive organs: No abnormal mass. Lymph nodes: Unremarkable. Peritoneum: Unremarkable Vessels: Patency not evaluated on this noncontrast study. Bones and soft tissue: No aggressive osseous lesion IMPRESSION: Limited noncontrast study. Unchanged hematoma adjacent to the gastrostomy tube. Trace bilateral pleural effusions. Cholelithiasis.
--- NOTE | 2025-08-28 11:44 | DVHPN2 ---
Subjective Doing well No complaints Tolerating the feeding CT scan of the abdomen was just done now showed unchanged hematoma adjacent to the gastrostomy tube with a trace bilateral pleural effusions and cholelithiasis Reviewed: Care Plan, H&P, Labs, Medications, Previous Orders Changes from previous H/P or p: Changes General: Per HPI Objective Vitals Vital Signs Date Time Temp Pulse Resp B/P (MAP) Pulse Ox O2 Delivery O2 Flow Rate FiO2 08/28/25 09:00 98.9 87 18 145/88 (107) 98 98.9 08/28/25 08:00 Nasal Cannula* 2 28 Intake/Output Intake and Output 08/28/25 06:59 Intake Total 950 ml Output Total 1150 ml Balance -200 ml Intake Oral 0 ml IV Total 950 ml Output Urine Total 1150 ml General Appearance: Alert, Oriented X3 HEENT: Atraumatic Cardiovascular: Regular rate, Normal S1, Normal S2 Abdomen: Normal bowel sounds Medications Current Medications Medications Dose Ordered Sig/Cash Route Start Time Stop Time Status Last Admin Dose Admin Ipratropium [place] 0.5 mg Q6HPRN PRN NEB 08/10/25 20:45 Cancel Hydralazine HCl 10 mg Q6HP PRN IV 08/15/25 22:00 08/27/25 17:14 10 MG Fat Emulsion Intravenous 200 ml/Potassium Chloride 30 meq/ Potassium Acetate 30 meq/Calcium Gluconate 4.6 meq/ Magnesium Sulfate 10 meq/ Multivitamins 10 ml/Chromium/ Copper/Manganese/ Zinc 1 ml/Insulin Human Regular 5 units/Amino Acids/ Dextrose/Purified Water 1,553.4424 ml @ 65 mls/hr [id number] IV 08/22/25 22:00 08/23/25 21:59 Cancel Fat Emulsion Intravenous 100 ml/Sodium Phosphate 20 meq/ Potassium Chloride 30 meq/ Potassium Acetate 30 meq/Calcium Gluconate 4.6 meq/ Magnesium Sulfate 10 meq/ Multivitamins 10 ml/Chromium/ Copper/Manganese/ Zinc 1 ml/Insulin Human Regular 8 units/Amino Acids/ Dextrose/Purified Water 1,558.4724 ml @ 65 mls/hr [id number] IV 08/23/25 22:00 08/24/25 21:59 Cancel Morphine Sulfate 2 mg Q4HPRN PRN IV 08/24/25 17:45 08/26/25 05:40 2 MG Ceftriaxone Sodium 50 ml @ 100 mls/hr DAILY@09 IV 08/25/25 09:00 08/28/25 08:54 100 MLS/HR Metronidazole 100 ml @ 100 mls/hr Q8HR IV 08/24/25 22:00 08/28/25 06:15 100 MLS/HR Ondansetron HCl 4 mg Q4HPRN PRN IV 08/24/25 20:30 Pantoprazole Sodium 40 mg DAILY IV 08/25/25 10:00 08/28/25 08:54 40 MG Enteral Nutritional Formula 1,000 ml 30ML/HR GT 08/26/25 12:15 08/26/25 14:37 1,000 ML Laboratory Results Laboratory Tests 08/28/25 06:41 Chemistry Test 08/28/25 06:41 Calcium Level 8.1 mg/dL (8.7-10.4) L Magnesium Level 2.0 mg/dL (1.6-2.6) Urinalysis Test 08/11/25 08:15 Urine Color Light-yellow (Yellow) Urine Clarity Clear (Clear) Urine pH 6.5 (5.0-9.0) Urine Specific [place] 1.015 (1.001-1.035) Urine Protein Negative (Negative) Urine Ketones Negative (Negative) Urine Blood Negative /uL (Negative) Urine Nitrite Negative (Negative) Urine Bilirubin Negative (Negative) Urine Urobilinogen Normal mg/dL (Negative) Urine Leukocyte Esterase Negative /uL (Negative) Urine RBC 1 /hpf (0 - 3) Urine Microscopic WBC < 1 /HPF (0-3) Urine Squamous Epithelial Cells Few /hpf (<5) Urine Bacteria None seen /hpf (None Seen) Urine Glucose 1+ mg/dL (Normal) H Microbiology Microbiology Date/Time Source Procedure Growth Status 08/24/25 18:37 Blood Blood Culture - Preliminary NO GROWTH AFTER 72 HOURS OF INCUBATION. Resulted 08/11/25 02:20 Sputum Gram Stain - Final Complete 08/11/25 02:20 Sputum Respiratory Culture - Final Complete Assessment/Plan Assessment/Plan Acute CVA with right hemiparesis Old CVA Mixed hyperlipidemia HTN DM2 Dysphagia Aphasia Paroxysmal Atrial fibrillation PLAN: NPO IV nutrition Swallow eval Lovenox Eliquis Monitor Discussed with family at the bedside 08/18/2025: Continue NPO Start TPN Swallow eval to be done today Continue Lovenox We will switch Lovenox to Eliquis once he is able to start p.o. intake Monitor closely 08/19/2025: Continue NPO The patient failed a swallow eval He needs a G-tube Consult GI for a PEG tube Continue IV nutrition per pharmacy protocol Hold Eliquis Lovenox 1 milligram/kilogram subcutaneously q.12 hours Discussed with the family at the bedside, the and son, they are in agreement 08/20/2025: Continue NPO The patient is scheduled for a PEG tube on Friday Hold anticoagulation 08/21/2025: Continue NPO Peg tube placement in the morning Continue to hold anticoagulation 08/22/2025: PEG tube today NPO until then Discharge planning Family is thinking about SNF versus physical therapy at home with home health 08/23/2025: Start tube feeding Discontinue IV nutrition Arrange SNF for rehab 08/24/25: Sepsis Bleeding at the PEG tube site Hematoma BERTA PLAN: Cancel discharge NPO IV fluids IV antibiotics Blood cultures PEG tube to low continuous suction Dr. Carlos Rosen was made aware Abdominal binding Ordered CTA abdomen to rule out active bleeding Monitor h/h 08/25/2025: The patient is still tachycardic Continue IV fluids Continue IV antibiotics NPO PEG tube to suction Surgical consult is on the case Keep holding anticoagulation for now Discussed with the family at the bedside 08/26/25: Start feeding today IV antibiotics IV fluids Surgery is following, conservative Tx 08/27/2025: Continue the tube feeding at 30 mL an hour Continue IV antibiotics Constipation: Give lactulose Discontinue IV fluids 08/28/2025: Acute CVA: Continue tube feeding Continue IV antibiotics Constipation: Lactulose p.r.n. Colace Atrial fibrillation: Continue to hold anticoagulation for now Weakness: Plan to send to SNF in 1-2 days Discussed with the daughter at the bedside Plan discussed with: Patient, Daughter My Orders Orders - RACHID KERR MD Procedure Category Date Status Time * Bridge Manager CONS 08/28/25 Transmitted Consult Date of Service: Aug 28, 2025 Billing Provider: RACHID KERR MD Common Visit Codes: [id number] INP/OBS CARE(HIGH) RACHID KERR MD Aug 28, 2025 11:44
[2025-08-28] MEDS: DOCUSATE ORAL LIQUID 100 MG/10 ML UD GT SCH (21:46)
[2025-08-29] VITALS (11 sets, daily range): BP systolic 120–163; BP diastolic 62–84; PULSE 74–97; RESP 16–19; TEMP 97.5–98.9; O2SAT 94–98
[2025-08-29] MEDS: IOHEXOL 350 MG/ML 100ML IJ ONE (09:29)
--- NOTE | 2025-08-29 13:30 | DVHDS2 ---
Discharge Summary Date of Admission Aug 10, 2025 at 20:40 Date of Discharge: Aug 25, 2025 Labs/Diagnostic Data: Laboratory Results Test 08/28/25 06:41 08/27/25 10:13 08/24/25 19:24 08/23/25 12:32 White Blood Count 7.5 10^3/uL (4.4-10.8) Red Blood Count 3.27 10^6/uL (4.5-5.90) Hemoglobin 9.7 g/dL (13.5-17.5) Hematocrit 28.9 % (41.0-53.0) Mean Corpuscular Volume 88.2 fL (80.0-100.0) Mean Corpuscular Hemoglobin 29.7 pg (28.0-32.0) Mean Corpuscular Hemoglobin Concent 33.7 g/dL (32.0-36.0) Red Cell Distribution Width 14.1 % (11.8-14.3) Platelet Count 287 10^3/uL (140-450) Mean Platelet Volume 8.0 fL (6.9-10.8) Neutrophils (%) (Auto) 71.8 % (37.0-80.0) Lymphocytes (%) (Auto) 18.7 % (10.0-50.0) Monocytes (%) (Auto) 6.6 % (0.0-12.0) Eosinophils (%) (Auto) 2.3 % (0.0-7.0) Basophils (%) (Auto) 0.6 % (0.0-2.0) Neutrophils # (Auto) 5.4 10 ^3/uL (1.6-8.6) Lymphocytes # (Auto) 1.4 10 ^3/uL (0.4-5.4) Monocytes # (Auto) 0.5 10 ^3/uL (0-1.3) Eosinophils # (Auto) 0.2 10 ^3/uL (0-0.8) Basophils # (Auto) 0 10 ^3/uL (0-0.2) Nucleated Red Blood Cells 0.0 % Sodium Level 145 mmol/L (136-145) Potassium Level 3.7 mmol/L (3.5-5.1) Chloride Level 110 mmol/L (98-107) Carbon Dioxide Level 26 mmol/L (20-31) Anion Gap 9 (5-15) Blood Urea Nitrogen 19 mg/dL (9-23) Creatinine 1.04 mg/dL (0.700-1.30) Glomerular Filtration Rate Calc 83 mL/min (>90) BUN/Creatinine Ratio 18.3 (10.0-20.0) Serum Glucose 220 mg/dL (74-106) Calcium Level 8.1 mg/dL (8.7-10.4) Magnesium Level 2.0 mg/dL (1.6-2.6) Total Bilirubin 0.3 mg/dL (0.2-1.0) Aspartate Amino Transferase (AST) 19 U/L (13-40) Alanine Aminotransferase (ALT) 23 U/L (7-40) Alkaline Phosphatase 70 U/L (46-116) Total Protein 5.6 g/dL (5.7-8.2) Albumin 2.9 g/dL (3.2-4.8) Prothrombin Time 11.3 sec (9.3-11.8) Prothrombin Time INR 1.07 (0.9-1.15) Activated Partial Thromboplast Time 32.6 SEC (24.5-34.5) POC Glucose 212 mg/dl (70-106) Test 08/23/25 06:30 08/21/25 04:55 08/20/25 05:50 08/18/25 05:00 Phosphorus Level 3.0 mg/dL (2.4-5.1) Triglycerides Level 97 mg/dL (< 150) Hemoglobin A1c 8.0 % A1C (<5.7) Thyroid Stimulating Hormone (TSH) 0.62 uIU/mL (0.55-4.78) Estimated GFR () 111 mL/min Estimated GFR (Non- 92 mL/min Test 08/11/25 08:15 08/11/25 00:03 Urine Color Light-yellow (Yellow) Urine Clarity Clear (Clear) Urine pH 6.5 (5.0-9.0) Urine Specific [place] 1.015 (1.001-1.035) Urine Protein Negative (Negative) Urine Ketones Negative (Negative) Urine Blood Negative /uL (Negative) Urine Nitrite Negative (Negative) Urine Bilirubin Negative (Negative) Urine Urobilinogen Normal mg/dL (Negative) Urine Leukocyte Esterase Negative /uL (Negative) Urine RBC 1 /hpf (0 - 3) Urine Microscopic WBC < 1 /HPF (0-3) Urine Squamous Epithelial Cells Few /hpf (<5) Urine Bacteria None seen /hpf (None Seen) Urine Glucose 1+ mg/dL (Normal) Urine Opiates Screen Neg (NEGATIVE) Urine Fentanyl Screen Neg (NEGATIVE) Urine Barbiturates Screen Neg (NEGATIVE) Urine Phencyclidine Screen Neg (NEGATIVE) Urine Amphetamines Screen Neg (NEGATIVE) Urine Benzodiazepines Screen Neg (NEGATIVE) Urine Cocaine Screen Neg (NEGATIVE) Urine Cannabinoids Screen Neg (NEGATIVE) Influenza Type A Antigen Negative (Negative) Influenza Type B Antigen Negative (Negative) SARS-CoV-2 Antigen (Rapid) Negative (NEGATIVE) Other Laboratory Tests 08/28/25 06:41 Brief Hx & Hospital Course: Final diagnoses: Acute CVA with right hemiparesis Old CVA Mixed hyperlipidemia HTN DM2 Dysphagia Aphasia Paroxysmal Atrial fibrillation 59-year-old male who was admitted for weakness and right hemiparesis and was diagnosed with acute CVA He underwent a PEG tube placement because of dysphagia and aphasia He was going to be discharged to the SNF however just before discharge he developed abdominal pain and oozing from the PEG tube, he was started on Lovenox before discharge and therefore it was stopped and then a CT scan was done to evaluate for his abdominal pain which showed a hematoma but no active bleeding He was observed in the hospital NPO and a repeat CT scan was just done again which showed stable hematoma with no increase in the size and no active bleeding Overall he did well since then and then he was started on his tube feeding again and he is tolerating the tube feeding fine Due to weakness he will need rehab at a [facility] facility and therefore he will be discharged for physical therapy For his atrial fibrillation he needs to be on Eliquis which will be started today again at 5 mg twice a day Stable for discharge to SNF Condition at Discharge: Stable Final Diagnosis/Problems List Acute CVA with right hemiparesis Old CVA Mixed hyperlipidemia HTN DM2 Dysphagia Aphasia Discharge Disposition: Long-Term Facility SNF Discharge Will this Physician continue t: No Discharge Instruct/Medications Diet: See Comment Diet comment: Glucerna via G-tube Activity: No Restrictions, As Tolerated Follow Up/Referral: SNF MD Medications: See the medication reconciliation Scheduled Amlodipine Besylate (Amlodipine Besylate), 5 MG PO DAILY, (Reported) Apixaban Base (Eliquis), 5 MG PO BID Atorvastatin Calcium (Atorvastatin Calcium), 1 TAB PO DAILY, (Reported) Metformin Hydrochloride (Metformin Hcl), 500 MG PO DAILY, (Reported) Pantoprazole Sodium Sesquihydr (Protonix), 40 MG PO DAILY Miscellaneous Medications Empagliflozin (Jardiance), Unknown Dose PO, (Reported) Discharge Statement: "Patient was advised to return to the ER or call 911 if any headaches, dizziness, shortness of breath, chest pain, abdominal pain, bleeding, fevers, or worsening of medical condition. Patient was counseled about treatment plan, medications, possible side effects, patientverbalized understanding. All questions were answered to the best of my ability. This discharge took greater then 30 minutes in planning, reviewing documentation, counseling the patient, and discussing with other team members." ASSESSMENT ASSESSMENT Assessment Acute CVA with right hemiparesis Old CVA Mixed hyperlipidemia HTN DM2 Dysphagia Aphasia Date of Service: Aug 29, 2025 Billing Provider: RACHID KERR MD Common Visit Codes: [id number] DISCH DAY >30min RACHID KERR MD Aug 29, 2025 13:30
--- NOTE | 2025-08-29 21:12 | DVHPN2 ---
Progress Note Date Seen: Aug 29, 2025 Medical Necessity Reason Pt with a Central, PICC or Fol: No Objective vital signs Vital Sign Date Time Temp Pulse Resp B/P (MAP) Pulse Ox O2 Delivery O2 Flow Rate FiO2 08/29/25 20:05 98.9 90 16 131/79 (96) 95 98.9 08/29/25 08:13 Nasal Cannula* 2 28 Total Intake and Output 08/28/25 08/28/25 08/29/25 15:00 23:00 07:00 Intake Total 250 ml 400 ml 100 ml Output Total 650 ml 300 ml Balance 250 ml -250 ml -200 ml medications Current Medications Medications Dose Ordered Sig/Cash Route Start Time Stop Time Status Last Admin Dose Admin Ipratropium [place] 0.5 mg Q6HPRN PRN NEB 08/10/25 20:45 Cancel Hydralazine HCl 10 mg Q6HP PRN IV 08/15/25 22:00 08/29/25 16:56 10 MG Fat Emulsion Intravenous 200 ml/Potassium Chloride 30 meq/ Potassium Acetate 30 meq/Calcium Gluconate 4.6 meq/ Magnesium Sulfate 10 meq/ Multivitamins 10 ml/Chromium/ Copper/Manganese/ Zinc 1 ml/Insulin Human Regular 5 units/Amino Acids/ Dextrose/Purified Water 1,553.4424 ml @ 65 mls/hr [id number] IV 08/22/25 22:00 08/23/25 21:59 Cancel Fat Emulsion Intravenous 100 ml/Sodium Phosphate 20 meq/ Potassium Chloride 30 meq/ Potassium Acetate 30 meq/Calcium Gluconate 4.6 meq/ Magnesium Sulfate 10 meq/ Multivitamins 10 ml/Chromium/ Copper/Manganese/ Zinc 1 ml/Insulin Human Regular 8 units/Amino Acids/ Dextrose/Purified Water 1,558.4724 ml @ 65 mls/hr [id number] IV 08/23/25 22:00 08/24/25 21:59 Cancel Morphine Sulfate 2 mg Q4HPRN PRN IV 08/24/25 17:45 08/26/25 05:40 2 MG Ceftriaxone Sodium 50 ml @ 100 mls/hr DAILY@09 IV 08/25/25 09:00 08/29/25 08:13 100 MLS/HR Metronidazole 100 ml @ 100 mls/hr Q8HR IV 08/24/25 22:00 08/29/25 13:41 100 MLS/HR Ondansetron HCl 4 mg Q4HPRN PRN IV 08/24/25 20:30 Pantoprazole Sodium 40 mg DAILY IV 08/25/25 10:00 08/29/25 09:29 40 MG Enteral Nutritional Formula 1,000 ml 30ML/HR GT 08/26/25 12:15 08/28/25 22:01 1,000 ML Lactulose 30 ml DAILYPRN PRN PO 08/28/25 11:45 Docusate Sodium 100 mg BID GT 08/28/25 22:00 08/29/25 09:29 100 MG Apixaban 5 mg BID PO 08/29/25 22:00 laboratory and microbiology Laboratory Tests 08/28/25 06:41 Test 08/28/25 06:41 Range/Units Serum Glucose 220 H 74-106 mg/dL Microbiology Date/Time Source Procedure Growth Status 08/24/25 18:37 Blood Blood Culture - Final NO GROWTH AFTER 5 DAYS OF INCUBATION. Complete 08/11/25 02:20 Sputum Gram Stain - Final Complete 08/11/25 02:20 Sputum Respiratory Culture - Final Complete Problem List/Assessment/Plan Problem List/Assessment/Plan AFEBRILE VSS ABD SOFT G TUBE IN PLACE SOME HEMATOMA DRAINAGE AROUND G TUBE BUT LESS TUBE FEED PER GI NO COMPLICATIONS REPEAT CT SCAN ABD PELVIS NO ACTIVE BLEED Plan discussed with: Other Dietary Evaluation Review Comments: 1. If medically feasible and passing LABORATORY SECRETARY eval follow a CCHO-60 cardiac diet and avoid soda beverages 2. If not able to eat d/t stroke, offer TPN per pharmacy to meet his needs 3. If EN/GI accessible, Tube feeding Glucerna@50ml/hr providing 70g protein 1440kcal 966ml free water meeting his needs @ 100% Protein,100% energy Expected Outcomes/Goals: Controlled DM, improved physical strength ROBERT SCHMIDT MD Aug 29, 2025 21:12
[2025-08-29] MEDS: APIXABAN 5 MG TAB PO SCH (21:41)
[2025-08-29] MEDS: ENOXAPARIN SOD 40 MG/0.4 ML SYRINGE SC ONE (23:13)
[2025-08-30 05:00] VITALS: BP 137/73; PULSE 81; RESP 16; TEMP 98.1; O2SAT 94
[2025-08-30 08:00] VITALS: PULSE 69
[2025-08-30 09:00] VITALS: BP 145/85; PULSE 76; RESP 18; TEMP 97.2; O2SAT 94
[2025-08-30 13:00] VITALS: BP 163/86; PULSE 83; RESP 16; TEMP 98.3; O2SAT 93
--- NOTE | 2025-08-30 14:46 | DVHPN2 ---
Subjective No complaints Awaiting SNF placement Reviewed: Care Plan, H&P, Labs, Medications, Previous Orders Changes from previous H/P or p: No Changes General: Per HPI Objective Vitals Vital Signs Date Time Temp Pulse Resp B/P (MAP) Pulse Ox O2 Delivery O2 Flow Rate FiO2 08/30/25 08:00 69 08/30/25 08:00 Room Air* 0 21 08/30/25 05:00 98.1 16 137/73 (94) 94 98.1 Intake/Output Intake and Output 08/30/25 07:00 Intake Total 350 ml Output Total 925 ml Balance -575 ml Intake Oral 0 ml IV Total 350 ml Output Urine Total 925 ml General Appearance: Alert, Oriented X3 HEENT: Atraumatic Cardiovascular: Regular rate, Normal S1, Normal S2 Abdomen: Normal bowel sounds Medications Current Medications Medications Dose Ordered Sig/Cash Route Start Time Stop Time Status Last Admin Dose Admin Ipratropium [place] 0.5 mg Q6HPRN PRN NEB 08/10/25 20:45 Cancel Hydralazine HCl 10 mg Q6HP PRN IV 08/15/25 22:00 08/29/25 16:56 10 MG Fat Emulsion Intravenous 200 ml/Potassium Chloride 30 meq/ Potassium Acetate 30 meq/Calcium Gluconate 4.6 meq/ Magnesium Sulfate 10 meq/ Multivitamins 10 ml/Chromium/ Copper/Manganese/ Zinc 1 ml/Insulin Human Regular 5 units/Amino Acids/ Dextrose/Purified Water 1,553.4424 ml @ 65 mls/hr [id number] IV 08/22/25 22:00 08/23/25 21:59 Cancel Fat Emulsion Intravenous 100 ml/Sodium Phosphate 20 meq/ Potassium Chloride 30 meq/ Potassium Acetate 30 meq/Calcium Gluconate 4.6 meq/ Magnesium Sulfate 10 meq/ Multivitamins 10 ml/Chromium/ Copper/Manganese/ Zinc 1 ml/Insulin Human Regular 8 units/Amino Acids/ Dextrose/Purified Water 1,558.4724 ml @ 65 mls/hr [id number] IV 08/23/25 22:00 08/24/25 21:59 Cancel Morphine Sulfate 2 mg Q4HPRN PRN IV 08/24/25 17:45 08/26/25 05:40 2 MG Ceftriaxone Sodium 50 ml @ 100 mls/hr DAILY@09 IV 08/25/25 09:00 08/30/25 10:04 100 MLS/HR Metronidazole 100 ml @ 100 mls/hr Q8HR IV 08/24/25 22:00 08/30/25 05:34 100 MLS/HR Ondansetron HCl 4 mg Q4HPRN PRN IV 08/24/25 20:30 Pantoprazole Sodium 40 mg DAILY IV 08/25/25 10:00 08/30/25 10:04 40 MG Enteral Nutritional Formula 1,000 ml 30ML/HR GT 08/26/25 12:15 08/28/25 22:01 1,000 ML Lactulose 30 ml DAILYPRN PRN PO 08/28/25 11:45 Docusate Sodium 100 mg BID GT 08/28/25 22:00 08/30/25 10:04 100 MG Apixaban 5 mg BID PO 08/29/25 22:00 Laboratory Results Laboratory Tests 08/28/25 06:41 Urinalysis Test 08/11/25 08:15 Urine Color Light-yellow (Yellow) Urine Clarity Clear (Clear) Urine pH 6.5 (5.0-9.0) Urine Specific [place] 1.015 (1.001-1.035) Urine Protein Negative (Negative) Urine Ketones Negative (Negative) Urine Blood Negative /uL (Negative) Urine Nitrite Negative (Negative) Urine Bilirubin Negative (Negative) Urine Urobilinogen Normal mg/dL (Negative) Urine Leukocyte Esterase Negative /uL (Negative) Urine RBC 1 /hpf (0 - 3) Urine Microscopic WBC < 1 /HPF (0-3) Urine Squamous Epithelial Cells Few /hpf (<5) Urine Bacteria None seen /hpf (None Seen) Urine Glucose 1+ mg/dL (Normal) H Microbiology Microbiology Date/Time Source Procedure Growth Status 08/24/25 18:37 Blood Blood Culture - Final NO GROWTH AFTER 5 DAYS OF INCUBATION. Complete 08/11/25 02:20 Sputum Gram Stain - Final Complete 08/11/25 02:20 Sputum Respiratory Culture - Final Complete Assessment/Plan Assessment/Plan Acute CVA with right hemiparesis Old CVA Mixed hyperlipidemia HTN DM2 Dysphagia Aphasia Paroxysmal Atrial fibrillation PLAN: NPO IV nutrition Swallow eval Lovenox Eliquis Monitor Discussed with family at the bedside 08/18/2025: Continue NPO Start TPN Swallow eval to be done today Continue Lovenox We will switch Lovenox to Eliquis once he is able to start p.o. intake Monitor closely 08/19/2025: Continue NPO The patient failed a swallow eval He needs a G-tube Consult GI for a PEG tube Continue IV nutrition per pharmacy protocol Hold Eliquis Lovenox 1 milligram/kilogram subcutaneously q.12 hours Discussed with the family at the bedside, the and son, they are in agreement 08/20/2025: Continue NPO The patient is scheduled for a PEG tube on Friday Hold anticoagulation 08/21/2025: Continue NPO Peg tube placement in the morning Continue to hold anticoagulation 08/22/2025: PEG tube today NPO until then Discharge planning Family is thinking about SNF versus physical therapy at home with home health 08/23/2025: Start tube feeding Discontinue IV nutrition Arrange SNF for rehab 08/24/25: Sepsis Bleeding at the PEG tube site Hematoma BERTA PLAN: Cancel discharge NPO IV fluids IV antibiotics Blood cultures PEG tube to low continuous suction Dr. Carlos Rosen was made aware Abdominal binding Ordered CTA abdomen to rule out active bleeding Monitor h/h 08/25/2025: The patient is still tachycardic Continue IV fluids Continue IV antibiotics NPO PEG tube to suction Surgical consult is on the case Keep holding anticoagulation for now Discussed with the family at the bedside 08/26/25: Start feeding today IV antibiotics IV fluids Surgery is following, conservative Tx 08/27/2025: Continue the tube feeding at 30 mL an hour Continue IV antibiotics Constipation: Give lactulose Discontinue IV fluids 08/28/2025: Acute CVA: Continue tube feeding Continue IV antibiotics Constipation: Lactulose p.r.n. Colace Atrial fibrillation: Continue to hold anticoagulation for now Weakness: Plan to send to SNF in 1-2 days Discussed with the daughter at the bedside 08/30/25: DC to SNF once a bed is available Eliquis bid Tolerating feeding formula Plan discussed with: Patient, Daughter Date of Service: Aug 30, 2025 Billing Provider: RACHID KERR MD Common Visit Codes: [id number] INP/OBS CARE(HIGH) RACHID KERR MD Aug 30, 2025 14:46
--- NOTE | 2025-08-30 15:02 | DVHPN2 ---
Progress Note - Dictate Date Seen: Aug 30, 2025 Medical Necessity Reason Pt with a Central, PICC or Fol: No Subjective No new complaints, patient resting comfortably Patient developed a hematoma around the PEG tube site with some oozing Repeat CT scan shows stability of the hematoma Stable at 9.7 vital signs Vital Sign Date Time Temp Pulse Resp B/P (MAP) Pulse Ox O2 Delivery O2 Flow Rate FiO2 08/30/25 08:00 69 08/30/25 08:00 Room Air* 0 21 08/30/25 05:00 98.1 16 137/73 (94) 94 98.1 Total Intake and Output 08/29/25 08/29/25 08/30/25 15:00 23:00 07:00 Intake Total 150 ml 100 ml 100 ml Output Total 400 ml 525 ml Balance 150 ml -300 ml -425 ml medications Current Medications Medications Dose Ordered Sig/Cash Route Start Time Stop Time Status Last Admin Dose Admin Ipratropium [place] 0.5 mg Q6HPRN PRN NEB 08/10/25 20:45 Cancel Hydralazine HCl 10 mg Q6HP PRN IV 08/15/25 22:00 08/29/25 16:56 10 MG Fat Emulsion Intravenous 200 ml/Potassium Chloride 30 meq/ Potassium Acetate 30 meq/Calcium Gluconate 4.6 meq/ Magnesium Sulfate 10 meq/ Multivitamins 10 ml/Chromium/ Copper/Manganese/ Zinc 1 ml/Insulin Human Regular 5 units/Amino Acids/ Dextrose/Purified Water 1,553.4424 ml @ 65 mls/hr [id number] IV 08/22/25 22:00 08/23/25 21:59 Cancel Fat Emulsion Intravenous 100 ml/Sodium Phosphate 20 meq/ Potassium Chloride 30 meq/ Potassium Acetate 30 meq/Calcium Gluconate 4.6 meq/ Magnesium Sulfate 10 meq/ Multivitamins 10 ml/Chromium/ Copper/Manganese/ Zinc 1 ml/Insulin Human Regular 8 units/Amino Acids/ Dextrose/Purified Water 1,558.4724 ml @ 65 mls/hr [id number] IV 08/23/25 22:00 08/24/25 21:59 Cancel Morphine Sulfate 2 mg Q4HPRN PRN IV 08/24/25 17:45 08/26/25 05:40 2 MG Ceftriaxone Sodium 50 ml @ 100 mls/hr DAILY@09 IV 08/25/25 09:00 08/30/25 10:04 100 MLS/HR Metronidazole 100 ml @ 100 mls/hr Q8HR IV 08/24/25 22:00 08/30/25 05:34 100 MLS/HR Ondansetron HCl 4 mg Q4HPRN PRN IV 08/24/25 20:30 Pantoprazole Sodium 40 mg DAILY IV 08/25/25 10:00 08/30/25 10:04 40 MG Enteral Nutritional Formula 1,000 ml 30ML/HR GT 08/26/25 12:15 08/28/25 22:01 1,000 ML Lactulose 30 ml DAILYPRN PRN PO 08/28/25 11:45 Docusate Sodium 100 mg BID GT 08/28/25 22:00 08/30/25 10:04 100 MG Apixaban 5 mg BID PO 08/29/25 22:00 objective General Appearance: Alert, Oriented X3 HEENT: Atraumatic Cardiovascular: Regular rate, Normal S1, Normal S2 Abdomen: Normal bowel sounds laboratory and microbiology Laboratory Tests 08/28/25 06:41 Test 08/28/25 06:41 Range/Units Serum Glucose 220 H 74-106 mg/dL Problems(with codes): (1) Gastrostomy status (2) A-fib (3) History of CVA (cerebrovascular accident) (4) Left-sided weakness (5) Oropharyngeal dysphagia (6) Pneumonia Prognosis Plan Recommend starting G-tube feedings as ordered Continue local G-tube site care Discharge planning ongoing to SNF Surgical consult is following patient Dietary Evaluation Review Comments: 1. 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 If not able to eat d/t stroke, offer TPN per pharmacy to meet his needs 3. If EN/GI accessible, Tube feeding Glucerna@50ml/hr providing 70g protein 1440kcal 966ml free water meeting his needs @ 100% Protein,100% energy Expected Outcomes/Goals: Controlled DM, improved physical strength Plan discussed with: Other (Dr Axel Rosen) MONICA ROSEN MD Aug 30, 2025 15:01
[2025-08-30 17:00] VITALS: BP 163/95; PULSE 72; RESP 16; TEMP 98.8; O2SAT 96
[2025-08-30 20:00] VITALS: PULSE 76; PULSE 85; RESP 18; O2SAT 92
--- NOTE | 2025-08-30 21:41 | DVHPN2 ---
Progress Note - Dictate Date Seen: Aug 30, 2025 Medical Necessity Reason Pt with a Central, PICC or Fol: No Subjective Mr. Nunez is a right-handed gentleman with a history of diabetes, previous stroke, A-fib, he came to the hospital on 08/11/24 with a chief complaint of left-sided weakness. I saw him on 11/02/2022 for possible stroke (MRI positive) I have seen examined the patient, talked to his nurse, sitter and other medical staff. He is doing better today Alert, he is likely fully oriented, he has expressive aphasia, no obvious improvement in the right hemiplegia UDS, 08/28/2025: Negative CBC, 08/11/2025: Unremarkable BMP 08/11/2025: Unremarkable Liver function tests, 08/11/2025: Unremarkable TG/CHO L/LDL/HDL, 11/02/2022: 87/206/140/68 EKG, 10/31/22: Atrial fibrillation Echocardiogram, 11/01/2022: Atrial fibrillation. 55 to 60% with normal RV function. Echocardiogram, 08/12/2025: EF: 60% Carotid Doppler, 08/10/2025: Mild atherosclerotic vascular disease with no hemodynamically significant stenosis. Any narrowing is less than 50%. CT abdomen, pelvis, 08/24/2025: Limited evaluation without contrast. Hemorrhage just anterior to the stomach near the PEG tube tract measuring 4.2 x 2.8 x 5.0 cm. Recommend stat surgical consultation for evaluation. Active bleeding can not be ruled out. CT angiogram of the abdomen / pelvis can be obtained to evaluate for potential active bleeding. Cholelithiasis. Atherosclerotic disease. CT abdomen, pelvis, 08/28/2025: Limited noncontrast study. Unchanged hematoma adjacent to the gastrostomy tube. Trace bilateral pleural effusions. Cholelithiasis. MRI head, 11/13/2022: There is small focal subacute right posterior frontal white matter restricted diffusion which may represent active demyelinating plaque or subacute infarct. There is small focus of the left brachium pontine restricted diffusion typical location for active demyelinating plaque of multiple sclerosis versus subacute infarct. There is chronic right basal ganglia, grey radiata/centrum semiovale infarct. There are chronic left greater than right thalamic lacunar infarcts. There is no hemorrhage MRI head, 08/11/2025: 1. Acute or subacute infarct in the left caudate nucleus adjacent to the posterior body of the left lateral ventricle measuring up to 1.7 cm. 2. Additional nonacute findings as described above MRI head, 08/15/2025: Acute infarcts of the left periventricular white matter and left lateral basal ganglia. ([facility] MRI obtained on 08/28/2025, the acute stroke MRI of 08/11/25 is bigger, he has a new stroke in the left [place]) vital signs Vital Sign Date Time Temp Pulse Resp B/P (MAP) Pulse Ox O2 Delivery O2 Flow Rate FiO2 08/30/25 17:00 98.8 72 16 163/95 (117) 96 98.8 08/30/25 08:00 Room Air* 0 21 Total Intake and Output 08/29/25 08/29/25 08/30/25 15:00 23:00 07:00 Intake Total 150 ml 100 ml 100 ml Output Total 400 ml 525 ml Balance 150 ml -300 ml -425 ml medications Current Medications Medications Dose Ordered Sig/Cash Route Start Time Stop Time Status Last Admin Dose Admin Ipratropium [place] 0.5 mg Q6HPRN PRN NEB 08/10/25 20:45 Cancel Hydralazine HCl 10 mg Q6HP PRN IV 08/15/25 22:00 08/29/25 16:56 10 MG Fat Emulsion Intravenous 200 ml/Potassium Chloride 30 meq/ Potassium Acetate 30 meq/Calcium Gluconate 4.6 meq/ Magnesium Sulfate 10 meq/ Multivitamins 10 ml/Chromium/ Copper/Manganese/ Zinc 1 ml/Insulin Human Regular 5 units/Amino Acids/ Dextrose/Purified Water 1,553.4424 ml @ 65 mls/hr [id number] IV 08/22/25 22:00 08/23/25 21:59 Cancel Fat Emulsion Intravenous 100 ml/Sodium Phosphate 20 meq/ Potassium Chloride 30 meq/ Potassium Acetate 30 meq/Calcium Gluconate 4.6 meq/ Magnesium Sulfate 10 meq/ Multivitamins 10 ml/Chromium/ Copper/Manganese/ Zinc 1 ml/Insulin Human Regular 8 units/Amino Acids/ Dextrose/Purified Water 1,558.4724 ml @ 65 mls/hr [id number] IV 08/23/25 22:00 08/24/25 21:59 Cancel Morphine Sulfate 2 mg Q4HPRN PRN IV 08/24/25 17:45 08/26/25 05:40 2 MG Ceftriaxone Sodium 50 ml @ 100 mls/hr DAILY@09 IV 08/25/25 09:00 08/30/25 10:04 100 MLS/HR Metronidazole 100 ml @ 100 mls/hr Q8HR IV 08/24/25 22:00 08/30/25 15:24 100 MLS/HR Ondansetron HCl 4 mg Q4HPRN PRN IV 08/24/25 20:30 Pantoprazole Sodium 40 mg DAILY IV 08/25/25 10:00 08/30/25 10:04 40 MG Enteral Nutritional Formula 1,000 ml 30ML/HR GT 08/26/25 12:15 08/30/25 15:24 1,000 ML Lactulose 30 ml DAILYPRN PRN PO 08/28/25 11:45 Docusate Sodium 100 mg BID GT 08/28/25 22:00 08/30/25 10:04 100 MG Apixaban 5 mg BID GT 08/30/25 22:00 objective General: the patient is well developed and nourished. No acute distress. MENTAL STATUS: Subjective SPEECH, LANGUAGE, HIGHER CORTICAL FUNCTION: Subjective CRANIAL NERVES: Pupils are equal, round and reactive. EOMs full and conjugate. No spontaneous or evoked nystagmus. He has double vision when he looks to the right side. Sensorimotor examined in bilateral trigeminal distribution is fine. Right facial weakness of upper motor neuron pattern SENSATION: Sensation to touch and pinprick is normal. MOTOR: Increased muscle tone in the right upper and lower extremity. Normal muscle bulk. No fasciculations. No abnormal movements or posturing. Muscle strength of the major groups in the left upper and lower extremity is 4/5, right arm: 0/5, right le/5 REFLEXES: Deep tendon reflexes are increased in the right extremities, 4/4 @ right ankle. Upgoing toes in the the foot CEREBELLAR/COORDINATION: Finger to nose is unremarkable in the left upper extremity GAIT/STATION: Unsteady laboratory and microbiology Laboratory Tests 08/28/25 06:41 Test 08/28/25 06:41 Range/Units Serum Glucose 220 H 74-106 mg/dL Problem List Acute intra-abdominal hematoma likely secondary to anticoagulation treatment, Acute stroke Expressive aphasia secondary to acute stroke Acute right hemiplegia secondary to acute stroke Chronic strokes in 2016, 11/01/2022 with good recovery Atrial fibrillation Poor compliance Assessment/Plan Monitoring Supportive treatment Telemetry Eliquis 5 mg b.i.d. Lipitor 40 mg daily Up to chair Surgery on case This medical document was created using an electronic medical record system with [employer] dictation system. Although this document has been carefully reviewed, there may still be some phonetic and typographical errors. These areas are purely typographical due to imperfections of the software programs, and do not reflect any compromise in the patient's medical care Prognosis poor Dietary Evaluation Review Comments: 1. 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 If not able to eat d/t stroke, offer TPN per pharmacy to meet his needs 3. If EN/GI accessible, Tube feeding Glucerna@50ml/hr providing 70g protein 1440kcal 966ml free water meeting his needs @ 100% Protein,100% energy Expected Outcomes/Goals: Controlled DM, improved physical strength Plan discussed with: Patient, Other Total Time (mins): 35 DARREL HEMPHILL MD Aug 30, 2025 21:41
[2025-08-30] MEDS: APIXABAN 5 MG TAB GT SCH (22:26)
[2025-08-31] VITALS (9 sets, daily range): BP systolic 133–166; BP diastolic 72–90; PULSE 74–94; RESP 15–17; TEMP 98.1–98.8; O2SAT 92–96
--- NOTE | 2025-08-31 14:27 | DVHPN2 ---
Progress Note Date Seen: Aug 31, 2025 Medical Necessity Reason Pt with a Central, PICC or Fol: No Objective vital signs Vital Sign Date Time Temp Pulse Resp B/P (MAP) Pulse Ox O2 Delivery O2 Flow Rate FiO2 08/31/25 12:52 98.3 94 16 151/82 (105) 95 98.3 08/30/25 20:00 Room Air* 0 21 Total Intake and Output 08/30/25 08/30/25 08/31/25 15:00 23:00 07:00 Intake Total 150 ml 200 ml Output Total 300 ml 300 ml Balance -150 ml -100 ml medications Current Medications Medications Dose Ordered Sig/Cash Route Start Time Stop Time Status Last Admin Dose Admin Ipratropium [place] 0.5 mg Q6HPRN PRN NEB 08/10/25 20:45 Cancel Hydralazine HCl 10 mg Q6HP PRN IV 08/15/25 22:00 08/31/25 01:34 10 MG Fat Emulsion Intravenous 200 ml/Potassium Chloride 30 meq/ Potassium Acetate 30 meq/Calcium Gluconate 4.6 meq/ Magnesium Sulfate 10 meq/ Multivitamins 10 ml/Chromium/ Copper/Manganese/ Zinc 1 ml/Insulin Human Regular 5 units/Amino Acids/ Dextrose/Purified Water 1,553.4424 ml @ 65 mls/hr [id number] IV 08/22/25 22:00 08/23/25 21:59 Cancel Fat Emulsion Intravenous 100 ml/Sodium Phosphate 20 meq/ Potassium Chloride 30 meq/ Potassium Acetate 30 meq/Calcium Gluconate 4.6 meq/ Magnesium Sulfate 10 meq/ Multivitamins 10 ml/Chromium/ Copper/Manganese/ Zinc 1 ml/Insulin Human Regular 8 units/Amino Acids/ Dextrose/Purified Water 1,558.4724 ml @ 65 mls/hr [id number] IV 08/23/25 22:00 08/24/25 21:59 Cancel Morphine Sulfate 2 mg Q4HPRN PRN IV 08/24/25 17:45 08/26/25 05:40 2 MG Ceftriaxone Sodium 50 ml @ 100 mls/hr DAILY@09 IV 08/25/25 09:00 08/31/25 10:06 100 MLS/HR Metronidazole 100 ml @ 100 mls/hr Q8HR IV 08/24/25 22:00 08/31/25 05:32 100 MLS/HR Ondansetron HCl 4 mg Q4HPRN PRN IV 08/24/25 20:30 Pantoprazole Sodium 40 mg DAILY IV 08/25/25 10:00 08/31/25 10:06 40 MG Enteral Nutritional Formula 1,000 ml 30ML/HR GT 08/26/25 12:15 08/30/25 15:24 1,000 ML Lactulose 30 ml DAILYPRN PRN PO 08/28/25 11:45 Docusate Sodium 100 mg BID GT 08/28/25 22:00 08/31/25 09:58 100 MG Apixaban 5 mg BID GT 08/30/25 22:00 08/31/25 09:58 5 MG laboratory and microbiology Laboratory Tests 08/28/25 06:41 Test 08/28/25 06:41 Range/Units Serum Glucose 220 H 74-106 mg/dL Microbiology Date/Time Source Procedure Growth Status 08/24/25 18:37 Blood Blood Culture - Final NO GROWTH AFTER 5 DAYS OF INCUBATION. Complete 08/11/25 02:20 Sputum Gram Stain - Final Complete 08/11/25 02:20 Sputum Respiratory Culture - Final Complete Problem List/Assessment/Plan Problem List/Assessment/Plan AFEBRILE VSS ABD SOFT G TUBE IN PLACE SOME HEMATOMA DRAINAGE AROUND G TUBE BUT LESS TUBE FEED PER GI NO COMPLICATIONS AWAITING TRANSFER TO SKILLED FACILITY Plan discussed with: Other Dietary Evaluation Review Comments: 1. 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 If not able to eat d/t stroke, offer TPN per pharmacy to meet his needs 3. If EN/GI accessible, Tube feeding Glucerna@50ml/hr providing 70g protein 1440kcal 966ml free water meeting his needs @ 100% Protein,100% energy Expected Outcomes/Goals: Controlled DM, improved physical strength ROBERT SCHMIDT MD Aug 31, 2025 14:27
--- NOTE | 2025-08-31 14:32 | DVHPN2 ---
Progress Note - Dictate Date Seen: Aug 31, 2025 Medical Necessity Reason Pt with a Central, PICC or Fol: No Subjective No new complaints, patient resting comfortably Patient developed a hematoma around the PEG tube site with some oozing Repeat CT scan shows stability of the hematoma; no further bleeding except for some dried old blood Stable at 9.7 Patient is tolerating Glucerna at 30 mL/hour vital signs Vital Sign Date Time Temp Pulse Resp B/P (MAP) Pulse Ox O2 Delivery O2 Flow Rate FiO2 08/31/25 12:52 98.3 94 16 151/82 (105) 95 98.3 08/30/25 20:00 Room Air* 0 21 Total Intake and Output 08/30/25 08/30/25 08/31/25 15:00 23:00 07:00 Intake Total 150 ml 200 ml Output Total 300 ml 300 ml Balance -150 ml -100 ml medications Current Medications Medications Dose Ordered Sig/Cash Route Start Time Stop Time Status Last Admin Dose Admin Ipratropium [place] 0.5 mg Q6HPRN PRN NEB 08/10/25 20:45 Cancel Hydralazine HCl 10 mg Q6HP PRN IV 08/15/25 22:00 08/31/25 01:34 10 MG Fat Emulsion Intravenous 200 ml/Potassium Chloride 30 meq/ Potassium Acetate 30 meq/Calcium Gluconate 4.6 meq/ Magnesium Sulfate 10 meq/ Multivitamins 10 ml/Chromium/ Copper/Manganese/ Zinc 1 ml/Insulin Human Regular 5 units/Amino Acids/ Dextrose/Purified Water 1,553.4424 ml @ 65 mls/hr [id number] IV 08/22/25 22:00 08/23/25 21:59 Cancel Fat Emulsion Intravenous 100 ml/Sodium Phosphate 20 meq/ Potassium Chloride 30 meq/ Potassium Acetate 30 meq/Calcium Gluconate 4.6 meq/ Magnesium Sulfate 10 meq/ Multivitamins 10 ml/Chromium/ Copper/Manganese/ Zinc 1 ml/Insulin Human Regular 8 units/Amino Acids/ Dextrose/Purified Water 1,558.4724 ml @ 65 mls/hr [id number] IV 08/23/25 22:00 08/24/25 21:59 Cancel Morphine Sulfate 2 mg Q4HPRN PRN IV 08/24/25 17:45 08/26/25 05:40 2 MG Ceftriaxone Sodium 50 ml @ 100 mls/hr DAILY@09 IV 08/25/25 09:00 08/31/25 10:06 100 MLS/HR Metronidazole 100 ml @ 100 mls/hr Q8HR IV 08/24/25 22:00 08/31/25 05:32 100 MLS/HR Ondansetron HCl 4 mg Q4HPRN PRN IV 08/24/25 20:30 Pantoprazole Sodium 40 mg DAILY IV 08/25/25 10:00 08/31/25 10:06 40 MG Enteral Nutritional Formula 1,000 ml 30ML/HR GT 08/26/25 12:15 08/30/25 15:24 1,000 ML Lactulose 30 ml DAILYPRN PRN PO 08/28/25 11:45 Docusate Sodium 100 mg BID GT 08/28/25 22:00 08/31/25 09:58 100 MG Apixaban 5 mg BID GT 08/30/25 22:00 08/31/25 09:58 5 MG objective General Appearance: Alert, Oriented X3 HEENT: Atraumatic Cardiovascular: Regular rate, Normal S1, Normal S2 Abdomen: Normal bowel sounds laboratory and microbiology Laboratory Tests 08/28/25 06:41 Test 08/28/25 06:41 Range/Units Serum Glucose 220 H 74-106 mg/dL Problems(with codes): (1) Abdominal wall hematoma (2) BERTA (acute kidney injury) (3) Pneumonia (4) A-fib (5) Oropharyngeal dysphagia (6) History of CVA (cerebrovascular accident) (7) Left-sided weakness Prognosis Plan Advance tube feedings to 45 mL/hour Local G-tube care discussed with the nurse Repeat labs including CBC BMP in a.m. Discharge planning to SNF in [place] Dietary Evaluation Review Comments: 1. 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 If not able to eat d/t stroke, offer TPN per pharmacy to meet his needs 3. If EN/GI accessible, Tube feeding Glucerna@50ml/hr providing 70g protein 1440kcal 966ml free water meeting his needs @ 100% Protein,100% energy Expected Outcomes/Goals: Controlled DM, improved physical strength Plan discussed with: Other (Nurse) MONICA SCHMIDT MD Aug 31, 2025 14:32
--- NOTE | 2025-08-31 15:04 | DVHPN2 ---
Subjective Awaiting at [facility] Reviewed: Care Plan, H&P, Labs, Medications, Previous Orders Changes from previous H/P or p: Changes General: Per HPI Objective Vitals Vital Signs Date Time Temp Pulse Resp B/P (MAP) Pulse Ox O2 Delivery O2 Flow Rate FiO2 08/31/25 12:52 98.3 94 16 151/82 (105) 95 98.3 08/30/25 20:00 Room Air* 0 21 Intake/Output Intake and Output 08/31/25 07:00 Intake Total 350 ml Output Total 600 ml Balance -250 ml Intake Oral 0 ml IV Total 350 ml Output Urine Total 600 ml General Appearance: Alert, Oriented X3 HEENT: Atraumatic Cardiovascular: Regular rate, Normal S1, Normal S2 Abdomen: Normal bowel sounds Medications Current Medications Medications Dose Ordered Sig/Cash Route Start Time Stop Time Status Last Admin Dose Admin Ipratropium [place] 0.5 mg Q6HPRN PRN NEB 08/10/25 20:45 Cancel Hydralazine HCl 10 mg Q6HP PRN IV 08/15/25 22:00 08/31/25 01:34 10 MG Fat Emulsion Intravenous 200 ml/Potassium Chloride 30 meq/ Potassium Acetate 30 meq/Calcium Gluconate 4.6 meq/ Magnesium Sulfate 10 meq/ Multivitamins 10 ml/Chromium/ Copper/Manganese/ Zinc 1 ml/Insulin Human Regular 5 units/Amino Acids/ Dextrose/Purified Water 1,553.4424 ml @ 65 mls/hr [id number] IV 08/22/25 22:00 08/23/25 21:59 Cancel Fat Emulsion Intravenous 100 ml/Sodium Phosphate 20 meq/ Potassium Chloride 30 meq/ Potassium Acetate 30 meq/Calcium Gluconate 4.6 meq/ Magnesium Sulfate 10 meq/ Multivitamins 10 ml/Chromium/ Copper/Manganese/ Zinc 1 ml/Insulin Human Regular 8 units/Amino Acids/ Dextrose/Purified Water 1,558.4724 ml @ 65 mls/hr [id number] IV 08/23/25 22:00 08/24/25 21:59 Cancel Morphine Sulfate 2 mg Q4HPRN PRN IV 08/24/25 17:45 08/26/25 05:40 2 MG Ceftriaxone Sodium 50 ml @ 100 mls/hr DAILY@09 IV 08/25/25 09:00 08/31/25 10:06 100 MLS/HR Metronidazole 100 ml @ 100 mls/hr Q8HR IV 08/24/25 22:00 08/31/25 05:32 100 MLS/HR Ondansetron HCl 4 mg Q4HPRN PRN IV 08/24/25 20:30 Pantoprazole Sodium 40 mg DAILY IV 08/25/25 10:00 08/31/25 10:06 40 MG Enteral Nutritional Formula 1,000 ml 30ML/HR GT 08/26/25 12:15 08/30/25 15:24 1,000 ML Lactulose 30 ml DAILYPRN PRN PO 08/28/25 11:45 Docusate Sodium 100 mg BID GT 08/28/25 22:00 08/31/25 09:58 100 MG Apixaban 5 mg BID GT 08/30/25 22:00 08/31/25 09:58 5 MG Laboratory Results Laboratory Tests 08/28/25 06:41 Urinalysis Test 08/11/25 08:15 Urine Color Light-yellow (Yellow) Urine Clarity Clear (Clear) Urine pH 6.5 (5.0-9.0) Urine Specific [place] 1.015 (1.001-1.035) Urine Protein Negative (Negative) Urine Ketones Negative (Negative) Urine Blood Negative /uL (Negative) Urine Nitrite Negative (Negative) Urine Bilirubin Negative (Negative) Urine Urobilinogen Normal mg/dL (Negative) Urine Leukocyte Esterase Negative /uL (Negative) Urine RBC 1 /hpf (0 - 3) Urine Microscopic WBC < 1 /HPF (0-3) Urine Squamous Epithelial Cells Few /hpf (<5) Urine Bacteria None seen /hpf (None Seen) Urine Glucose 1+ mg/dL (Normal) H Microbiology Microbiology Date/Time Source Procedure Growth Status 08/24/25 18:37 Blood Blood Culture - Final NO GROWTH AFTER 5 DAYS OF INCUBATION. Complete 08/11/25 02:20 Sputum Gram Stain - Final Complete 08/11/25 02:20 Sputum Respiratory Culture - Final Complete Assessment/Plan Assessment/Plan Acute CVA with right hemiparesis Old CVA Mixed hyperlipidemia HTN DM2 Dysphagia Aphasia Paroxysmal Atrial fibrillation PLAN: NPO IV nutrition Swallow eval Lovenox Eliquis Monitor Discussed with family at the bedside 08/18/2025: Continue NPO Start TPN Swallow eval to be done today Continue Lovenox We will switch Lovenox to Eliquis once he is able to start p.o. intake Monitor closely 08/19/2025: Continue NPO The patient failed a swallow eval He needs a G-tube Consult GI for a PEG tube Continue IV nutrition per pharmacy protocol Hold Eliquis Lovenox 1 milligram/kilogram subcutaneously q.12 hours Discussed with the family at the bedside, the and son, they are in agreement 08/20/2025: Continue NPO The patient is scheduled for a PEG tube on Friday Hold anticoagulation 08/21/2025: Continue NPO Peg tube placement in the morning Continue to hold anticoagulation 08/22/2025: PEG tube today NPO until then Discharge planning Family is thinking about SNF versus physical therapy at home with home health 08/23/2025: Start tube feeding Discontinue IV nutrition Arrange SNF for rehab 08/24/25: Sepsis Bleeding at the PEG tube site Hematoma BERTA PLAN: Cancel discharge NPO IV fluids IV antibiotics Blood cultures PEG tube to low continuous suction Dr. Carlos Rosen was made aware Abdominal binding Ordered CTA abdomen to rule out active bleeding Monitor h/h 08/25/2025: The patient is still tachycardic Continue IV fluids Continue IV antibiotics NPO PEG tube to suction Surgical consult is on the case Keep holding anticoagulation for now Discussed with the family at the bedside 08/26/25: Start feeding today IV antibiotics IV fluids Surgery is following, conservative Tx 08/27/2025: Continue the tube feeding at 30 mL an hour Continue IV antibiotics Constipation: Give lactulose Discontinue IV fluids 08/28/2025: Acute CVA: Continue tube feeding Continue IV antibiotics Constipation: Lactulose p.r.n. Colace Atrial fibrillation: Continue to hold anticoagulation for now Weakness: Plan to send to SNF in 1-2 days Discussed with the daughter at the bedside 08/30/25: DC to SNF once a bed is available Eliquis bid Tolerating feeding formula 08/31/2025: Continue current management pending placement at SNF for rehab Plan discussed with: Patient My Orders Orders - RACHID KERR MD Procedure Category Date Status Time Apixaban (Eliquis) PHA 08/30/25 In Process 22:00 Date of Service: Aug 31, 2025 Billing Provider: RACHID KERR MD Common Visit Codes: [id number] INP/OBS CARE(MOD) RACHID KERR MD Aug 31, 2025 15:04
[2025-08-31] MEDS: LACTULOSE 20Gm/30ML SOLN PO PRN (22:46)
[2025-09-01 01:00] VITALS: BP 143/84; PULSE 83; RESP 17; TEMP 98; O2SAT 91
[2025-09-01 05:00] VITALS: BP 155/89; PULSE 82; RESP 17; TEMP 98.1; O2SAT 95
[2025-09-01 07:46] VITALS: PULSE 80
[2025-09-01 08:30] VITALS: PULSE 82; O2SAT 92
--- NOTE | 2025-09-01 10:02 | DVHPN2 ---
Subjective Awaiting at [facility] Doing well Reviewed: Care Plan, H&P, Labs, Medications, Previous Orders Changes from previous H/P or p: Changes General: Per HPI Objective Vitals Vital Signs Date Time Temp Pulse Resp B/P (MAP) Pulse Ox O2 Delivery O2 Flow Rate FiO2 09/01/25 05:00 98.1 82 17 155/89 (111) 95 98.1 08/31/25 20:00 Room Air* 0 21 Intake/Output Intake and Output 09/01/25 07:00 Intake Total 250 ml Output Total 1250 ml Balance -1000 ml Intake Oral 0 ml IV Total 250 ml Output Urine Total 1250 ml General Appearance: Alert, Oriented X3 HEENT: Atraumatic Cardiovascular: Regular rate, Normal S1, Normal S2 Abdomen: Normal bowel sounds Medications Current Medications Medications Dose Ordered Sig/Cash Route Start Time Stop Time Status Last Admin Dose Admin Ipratropium [employer] 0.5 mg Q6HPRN PRN NEB 08/10/25 20:45 Cancel Hydralazine HCl 10 mg Q6HP PRN IV 08/15/25 22:00 08/31/25 16:29 10 MG Fat Emulsion Intravenous 200 ml/Potassium Chloride 30 meq/ Potassium Acetate 30 meq/Calcium Gluconate 4.6 meq/ Magnesium Sulfate 10 meq/ Multivitamins 10 ml/Chromium/ Copper/Manganese/ Zinc 1 ml/Insulin Human Regular 5 units/Amino Acids/ Dextrose/Purified Water 1,553.4424 ml @ 65 mls/hr [id number] IV 08/22/25 22:00 08/23/25 21:59 Cancel Fat Emulsion Intravenous 100 ml/Sodium Phosphate 20 meq/ Potassium Chloride 30 meq/ Potassium Acetate 30 meq/Calcium Gluconate 4.6 meq/ Magnesium Sulfate 10 meq/ Multivitamins 10 ml/Chromium/ Copper/Manganese/ Zinc 1 ml/Insulin Human Regular 8 units/Amino Acids/ Dextrose/Purified Water 1,558.4724 ml @ 65 mls/hr [id number] IV 08/23/25 22:00 08/24/25 21:59 Cancel Morphine Sulfate 2 mg Q4HPRN PRN IV 08/24/25 17:45 08/26/25 05:40 2 MG Ceftriaxone Sodium 50 ml @ 100 mls/hr DAILY@09 IV 08/25/25 09:00 09/01/25 08:47 100 MLS/HR Metronidazole 100 ml @ 100 mls/hr Q8HR IV 08/24/25 22:00 09/01/25 05:26 100 MLS/HR Ondansetron HCl 4 mg Q4HPRN PRN IV 08/24/25 20:30 Pantoprazole Sodium 40 mg DAILY IV 08/25/25 10:00 09/01/25 08:47 40 MG Enteral Nutritional Formula 1,000 ml 30ML/HR GT 08/26/25 12:15 08/30/25 15:24 1,000 ML Lactulose 30 ml DAILYPRN PRN PO 08/28/25 11:45 08/31/25 22:46 30 ML Docusate Sodium 100 mg BID GT 08/28/25 22:00 09/01/25 08:47 100 MG Apixaban 5 mg BID GT 08/30/25 22:00 09/01/25 08:47 5 MG Laboratory Results Laboratory Tests 08/28/25 06:41 Urinalysis Test 08/11/25 08:15 Urine Color Light-yellow (Yellow) Urine Clarity Clear (Clear) Urine pH 6.5 (5.0-9.0) Urine Specific [place] 1.015 (1.001-1.035) Urine Protein Negative (Negative) Urine Ketones Negative (Negative) Urine Blood Negative /uL (Negative) Urine Nitrite Negative (Negative) Urine Bilirubin Negative (Negative) Urine Urobilinogen Normal mg/dL (Negative) Urine Leukocyte Esterase Negative /uL (Negative) Urine RBC 1 /hpf (0 - 3) Urine Microscopic WBC < 1 /HPF (0-3) Urine Squamous Epithelial Cells Few /hpf (<5) Urine Bacteria None seen /hpf (None Seen) Urine Glucose 1+ mg/dL (Normal) H Microbiology Microbiology Date/Time Source Procedure Growth Status 08/24/25 18:37 Blood Blood Culture - Final NO GROWTH AFTER 5 DAYS OF INCUBATION. Complete 08/11/25 02:20 Sputum Gram Stain - Final Complete 08/11/25 02:20 Sputum Respiratory Culture - Final Complete Assessment/Plan Assessment/Plan Acute CVA with right hemiparesis Old CVA Mixed hyperlipidemia HTN DM2 Dysphagia Aphasia Paroxysmal Atrial fibrillation PLAN: NPO IV nutrition Swallow eval Lovenox Eliquis Monitor Discussed with family at the bedside 08/18/2025: Continue NPO Start TPN Swallow eval to be done today Continue Lovenox We will switch Lovenox to Eliquis once he is able to start p.o. intake Monitor closely 08/19/2025: Continue NPO The patient failed a swallow eval He needs a G-tube Consult GI for a PEG tube Continue IV nutrition per pharmacy protocol Hold Eliquis Lovenox 1 milligram/kilogram subcutaneously q.12 hours Discussed with the family at the bedside, the and son, they are in agreement 08/20/2025: Continue NPO The patient is scheduled for a PEG tube on Friday Hold anticoagulation 08/21/2025: Continue NPO Peg tube placement in the morning Continue to hold anticoagulation 08/22/2025: PEG tube today NPO until then Discharge planning Family is thinking about SNF versus physical therapy at home with home health 08/23/2025: Start tube feeding Discontinue IV nutrition Arrange SNF for rehab 08/24/25: Sepsis Bleeding at the PEG tube site Hematoma BERTA PLAN: Cancel discharge NPO IV fluids IV antibiotics Blood cultures PEG tube to low continuous suction Dr. Carlos Rosen was made aware Abdominal binding Ordered CTA abdomen to rule out active bleeding Monitor h/h 08/25/2025: The patient is still tachycardic Continue IV fluids Continue IV antibiotics NPO PEG tube to suction Surgical consult is on the case Keep holding anticoagulation for now Discussed with the family at the bedside 08/26/25: Start feeding today IV antibiotics IV fluids Surgery is following, conservative Tx 08/27/2025: Continue the tube feeding at 30 mL an hour Continue IV antibiotics Constipation: Give lactulose Discontinue IV fluids 08/28/2025: Acute CVA: Continue tube feeding Continue IV antibiotics Constipation: Lactulose p.r.n. Colace Atrial fibrillation: Continue to hold anticoagulation for now Weakness: Plan to send to SNF in 1-2 days Discussed with the daughter at the bedside 08/30/25: DC to SNF once a bed is available Eliquis bid Tolerating feeding formula 08/31/2025: Continue current management pending placement at SNF for rehab 09/01/25: Continue the same DC to SNF once a bed is available Plan discussed with: Patient, Daughter Date of Service: Sep 01, 2025 Billing Provider: RACHID KERR MD Common Visit Codes: [id number] INP/OBS CARE(MOD) RACHID KERR MD Sep 01, 2025 10:02
--- NOTE | 2025-09-01 10:35 | DVHPN2 ---
Progress Note - Dictate Date Seen: Sep 01, 2025 Medical Necessity Reason Pt with a Central, PICC or Fol: No Subjective Mr. Nunez is a right-handed gentleman with a history of diabetes, previous stroke, A-fib, he came to the hospital on 08/11/24 with a chief complaint of left-sided weakness. I saw him on 11/02/2022 for possible stroke (MRI positive) I have seen examined the patient, talked to his nurse, flip. He is doing fine, but no of the improvement in the right hemiplegia and aphasia UDS, 08/28/2025: Negative CBC, 08/11/2025: Unremarkable BMP 08/11/2025: Unremarkable Liver function tests, 08/11/2025: Unremarkable TG/CHO L/LDL/HDL, 11/02/2022: 87/206/140/68 EKG, 10/31/22: Atrial fibrillation Echocardiogram, 11/01/2022: Atrial fibrillation. 55 to 60% with normal RV function. Echocardiogram, 08/12/2025: EF: 60% Carotid Doppler, 08/10/2025: Mild atherosclerotic vascular disease with no hemodynamically significant stenosis. Any narrowing is less than 50%. CT abdomen, pelvis, 08/24/2025: Limited evaluation without contrast. Hemorrhage just anterior to the stomach near the PEG tube tract measuring 4.2 x 2.8 x 5.0 cm. Recommend stat surgical consultation for evaluation. Active bleeding can not be ruled out. CT angiogram of the abdomen / pelvis can be obtained to evaluate for potential active bleeding. Cholelithiasis. Atherosclerotic disease. CT abdomen, pelvis, 08/28/2025: Limited noncontrast study. Unchanged hematoma adjacent to the gastrostomy tube. Trace bilateral pleural effusions. Cholelithiasis. MRI head, 11/13/2022: There is small focal subacute right posterior frontal white matter restricted diffusion which may represent active demyelinating plaque or subacute infarct. There is small focus of the left brachium pontine restricted diffusion typical location for active demyelinating plaque of multiple sclerosis versus subacute infarct. There is chronic right basal ganglia, grey radiata/centrum semiovale infarct. There are chronic left greater than right thalamic lacunar infarcts. There is no hemorrhage MRI head, 08/11/2025: 1. Acute or subacute infarct in the left caudate nucleus adjacent to the posterior body of the left lateral ventricle measuring up to 1.7 cm. 2. Additional nonacute findings as described above MRI head, 08/15/2025: Acute infarcts of the left periventricular white matter and left lateral basal ganglia. (company MRI obtained on 08/28/2025, the acute stroke MRI of 08/11/25 is bigger, he has a new stroke in the left [place]) vital signs Vital Sign Date Time Temp Pulse Resp B/P (MAP) Pulse Ox O2 Delivery O2 Flow Rate FiO2 09/01/25 05:00 98.1 82 17 155/89 (111) 95 98.1 08/31/25 20:00 Room Air* 0 21 Total Intake and Output 08/31/25 08/31/25 09/01/25 15:00 23:00 07:00 Intake Total 150 ml 0 ml 100 ml Output Total 850 ml 400 ml Balance 150 ml -850 ml -300 ml medications Current Medications Medications Dose Ordered Sig/Cash Route Start Time Stop Time Status Last Admin Dose Admin Ipratropium [place] 0.5 mg Q6HPRN PRN NEB 08/10/25 20:45 Cancel Hydralazine HCl 10 mg Q6HP PRN IV 08/15/25 22:00 08/31/25 16:29 10 MG Fat Emulsion Intravenous 200 ml/Potassium Chloride 30 meq/ Potassium Acetate 30 meq/Calcium Gluconate 4.6 meq/ Magnesium Sulfate 10 meq/ Multivitamins 10 ml/Chromium/ Copper/Manganese/ Zinc 1 ml/Insulin Human Regular 5 units/Amino Acids/ Dextrose/Purified Water 1,553.4424 ml @ 65 mls/hr [id number] IV 08/22/25 22:00 08/23/25 21:59 Cancel Fat Emulsion Intravenous 100 ml/Sodium Phosphate 20 meq/ Potassium Chloride 30 meq/ Potassium Acetate 30 meq/Calcium Gluconate 4.6 meq/ Magnesium Sulfate 10 meq/ Multivitamins 10 ml/Chromium/ Copper/Manganese/ Zinc 1 ml/Insulin Human Regular 8 units/Amino Acids/ Dextrose/Purified Water 1,558.4724 ml @ 65 mls/hr [id number] IV 08/23/25 22:00 08/24/25 21:59 Cancel Morphine Sulfate 2 mg Q4HPRN PRN IV 08/24/25 17:45 08/26/25 05:40 2 MG Ceftriaxone Sodium 50 ml @ 100 mls/hr DAILY@09 IV 08/25/25 09:00 09/01/25 08:47 100 MLS/HR Metronidazole 100 ml @ 100 mls/hr Q8HR IV 08/24/25 22:00 09/01/25 05:26 100 MLS/HR Ondansetron HCl 4 mg Q4HPRN PRN IV 08/24/25 20:30 Pantoprazole Sodium 40 mg DAILY IV 08/25/25 10:00 09/01/25 08:47 40 MG Enteral Nutritional Formula 1,000 ml 30ML/HR GT 08/26/25 12:15 08/30/25 15:24 1,000 ML Lactulose 30 ml DAILYPRN PRN PO 08/28/25 11:45 08/31/25 22:46 30 ML Docusate Sodium 100 mg BID GT 08/28/25 22:00 09/01/25 08:47 100 MG Apixaban 5 mg BID GT 08/30/25 22:00 09/01/25 08:47 5 MG objective General: the patient is well developed and nourished. No acute distress. MENTAL STATUS: Subjective SPEECH, LANGUAGE, HIGHER CORTICAL FUNCTION: Subjective CRANIAL NERVES: Pupils are equal, round and reactive. EOMs full and conjugate. No spontaneous or evoked nystagmus. He has double vision when he looks to the right side. Sensorimotor examined in bilateral trigeminal distribution is fine. Right facial weakness of upper motor neuron pattern SENSATION: Sensation to touch and pinprick is normal. MOTOR: Increased muscle tone in the right upper and lower extremity. Normal muscle bulk. No fasciculations. No abnormal movements or posturing. Muscle strength of the major groups in the left upper and lower extremity is 4/5, right arm: 1-2/5, right le/5 REFLEXES: Deep tendon reflexes are increased in the right extremities, 4/4 @ right ankle. Upgoing toes in the the foot CEREBELLAR/COORDINATION: Finger to nose is unremarkable in the left upper extremity GAIT/STATION: Unsteady laboratory and microbiology Laboratory Tests 08/28/25 06:41 Test 08/28/25 06:41 Range/Units Serum Glucose 220 H 74-106 mg/dL Problem List Acute intra-abdominal hematoma likely secondary to anticoagulation treatment, Acute stroke Expressive aphasia secondary to acute stroke Acute right hemiplegia secondary to acute stroke Chronic strokes in 2016, 11/01/2022 with good recovery Atrial fibrillation Poor compliance Assessment/Plan Monitoring Supportive treatment Telemetry Eliquis 5 mg b.i.d. Lipitor 40 mg daily Up to chair Surgery on case This medical document was created using an electronic medical record system with [employer] dictation system. Although this document has been carefully reviewed, there may still be some phonetic and typographical errors. These areas are purely typographical due to imperfections of the software programs, and do not reflect any compromise in the patient's medical care Prognosis poor Dietary Evaluation Review Comments: 1. If medically feasible and passing PRACTICAL NURSE CLINICAL COORDINATOR eval follow a CCHO-60 cardiac diet and avoid soda beverages 2. If not able to eat d/t stroke, offer TPN per pharmacy to meet his needs 3. If EN/GI accessible, Tube feeding Glucerna@50ml/hr providing 70g protein 1440kcal 966ml free water meeting his needs @ 100% Protein,100% energy Expected Outcomes/Goals: Controlled DM, improved physical strength Plan discussed with: Patient, Other DARREL HEMPHILL MD Sep 01, 2025 10:35
[2025-09-01 20:00] VITALS: PULSE 82; PULSE 87; RESP 18; O2SAT 95
[2025-09-01] MEDS ORDERED: DEXTROSE (50%) 50ML SYRG IV PRN (20:30)
[2025-09-01 21:00] VITALS: BP 157/86; PULSE 82; RESP 17; TEMP 98.3; O2SAT 95
[2025-09-02] VITALS (8 sets, daily range): BP systolic 121–160; BP diastolic 80–96; PULSE 72–82; RESP 16–18; TEMP 97.5–98.7; O2SAT 95–97
[2025-09-02] MEDS: ACCU-CHEK COMFORT CURVE STRIP VI SCH
[2025-09-02] MEDS: InsuLIN REG 1unit/0.01ml Soln (100units/ml) SC SCH (00:37)
[2025-09-02 10:23] LABS: Hematocrit 35.6 % (41.0-53.0); Hemoglobin 11.8 g/dL (13.5-17.5); Mean Corpuscular Hemoglobin 29.3 pg (28.0-32.0); Mean Corpuscular Volume 87.9 fL (80.0-100.0); Nucleated Red Blood Cells % 0.0 %
[2025-09-02 10:38] LABS: Alanine Aminotransferase 27 U/L (7-40); Alkaline Phosphatase 57 U/L (46-116); Anion Gap 10 (5-15); BUN/Creatinine Ratio 16.0 (10.0-20.0); Blood Urea Nitrogen 16 mg/dL (9-23); Carbon Dioxide 27 mmol/L (20-31); Magnesium 2.0 mg/dL (1.6-2.6); Sodium 144 mmol/L (136-145); Total Protein 6.1 g/dL (5.7-8.2)
[2025-09-02 10:40] LABS: Bilirubin, Total 0.4 mg/dL (0.2-1.0)
[2025-09-02 10:44] LABS: Albumin 2.9 g/dL (3.2-4.8); Calcium 7.9 mg/dL (8.7-10.4); Chloride 107 mmol/L (98-107); Glucose 142 mg/dL (74-106); Potassium 3.2 mmol/L (3.5-5.1)
--- NOTE | 2025-09-02 13:31 | DVHPN2 ---
Subjective Complains of constipation Reviewed: Care Plan, H&P, Labs, Medications, Previous Orders Changes from previous H/P or p: Changes General: Per HPI Objective Vitals Vital Signs Date Time Temp Pulse Resp B/P (MAP) Pulse Ox O2 Delivery O2 Flow Rate FiO2 09/02/25 12:47 98.1 79 18 153/94 (113) 96 98.1 09/02/25 08:00 Room Air* 0 21 Intake/Output Intake and Output 09/02/25 07:00 Intake Total 740 ml Output Total 300 ml Balance 440 ml Intake Oral 0 ml IV Total 350 ml Tube Feeding 390 ml Output Urine Total 300 ml General Appearance: Alert, Oriented X3 HEENT: Atraumatic Cardiovascular: Regular rate, Normal S1, Normal S2 Abdomen: Normal bowel sounds Medications Current Medications Medications Dose Ordered Sig/Cash Route Start Time Stop Time Status Last Admin Dose Admin Ipratropium [place] 0.5 mg Q6HPRN PRN NEB 08/10/25 20:45 Cancel Hydralazine HCl 10 mg Q6HP PRN IV 08/15/25 22:00 08/31/25 16:29 10 MG Fat Emulsion Intravenous 200 ml/Potassium Chloride 30 meq/ Potassium Acetate 30 meq/Calcium Gluconate 4.6 meq/ Magnesium Sulfate 10 meq/ Multivitamins 10 ml/Chromium/ Copper/Manganese/ Zinc 1 ml/Insulin Human Regular 5 units/Amino Acids/ Dextrose/Purified Water 1,553.4424 ml @ 65 mls/hr [id number] IV 08/22/25 22:00 08/23/25 21:59 Cancel Fat Emulsion Intravenous 100 ml/Sodium Phosphate 20 meq/ Potassium Chloride 30 meq/ Potassium Acetate 30 meq/Calcium Gluconate 4.6 meq/ Magnesium Sulfate 10 meq/ Multivitamins 10 ml/Chromium/ Copper/Manganese/ Zinc 1 ml/Insulin Human Regular 8 units/Amino Acids/ Dextrose/Purified Water 1,558.4724 ml @ 65 mls/hr [id number] IV 08/23/25 22:00 08/24/25 21:59 Cancel Morphine Sulfate 2 mg Q4HPRN PRN IV 08/24/25 17:45 08/26/25 05:40 2 MG Ceftriaxone Sodium 50 ml @ 100 mls/hr DAILY@09 IV 08/25/25 09:00 09/02/25 09:07 100 MLS/HR Metronidazole 100 ml @ 100 mls/hr Q8HR IV 08/24/25 22:00 09/02/25 05:25 100 MLS/HR Ondansetron HCl 4 mg Q4HPRN PRN IV 08/24/25 20:30 Pantoprazole Sodium 40 mg DAILY IV 08/25/25 10:00 09/02/25 09:06 40 MG Enteral Nutritional Formula 1,000 ml 30ML/HR GT 08/26/25 12:15 08/30/25 15:24 1,000 ML Lactulose 30 ml DAILYPRN PRN PO 08/28/25 11:45 09/01/25 21:57 30 ML Docusate Sodium 100 mg BID GT 08/28/25 22:00 09/02/25 09:07 100 MG Apixaban 5 mg BID GT 08/30/25 22:00 09/02/25 09:07 5 MG Diagnostic Test (Pha) 1 strip Q6HR 09/02/25 00:00 09/02/25 12:00 1 STRIP Insulin Human Regular Q6HR SC 09/02/25 00:00 09/02/25 11:41 3 UNITS Dextrose 50 ml UD PRN IV 09/01/25 20:30 Lactulose 30 ml DAILY PO 09/03/25 10:00 Laboratory Results Laboratory Tests 09/02/25 09:55 Chemistry Test 09/02/25 09:55 Albumin 2.9 g/dL (3.2-4.8) L Calcium Level 7.9 mg/dL (8.7-10.4) L Magnesium Level 2.0 mg/dL (1.6-2.6) Total Protein 6.1 g/dL (5.7-8.2) LFT Test 09/02/25 09:55 Alanine Aminotransferase (ALT) 27 U/L (7-40) Alkaline Phosphatase 57 U/L (46-116) Aspartate Amino Transferase (AST) 30 U/L (13-40) Total Bilirubin 0.4 mg/dL (0.2-1.0) Urinalysis Test 08/11/25 08:15 Urine Color Light-yellow (Yellow) Urine Clarity Clear (Clear) Urine pH 6.5 (5.0-9.0) Urine Specific [place] 1.015 (1.001-1.035) Urine Protein Negative (Negative) Urine Ketones Negative (Negative) Urine Blood Negative /uL (Negative) Urine Nitrite Negative (Negative) Urine Bilirubin Negative (Negative) Urine Urobilinogen Normal mg/dL (Negative) Urine Leukocyte Esterase Negative /uL (Negative) Urine RBC 1 /hpf (0 - 3) Urine Microscopic WBC < 1 /HPF (0-3) Urine Squamous Epithelial Cells Few /hpf (<5) Urine Bacteria None seen /hpf (None Seen) Urine Glucose 1+ mg/dL (Normal) H Microbiology Microbiology Date/Time Source Procedure Growth Status 08/24/25 18:37 Blood Blood Culture - Final NO GROWTH AFTER 5 DAYS OF INCUBATION. Complete 08/11/25 02:20 Sputum Gram Stain - Final Complete 08/11/25 02:20 Sputum Respiratory Culture - Final Complete Assessment/Plan Assessment/Plan Acute CVA with right hemiparesis Old CVA Mixed hyperlipidemia HTN DM2 Dysphagia Aphasia Paroxysmal Atrial fibrillation PLAN: NPO IV nutrition Swallow eval Lovenox Eliquis Monitor Discussed with family at the bedside 08/18/2025: Continue NPO Start TPN Swallow eval to be done today Continue Lovenox We will switch Lovenox to Eliquis once he is able to start p.o. intake Monitor closely 08/19/2025: Continue NPO The patient failed a swallow eval He needs a G-tube Consult GI for a PEG tube Continue IV nutrition per pharmacy protocol Hold Eliquis Lovenox 1 milligram/kilogram subcutaneously q.12 hours Discussed with the family at the bedside, the and son, they are in agreement 08/20/2025: Continue NPO The patient is scheduled for a PEG tube on Friday Hold anticoagulation 08/21/2025: Continue NPO Peg tube placement in the morning Continue to hold anticoagulation 08/22/2025: PEG tube today NPO until then Discharge planning Family is thinking about SNF versus physical therapy at home with home health 08/23/2025: Start tube feeding Discontinue IV nutrition Arrange SNF for rehab 08/24/25: Sepsis Bleeding at the PEG tube site Hematoma BERTA PLAN: Cancel discharge NPO IV fluids IV antibiotics Blood cultures PEG tube to low continuous suction Dr. Carlos Rosen was made aware Abdominal binding Ordered CTA abdomen to rule out active bleeding Monitor h/h 08/25/2025: The patient is still tachycardic Continue IV fluids Continue IV antibiotics NPO PEG tube to suction Surgical consult is on the case Keep holding anticoagulation for now Discussed with the family at the bedside 08/26/25: Start feeding today IV antibiotics IV fluids Surgery is following, conservative Tx 08/27/2025: Continue the tube feeding at 30 mL an hour Continue IV antibiotics Constipation: Give lactulose Discontinue IV fluids 08/28/2025: Acute CVA: Continue tube feeding Continue IV antibiotics Constipation: Lactulose p.r.n. Colace Atrial fibrillation: Continue to hold anticoagulation for now Weakness: Plan to send to SNF in 1-2 days Discussed with the daughter at the bedside 08/30/25: DC to SNF once a bed is available Eliquis bid Tolerating feeding formula 08/31/2025: Continue current management pending placement at SNF for rehab 09/01/25: Continue the same DC to SNF once a bed is available 09/02/2025: Constipation: Give lactulose , continue Colace Hold the feeding until the patient gets a bowel movement then increase the rate to 40 mL an hour Add free water Hypokalemia: Replace potassium per G-tube Discontinue IV antibiotics Discharge to SNF once a bed is available Paroxysmal Atrial fibrillation: Continue Eliquis Plan discussed with: Patient My Orders Orders - RACHID KERR MD Procedure Category Date Status Time Glucose Blood PHA 09/02/25 In Process (Accu-Chek Comfort 00:00 Insulin R (Human) PHA 09/02/25 In Process (Insulin R) 00:00 Dextrose 50% Syringe PHA 09/01/25 In Process 20:30 Lactulose Oral PHA 09/03/25 In Process 10:00 Date of Service: Sep 02, 2025 Billing Provider: RACHID KERR MD Common Visit Codes: [id number] INP/OBS CARE(HIGH) RACHID KERR MD Sep 02, 2025 13:31
[2025-09-02] MEDS: POTASSIUM EFFERVESENT TAB 25 MEQ GT ONE (14:39)
[2025-09-02] MEDS: LACTULOSE 20Gm/30ML SOLN PO ONE (14:40)
[2025-09-02] MEDS: FREE WATER GT SCH (18:00)
[2025-09-02] MEDS: Glucerna 1.2 Cal 1Liter BOTTLE GT SCH (20:32)
[2025-09-03] VITALS (7 sets, daily range): BP systolic 137–166; BP diastolic 80–101; PULSE 67–93; RESP 15–20; TEMP 97.8–99.3; O2SAT 95–96
[2025-09-03] MEDS: LACTULOSE 20Gm/30ML SOLN PO SCH (10:13)
--- NOTE | 2025-09-03 18:03 | DVHPN2 ---
Subjective Overnight events noted. Patient is currently waiting for transferred to long-term facility at [facility] but they wanted to tube feeding changed from 24 hours to 16 hours a day orders has been placed. Patient's family member were updated at bedside in the presence of nurse Torres. Reviewed: Care Plan, H&P, Labs, Medications, Previous Orders Changes from previous H/P or p: No Changes General: Per HPI Objective Vitals Vital Signs Date Time Temp Pulse Resp B/P (MAP) Pulse Ox O2 Delivery O2 Flow Rate FiO2 09/03/25 17:00 99.0 93 17 141/83 (102) 96 99.0 09/03/25 08:00 Room Air* 0 21 Intake/Output Intake and Output 09/03/25 07:00 Intake Total 50 ml Output Total 800 ml Balance -750 ml Intake Oral 0 ml IV Total 50 ml Output Urine Total 800 ml # Bowel Movements 1 General Appearance: Alert, Oriented X3 HEENT: Atraumatic Cardiovascular: Regular rate, Normal S1, Normal S2 Abdomen: Normal bowel sounds Medications Current Medications Medications Dose Ordered Sig/Cash Route Start Time Stop Time Status Last Admin Dose Admin Ipratropium [place] 0.5 mg Q6HPRN PRN NEB 08/10/25 20:45 Cancel Hydralazine HCl 10 mg Q6HP PRN IV 08/15/25 22:00 09/03/25 12:49 10 MG Fat Emulsion Intravenous 200 ml/Potassium Chloride 30 meq/ Potassium Acetate 30 meq/Calcium Gluconate 4.6 meq/ Magnesium Sulfate 10 meq/ Multivitamins 10 ml/Chromium/ Copper/Manganese/ Zinc 1 ml/Insulin Human Regular 5 units/Amino Acids/ Dextrose/Purified Water 1,553.4424 ml @ 65 mls/hr [id number] IV 08/22/25 22:00 08/23/25 21:59 Cancel Fat Emulsion Intravenous 100 ml/Sodium Phosphate 20 meq/ Potassium Chloride 30 meq/ Potassium Acetate 30 meq/Calcium Gluconate 4.6 meq/ Magnesium Sulfate 10 meq/ Multivitamins 10 ml/Chromium/ Copper/Manganese/ Zinc 1 ml/Insulin Human Regular 8 units/Amino Acids/ Dextrose/Purified Water 1,558.4724 ml @ 65 mls/hr [id number] IV 08/23/25 22:00 08/24/25 21:59 Cancel Ondansetron HCl 4 mg Q4HPRN PRN IV 08/24/25 20:30 Pantoprazole Sodium 40 mg DAILY IV 08/25/25 10:00 09/03/25 10:12 40 MG Lactulose 30 ml DAILYPRN PRN PO 08/28/25 11:45 09/01/25 21:57 30 ML Docusate Sodium 100 mg BID GT 08/28/25 22:00 09/03/25 10:12 100 MG Apixaban 5 mg BID GT 08/30/25 22:00 09/03/25 10:12 5 MG Diagnostic Test (Pha) 1 strip Q6HR 09/02/25 00:00 09/03/25 11:24 1 STRIP Insulin Human Regular Q6HR SC 09/02/25 00:00 09/03/25 11:49 3 UNITS Dextrose 50 ml UD PRN IV 09/01/25 20:30 Lactulose 30 ml DAILY PO 09/03/25 10:00 09/03/25 10:13 30 ML Purified Water 100 ml Q6HR GT 09/02/25 18:00 09/03/25 10:13 100 ML Enteral Nutritional Formula 1,000 ml EOD@1600 GT 09/05/25 16:00 Laboratory Results Laboratory Tests 09/02/25 09:55 Urinalysis Test 08/11/25 08:15 Urine Color Light-yellow (Yellow) Urine Clarity Clear (Clear) Urine pH 6.5 (5.0-9.0) Urine Specific [place] 1.015 (1.001-1.035) Urine Protein Negative (Negative) Urine Ketones Negative (Negative) Urine Blood Negative /uL (Negative) Urine Nitrite Negative (Negative) Urine Bilirubin Negative (Negative) Urine Urobilinogen Normal mg/dL (Negative) Urine Leukocyte Esterase Negative /uL (Negative) Urine RBC 1 /hpf (0 - 3) Urine Microscopic WBC < 1 /HPF (0-3) Urine Squamous Epithelial Cells Few /hpf (<5) Urine Bacteria None seen /hpf (None Seen) Urine Glucose 1+ mg/dL (Normal) H Microbiology Microbiology Date/Time Source Procedure Growth Status 08/24/25 18:37 Blood Blood Culture - Final NO GROWTH AFTER 5 DAYS OF INCUBATION. Complete 08/11/25 02:20 Sputum Gram Stain - Final Complete 08/11/25 02:20 Sputum Respiratory Culture - Final Complete Assessment/Plan Assessment/Plan 59-year-old male with a previous history of CVA x2, presented to the hospital with a fall on the shoulder along with a right-sided weakness found to have 1. Acute CVA with the right-sided hemiparesis with a previous history of CVA with the left-sided weakness , status post MRI evidence of acute or subacute infarct in the left caudate nucleus on08/11, MRA evidence of acute infarct o of left periventricular white matter and left lateral basal ganglia on08/15 2. Dysphagia/aphasia, status post PEG tube [id number] , currently on tube feeding which has been changed from 24 hours to 16 hours a day. 3. Anterior abdominal wall hematoma with a CT evidence of hemorrhage just anterior to the stomach near the PEG tube, currently improving on the repeat CT abdomen and pelvis 4. Paroxysmal AFib currently on Eliquis 5. Hypertension 6. Diabetes mellitus type 2 7. Dyslipidemia -continue tube feeding 16 hours a day, continue Eliquis, watch for any active evidence of bleeding, discharge plan to long-term facility once bed is available at [facility]. -family were updated at bedside in the presence of bedside RN Melissa., Plan discussed with: Patient, Other My Orders Orders - DYLAN ZAMAN MD Procedure Category Date Status Time Nutritional PHA 09/05/25 In Process Supplements (Glucerna 16:00 Date of Service: Sep 03, 2025 Billing Provider: DYLAN ZAMAN MD Common Visit Codes: [id number] INP/OBS CARE(HIGH) DYLAN ZAMAN MD Sep 03, 2025 18:03
--- NOTE | 2025-09-03 22:25 | DVHPN2 ---
Progress Note - Dictate Date Seen: Sep 03, 2025 Medical Necessity Reason Pt with a Central, PICC or Fol: No Subjective No new complaints, patient resting comfortably Hematoma around PEG tube appears to be resolving Hemoglobin improved to 11.8 Patient is tolerating Glucerna at 30 mL/hour Patient did not want it advance to 40 mL/hour Patient had a bowel movement last night currently receiving lactulose and colace vital signs Vital Sign Date Time Temp Pulse Resp B/P (MAP) Pulse Ox O2 Delivery O2 Flow Rate FiO2 09/03/25 20:00 86 Room Air* 0 21 09/03/25 17:00 99.0 17 141/83 (102) 96 99.0 Total Intake and Output 09/02/25 09/02/25 09/03/25 15:00 23:00 07:00 Intake Total 50 ml 0 ml 0 ml Output Total 400 ml 400 ml Balance 50 ml -400 ml -400 ml medications Current Medications Medications Dose Ordered Sig/Cash Route Start Time Stop Time Status Last Admin Dose Admin Ipratropium [place] 0.5 mg Q6HPRN PRN NEB 08/10/25 20:45 Cancel Hydralazine HCl 10 mg Q6HP PRN IV 08/15/25 22:00 09/03/25 12:49 10 MG Fat Emulsion Intravenous 200 ml/Potassium Chloride 30 meq/ Potassium Acetate 30 meq/Calcium Gluconate 4.6 meq/ Magnesium Sulfate 10 meq/ Multivitamins 10 ml/Chromium/ Copper/Manganese/ Zinc 1 ml/Insulin Human Regular 5 units/Amino Acids/ Dextrose/Purified Water 1,553.4424 ml @ 65 mls/hr [id number] IV 08/22/25 22:00 08/23/25 21:59 Cancel Fat Emulsion Intravenous 100 ml/Sodium Phosphate 20 meq/ Potassium Chloride 30 meq/ Potassium Acetate 30 meq/Calcium Gluconate 4.6 meq/ Magnesium Sulfate 10 meq/ Multivitamins 10 ml/Chromium/ Copper/Manganese/ Zinc 1 ml/Insulin Human Regular 8 units/Amino Acids/ Dextrose/Purified Water 1,558.4724 ml @ 65 mls/hr [id number] IV 08/23/25 22:00 08/24/25 21:59 Cancel Ondansetron HCl 4 mg Q4HPRN PRN IV 08/24/25 20:30 Pantoprazole Sodium 40 mg DAILY IV 08/25/25 10:00 09/03/25 10:12 40 MG Lactulose 30 ml DAILYPRN PRN PO 08/28/25 11:45 09/01/25 21:57 30 ML Docusate Sodium 100 mg BID GT 08/28/25 22:00 09/03/25 10:12 100 MG Apixaban 5 mg BID GT 08/30/25 22:00 09/03/25 10:12 5 MG Diagnostic Test (Pha) 1 strip Q6HR 09/02/25 00:00 09/03/25 18:40 1 STRIP Insulin Human Regular Q6HR SC 09/02/25 00:00 09/03/25 18:44 3 UNITS Dextrose 50 ml UD PRN IV 09/01/25 20:30 Lactulose 30 ml DAILY PO 09/03/25 10:00 09/03/25 10:13 30 ML Purified Water 100 ml Q6HR GT 09/02/25 18:00 09/03/25 10:13 100 ML Enteral Nutritional Formula 1,000 ml EOD@1600 GT 09/05/25 16:00 objective General Appearance: Alert, Oriented X3 HEENT: Atraumatic Cardiovascular: Regular rate, Normal S1, Normal S2 Abdomen: Normal bowel sounds laboratory and microbiology Laboratory Tests 09/02/25 09:55 Test 09/02/25 09:55 Range/Units Serum Glucose 142 H 74-106 mg/dL Problems(with codes): (1) Abdominal wall hematoma (2) BERTA (acute kidney injury) (3) Oropharyngeal dysphagia (4) History of CVA (cerebrovascular accident) (5) Left-sided weakness (6) Gastrostomy status Prognosis Plan Advance tube feedings to 45 mL/hour Local G-tube care discussed with the nurse Repeat labs including CBC BMP in a.m. Discharge planning to SNF in [place] Dietary Evaluation Review Comments: 1. 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 If not able to eat d/t stroke, offer TPN per pharmacy to meet his needs 3. If EN/GI accessible, Tube feeding Glucerna@50ml/hr providing 70g protein 1440kcal 966ml free water meeting his needs @ 100% Protein,100% energy Expected Outcomes/Goals: Controlled DM, improved physical strength Plan discussed with: Patient, Daughter, Other (Nurse) MONICA SCHMIDT MD Sep 03, 2025 22:25
--- NOTE | 2025-09-03 23:53 | DVHPN2 ---
Progress Note - Dictate Date Seen: Sep 03, 2025 Medical Necessity Reason Pt with a Central, PICC or Fol: No Subjective Mr. Nunez is a right-handed gentleman with a history of diabetes, previous stroke, A-fib, he came to the hospital on 08/11/24 with a chief complaint of left-sided weakness. I saw him on 11/02/2022 for possible stroke (MRI positive) I have seen examined the patient, talked to his nurse. He is doing fine, but no improvement in the right hemiplegia and aphasia UDS, 08/28/2025: Negative CBC, 08/11/2025: Unremarkable BMP 08/11/2025: Unremarkable Liver function tests, 08/11/2025: Unremarkable TG/CHO L/LDL/HDL, 11/02/2022: 87/206/140/68 EKG, 10/31/22: Atrial fibrillation Echocardiogram, 11/01/2022: Atrial fibrillation. 55 to 60% with normal RV function. Echocardiogram, 08/12/2025: EF: 60% Carotid Doppler, 08/10/2025: Mild atherosclerotic vascular disease with no hemodynamically significant stenosis. Any narrowing is less than 50%. CT abdomen, pelvis, 08/24/2025: Limited evaluation without contrast. Hemorrhage just anterior to the stomach near the PEG tube tract measuring 4.2 x 2.8 x 5.0 cm. Recommend stat surgical consultation for evaluation. Active bleeding can not be ruled out. CT angiogram of the abdomen / pelvis can be obtained to evaluate for potential active bleeding. Cholelithiasis. Atherosclerotic disease. CT abdomen, pelvis, 08/28/2025: Limited noncontrast study. Unchanged hematoma adjacent to the gastrostomy tube. Trace bilateral pleural effusions. Cholelithiasis. MRI head, 11/13/2022: There is small focal subacute right posterior frontal white matter restricted diffusion which may represent active demyelinating plaque or subacute infarct. There is small focus of the left brachium pontine restricted diffusion typical location for active demyelinating plaque of multiple sclerosis versus subacute infarct. There is chronic right basal ganglia, grey radiata/centrum semiovale infarct. There are chronic left greater than right thalamic lacunar infarcts. There is no hemorrhage MRI head, 08/11/2025: 1. Acute or subacute infarct in the left caudate nucleus adjacent to the posterior body of the left lateral ventricle measuring up to 1.7 cm. 2. Additional nonacute findings as described above MRI head, 08/15/2025: Acute infarcts of the left periventricular white matter and left lateral basal ganglia. (company MRI obtained on 08/28/2025, the acute stroke MRI of 08/11/25 is bigger, he has a new stroke in the left [place]) vital signs Vital Sign Date Time Temp Pulse Resp B/P (MAP) Pulse Ox O2 Delivery O2 Flow Rate FiO2 09/03/25 20:00 86 Room Air* 0 21 09/03/25 17:00 99.0 17 141/83 (102) 96 99.0 Total Intake and Output 09/02/25 09/02/25 09/03/25 15:00 23:00 07:00 Intake Total 50 ml 0 ml 0 ml Output Total 400 ml 400 ml Balance 50 ml -400 ml -400 ml medications Current Medications Medications Dose Ordered Sig/Cash Route Start Time Stop Time Status Last Admin Dose Admin Ipratropium [place] 0.5 mg Q6HPRN PRN NEB 08/10/25 20:45 Cancel Hydralazine HCl 10 mg Q6HP PRN IV 08/15/25 22:00 09/03/25 12:49 10 MG Fat Emulsion Intravenous 200 ml/Potassium Chloride 30 meq/ Potassium Acetate 30 meq/Calcium Gluconate 4.6 meq/ Magnesium Sulfate 10 meq/ Multivitamins 10 ml/Chromium/ Copper/Manganese/ Zinc 1 ml/Insulin Human Regular 5 units/Amino Acids/ Dextrose/Purified Water 1,553.4424 ml @ 65 mls/hr [id number] IV 08/22/25 22:00 08/23/25 21:59 Cancel Fat Emulsion Intravenous 100 ml/Sodium Phosphate 20 meq/ Potassium Chloride 30 meq/ Potassium Acetate 30 meq/Calcium Gluconate 4.6 meq/ Magnesium Sulfate 10 meq/ Multivitamins 10 ml/Chromium/ Copper/Manganese/ Zinc 1 ml/Insulin Human Regular 8 units/Amino Acids/ Dextrose/Purified Water 1,558.4724 ml @ 65 mls/hr [id number] IV 08/23/25 22:00 08/24/25 21:59 Cancel Ondansetron HCl 4 mg Q4HPRN PRN IV 08/24/25 20:30 Pantoprazole Sodium 40 mg DAILY IV 08/25/25 10:00 09/03/25 10:12 40 MG Lactulose 30 ml DAILYPRN PRN PO 08/28/25 11:45 09/01/25 21:57 30 ML Docusate Sodium 100 mg BID GT 08/28/25 22:00 09/03/25 22:15 100 MG Apixaban 5 mg BID GT 08/30/25 22:00 09/03/25 22:15 5 MG Diagnostic Test (Pha) 1 strip Q6HR 09/02/25 00:00 09/03/25 18:40 1 STRIP Insulin Human Regular Q6HR SC 09/02/25 00:00 09/03/25 18:44 3 UNITS Dextrose 50 ml UD PRN IV 09/01/25 20:30 Lactulose 30 ml DAILY PO 09/03/25 10:00 09/03/25 10:13 30 ML Purified Water 100 ml Q6HR GT 09/02/25 18:00 09/03/25 10:13 100 ML Enteral Nutritional Formula 1,000 ml EOD@1600 GT 09/05/25 16:00 objective General: the patient is well developed and nourished. No acute distress. MENTAL STATUS: Subjective SPEECH, LANGUAGE, HIGHER CORTICAL FUNCTION: Subjective CRANIAL NERVES: Pupils are equal, round and reactive. EOMs full and conjugate. No spontaneous or evoked nystagmus. He has double vision when he looks to the right side. Sensorimotor examined in bilateral trigeminal distribution is fine. Right facial weakness of upper motor neuron pattern SENSATION: Sensation to touch and pinprick is normal. MOTOR: Increased muscle tone in the right upper and lower extremity. Normal muscle bulk. No fasciculations. No abnormal movements or posturing. Muscle strength of the major groups in the left upper and lower extremity is 4/5, right arm: 1-2/5, right le/5 REFLEXES: Deep tendon reflexes are increased in the right extremities, 4/4 @ right ankle. Upgoing toes in the the foot CEREBELLAR/COORDINATION: Finger to nose is unremarkable in the left upper extremity GAIT/STATION: Unsteady laboratory and microbiology Laboratory Tests 09/02/25 09:55 Test 09/02/25 09:55 Range/Units Serum Glucose 142 H 74-106 mg/dL Problem List Acute intra-abdominal hematoma likely secondary to anticoagulation treatment, Acute stroke Expressive aphasia secondary to acute stroke Acute right hemiplegia secondary to acute stroke Chronic strokes in 2017, 11/01/2022 with good recovery Atrial fibrillation Poor compliance Assessment/Plan Monitoring Supportive treatment Telemetry Eliquis 5 mg b.i.d. Lipitor 40 mg daily Up to chair Surgery on case This medical document was created using an electronic medical record system with [employer] dictation system. Although this document has been carefully reviewed, there may still be some phonetic and typographical errors. These areas are purely typographical due to imperfections of the software programs, and do not reflect any compromise in the patient's medical care Prognosis poor Dietary Evaluation Review Comments: 1. 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 If not able to eat d/t stroke, offer TPN per pharmacy to meet his needs 3. If EN/GI accessible, Tube feeding Glucerna@50ml/hr providing 70g protein 1440kcal 966ml free water meeting his needs @ 100% Protein,100% energy Expected Outcomes/Goals: Controlled DM, improved physical strength Plan discussed with: Other DARREL HEMPHILL MD Sep 03, 2025 23:53
[2025-09-04] VITALS (9 sets, daily range): BP systolic 134–161; BP diastolic 83–98; PULSE 8–89; RESP 16–19; TEMP 97.9–98.2; O2SAT 93–98
[2025-09-04] MEDS ORDERED: LACTULOSE 20Gm/30ML SOLN GT PRN (08:45)
[2025-09-04] MEDS: LACTULOSE 20Gm/30ML SOLN GT SCH (10:00)
--- NOTE | 2025-09-04 17:27 | DVHPN2 ---
Subjective Overnight events noted. Patient is currently waiting for transferred to long term facility at [facility] but they wanted to tube feeding changed from 24 hours to 16 hours a day orders has been placed. Patient's family member were updated at bedside in the presence of nurse Torres. Reviewed: Care Plan, H&P, Labs, Medications, Previous Orders Changes from previous H/P or p: No Changes General: Per HPI Objective Vitals Vital Signs Date Time Temp Pulse Resp B/P (MAP) Pulse Ox O2 Delivery O2 Flow Rate FiO2 09/04/25 16:43 98.2 86 18 134/83 (100) 95 98.2 09/04/25 08:00 Room Air* 0 21 Intake/Output Intake and Output 09/04/25 07:00 Intake Total 0 ml Output Total 700 ml Balance -700 ml Intake Oral 0 ml Output Urine Total 700 ml General Appearance: Alert, Oriented X3 HEENT: Atraumatic Cardiovascular: Regular rate, Normal S1, Normal S2 Abdomen: Normal bowel sounds Medications Current Medications Medications Dose Ordered Sig/Cash Route Start Time Stop Time Status Last Admin Dose Admin Ipratropium [place] 0.5 mg Q6HPRN PRN NEB 08/10/25 20:45 Cancel Hydralazine HCl 10 mg Q6HP PRN IV 08/15/25 22:00 09/04/25 13:16 10 MG Fat Emulsion Intravenous 200 ml/Potassium Chloride 30 meq/ Potassium Acetate 30 meq/Calcium Gluconate 4.6 meq/ Magnesium Sulfate 10 meq/ Multivitamins 10 ml/Chromium/ Copper/Manganese/ Zinc 1 ml/Insulin Human Regular 5 units/Amino Acids/ Dextrose/Purified Water 1,553.4424 ml @ 65 mls/hr [id number] IV 08/22/25 22:00 08/23/25 21:59 Cancel Fat Emulsion Intravenous 100 ml/Sodium Phosphate 20 meq/ Potassium Chloride 30 meq/ Potassium Acetate 30 meq/Calcium Gluconate 4.6 meq/ Magnesium Sulfate 10 meq/ Multivitamins 10 ml/Chromium/ Copper/Manganese/ Zinc 1 ml/Insulin Human Regular 8 units/Amino Acids/ Dextrose/Purified Water 1,558.4724 ml @ 65 mls/hr [id number] IV 08/23/25 22:00 08/24/25 21:59 Cancel Ondansetron HCl 4 mg Q4HPRN PRN IV 08/24/25 20:30 Pantoprazole Sodium 40 mg DAILY IV 08/25/25 10:00 09/04/25 10:00 40 MG Docusate Sodium 100 mg BID GT 08/28/25 22:00 09/04/25 10:00 100 MG Apixaban 5 mg BID GT 08/30/25 22:00 09/04/25 10:00 5 MG Diagnostic Test (Pha) 1 strip Q6HR 09/02/25 00:00 09/04/25 12:24 1 STRIP Insulin Human Regular Q6HR SC 09/02/25 00:00 09/04/25 12:00 3 UNITS Dextrose 50 ml UD PRN IV 09/01/25 20:30 Purified Water 100 ml Q6HR GT 09/02/25 18:00 09/04/25 12:23 100 ML Enteral Nutritional Formula 1,000 ml EOD@1600 GT 09/05/25 16:00 Lactulose 30 ml DAILYPRN PRN GT 09/04/25 08:45 Lactulose 30 ml DAILY GT 09/04/25 10:00 09/04/25 10:00 30 ML Laboratory Results Laboratory Tests 09/02/25 09:55 Urinalysis Test 08/11/25 08:15 Urine Color Light-yellow (Yellow) Urine Clarity Clear (Clear) Urine pH 6.5 (5.0-9.0) Urine Specific [place] 1.015 (1.001-1.035) Urine Protein Negative (Negative) Urine Ketones Negative (Negative) Urine Blood Negative /uL (Negative) Urine Nitrite Negative (Negative) Urine Bilirubin Negative (Negative) Urine Urobilinogen Normal mg/dL (Negative) Urine Leukocyte Esterase Negative /uL (Negative) Urine RBC 1 /hpf (0 - 3) Urine Microscopic WBC < 1 /HPF (0-3) Urine Squamous Epithelial Cells Few /hpf (<5) Urine Bacteria None seen /hpf (None Seen) Urine Glucose 1+ mg/dL (Normal) H Microbiology Microbiology Date/Time Source Procedure Growth Status 08/24/25 18:37 Blood Blood Culture - Final NO GROWTH AFTER 5 DAYS OF INCUBATION. Complete 08/11/25 02:20 Sputum Gram Stain - Final Complete 08/11/25 02:20 Sputum Respiratory Culture - Final Complete Assessment/Plan Assessment/Plan 59-year-old male with a previous history of CVA x2, presented to the hospital with a fall on the shoulder along with a right-sided weakness found to have 1. Acute CVA with the right-sided hemiparesis with a previous history of CVA with the left-sided weakness , status post MRI evidence of acute or subacute infarct in the left caudate nucleus on08/11, MRA evidence of acute infarct o of left periventricular white matter and left lateral basal ganglia on08/15 2. Dysphagia/aphasia, status post PEG tube [id number] , currently on tube feeding which has been changed from 24 hours to 16 hours a day. 3. Anterior abdominal wall hematoma with a CT evidence of hemorrhage just anterior to the stomach near the PEG tube, currently improving on the repeat CT abdomen and pelvis 4. Paroxysmal AFib currently on Eliquis 5. Hypertension 6. Diabetes mellitus type 2 7. Dyslipidemia -continue tube feeding 16 hours a day, continue Eliquis, watch for any active evidence of bleeding, discharge plan to long term facility once bed is available at [facility]. -family were updated at bedside in the presence of bedside RN Melissa., Plan discussed with: Patient My Orders Orders - DYLAN ZAMAN MD Procedure Category Date Status Time Basic Metabolic Panel LAB 09/04/25 Logged 13:34 Basic Metabolic Panel LAB 09/05/25 Verified 06:00 Complete Blood Count LAB 09/05/25 Verified 06:00 Magnesium LAB 09/05/25 Verified 06:00 Date of Service: Sep 04, 2025 Billing Provider: DYLAN ZAMAN MD Common Visit Codes: [id number] INP/OBS CARE(HIGH) DYLAN ZAMAN MD Sep 04, 2025 17:27
[2025-09-04 18:14] LABS: Chloride 103 mmol/L (98-107); Potassium 3.9 mmol/L (3.5-5.1); Sodium 141 mmol/L (136-145)
[2025-09-04 18:15] LABS: Anion Gap 13 (5-15); Carbon Dioxide 25 mmol/L (20-31)
[2025-09-04 18:20] LABS: BUN/Creatinine Ratio 17.4 (10.0-20.0); Blood Urea Nitrogen 16 mg/dL (9-23)
[2025-09-04 18:31] LABS: Calcium 8.0 mg/dL (8.7-10.4); Glucose 108 mg/dL (74-106)
[2025-09-04] MEDS: Glucerna 1.2 Cal 1Liter BOTTLE GT SCH (21:22)
[2025-09-05 01:00] VITALS: BP 130/76; PULSE 87; RESP 18; TEMP 97.6; O2SAT 97
[2025-09-05 05:00] VITALS: BP 136/81; PULSE 95; RESP 19; TEMP 98.4; O2SAT 97
[2025-09-05 08:00] VITALS: PULSE 75
[2025-09-05 09:00] VITALS: BP 131/80; PULSE 78; RESP 17; TEMP 98.2; O2SAT 97
--- NOTE | 2025-09-05 10:51 | DVHPN2 ---
Subjective No new complaints No abdominal pain Reviewed: Care Plan, H&P, Labs, Medications, Previous Orders Changes from previous H/P or p: Changes General: Per HPI Objective Vitals Vital Signs Date Time Temp Pulse Resp B/P (MAP) Pulse Ox O2 Delivery O2 Flow Rate FiO2 09/05/25 09:00 98.2 78 17 131/80 (97) 97 98.2 09/04/25 20:00 Room Air* 0 21 Intake/Output Intake and Output 09/05/25 07:00 Intake Total 0 ml Output Total 310 ml Balance -310 ml Intake Oral 0 ml Output Urine Total 310 ml # Voids 1 General Appearance: Alert, Oriented X3 HEENT: Atraumatic Cardiovascular: Regular rate, Normal S1, Normal S2 Abdomen: Normal bowel sounds Medications Current Medications Medications Dose Ordered Sig/Cash Route Start Time Stop Time Status Last Admin Dose Admin Ipratropium [place] 0.5 mg Q6HPRN PRN NEB 08/10/25 20:45 Cancel Hydralazine HCl 10 mg Q6HP PRN IV 08/15/25 22:00 09/04/25 13:16 10 MG Fat Emulsion Intravenous 200 ml/Potassium Chloride 30 meq/ Potassium Acetate 30 meq/Calcium Gluconate 4.6 meq/ Magnesium Sulfate 10 meq/ Multivitamins 10 ml/Chromium/ Copper/Manganese/ Zinc 1 ml/Insulin Human Regular 5 units/Amino Acids/ Dextrose/Purified Water 1,553.4424 ml @ 65 mls/hr [id number] IV 08/22/25 22:00 08/23/25 21:59 Cancel Fat Emulsion Intravenous 100 ml/Sodium Phosphate 20 meq/ Potassium Chloride 30 meq/ Potassium Acetate 30 meq/Calcium Gluconate 4.6 meq/ Magnesium Sulfate 10 meq/ Multivitamins 10 ml/Chromium/ Copper/Manganese/ Zinc 1 ml/Insulin Human Regular 8 units/Amino Acids/ Dextrose/Purified Water 1,558.4724 ml @ 65 mls/hr [id number] IV 08/23/25 22:00 08/24/25 21:59 Cancel Ondansetron HCl 4 mg Q4HPRN PRN IV 08/24/25 20:30 Pantoprazole Sodium 40 mg DAILY IV 08/25/25 10:00 09/05/25 10:00 40 MG Docusate Sodium 100 mg BID GT 08/28/25 22:00 09/05/25 09:59 100 MG Apixaban 5 mg BID GT 08/30/25 22:00 09/05/25 09:59 5 MG Diagnostic Test (Pha) 1 strip Q6HR 09/02/25 00:00 09/05/25 06:22 1 STRIP Insulin Human Regular Q6HR SC 09/02/25 00:00 09/05/25 06:24 4 UNITS Dextrose 50 ml UD PRN IV 09/01/25 20:30 Purified Water 100 ml Q6HR GT 09/02/25 18:00 09/05/25 06:22 100 ML Lactulose 30 ml DAILYPRN PRN GT 09/04/25 08:45 Lactulose 30 ml DAILY GT 09/04/25 10:00 09/05/25 09:59 30 ML Enteral Nutritional Formula 1,000 ml DAILY@1600 GT 09/04/25 21:05 09/04/25 21:22 1,000 ML Laboratory Results Laboratory Tests 09/02/25 09:55 09/04/25 17:45 Chemistry Test 09/04/25 17:45 Calcium Level 8.0 mg/dL (8.7-10.4) L Urinalysis Test 08/11/25 08:15 Urine Color Light-yellow (Yellow) Urine Clarity Clear (Clear) Urine pH 6.5 (5.0-9.0) Urine Specific [place] 1.015 (1.001-1.035) Urine Protein Negative (Negative) Urine Ketones Negative (Negative) Urine Blood Negative /uL (Negative) Urine Nitrite Negative (Negative) Urine Bilirubin Negative (Negative) Urine Urobilinogen Normal mg/dL (Negative) Urine Leukocyte Esterase Negative /uL (Negative) Urine RBC 1 /hpf (0 - 3) Urine Microscopic WBC < 1 /HPF (0-3) Urine Squamous Epithelial Cells Few /hpf (<5) Urine Bacteria None seen /hpf (None Seen) Urine Glucose 1+ mg/dL (Normal) H Microbiology Microbiology Date/Time Source Procedure Growth Status 08/24/25 18:37 Blood Blood Culture - Final NO GROWTH AFTER 5 DAYS OF INCUBATION. Complete 08/11/25 02:20 Sputum Gram Stain - Final Complete 08/11/25 02:20 Sputum Respiratory Culture - Final Complete Assessment/Plan Assessment/Plan Acute CVA with right hemiparesis Old CVA Mixed hyperlipidemia HTN DM2 Dysphagia Aphasia Paroxysmal Atrial fibrillation PLAN: NPO IV nutrition Swallow eval Lovenox Eliquis Monitor Discussed with family at the bedside 08/18/2025: Continue NPO Start TPN Swallow eval to be done today Continue Lovenox We will switch Lovenox to Eliquis once he is able to start p.o. intake Monitor closely 08/19/2025: Continue NPO The patient failed a swallow eval He needs a G-tube Consult GI for a PEG tube Continue IV nutrition per pharmacy protocol Hold Eliquis Lovenox 1 milligram/kilogram subcutaneously q.12 hours Discussed with the family at the bedside, the and son, they are in agreement 08/20/2025: Continue NPO The patient is scheduled for a PEG tube on Friday Hold anticoagulation 08/21/2025: Continue NPO Peg tube placement in the morning Continue to hold anticoagulation 08/22/2025: PEG tube today NPO until then Discharge planning Family is thinking about SNF versus physical therapy at home with home health 08/23/2025: Start tube feeding Discontinue IV nutrition Arrange SNF for rehab 08/24/25: Sepsis Bleeding at the PEG tube site Hematoma BERTA PLAN: Cancel discharge NPO IV fluids IV antibiotics Blood cultures PEG tube to low continuous suction Dr. Carlos Rosen was made aware Abdominal binding Ordered CTA abdomen to rule out active bleeding Monitor h/h 08/25/2025: The patient is still tachycardic Continue IV fluids Continue IV antibiotics NPO PEG tube to suction Surgical consult is on the case Keep holding anticoagulation for now Discussed with the family at the bedside 08/26/25: Start feeding today IV antibiotics IV fluids Surgery is following, conservative Tx 08/27/2025: Continue the tube feeding at 30 mL an hour Continue IV antibiotics Constipation: Give lactulose Discontinue IV fluids 08/28/2025: Acute CVA: Continue tube feeding Continue IV antibiotics Constipation: Lactulose p.r.n. Colace Atrial fibrillation: Continue to hold anticoagulation for now Weakness: Plan to send to SNF in 1-2 days Discussed with the daughter at the bedside 08/30/25: DC to SNF once a bed is available Eliquis bid Tolerating feeding formula 08/31/2025: Continue current management pending placement at SNF for rehab 09/01/25: Continue the same DC to SNF once a bed is available 09/02/2025: Constipation: Give lactulose , continue Colace Hold the feeding until the patient gets a bowel movement then increase the rate to 40 mL an hour Add free water Hypokalemia: Replace potassium per G-tube Discontinue IV antibiotics Discharge to SNF once a bed is available Paroxysmal Atrial fibrillation: Continue Eliquis 09/05/25: Acute CVA Paroxysmal Afib Change feeding to 60 ml/hr x 16 hours daily Free water 100 ml q 6 hrs GT tube Continue Lactulose 30 ml daily prn Colace 100 mg bid Physical therapy Eliquis 5 mg bid Transfer to SNF once a bed is available Plan discussed with: Patient, Spouse, Daughter Date of Service: Sep 05, 2025 Billing Provider: RACHID KERR MD Common Visit Codes: [id number] INP/OBS CARE(HIGH) RACHID KERR MD Sep 05, 2025 10:51
--- NOTE | 2025-09-05 10:57 | DVHDS2 ---
Discharge Summary Date of Admission Aug 10, 2025 at 20:40 Date of Discharge: Aug 29, 2025 Labs/Diagnostic Data: Laboratory Results Test 09/05/25 00:07 09/04/25 17:45 09/02/25 09:55 08/24/25 19:24 POC Glucose 144 mg/dl (70-106) Sodium Level 141 mmol/L (136-145) Potassium Level 3.9 mmol/L (3.5-5.1) Chloride Level 103 mmol/L (98-107) Carbon Dioxide Level 25 mmol/L (20-31) Anion Gap 13 (5-15) Blood Urea Nitrogen 16 mg/dL (9-23) Creatinine 0.92 mg/dL (0.700-1.30) Glomerular Filtration Rate Calc 96 mL/min (>90) BUN/Creatinine Ratio 17.4 (10.0-20.0) Serum Glucose 108 mg/dL (74-106) Calcium Level 8.0 mg/dL (8.7-10.4) White Blood Count 8.3 10^3/uL (4.4-10.8) Red Blood Count 4.05 10^6/uL (4.5-5.90) Hemoglobin 11.8 g/dL (13.5-17.5) Hematocrit 35.6 % (41.0-53.0) Mean Corpuscular Volume 87.9 fL (80.0-100.0) Mean Corpuscular Hemoglobin 29.3 pg (28.0-32.0) Mean Corpuscular Hemoglobin Concent 33.3 g/dL (32.0-36.0) Red Cell Distribution Width 14.6 % (11.8-14.3) Platelet Count 394 10^3/uL (140-450) Mean Platelet Volume 7.6 fL (6.9-10.8) Neutrophils (%) (Auto) 60.0 % (37.0-80.0) Lymphocytes (%) (Auto) 29.6 % (10.0-50.0) Monocytes (%) (Auto) 7.3 % (0.0-12.0) Eosinophils (%) (Auto) 2.5 % (0.0-7.0) Basophils (%) (Auto) 0.6 % (0.0-2.0) Neutrophils # (Auto) 5.0 10 ^3/uL (1.6-8.6) Lymphocytes # (Auto) 2.4 10 ^3/uL (0.4-5.4) Monocytes # (Auto) 0.6 10 ^3/uL (0-1.3) Eosinophils # (Auto) 0.2 10 ^3/uL (0-0.8) Basophils # (Auto) 0.1 10 ^3/uL (0-0.2) Nucleated Red Blood Cells 0.0 % Magnesium Level 2.0 mg/dL (1.6-2.6) Total Bilirubin 0.4 mg/dL (0.2-1.0) Aspartate Amino Transferase (AST) 30 U/L (13-40) Alanine Aminotransferase (ALT) 27 U/L (7-40) Alkaline Phosphatase 57 U/L (46-116) Total Protein 6.1 g/dL (5.7-8.2) Albumin 2.9 g/dL (3.2-4.8) Prothrombin Time 11.3 sec (9.3-11.8) Prothrombin Time INR 1.07 (0.9-1.15) Activated Partial Thromboplast Time 32.6 SEC (24.5-34.5) Test 08/23/25 06:30 08/21/25 04:55 08/20/25 05:50 08/18/25 05:00 Phosphorus Level 3.0 mg/dL (2.4-5.1) Triglycerides Level 97 mg/dL (< 150) Hemoglobin A1c 8.0 % A1C (<5.7) Thyroid Stimulating Hormone (TSH) 0.62 uIU/mL (0.55-4.78) Estimated GFR () 111 mL/min Estimated GFR (Non- 92 mL/min Test 08/11/25 08:15 08/11/25 00:03 Urine Color Light-yellow (Yellow) Urine Clarity Clear (Clear) Urine pH 6.5 (5.0-9.0) Urine Specific [place] 1.015 (1.001-1.035) Urine Protein Negative (Negative) Urine Ketones Negative (Negative) Urine Blood Negative /uL (Negative) Urine Nitrite Negative (Negative) Urine Bilirubin Negative (Negative) Urine Urobilinogen Normal mg/dL (Negative) Urine Leukocyte Esterase Negative /uL (Negative) Urine RBC 1 /hpf (0 - 3) Urine Microscopic WBC < 1 /HPF (0-3) Urine Squamous Epithelial Cells Few /hpf (<5) Urine Bacteria None seen /hpf (None Seen) Urine Glucose 1+ mg/dL (Normal) Urine Opiates Screen Neg (NEGATIVE) Urine Fentanyl Screen Neg (NEGATIVE) Urine Barbiturates Screen Neg (NEGATIVE) Urine Phencyclidine Screen Neg (NEGATIVE) Urine Amphetamines Screen Neg (NEGATIVE) Urine Benzodiazepines Screen Neg (NEGATIVE) Urine Cocaine Screen Neg (NEGATIVE) Urine Cannabinoids Screen Neg (NEGATIVE) Influenza Type A Antigen Negative (Negative) Influenza Type B Antigen Negative (Negative) SARS-CoV-2 Antigen (Rapid) Negative (NEGATIVE) Other Laboratory Tests 09/04/25 17:45 09/02/25 09:55 Brief Hx & Hospital Course: Final diagnoses: Acute CVA with right hemiparesis Old CVA Mixed hyperlipidemia HTN DM2 Dysphagia Aphasia Paroxysmal Atrial fibrillation 59-year-old male who was admitted for weakness and right hemiparesis and was diagnosed with acute CVA He underwent a PEG tube placement because of dysphagia and aphasia He was going to be discharged to the SNF however just before discharge he developed abdominal pain and oozing from the PEG tube, he was started on Lovenox before discharge and therefore it was stopped and then a CT scan was done to evaluate for his abdominal pain which showed a hematoma but no active bleeding He was observed in the hospital NPO and a repeat CT scan was just done again which showed stable hematoma with no increase in the size and no active bleeding Overall he did well since then and then he was started on his tube feeding again and he is tolerating the tube feeding fine Due to weakness he will need rehab at a residential facility and therefore he will be discharged for physical therapy For his atrial fibrillation he needs to be on Eliquis Stable for discharge to SNF Feeding formula was changed to 60 ml/hr x 16 hours daily, tolerating well Lactulose 30 ml qd prn Colace 100 mg bid Eliquis 5 mg bid Condition at Discharge: Stable Final Diagnosis/Problems List Acute CVA with right hemiparesis Old CVA Mixed hyperlipidemia HTN DM2 Dysphagia Aphasia Status post PEG tube placement Discharge Disposition: [facility] SNF Discharge Will this Physician continue t: No Discharge Instruct/Medications Diet: See Comment Diet comment: Glucerna via G-tube Activity: No Restrictions, As Tolerated Follow Up/Referral: SNF MD Medications: See the medication reconciliation Scheduled Amlodipine Besylate (Amlodipine Besylate), 5 MG PO DAILY, (Reported) Apixaban Base (Eliquis), 5 MG PO BID Atorvastatin Calcium (Atorvastatin Calcium), 1 TAB PO DAILY, (Reported) Metformin Hydrochloride (Metformin Hcl), 500 MG PO DAILY, (Reported) Pantoprazole Sodium Sesquihydr (Protonix), 40 MG PO DAILY Miscellaneous Medications Empagliflozin (Jardiance), Unknown Dose PO, (Reported) Discharge Statement: "Patient was advised to return to the ER or call 911 if any headaches, dizziness, shortness of breath, chest pain, abdominal pain, bleeding, fevers, or worsening of medical condition. Patient was counseled about treatment plan, medications, possible side effects, patientverbalized understanding. All questions were answered to the best of my ability. This discharge took greater then 30 minutes in planning, reviewing documentation, counseling the patient, and discussing with other team members." ASSESSMENT ASSESSMENT Assessment Acute CVA with right hemiparesis Old CVA Mixed hyperlipidemia HTN DM2 Dysphagia Aphasia Status post PEG tube placement Date of Service: Sep 05, 2025 Billing Provider: RACHID KERR MD Common Visit Codes: [id number] DISCH DAY >30min RACHID KERR MD Sep 05, 2025 10:57
[2025-09-05] MEDS ORDERED: Glucerna 1.2 Cal 1Liter BOTTLE GT SCH ×2 (11:00→16:00)
[2025-09-05 12:02] LABS: Hematocrit 39.6 % (41.0-53.0); Hemoglobin 13.3 g/dL (13.5-17.5); Mean Corpuscular Hemoglobin 29.6 pg (28.0-32.0); Mean Corpuscular Volume 87.8 fL (80.0-100.0); Nucleated Red Blood Cells % 0.0 %
[2025-09-05 12:09] LABS: Chloride 102 mmol/L (98-107); Potassium 3.8 mmol/L (3.5-5.1); Sodium 137 mmol/L (136-145)
[2025-09-05 12:10] LABS: Anion Gap 9 (5-15); Carbon Dioxide 26 mmol/L (20-31)
[2025-09-05 12:15] LABS: BUN/Creatinine Ratio 17.6 (10.0-20.0); Blood Urea Nitrogen 19 mg/dL (9-23)
[2025-09-05 12:16] LABS: Magnesium 2.0 mg/dL (1.6-2.6)
[2025-09-05 12:25] LABS: Calcium 8.6 mg/dL (8.7-10.4); Glucose 232 mg/dL (74-106)
[2025-09-05 13:00] VITALS: BP 153/87; PULSE 90; RESP 17; TEMP 98.5; O2SAT 95
[2025-09-05 17:00] VITALS: BP 148/82; PULSE 91; RESP 17; TEMP 98; O2SAT 97
== END 2025-09-05 18:30 | DRG 64 ==
LOC: ER 15:59 → OVERFLOW 20:40 → TELE-WESTW 23:50 → WEST WING 08-26 23:04 → TELE-WESTW 08-27 11:25
PROVIDERS: ADMIT Internal Medicine Geriatric Medicine; ATTEND Internal Medicine Geriatric Medicine
PROC: 0DB68ZX Excision of Stomach, Via Natural or Artificial Opening Endoscopic, Diagnostic (ICD-10-PCS; 2025-08-22)
PROC: 0DB78ZX Excision of Stomach, Pylorus, Via Natural or Artificial Opening Endoscopic, Diagnostic (ICD-10-PCS; 2025-08-22)
PROC: 0DH63UZ Insertion of Feeding Device into Stomach, Percutaneous Approach (ICD-10-PCS; principal; 2025-08-22 12:49)
DX: I63.9 Cerebral infarction, unspecified (principal); A41.9 Sepsis, unspecified organism; G81.91 Hemiplegia, unspecified affecting right dominant side; K22.10 Ulcer of esophagus without bleeding; S09.8XXA Other specified injuries of head, initial encounter; E44.1 Mild protein-calorie malnutrition; S36.892A Contusion of other intra-abdominal organs, initial encounter; N17.9 Acute kidney failure, unspecified; Z79.01 Long term (current) use of anticoagulants; E11.65 Type 2 diabetes mellitus with hyperglycemia; I10 Essential (primary) hypertension; G81.94 Hemiplegia, unspecified affecting left nondominant side; Z20.822 Contact with and (suspected) exposure to COVID-19; K29.80 Duodenitis without bleeding; E86.0 Dehydration; R47.01 Aphasia; E78.2 Mixed hyperlipidemia; E78.5 Hyperlipidemia, unspecified; K44.9 Diaphragmatic hernia without obstruction or gangrene; K29.40 Chronic atrophic gastritis without bleeding; I48.0 Paroxysmal atrial fibrillation; K94.21 Gastrostomy hemorrhage; K21.9 Gastro-esophageal reflux disease without esophagitis; R13.10 Dysphagia, unspecified; R13.12 Dysphagia, oropharyngeal phase; Z86.73 Personal history of transient ischemic attack (TIA), and cerebral infarction without residual deficits; F17.200 Nicotine dependence, unspecified, uncomplicated; Z82.49 Family history of ischemic heart disease and other diseases of the circulatory system; Z83.3 Family history of diabetes mellitus; Z68.23 Body mass index [BMI] 23.0-23.9, adult; Z87.442 Personal history of urinary calculi; W11.XXXA Fall on and from ladder, initial encounter; Y84.8 Other medical procedures as the cause of abnormal reaction of the patient, or of later complication, without mention of misadventure at the time of the procedure; Y92.238 Other place in hospital as the place of occurrence of the external cause; Z79.899 Other long term (current) drug therapy; Z79.84 Long term (current) use of oral hypoglycemic drugs; Y93.89 Activity, other specified; Y92.89 Other specified places as the place of occurrence of the external cause; Y99.8 Other external cause status
CPT/HCPCS: 36415; 43239; 43246; 70450; 70551; 71045; 73030; 74176; 75635; 80048; 80053; 80069; 80307; 81001; 82962; 83036; 83735; 84100; 84443; 84478; 85025; 85610; 85730; 86850; 86900; 86901; 87040; 87070; 87205; 87426; 87804; 92610; 93005; 93306; 93886; 94640; 97110; 97116; 97163; 97530; G0378; J1100; J1815; J2250; J2405; J2470; J3480; J3490